=== PATIENT | female | born 1960 | race African-American/Black ===

== ENCOUNTER → 2017-09-25 | Outpatient (CLI) | payer BC ==
[2015-09-27 13:14] VITALS: BP 136/72
--- NOTE | 2017-09-26 10:09 | MG ---
Examination: Bilateral screening mammogram. Clinical history: Routine screening. Technique: Digital CC and MLO views of both breasts were obtained. Computer aided detection analysis was performed and used during the interpretation. Comparison: 09/24/2016. Findings: The breasts are composed of scattered fibroglandular densities. Benign-appearing calcifications and v ascular calcifications are noted in the breasts bilaterally. Stable small intramammary lymph nodes ar e present in the upper outer aspect of the left breast. A skin mole is present overlying the left elsa ast. No suspicious mass, area of architectural distortion or suspicious cluster of microcalcifications is noted. Impression: 1. No mammographic evidence of malignancy. BI-RADS category 2-benign findings. Recommend routine annual screening mammogram. Diagnostic CAD was utilized and reviewed. * 0 (ZERO) - ASSESSMENT INCOMPLETE; ADDITIONAL IMAGING IS NEEDED. * 0C - ASSESSMENT INCOMPLETE, NEEDS ADDITIONAL IMAGING EVALUATION AND/OR PRIOR MAMMOGRAMS FOR COMPARI SON. * 1/1 (ONE) - NEGATIVE. * 2/II (TWO) - BENIGN FINDINGS. * 3/III (THREE) - PROBABLY BENIGN FINDING; SHORT INTERVAL FOLLOW-UP SUGGESTED. * 4/IV (FOUR) - SUSPICIOUS ABNORMALITY; BIOPSY SHOULD BE CONSIDERED. * 5/V - HIGHLY SUSPICIOUS OF MALIGNANCY; BIOPSY SHOULD BE PERFORMED. * 6/IV - KNOWN BIOPSY PROVEN MALIGNANCY-APPROPRIATE ACTION SHOULD BE TAKEN. A NEGATIVE X-RAY REPORT SHOULD NOT DELAY BIOPSY IF A DOMINANT OR CLINICALLY SUSPICIOUS MASS IS PRESENT; 4 TO 8 PERCENT OF CANCERS ARE NOT IDENTIFIED BY X-RAY. A NEGATIVE REPORT MAY REINFORCE THE CLINICAL IMPRESSION. ADENOSIS AND DENSE BREASTS MAY OBSCURE AN UNDERLYING NEOPLASM. Reported By:
== END ==
LOC: RAD 14:15
PROVIDERS: ATTEND Specialist
DX: Z12.31 Encounter for screening mammogram for malignant neoplasm of breast (principal)
CPT/HCPCS: 77067

== ENCOUNTER 2017-12-10 05:32 | Emergency (ER) | payer BC ==
--- NOTE | 2017-12-10 06:10 | DR.GENAD ---
HPI - PCP Primary Care Physician: PERI - HPI Comment HPI Comment: HISTORY BOWEL RESECTION DUE TO CANCER. SYMTOMS GETTING WORSE. - Complaint/Symptoms Chief Complaint Doctors Comments: NAUSEA, VOMITNG AND ABDOMINAL PAIN.HAPPEN ALL NIGHT. ABDOMEN IS DISTENDED. Chief Complaint:: PT STATES" I HAVE BEEN THROWING UP ALL NIGHT AND I'M CONSTIPATED MY STOMACH IS HARD" - Nurses notes reviewed Nurses Notes Review: Yes - Source History Provided: Patient - Mode of Arrival Mode of Arrival: Ambulatory - Timing Onset of Chief Complaint: 12/09/17 Came on: Suddenly - Duration Duration: Constant Duration: Days - Severity Severity: Moderate PMH - PMH Past Medical History: Yes Past Medical History: Dyslipidemia, GERD, Hypertension Past Surgical History: Yes Surgical History: Bowel Resection, Cholecystectomy, Hysterectomy Past Surgical History Comment: PART OF STOMACH REMOVED DUE TO CANCER - Family History History of Family Medical Conditions: Yes Family Medical History: Cancer - Social History Does any household member use tobacco: No Alcohol Use: None Do you use any recreational Drugs:: No Lives With: Family Lives Where: Home - infectious screening In the last 2 months have you had wt loss of >10#?: NO Have you had fever, night sweats or hemotysis?: No Have you traveled outside the country in the last 6 months?: No Isolation: Standard ROS - Review of Systems Constitutional: Weakness, Fatigue. negative: Chills, Fever Eyes: No Symptoms Reported, Photophobia ENTM: negative: Ear Pain, Nose Discharge, Nose Congestion, Throat Pain Respiratoy: Short of Breath. negative: Wheezing, Hemoptysis Cardiovascular: negative: Edema Gastrointestinal/Abdominal: Abdominal Pain, Constipation, Nausea, Vomiting Genitourinary: negative: Dysuria, Frequency, Hematuria Neurological: Headache Musculoskeletal: Muscle Pain Integumentary: Dryness Hematologic/Lymphatic: Anemia Endocrine: No Symptoms Reported All Other Systems: Reviewed and Negative PE - Vital Signs Vitals: Temperature 97.7 F Pulse Rate 76 Respiratory Rate 16 Blood Pressure [Right Arm] 135/86 Blood Pressure [Left Arm] 145/76 Blood Pressure [Left Radial 126/65 Artery] Blood Pressure 121/77 O2 Sat by Pulse Oximetry 99 - General Limitations: No Limitations General Appearance: Alert - Head Head Exam: Normal Inspection - Eyes Eye exam: Normal Appearance - ENT ENT Exam: Normal External Ear Exam External Ear Exam: Normal External Inspection TM/Canal Exam: Bilateral Normal Nose Exam: Normal Nose Exam Mouth Exam: Normal Inspection Throat Exam: Normal Inspection - Neck Neck Exam: Trachea Midline - Chest Chest Inspection: Symmetric Chest Wall Rise - Respiratory Respiratory Exam: Normal Lung Sounds Bilat Respiratory Exam: Bilateral Clear to Auscultation - Cardiovascular Cardiovascular Exam: Regular Rate, Normal Rhythm, Normal Heart Sounds - Abdominal Exam Abdominal Exam: Normal Bowel Sounds, Soft, Tenderness Abdominal Tenderness: Diffuse, Moderate - Extremities Extremities Exam: Normal Inspection - Back Back Exam: Normal Inspection - Neurologic Neurological Exam: Alert, Oriented X3 - Psychiatric Psychiatric Exam: Normal Affect, Normal Mood - Skin Skin Exam: Normal Color MDM - Additional Information Additional Information Obtained From: Family - Differential Diagnosis Differential Diagnosis: ABDOMINAL PAIN, BOWEL OBSTRUCTION, Course - Treatment Treatment: SEE ORDERS. - Education/Counseling Education/Counseling: Patient, Family, Education Educated On: Diagnosis ROR - Labs Reviewed Laboratory Results Reviewed?: Yes Result Diagrams: 12/11/17 06:31 12/11/17 06:31 Laboratory: WBC 7.0 X10^3/uL (3.6-10.0) 12/10/17 06:24 RBC 4.62 X10^6/uL (3.5-5.4) 12/10/17 06:24 Hgb 12.5 g/dL (12.0-16.0) 12/10/17 06:24 Hct 37.3 % (36.0-47.0) 12/10/17 06:24 MCV 80.9 fL (80.0-100.0) 12/10/17 06:24 MCH 27.1 pg (27.0-34.0) 12/10/17 06:24 MCHC 33.5 g/dL (33.0-35.0) 12/10/17 06:24 RDW 18.0 % (11.6-16.5) H 12/10/17 06:24 Plt Count 174 X10^3/uL (150.0-450.0) 12/10/17 06:24 Plt Count Comment Adequate (ADEQUATE) 12/10/17 06:24 MPV 8.1 fL (7.4-11.0) 12/10/17 06:24 Neut % (Auto) 83.6 % (42.0-75.0) H 12/10/17 06:24 Lymph % (Auto) 11.0 % (21.0-51.0) L 12/10/17 06:24 [place] % (Auto) 3.9 % (0.0-13.0) 12/10/17 06:24 Eos % (Auto) 0.6 % (0.9-2.9) L 12/10/17 06:24 Baso % (Auto) 0.9 % (0.2-1.0) 12/10/17 06:24 Neut # (Auto) 5.9 x10^3/uL (2.2-4.8) H 12/10/17 06:24 Lymph # (Auto) 0.8 X10^3/uL (1.3-2.9) L 12/10/17 06:24 [place] # (Auto) 0.3 x10^3/uL (0.3-0.8) 12/10/17 06:24 Eos # (Auto) 0.0 x10^3/uL (0.0-0.2) 12/10/17 06:24 Baso # (Auto) 0.1 X10^3/uL (0.0-0.1) 12/10/17 06:24 Absolute Nucleated RBC 0.1 /100WBC 12/10/17 06:24 Plt Morphology Comment Normal (NORMAL) 12/10/17 06:24 RBC Morphology Normal (NORMAL) 12/10/17 06:24 Sodium 139 mmol/L (136-145) 12/10/17 06:24 Corrected Sodium 140 mmol/L (136-145) 12/10/17 06:24 Potassium 3.7 mmol/L (3.5-5.1) 12/10/17 06:24 Chloride 100 mmol/L (98-107) 12/10/17 06:24 Carbon Dioxide 28.8 mmol/L (21-32) 12/10/17 06:24 BUN 12 mg/dL (7-18) 12/10/17 06:24 Creatinine 0.92 mg/dL (0.55-1.02) 12/10/17 06:24 Est GFR (MDRD) Af Amer > 60 (>60) 12/10/17 06:24 Est GFR (MDRD) Non-Af > 60 (>60) 12/10/17 06:24 Glucose 153 mg/dL (65-99) H 12/10/17 06:24 Calcium 8.6 mg/dL (8.5-10.1) 12/10/17 06:24 Corrected Calcium TNP 12/10/17 06:24 Total Bilirubin 0.30 mg/dL (0.2-1.0) 12/10/17 06:24 AST 16 Units/L (15-37) 12/10/17 06:24 ALT 28 Units/L (12-78) 12/10/17 06:24 Alkaline Phosphatase 136 Units/L (46-116) H 12/10/17 06:24 Total Protein 7.4 g/dL (6.4-8.2) 12/10/17 06:24 Albumin 3.5 g/dL (3.4-5.0) 12/10/17 06:24 Globulin 3.9 g/dL (2.5-4.5) 12/10/17 06:24 Albumin/Globulin Ratio 0.9 Ratio (1.1-2.1) L 12/10/17 06:24 Amylase 53 Units/L (25-115) 12/10/17 06:24 Lipase 72 Units/L (73-393) L 12/10/17 06:24 Specimen Type Clean catch urine 12/10/17 06:08 Urine Color Yellow (YELLOW) 12/10/17 06:08 Urine Appearance Slightly hazy (CLEAR) 12/10/17 06:08 Urine pH 6.5 (5.0 - 8.0) 12/10/17 06:08 Ur Specific [place] 1.015 (1.000-1.030) 12/10/17 06:08 Urine Protein 2+ (NEGATIVE) 12/10/17 06:08 Urine Glucose (UA) 1+ (NEGATIVE) 12/10/17 06:08 Urine Ketones Negative (NEGATIVE) 12/10/17 06:08 Urine Occult Blood 2+ (NEGATIVE) 12/10/17 06:08 Urine Nitrite Negative (NEGATIVE) 12/10/17 06:08 Urine Bilirubin Negative (NEGATIVE) 12/10/17 06:08 Urine Urobilinogen Normal (NORMAL) 12/10/17 06:08 Ur Leukocyte Esterase 2+ (NEGATIVE) 12/10/17 06:08 Urine RBC 3-5 /HPF (NONE SEEN) 12/10/17 06:08 Urine WBC 5-10 /HPF (NONE SEEN) 12/10/17 06:08 Ur Squamous Epith Cells Few /HPF (NEGATIVE) 12/10/17 06:08 Urine Bacteria 1+ /HPF (NEGATIVE) 12/10/17 06:08 Urine Mucus Few /HPF (NEGATIVE) 12/10/17 06:08 Ur Culture Indicated? Yes/culture set up 12/10/17 06:08 - XRAY XRAY Interpreted by: Radiologist - Diagnosis Discharge Problem: Disease ruled out after examination Abdominal pain Qualifiers: Abdominal location: generalized Qualified Code(s): R10.84 - Generalized abdominal pain UTI (urinary tract infection) Qualifiers: Urinary tract infection type: site unspecified Hematuria presence: without hematuria Qualified Code(s): N39.0 - Urinary tract infection, site not specified - Discharge Plan Disposition: ADMITTED INPATIENT Condition: Stable - Follow ups/Referrals - Instructions
[2017-12-10 06:23] LABS: BILIRUBIN,URINE NEGATIVE (NEGATIVE); BLOOD/HEMOGLOBIN,URINE 2+ (NEGATIVE); GLUCOSE, URINE 1+ (NEGATIVE); KETONES,URINE NEGATIVE (NEGATIVE); LEUKOCYTE ESTERASE ,URINE 2+ (NEGATIVE); NITRITES,URINE NEGATIVE (NEGATIVE); PH,URINE 6.5 (5.0 - 8.0); PROTEIN,URINE 2+ (NEGATIVE); UROBILINOGEN,URINE NORMAL (NORMAL)
[2017-12-10 06:29] LABS: APPEARANCE,URINE SLIGHTLY HAZY (CLEAR); BACTERIA,URINE 1+ /HPF (NEGATIVE); COLOR,URINE YELLOW (YELLOW); MUCUS,URINE FEW /HPF (NEGATIVE); SQUAMOUS EPITHELIAL CELL,UR FEW /HPF (NEGATIVE)
[2017-12-10 06:38] LABS: BASOPHILS # (AUTO) 0.1 X10^3/uL (0.0-0.1); BASOPHILS % (AUTO) 0.9 % (0.2-1.0); EOSINOPHILS % (AUTO) 0.6 % (0.9-2.9); HEMATOCRIT 37.3 % (36.0-47.0); HEMOGLOBIN 12.5 g/dL (12.0-16.0); LYMPHOCYTES # (AUTO) 0.8 X10^3/uL (1.3-2.9); MEAN CORPUSCULAR HEMOGLOBIN 27.1 pg (27.0-34.0); MEAN CORPUSCULAR HGB CONC 33.5 g/dL (33.0-35.0); MEAN CORPUSCULAR VOLUME 80.9 fL (80.0-100.0); MEAN PLATELET VOLUME 8.1 fL (7.4-11.0); MONOCYTES # (AUTO) 0.3 x10^3/uL (0.3-0.8); MONOCYTES % (AUTO) 3.9 % (0.0-13.0); NEUTROPHILS # (AUTO) 5.9 x10^3/uL (2.2-4.8); NEUTROPHILS % (AUTO) 83.6 % (42.0-75.0); PLATELET COUNT 174 X10^3/uL (150.0-450.0); RED BLOOD COUNT 4.62 X10^6/uL (3.5-5.4)
[2017-12-10 06:50] LABS: ALANINE AMINOTRANSFERASE 28 Units/L (12-78); ALBUMIN 3.5 g/dL (3.4-5.0); ALKALINE PHOSPHATASE 136 Units/L (46-116); AMYLASE 53 Units/L (25-115); ASPARTATE AMINO TRANSFERASE 16 Units/L (15-37); BLOOD UREA NITROGEN 12 mg/dL (7-18); CALCIUM 8.6 mg/dL (8.5-10.1); CARBON DIOXIDE 28.8 mmol/L (21-32); CHLORIDE 100 mmol/L (98-107); COR NA(FOR HYPERGLY) 140 mmol/L (136-145); CREATININE 0.92 mg/dL (0.55-1.02); LIPASE 72 Units/L (73-393); SODIUM 139 mmol/L (136-145); TOTAL PROTEIN 7.4 g/dL (6.4-8.2); eGFR BLACK RACES > 60 (>60); eGFR NON BLACK RACES > 60 (>60)
[2017-12-10 07:03] LABS: PLATELET MORPHOLOGY COMMENT NORMAL (NORMAL)
--- NOTE | 2017-12-10 07:34 | CT ---
HISTORY: Abdominal pain, vomiting, constipation. Prior surgical history of bowel surgery, gallbladde r, hysterectomy and stomach surgery. Study: CT abdomen and pelvis done without IV or oral contrast Comparison: 05/02/2015. Technique: Non contrasted CT images of the abdomen and pelvis are reviewed in axial, coronal and sagi ttal planes. Dose reduction techniques utilized automatic exposure control. Findings: Lung bases are clear. The liver, spleen, pancreas, adrenal glands and kidneys are normal. There are s urgical changes present involving the upper abdomen with evidence of removal of the transverse colon. Surgical clips are present involving the gastric body as well. No evidence of residual or recurrent mass is seen. There is no evidence of bowel wall thickening. Mild fluid distention of the small bowel is appreciated with a nonspecific pattern. No focal point of obstruction is seen. There is some stoo l present within the remaining colon. Mild atherosclerotic changes are present involving the bateman of the abdominal aorta. No evidence of mesenteric adenopathy, free intraperitoneal air or fluid is seen . Uterus and ovaries are surgically absent. Urinary bladder is small. No acute osseous abnormality is seen. IMPRESSION: Interval surgical changes present involving the transverse colon and stomach. Mild fluid distention of small bowel loops in the mid epigastric region. This is without a focal poin t of obstruction. No evidence of adenopathy, fluid or free air. Surgically absent gallbladder, uterus and ovaries. Reported By:
[2017-12-10] MEDS ORDERED: PEPCID 20 MG IV PREMIX* 20 MG/50 ML BAG IV PRN (08:04)
[2017-12-10] MEDS ORDERED: PHENERGAN INJ 25 MG IVP PRN (08:04)
[2017-12-10] MEDS ORDERED: ZOFRAN INJ 4 MG VIAL IVP PRN (08:04)
[2017-12-10] MEDS: NS 1000 ML 1,000 ML IV SCH ×3 (08:35→21:24)
[2017-12-10] MEDS: MORPHINE SULFATE INJ 2 MG INJ IVP PRN ×3 (08:35→20:15)
[2017-12-10 10:25] VITALS: BMI 35.3
[2017-12-10] MEDS ORDERED: GLUCOPHAGE ONE (21:16)
[2017-12-10] MEDS ORDERED: NORVASC TAB 2.5 MG ONE (21:17)
[2017-12-10] MEDS: COLACE CAP 100 MG PO SCH (21:20)
[2017-12-10] MEDS: GLUCOPHAGE PO SCH (21:20)
[2017-12-10] MEDS: MILK OF MAGNESIA PO SCH (21:20)
[2017-12-10] MEDS: MIRALAX POWDER (1 DOSE 17GM) PO SCH (21:21)
[2017-12-10] MEDS: NORVASC TAB 2.5 MG PO SCH (21:21)
[2017-12-11] MEDS: MORPHINE SULFATE INJ 2 MG INJ IVP PRN ×2 (02:22→21:04)
[2017-12-11 07:07] LABS: BASOPHILS # (AUTO) 0.2 X10^3/uL (0.0-0.1); BASOPHILS % (AUTO) 3.6 % (0.2-1.0); EOSINOPHILS # (AUTO) 0.1 x10^3/uL (0.0-0.2); HEMATOCRIT 34.1 % (36.0-47.0); HEMOGLOBIN 11.4 g/dL (12.0-16.0); LYMPHOCYTES # (AUTO) 1.4 X10^3/uL (1.3-2.9); LYMPHOCYTES % (AUTO) 32.1 % (21.0-51.0); MEAN CORPUSCULAR HEMOGLOBIN 27.2 pg (27.0-34.0); MEAN CORPUSCULAR HGB CONC 33.5 g/dL (33.0-35.0); MEAN CORPUSCULAR VOLUME 81.2 fL (80.0-100.0); MEAN PLATELET VOLUME 8.2 fL (7.4-11.0); MONOCYTES # (AUTO) 0.4 x10^3/uL (0.3-0.8); MONOCYTES % (AUTO) 8.1 % (0.0-13.0); NEUTROPHILS # (AUTO) 2.3 x10^3/uL (2.2-4.8); NEUTROPHILS % (AUTO) 54.2 % (42.0-75.0); PLATELET COUNT 144 X10^3/uL (150.0-450.0); RED CELL DISTRIBUTION WIDTH 17.6 % (11.6-16.5); WHITE BLOOD COUNT 4.3 X10^3/uL (3.6-10.0)
[2017-12-11 07:08] LABS: ALANINE AMINOTRANSFERASE 27 Units/L (12-78); ALKALINE PHOSPHATASE 112 Units/L (46-116); AMYLASE 41 Units/L (25-115); ASPARTATE AMINO TRANSFERASE 15 Units/L (15-37); BLOOD UREA NITROGEN 9 mg/dL (7-18); CALCIUM 8.2 mg/dL (8.5-10.1); CHLORIDE 105 mmol/L (98-107); CREATININE 1.02 mg/dL (0.55-1.02); LIPASE 52 Units/L (73-393); SODIUM 141 mmol/L (136-145); TOTAL PROTEIN 6.4 g/dL (6.4-8.2); eGFR BLACK RACES > 60 (>60); eGFR NON BLACK RACES 59 (>60)
[2017-12-11 08:01] LABS: PLATELET MORPHOLOGY COMMENT NORMAL (NORMAL)
--- NOTE | 2017-12-11 08:32 | RAD ---
HISTORY: Abdominal pain. Vomiting. Constipation. Study: KUB Comparison: CT scan of the abdomen pelvis 12/10/2017 Findings: Scattered large and small bowel gas present. I see no evidence of bowel obstruction or pneumoperiton eum. Numerous surgical clips are present in the upper abdomen. Numerous calcifications are present in the anatomic pelvis, most likely phleboliths. Mild degenerative changes present in the lumbar spi ne, sacroiliac joints and hips. IMPRESSION: 1. No evidence of bowel obstruction or pneumoperitoneum. Reported By:
[2017-12-11] MEDS: GLUCOPHAGE ONE ×2 (08:34→08:36)
[2017-12-11] MEDS: FOLIC ACID TAB 1 MG PO SCH (08:34)
[2017-12-11] MEDS: GLUCOPHAGE PO SCH ×2 (08:34→21:01)
[2017-12-11] MEDS: MICRO K EXTEN CAP 10 MEQ PO SCH (08:37)
[2017-12-11] MEDS: LIPITOR TAB 40 MG PO SCH (08:37)
[2017-12-11] MEDS: HYZAAR 50/12.5 MG PO SCH (08:37)
[2017-12-11] MEDS: MILK OF MAGNESIA PO SCH ×4 (08:38→21:02)
[2017-12-11] MEDS: VITAMIN D3 PO SCH (08:38)
[2017-12-11] MEDS: SYNTHROID 25 mcg TAB PO SCH (08:39)
[2017-12-11] MEDS ORDERED: CHOLECALCIFEROL PO SCH (09:00)
[2017-12-11] MEDS ORDERED: PATIENT'S HOME MEDICATION (Potassium Chloride [K-Tab Er] 10 MEQ) PO SCH (09:00)
[2017-12-11] MEDS: SNACK - Diabetic Appropriate PO SCH ×2 (10:58→21:02)
[2017-12-11] MEDS: ROCEPHIN VIAL 1 GM 1 GM in NS 100 ML IV + SPIKE MINIBAG* 100 ML IV SCH (11:00)
--- NOTE | 2017-12-11 15:49 | DR.H&P ---
H&P - History & Physical for Day of: H&P Date: 12/10/17 - Chief Complaint Chief Complaint: abdominal pain, nausea, vomiting - Allergies Allergies/Adverse Reactions: Allergies Allergy/AdvReac Type Severity Reaction Status Date / Time No Known Drug Allergies Allergy Verified 12/10/17 05:34 - History of Present Illness History of Present Illness: is a 57 year old patient of ours who presented to the emergency room with reports of abdominal pain with associated nausea and vomiting. Patient reports she is has been constipated. She reports that her last bowel movement was four days ago. Patient reports a history of stomach and colon cancer with surgical removal of half of stomach with bowel resection. On palpation of abdominal patient is noted with moderate, diffuse tenderness. On arrival, vitals were 97.7, 76, 16, 99% RA, 121/77. Labs were obtained. Abnormal lab values include the following: Abnormal Labs reveals: RDW 18.0, Glucose 153, Alk Phos 136, A/G Ratio 0.9, Lipase 72. Urinalysis reveals: Slightly Hazy, Protein 2+, Glucose 1+, Occult Blood 2+, Leuk Est 2+, RBC 3-5, WBC 5-10, Bacteria 1+, Mucus Few, Culture Pending. Abdomen/Pelvis CT obtained and revealed: Interval surgical changes present involving the transverse colon and stomach. Mild fluid distention of small bowel loops in the mid epigastric region. This is without a focal point of obstruction. No evidence of adenopathy, fluid or free air. Surgically absent gallbladder, uterus and ovaries. Patient was admitted to the hospital as observation for further evaluation and treatment. She was started on Normal Saline at 80ml/hr, Pepcid 20mg iv bid, Rocephin 1gm iv daily, and a bowel regimen. We will follow up with labs and a KUB in the morning. - Past Medical History Past Medical History: Dyslipidemia, GERD, Hypertension Additional Medical History: Petit Syndrome, Colon Cancer - Past Surgical History Surgical History: Bowel Resection, Cholecystectomy, Hysterectomy Additional Surgical History: Partial Bowel Resection, Right Eye Surgery - Family History Family Medical History: Cancer - Social History Does patient currently use any type of tobacco product: No Have you used tobacco products in the last 12 months: No Type of Tobacco Use: None Does any household member use tobacco: No Alcohol Use: None Drug Use: None - Medications Home Medications: Cholecalciferol (Vitamin D3) [Vitamin D3] 2 tabs PO DAILY 12/10/17 [History Confirmed 12/10/17] Levothyroxine Sodium 1 tab PO DAILY 12/10/17 [History Confirmed 12/10/17] Metformin HCl [GLUCOPHAGE 500 MG *] 1 tab PO BID 12/10/17 [History Confirmed ] - Physical Exam Vital Signs: Temperature 97.2 F Pulse Rate [Left Brachial] 88 Pulse Rate 76 Respiratory Rate 24 Blood Pressure [Right Arm] 118/55 Blood Pressure [Left Arm] 115/65 Blood Pressure [Left Radial 126/65 Artery] Blood Pressure 121/77 O2 Sat by Pulse Oximetry 98
[2017-12-11] MEDS ORDERED: GLUCOPHAGE ONE (19:44)
[2017-12-11] MEDS ORDERED: NORVASC TAB 2.5 MG ONE (19:44)
[2017-12-11] MEDS: MIRALAX POWDER (1 DOSE 17GM) PO SCH (21:02)
[2017-12-11] MEDS: COLACE CAP 100 MG PO SCH (21:02)
[2017-12-11] MEDS: NORVASC TAB 2.5 MG PO SCH (21:03)
[2017-12-11] MEDS: NS 1000 ML 1,000 ML IV SCH (21:04)
[2017-12-12] MEDS: NS 1000 ML 1,000 ML IV SCH (02:14)
[2017-12-12] MEDS: MORPHINE SULFATE INJ 2 MG INJ IVP PRN ×2 (02:18→07:07)
[2017-12-12 06:35] LABS: BASOPHILS % (AUTO) 0.8 % (0.2-1.0); EOSINOPHILS # (AUTO) 0.1 x10^3/uL (0.0-0.2); EOSINOPHILS % (AUTO) 2.1 % (0.9-2.9); HEMATOCRIT 33.4 % (36.0-47.0); HEMOGLOBIN 11.3 g/dL (12.0-16.0); LYMPHOCYTES # (AUTO) 1.4 X10^3/uL (1.3-2.9); LYMPHOCYTES % (AUTO) 32.4 % (21.0-51.0); MEAN CORPUSCULAR HEMOGLOBIN 27.5 pg (27.0-34.0); MEAN CORPUSCULAR HGB CONC 33.7 g/dL (33.0-35.0); MEAN CORPUSCULAR VOLUME 81.6 fL (80.0-100.0); MEAN PLATELET VOLUME 8.4 fL (7.4-11.0); MONOCYTES # (AUTO) 0.3 x10^3/uL (0.3-0.8); MONOCYTES % (AUTO) 7.8 % (0.0-13.0); NEUTROPHILS # (AUTO) 2.5 x10^3/uL (2.2-4.8); NEUTROPHILS % (AUTO) 56.9 % (42.0-75.0); PLATELET COUNT 146 X10^3/uL (150.0-450.0); RED CELL DISTRIBUTION WIDTH 17.6 % (11.6-16.5); WHITE BLOOD COUNT 4.3 X10^3/uL (3.6-10.0)
[2017-12-12 06:47] LABS: ALANINE AMINOTRANSFERASE 26 Units/L (12-78); ALKALINE PHOSPHATASE 115 Units/L (46-116); ASPARTATE AMINO TRANSFERASE 14 Units/L (15-37); BLOOD UREA NITROGEN 5 mg/dL (7-18); CALCIUM 8.3 mg/dL (8.5-10.1); CARBON DIOXIDE 25.1 mmol/L (21-32); CHLORIDE 104 mmol/L (98-107); COR CA(FOR HYPOALB) 9.1 mg/dL (8.5-10.1); CREATININE 0.91 mg/dL (0.55-1.02); SODIUM 140 mmol/L (136-145); TOTAL PROTEIN 6.3 g/dL (6.4-8.2); eGFR BLACK RACES > 60 (>60); eGFR NON BLACK RACES > 60 (>60)
[2017-12-12 06:55] LABS: PLATELET MORPHOLOGY COMMENT NORMAL (NORMAL)
--- NOTE | 2017-12-12 07:07 | RAD ---
Examination: KUB History: Abdominal pain and vomiting Comparison reference 12/11/2017 Findings: Intestinal gas pattern remains nonobstructive. There is no evidence for developing mass, fr ee fluid, or pathologic calcification. Surgical clips are present as before. Multiple vascular calcif ications are noted in the pelvis. Impression: No acute process identified. Reported By:
[2017-12-12] MEDS ORDERED: GLUCOPHAGE ONE (08:32)
[2017-12-12 09:31] VITALS: BP 119/64
[2017-12-12] MEDS: GLUCOPHAGE PO SCH (09:32)
[2017-12-12] MEDS: VITAMIN D3 PO SCH (09:32)
[2017-12-12] MEDS: SYNTHROID 25 mcg TAB PO SCH (09:32)
[2017-12-12] MEDS: MICRO K EXTEN CAP 10 MEQ PO SCH (09:33)
[2017-12-12] MEDS: LIPITOR TAB 40 MG PO SCH (09:33)
[2017-12-12] MEDS: ROCEPHIN VIAL 1 GM 1 GM in NS 100 ML IV + SPIKE MINIBAG* 100 ML IV SCH (09:33)
[2017-12-12] MEDS: HYZAAR 50/12.5 MG PO SCH (09:33)
[2017-12-12] MEDS: MILK OF MAGNESIA PO SCH (09:33)
[2017-12-12] MEDS: FOLIC ACID TAB 1 MG PO SCH (09:34)
== END 2017-12-12 11:27 | disposition home or self-care (01) ==
LOC: ER 05:32 → OBS 08:23
PROVIDERS: ADMIT Internal Medicine; ATTEND Internal Medicine
DX: R10.84 Generalized abdominal pain (principal); N39.0 Urinary tract infection, site not specified; R11.2 Nausea with vomiting, unspecified; Z85.038 Personal history of other malignant neoplasm of large intestine; Z90.49 Acquired absence of other specified parts of digestive tract
CPT/HCPCS: 36415; 74018; 74176; 80053; 81001; 82150; 83690; 85025; 87086; 96365; 96374; 96375; 99284; A4222; S0028; G0378; J0696; J2270; J2550

== ENCOUNTER 2018-01-15 11:38 | Inpatient (IN) | payer BC ==
--- NOTE | 2018-01-15 13:39 | ED.ABDFE ---
HPI - Time seen Time seen: 13:35 - PCP Primary Care Physician: PERI - HPI Comment HPI Comment: PATIENT HAVE HISTORY OF COLON CA AND MULTIPLE SURGERY. HAVE HAD SEVERAL BOWEL OBSTRUCTIONS IN THE PAST. NO FEVER. CONSTIPATED. - Complaint Chief Complaint Doctors Comments: ABDOMINAL PAIN WITH NAUSEA AND VOMITING TIMES ONE DAY. Chief Complaint:: PT THINKS HER STOMACH HAS BECOME BLOCKED UP AGAIN. PT HAS A HX OF BLOCKAGES IN THE ABD. PT STATED SHE STARTED THROWING UP LAST NIGHT AND NOT HAVING ANY BMS. LAST BM WAS YESTERDAY MORNING. - Nurses notes reviewed Nurses Notes Review: Yes - Source History Provided: Patient - Mode of arrival Mode of Arrival: Ambulatory - Timing Onset of Chief Complaint: 01/14/18 Came on: Suddenly - Duration Duration: Constant Duration: Days - Location Location: Diffuse - Severity Severity: Moderate - Quality Quality: Cramping, Sharp - Context Onset: Suddenly History of: Abdominal surgery, Similar pain (dx) - Modifying Worsening Factors: Nothing Improving Factors: Nothing - Associated signs and symptoms Associated Signs and Symptoms: Nausea, Vomiting PMH - PMH Past Medical History: Yes Past Medical History: Dyslipidemia, GERD, Hypertension Past Surgical History: Yes Surgical History: Bowel Resection, Cholecystectomy, Hysterectomy - Family History History of Family Medical Conditions: Yes Family Medical History: Cancer - Social History Does patient currently use any type of tobacco product: No Have you used tobacco products in the last 12 months: No Type of Tobacco Use: None Does any household member use tobacco: No Alcohol Use: None Do you use any recreational Drugs:: No Lives With: Family Lives Where: Home - infectious screening In the last 2 months have you had wt loss of >10#?: NO Have you had fever, night sweats or hemotysis?: No Have you traveled outside the country in the last 6 months?: No Isolation: Standard ROS - Review of Systems Constitutional: Weakness, Fatigue, Loss of Appetite. negative: Chills, Fever Eyes: No Symptoms Reported. negative: Eye Pain, Discharge ENTM: No Symptoms Reported. negative: See HPI, Nose Discharge, Nose Congestion , Throat Pain Respiratoy: No Symptoms Reported. negative: Productive Cough, Short of Breath, Wheezing, Hemoptysis Cardiovascular: No Symptoms Reported Gastrointestinal/Abdominal: Abdominal Pain, Constipation, Nausea, Vomiting Genitourinary: No Symptoms Reported. negative: Dysuria, Frequency, Hematuria Neurological: Weakness Musculoskeletal: Muscle Pain Integumentary: No Symptoms Reported Hematologic/Lymphatic: No Symptoms Reported Endocrine: No Symptoms Reported All Other Systems: Reviewed and Negative PE - Vital Signs Vitals: Temperature 97.6 F Pulse Rate 96 Respiratory Rate 20 Blood Pressure [Right Arm] 119/64 Blood Pressure [Left Arm] 115/65 Blood Pressure [Left Radial 126/65 Artery] Blood Pressure 125/74 O2 Sat by Pulse Oximetry 98 - General Limitations: No Limitations General Appearance: Alert - Head Head Exam: Normal Inspection - Eyes Eye exam: Normal Appearance - ENT ENT Exam: Normal External Ear Exam - Neck Neck Exam: Trachea Midline - Chest Chest Inspection: Symmetric Chest Wall Rise - Respiratory Respiratory Exam: Normal Lung Sounds Bilat Respiratory Exam: Bilateral Clear to Auscultation - Cardiovascular Cardiovascular Exam: Regular Rate, Normal Rhythm, Normal Heart Sounds - Abdominal Exam Abdominal Exam: Normal Bowel Sounds, Distention, Tenderness Abdominal Tenderness: Diffuse, Moderate - Rectal Rectal Exam: Deferred - Back Back Exam: Paraspinal Tenderness - Extremeties Extremities Exam: Normal Inspection - : Speculum Exam (Female): Deferred : Bimanual Exam (female): Deferred - Neurologic Neurological Exam: Alert, Oriented X3 - Psychiatric Psychiatric Exam: Normal Affect, Normal Mood - Skin Skin Exam: Normal Color MDM - Additional Information Obtained From Additional information provided by: Family - Differential Diagnosis Differential Diagnosis- Considerations may include:: Bowel Obstruction, Diverticular disease, Esophagitis, Gastritus/PUD, Ischemic Bowel, Pancreatitis, Urinary tract infection, Urolithiasis Course - Treatment Treatment: SEE ORDERS. - Consultation Consultation Comments: DISCUSS PATIENT WITH DR GILLETTE, SURGEON. HE IS IN ED SEING PATIENT. WILL ADMIT PATIENT AND CONSULT SURGERY. - Education/Counseling Education/Counseling: Patient, Family, Education Educated On: Diagnosis, Needs for Follow Up ROR - Labs Reviewed Laboratory Results Reviewed?: Yes Result Diagrams: 01/16/18 05:53 01/16/18 05:53 Laboratory: WBC 5.3 X10^3/uL (3.6-10.0) 01/16/18 05:53 RBC 4.13 X10^6/uL (3.5-5.4) 01/16/18 05:53 Hgb 11.4 g/dL (12.0-16.0) L 01/16/18 05:53 Hct 33.9 % (36.0-47.0) L 01/16/18 05:53 MCV 82.0 fL (80.0-100.0) 01/16/18 05:53 MCH 27.6 pg (27.0-34.0) 01/16/18 05:53 MCHC 33.6 g/dL (33.0-35.0) 01/16/18 05:53 RDW 14.9 % (11.6-16.5) 01/16/18 05:53 Plt Count 162 X10^3/uL (150.0-450.0) 01/16/18 05:53 MPV 8.3 fL (7.4-11.0) 01/16/18 05:53 Neut % (Auto) 67.3 % (42.0-75.0) 01/16/18 05:53 Lymph % (Auto) 22.2 % (21.0-51.0) 01/16/18 05:53 [place] % (Auto) 9.4 % (0.0-13.0) 01/16/18 05:53 Eos % (Auto) 0.6 % (0.9-2.9) L 01/16/18 05:53 Baso % (Auto) 0.5 % (0.2-1.0) 01/16/18 05:53 Neut # (Auto) 3.6 x10^3/uL (2.2-4.8) 01/16/18 05:53 Lymph # (Auto) 1.2 X10^3/uL (1.3-2.9) L 01/16/18 05:53 [place] # (Auto) 0.5 x10^3/uL (0.3-0.8) 01/16/18 05:53 Eos # (Auto) 0.0 x10^3/uL (0.0-0.2) 01/16/18 05:53 Baso # (Auto) 0.0 X10^3/uL (0.0-0.1) 01/16/18 05:53 Absolute Nucleated RBC 0.0 /100WBC 01/16/18 05:53 Sodium 140 mmol/L (136-145) 01/15/18 13:54 Corrected Sodium 140 mmol/L (136-145) 01/15/18 13:54 Potassium 3.9 mmol/L (3.5-5.1) 01/15/18 13:54 Chloride 102 mmol/L (98-107) 01/15/18 13:54 Carbon Dioxide 30.5 mmol/L (21-32) 01/15/18 13:54 BUN 8 mg/dL (7-18) 01/15/18 13:54 Creatinine 0.87 mg/dL (0.55-1.02) 01/15/18 13:54 Est GFR (MDRD) Af Amer > 60 (>60) 01/15/18 13:54 Est GFR (MDRD) Non-Af > 60 (>60) 01/15/18 13:54 Glucose 120 mg/dL (65-99) H 01/15/18 13:54 Calcium 9.1 mg/dL (8.5-10.1) 01/15/18 13:54 Corrected Calcium TNP 01/15/18 13:54 Total Bilirubin 0.50 mg/dL (0.2-1.0) 01/15/18 13:54 AST 13 Units/L (15-37) L 01/15/18 13:54 ALT 27 Units/L (12-78) 01/15/18 13:54 Alkaline Phosphatase 132 Units/L (46-116) H 01/15/18 13:54 Total Protein 7.9 g/dL (6.4-8.2) 01/15/18 13:54 Albumin 3.8 g/dL (3.4-5.0) 01/15/18 13:54 Globulin 4.1 g/dL (2.5-4.5) 01/15/18 13:54 Albumin/Globulin Ratio 0.9 Ratio (1.1-2.1) L 01/15/18 13:54 Amylase 37 Units/L (25-115) 01/16/18 01:19 Lipase 47 Units/L (73-393) L 01/16/18 01:19 Specimen Type Clean catch urine 01/15/18 15:49 Urine Color Yellow (YELLOW) 01/15/18 15:49 Urine Appearance Clear (CLEAR) 01/15/18 15:49 Urine pH 7.0 (5.0 - 8.0) 01/15/18 15:49 Ur Specific [place] 1.010 (1.000-1.030) 01/15/18 15:49 Urine Protein Negative (NEGATIVE) 01/15/18 15:49 Urine Glucose (UA) Negative (NEGATIVE) 01/15/18 15:49 Urine Ketones Negative (NEGATIVE) 01/15/18 15:49 Urine Occult Blood Negative (NEGATIVE) 01/15/18 15:49 Urine Nitrite Negative (NEGATIVE) 01/15/18 15:49 Urine Bilirubin Negative (NEGATIVE) 01/15/18 15:49 Urine Urobilinogen Normal (NORMAL) 01/15/18 15:49 Ur Leukocyte Esterase 1+ (NEGATIVE) 01/15/18 15:49 Urine RBC None seen /HPF (NONE SEEN) 01/15/18 15:49 Urine WBC 3-5 /HPF (NONE SEEN) 01/15/18 15:49 Ur Squamous Epith Cells Few /HPF (NEGATIVE) 01/15/18 15:49 Urine Bacteria Trace /HPF (NEGATIVE) 01/15/18 15:49 Urine Mucus Moderate /HPF (NEGATIVE) 01/15/18 15:49 Ur Culture Indicated? No/not indicated 01/15/18 15:49 - XRAY XRAY Interpreted by: Radiologist XRAY Findings: REPORT DISCUSS WITH PATIENT. - Diagnosis Discharge Problem: Partial bowel obstruction Qualifiers: Intestinal obstruction type: unspecified Qualified Code(s): K56.600 - Partial intestinal obstruction, unspecified as to cause Abdominal pain Qualifiers: Abdominal location: generalized Qualified Code(s): R10.84 - Generalized abdominal pain - Discharge Plan Disposition: ADMITTED INPATIENT Condition: Stable - Follow ups/Referrals - Instructions
[2018-01-15 14:10] LABS: BASOPHILS % (AUTO) 0.5 % (0.2-1.0); EOSINOPHILS % (AUTO) 0.1 % (0.9-2.9); HEMOGLOBIN 12.7 g/dL (12.0-16.0); LYMPHOCYTES # (AUTO) 1.2 X10^3/uL (1.3-2.9); LYMPHOCYTES % (AUTO) 13.6 % (21.0-51.0); MEAN CORPUSCULAR HEMOGLOBIN 27.4 pg (27.0-34.0); MEAN CORPUSCULAR HGB CONC 33.4 g/dL (33.0-35.0); MEAN PLATELET VOLUME 8.2 fL (7.4-11.0); MONOCYTES # (AUTO) 0.4 x10^3/uL (0.3-0.8); NEUTROPHILS # (AUTO) 7.2 x10^3/uL (2.2-4.8); NEUTROPHILS % (AUTO) 80.8 % (42.0-75.0); PLATELET COUNT 200 X10^3/uL (150.0-450.0); RED BLOOD COUNT 4.64 X10^6/uL (3.5-5.4); RED CELL DISTRIBUTION WIDTH 14.4 % (11.6-16.5); WHITE BLOOD COUNT 8.9 X10^3/uL (3.6-10.0)
[2018-01-15 14:18] LABS: ALANINE AMINOTRANSFERASE 27 Units/L (12-78); ALBUMIN 3.8 g/dL (3.4-5.0); ALKALINE PHOSPHATASE 132 Units/L (46-116); AMYLASE 43 Units/L (25-115); ASPARTATE AMINO TRANSFERASE 13 Units/L (15-37); BLOOD UREA NITROGEN 8 mg/dL (7-18); CALCIUM 9.1 mg/dL (8.5-10.1); CARBON DIOXIDE 30.5 mmol/L (21-32); CHLORIDE 102 mmol/L (98-107); COR NA(FOR HYPERGLY) 140 mmol/L (136-145); CREATININE 0.87 mg/dL (0.55-1.02); LIPASE 57 Units/L (73-393); SODIUM 140 mmol/L (136-145); TOTAL PROTEIN 7.9 g/dL (6.4-8.2); eGFR BLACK RACES > 60 (>60); eGFR NON BLACK RACES > 60 (>60)
--- NOTE | 2018-01-15 15:42 | CT ---
HISTORY: Abdominal pain, history of obstruction Study: CT abdomen and pelvis without contrast Comparison: 12/10/2017 Technique: Multiple CT images of the abdomen and pelvis were obtained from the lung bases to the iliac crests wi thout the administration of IV contrast. Reformatted coronal and sagittal planes were produced as wel l. Findings: The lung bases are clear. Evaluation of the abdomen and pelvis demonstrates extensive postsurgical ch anges of the stomach and bowel. There are multiple dilated loops of small bowel present within the ce ntral and right abdomen. There appears to be a possible transition point to decompressed small bowel just left of midline, best demonstrated on series 3 images 46 through 49. These findings are concerni ng for an at least partial small bowel obstruction. There is mild inflammatory stranding along the di lated loops of small bowel. No free fluid or extraluminal free air is identified within the abdomen o r pelvis. Diverticulosis is noted involving the sigmoid colon without evidence of acute diverticuliti s. The patient is status post cholecystectomy. The liver, pancreas, spleen, and bilateral adrenal gla nds are unremarkable. The kidneys are grossly unremarkable as well. No pathologic lymphadenopathy is identified. The urinary bladder is incompletely distended but grossly unremarkable. The uterus is sukumar gically absent. IMPRESSION: 1. Findings concerning for at least partial small bowel obstruction as described above. Reported By:
[2018-01-15 16:03] LABS: BILIRUBIN,URINE NEGATIVE (NEGATIVE); BLOOD/HEMOGLOBIN,URINE NEGATIVE (NEGATIVE); GLUCOSE, URINE NEGATIVE (NEGATIVE); KETONES,URINE NEGATIVE (NEGATIVE); LEUKOCYTE ESTERASE ,URINE 1+ (NEGATIVE); NITRITES,URINE NEGATIVE (NEGATIVE); PROTEIN,URINE NEGATIVE (NEGATIVE); UROBILINOGEN,URINE NORMAL (NORMAL)
[2018-01-15 16:29] LABS: APPEARANCE,URINE CLEAR (CLEAR); BACTERIA,URINE TRACE /HPF (NEGATIVE); COLOR,URINE YELLOW (YELLOW); MUCUS,URINE MODERATE /HPF (NEGATIVE); RBC,URINE NONE SEEN /HPF (NONE SEEN); SQUAMOUS EPITHELIAL CELL,UR FEW /HPF (NEGATIVE)
[2018-01-15 17:26] VITALS: BMI 47.9
[2018-01-15] MEDS: MORPHINE SULFATE INJ 2 MG INJ IVP PRN ×2 (19:23→23:22)
[2018-01-15] MEDS: ZOFRAN INJ 4 MG VIAL IVP PRN (19:25)
[2018-01-15] MEDS: MYLICON TAB 80 MG CHEW PO PRN (19:25)
[2018-01-16] MEDS ORDERED: TYLENOL 325 MG TAB PO PRN (00:31)
[2018-01-16] MEDS ORDERED: NS 1000 ML 1,000 ML IV SCH (01:00)
[2018-01-16 01:44] LABS: AMYLASE 37 Units/L (25-115); LIPASE 47 Units/L (73-393)
[2018-01-16] MEDS: ZOFRAN INJ 4 MG VIAL IVP PRN ×3 (02:57→23:26)
[2018-01-16] MEDS: MORPHINE SULFATE INJ 2 MG INJ IVP PRN ×5 (05:25→23:25)
[2018-01-16] MEDS: PHENERGAN INJ 25 MG IVP PRN ×3 (05:25→19:32)
[2018-01-16] MEDS: MYLICON TAB 80 MG CHEW PO PRN ×2 (05:49→10:02)
--- NOTE | 2018-01-16 05:59 | RAD ---
HISTORY: Small bowel obstruction Study: Flat upright abdomen, PA chest Comparison: CT abdomen pelvis 01/15/2018 Findings: Multiple dilated loops of small bowel are identified in the mid abdomen. Air-fluid levels are present on the upright film. Little gas is present distally. These findings are consistent with small bowel obstruction. No pneumoperitoneum is identified. No abnormal masses or abnormal calcifications are chantell ntified. The lungs are clear. IMPRESSION: Findings consistent with small-bowel obstruction Reported By:
[2018-01-16 06:31] LABS: BASOPHILS % (AUTO) 0.5 % (0.2-1.0); EOSINOPHILS % (AUTO) 0.6 % (0.9-2.9); HEMATOCRIT 33.9 % (36.0-47.0); HEMOGLOBIN 11.4 g/dL (12.0-16.0); LYMPHOCYTES # (AUTO) 1.2 X10^3/uL (1.3-2.9); LYMPHOCYTES % (AUTO) 22.2 % (21.0-51.0); MEAN CORPUSCULAR HEMOGLOBIN 27.6 pg (27.0-34.0); MEAN CORPUSCULAR HGB CONC 33.6 g/dL (33.0-35.0); MEAN PLATELET VOLUME 8.3 fL (7.4-11.0); MONOCYTES # (AUTO) 0.5 x10^3/uL (0.3-0.8); MONOCYTES % (AUTO) 9.4 % (0.0-13.0); NEUTROPHILS # (AUTO) 3.6 x10^3/uL (2.2-4.8); NEUTROPHILS % (AUTO) 67.3 % (42.0-75.0); PLATELET COUNT 162 X10^3/uL (150.0-450.0); RED BLOOD COUNT 4.13 X10^6/uL (3.5-5.4); RED CELL DISTRIBUTION WIDTH 14.9 % (11.6-16.5); WHITE BLOOD COUNT 5.3 X10^3/uL (3.6-10.0)
[2018-01-16 07:10] LABS: ALANINE AMINOTRANSFERASE 25 Units/L (12-78); ALBUMIN 3.3 g/dL (3.4-5.0); ALKALINE PHOSPHATASE 118 Units/L (46-116); ASPARTATE AMINO TRANSFERASE 17 Units/L (15-37); BLOOD UREA NITROGEN 10 mg/dL (7-18); CALCIUM 8.4 mg/dL (8.5-10.1); CARBON DIOXIDE 27.6 mmol/L (21-32); CHLORIDE 103 mmol/L (98-107); COR NA(FOR HYPERGLY) 140 mmol/L (136-145); CREATININE 0.97 mg/dL (0.55-1.02); SODIUM 140 mmol/L (136-145); TOTAL PROTEIN 6.9 g/dL (6.4-8.2); eGFR BLACK RACES > 60 (>60); eGFR NON BLACK RACES > 60 (>60)
[2018-01-16] MEDS: PROTONIX INJ 40 MG VIAL IVP SCH (09:04)
[2018-01-16] MEDS: D5 1/2 NS 1000 ML 1,000 ML IV SCH ×4 (10:00→23:26)
--- NOTE | 2018-01-16 11:16 | DR.PROGNOT ---
Hospital Progress Notes - Progress Note for Day of: Progress Note Date: 01/16/18 - Chief Complaint Chief Complaint: still having crampy abdominal pain all over . no nausea or vomiting today . no BM . repeated Xray still showing Prtial SBO. CBC and CMP are normal . - Past Medical Family Social History Past Med/Fam/Surg Hx: No changes since H&P Allergies: Allergies No Known Drug Allergies Allergy (Verified 12/10/17 05:34) - Vital Signs Vital Signs: Temperature 98.5 F Pulse Rate [Apical] 63 Pulse Rate 96 Respiratory Rate 19 Blood Pressure [Right Arm] 117/64 Blood Pressure [Left Arm] 115/65 Blood Pressure [Left Radial 126/65 Artery] Blood Pressure 125/74 O2 Sat by Pulse Oximetry 99 - Physical Exam Oriented: Normal Eyes: Normal Ear: Normal Nose: Normal Throat: Normal Respiratory: Normal Cardiovascular: Normal GI:Palpation: Normal GI: Tenderness: Diffuse, Periumbilical (generalized tendrness, no rebound or rigidity ,BS +) Speech Pattern: Clear, Appropriate - Laboratory and Diagnostics Result Diagrams: 01/16/18 05:53 01/16/18 05:53 Labs: Laboratory WBC 5.3 X10^3/uL (3.6-10.0) 01/16/18 05:53 RBC 4.13 X10^6/uL (3.5-5.4) 01/16/18 05:53 Hgb 11.4 g/dL (12.0-16.0) L 01/16/18 05:53 Hct 33.9 % (36.0-47.0) L 01/16/18 05:53 MCV 82.0 fL (80.0-100.0) 01/16/18 05:53 MCH 27.6 pg (27.0-34.0) 01/16/18 05:53 MCHC 33.6 g/dL (33.0-35.0) 01/16/18 05:53 RDW 14.9 % (11.6-16.5) 01/16/18 05:53 Plt Count 162 X10^3/uL (150.0-450.0) 01/16/18 05:53 MPV 8.3 fL (7.4-11.0) 01/16/18 05:53 Neut % (Auto) 67.3 % (42.0-75.0) 01/16/18 05:53 Lymph % (Auto) 22.2 % (21.0-51.0) 01/16/18 05:53 [place] % (Auto) 9.4 % (0.0-13.0) 01/16/18 05:53 Eos % (Auto) 0.6 % (0.9-2.9) L 01/16/18 05:53 Baso % (Auto) 0.5 % (0.2-1.0) 01/16/18 05:53 Neut # (Auto) 3.6 x10^3/uL (2.2-4.8) 01/16/18 05:53 Lymph # (Auto) 1.2 X10^3/uL (1.3-2.9) L 01/16/18 05:53 [place] # (Auto) 0.5 x10^3/uL (0.3-0.8) 01/16/18 05:53 Eos # (Auto) 0.0 x10^3/uL (0.0-0.2) 01/16/18 05:53 Baso # (Auto) 0.0 X10^3/uL (0.0-0.1) 01/16/18 05:53 Absolute Nucleated RBC 0.0 /100WBC 01/16/18 05:53 Sodium 140 mmol/L (136-145) 01/16/18 05:53 Corrected Sodium 140 mmol/L (136-145) 01/16/18 05:53 Potassium 3.5 mmol/L (3.5-5.1) 01/16/18 05:53 Chloride 103 mmol/L (98-107) 01/16/18 05:53 Carbon Dioxide 27.6 mmol/L (21-32) 01/16/18 05:53 BUN 10 mg/dL (7-18) 01/16/18 05:53 Creatinine 0.97 mg/dL (0.55-1.02) 01/16/18 05:53 Est GFR (MDRD) Af Amer > 60 (>60) 01/16/18 05:53 Est GFR (MDRD) Non-Af > 60 (>60) 01/16/18 05:53 Glucose 115 mg/dL (65-99) H 01/16/18 05:53 Calcium 8.4 mg/dL (8.5-10.1) L 01/16/18 05:53 Corrected Calcium 9.0 mg/dL (8.5-10.1) 01/16/18 05:53 Total Bilirubin 0.80 mg/dL (0.2-1.0) 01/16/18 05:53 AST 17 Units/L (15-37) 01/16/18 05:53 ALT 25 Units/L (12-78) 01/16/18 05:53 Alkaline Phosphatase 118 Units/L (46-116) H 01/16/18 05:53 Total Protein 6.9 g/dL (6.4-8.2) 01/16/18 05:53 Albumin 3.3 g/dL (3.4-5.0) L 01/16/18 05:53 Globulin 3.6 g/dL (2.5-4.5) 01/16/18 05:53 Albumin/Globulin Ratio 0.9 Ratio (1.1-2.1) L 01/16/18 05:53 Amylase 37 Units/L (25-115) 01/16/18 01:19 Lipase 47 Units/L (73-393) L 01/16/18 01:19 Specimen Type Clean catch urine 01/15/18 15:49 Urine Color Yellow (YELLOW) 01/15/18 15:49 Urine Appearance Clear (CLEAR) 01/15/18 15:49 Urine pH 7.0 (5.0 - 8.0) 01/15/18 15:49 Ur Specific [place] 1.010 (1.000-1.030) 01/15/18 15:49 Urine Protein Negative (NEGATIVE) 01/15/18 15:49 Urine Glucose (UA) Negative (NEGATIVE) 01/15/18 15:49 Urine Ketones Negative (NEGATIVE) 01/15/18 15:49 Urine Occult Blood Negative (NEGATIVE) 01/15/18 15:49 Urine Nitrite Negative (NEGATIVE) 01/15/18 15:49 Urine Bilirubin Negative (NEGATIVE) 01/15/18 15:49 Urine Urobilinogen Normal (NORMAL) 01/15/18 15:49 Ur Leukocyte Esterase 1+ (NEGATIVE) 01/15/18 15:49 Urine RBC None seen /HPF (NONE SEEN) 01/15/18 15:49 Urine WBC 3-5 /HPF (NONE SEEN) 01/15/18 15:49 Ur Squamous Epith Cells Few /HPF (NEGATIVE) 01/15/18 15:49 Urine Bacteria Trace /HPF (NEGATIVE) 01/15/18 15:49 Urine Mucus Moderate /HPF (NEGATIVE) 01/15/18 15:49 Ur Culture Indicated? No/not indicated 01/15/18 15:49 - Assessment and Plan 1: Partial SBO. abdominal adhesions. colon and gastric Ca required resection in the past . positive peritoneal mets found in 2014 . will keep NPO for now . repeat abdominal xray in am. DVT prophylaxis . - Problem Patient Problems: Patient Problems Abdominal pain (Acute) R10.9 Partial bowel obstruction (Acute) K56.600
--- NOTE | 2018-01-16 11:26 | DR.H&P ---
H&P - History & Physical for Day of: H&P Date: 01/15/18 - Chief Complaint Chief Complaint: abdominal pain - Allergies Allergies/Adverse Reactions: Allergies Allergy/AdvReac Type Severity Reaction Status Date / Time No Known Drug Allergies Allergy Verified 12/10/17 05:34 - History of Present Illness History of Present Illness: IS A 57 YEAR OLD PATIENT OF OURS WHO PRESENTED TO THE EMERGENCY ROOM WITH COMPLAINTS OF ABDOMINAL PAIN, NAUSEA, VOMITING. PATIENT REPORTS THAT SHE HAS A HISTORY OF BLOCKAGES. SHE REPORTS THAT HER LAST BOWEL MOVEMENT WAS YESTERDAY. PAST MEDICAL HISTORY IS SIGNIFICANT FOR COLON CANCER AND MULTIPLE RELATED SURGERIES. SHE DENIES FEVER OR CONSTIPATION. ON ARRIVAL, VITALS WERE 97.6, 96, 20, 98% RA, 125/74. Abnormal Labs: Glucose 120 , AST 13, Alk Phos 132, A/G Ratio 0.9, Lipase 57. Urinalysis: Leuk Est 1+, WBC 3 -5, Bacteria Trace, Mucus Moderate. Abdomen/Pelvis CT reported: Findings concerning for at least partial small bowel obstruction. PATIENT WAS ADMITTED FOR FURTHER EVALUATION AND TREATMENT. SHE WAS STARTED ON ZOFRAN 4MG IV Q6H PRN, MORPHINE 2MG IV Q4H PRN, AND MYLICON 80MG PO TID PRN. WE PLAN TO FOLLOW UP WITH AM LABS AND KUB AND CONTINUE TO MONITOR PATIENT. WE WILL CONSULT . - Past Medical History Past Medical History: Dyslipidemia, GERD, Hypertension Additional Medical History: Petit Syndrome, Colon Cancer - Past Surgical History Surgical History: Bowel Resection, Cholecystectomy, Hysterectomy Additional Surgical History: Partial Bowel Resection, Right Eye Surgery - Family History Family Medical History: Cancer - Social History Does patient currently use any type of tobacco product: No Have you used tobacco products in the last 12 months: No Type of Tobacco Use: None Does any household member use tobacco: No Alcohol Use: None Drug Use: None - Medications Home Medications: Potassium Chloride [Klor-Con M20] 1 tab PO BID 01/15/18 [History Confirmed 01/15] - Physical Exam Vital Signs: Temperature 98.5 F Pulse Rate [Apical] 63 Pulse Rate 96 Respiratory Rate 19 Blood Pressure [Right Arm] 117/64 Blood Pressure [Left Arm] 115/65 Blood Pressure [Left Radial 126/65 Artery] Blood Pressure 125/74 O2 Sat by Pulse Oximetry 99 Oriented: Normal
[2018-01-17] MEDS: D5 1/2 NS 1000 ML 1,000 ML IV SCH ×4 (02:09→15:25)
[2018-01-17] MEDS: ULTRAM PO PRN ×3 (03:20→19:14)
--- NOTE | 2018-01-17 05:55 | RAD ---
Examination: KUB History: Abdominal pain Comparison reference 01/16/2018 Findings: Persistent selective small-bowel distention in the central abdomen. There is a paucity of c olon gas. Surgical clips in the abdomen. No developing mass or free fluid collection identified. Deta il is limited by patient habitus. Impression: Selective small-bowel distention consistent with at least partial SBO. Reported By:
[2018-01-17 06:15] LABS: BASOPHILS % (AUTO) 0.3 % (0.2-1.0); EOSINOPHILS % (AUTO) 1.1 % (0.9-2.9); HEMATOCRIT 30.3 % (36.0-47.0); HEMOGLOBIN 10.3 g/dL (12.0-16.0); LYMPHOCYTES # (AUTO) 1.1 X10^3/uL (1.3-2.9); LYMPHOCYTES % (AUTO) 27.3 % (21.0-51.0); MEAN CORPUSCULAR HEMOGLOBIN 27.7 pg (27.0-34.0); MEAN CORPUSCULAR HGB CONC 33.9 g/dL (33.0-35.0); MEAN CORPUSCULAR VOLUME 81.5 fL (80.0-100.0); MEAN PLATELET VOLUME 8.2 fL (7.4-11.0); MONOCYTES # (AUTO) 0.4 x10^3/uL (0.3-0.8); MONOCYTES % (AUTO) 8.9 % (0.0-13.0); NEUTROPHILS # (AUTO) 2.5 x10^3/uL (2.2-4.8); NEUTROPHILS % (AUTO) 62.4 % (42.0-75.0); PLATELET COUNT 154 X10^3/uL (150.0-450.0); RED BLOOD COUNT 3.72 X10^6/uL (3.5-5.4); RED CELL DISTRIBUTION WIDTH 14.7 % (11.6-16.5)
[2018-01-17 06:34] LABS: ALANINE AMINOTRANSFERASE 24 Units/L (12-78); ALBUMIN 2.9 g/dL (3.4-5.0); ALKALINE PHOSPHATASE 103 Units/L (46-116); ASPARTATE AMINO TRANSFERASE 14 Units/L (15-37); BLOOD UREA NITROGEN 8 mg/dL (7-18); CALCIUM 8.1 mg/dL (8.5-10.1); CARBON DIOXIDE 29.9 mmol/L (21-32); CHLORIDE 106 mmol/L (98-107); COR NA(FOR HYPERGLY) 142 mmol/L (136-145); CREATININE 1.09 mg/dL (0.55-1.02); SODIUM 141 mmol/L (136-145); TOTAL PROTEIN 6.2 g/dL (6.4-8.2); eGFR BLACK RACES > 60 (>60); eGFR NON BLACK RACES 55 (>60)
[2018-01-17] MEDS: LOVENOX INJ 40 MG SYR SC SCH (08:20)
[2018-01-17] MEDS: PROTONIX INJ 40 MG VIAL IVP SCH (08:22)
--- NOTE | 2018-01-17 10:09 | DR.PROGNOT ---
Hospital Progress Notes - Progress Note for Day of: Progress Note Date: 01/17/18 - Chief Complaint Chief Complaint: mild crampy abdominal pain all over , more in the lower and mid abdomen. no nausea or vomiting today . no BM . repeated Xray still showing Prtial SBO. CBC and CMP are normal . - Past Medical Family Social History Past Med/Fam/Surg Hx: No changes since H&P Allergies: Allergies No Known Drug Allergies Allergy (Verified 12/10/17 05:34) - Vital Signs Vital Signs: Temperature 97.6 F Pulse Rate [Apical] 65 Pulse Rate 96 Respiratory Rate 19 Blood Pressure [Right Arm] 100/59 Blood Pressure [Left Arm] 115/65 Blood Pressure [Left Radial 126/65 Artery] Blood Pressure 125/74 O2 Sat by Pulse Oximetry 94 - Physical Exam Oriented: Normal Eyes: Normal Ear: Normal Nose: Normal Throat: Normal Respiratory: Normal Cardiovascular: Normal : Normal GI:Auscultation: Normal GI:Palpation: Normal GI: Tenderness: Diffuse, Periumbilical (generalized lower and mid abdominal tendrness, no rebound or rigidity ,BS +) Speech Pattern: Clear, Appropriate - Laboratory and Diagnostics Result Diagrams: 01/17/18 05:23 01/17/18 05:23 Labs: Laboratory WBC 4.0 X10^3/uL (3.6-10.0) 01/17/18 05:23 RBC 3.72 X10^6/uL (3.5-5.4) 01/17/18 05:23 Hgb 10.3 g/dL (12.0-16.0) L 01/17/18 05:23 Hct 30.3 % (36.0-47.0) L 01/17/18 05:23 MCV 81.5 fL (80.0-100.0) 01/17/18 05:23 MCH 27.7 pg (27.0-34.0) 01/17/18 05:23 MCHC 33.9 g/dL (33.0-35.0) 01/17/18 05:23 RDW 14.7 % (11.6-16.5) 01/17/18 05:23 Plt Count 154 X10^3/uL (150.0-450.0) 01/17/18 05:23 MPV 8.2 fL (7.4-11.0) 01/17/18 05:23 Neut % (Auto) 62.4 % (42.0-75.0) 01/17/18 05:23 Lymph % (Auto) 27.3 % (21.0-51.0) 01/17/18 05:23 [place] % (Auto) 8.9 % (0.0-13.0) 01/17/18 05:23 Eos % (Auto) 1.1 % (0.9-2.9) 01/17/18 05:23 Baso % (Auto) 0.3 % (0.2-1.0) 01/17/18 05:23 Neut # (Auto) 2.5 x10^3/uL (2.2-4.8) 01/17/18 05:23 Lymph # (Auto) 1.1 X10^3/uL (1.3-2.9) L 01/17/18 05:23 [place] # (Auto) 0.4 x10^3/uL (0.3-0.8) 01/17/18 05:23 Eos # (Auto) 0.0 x10^3/uL (0.0-0.2) 01/17/18 05:23 Baso # (Auto) 0.0 X10^3/uL (0.0-0.1) 01/17/18 05:23 Absolute Nucleated RBC 0.1 /100WBC 01/17/18 05:23 Sodium 141 mmol/L (136-145) 01/17/18 05:23 Corrected Sodium 142 mmol/L (136-145) 01/17/18 05:23 Potassium 3.6 mmol/L (3.5-5.1) 01/17/18 05:23 Chloride 106 mmol/L (98-107) 01/17/18 05:23 Carbon Dioxide 29.9 mmol/L (21-32) 01/17/18 05:23 BUN 8 mg/dL (7-18) 01/17/18 05:23 Creatinine 1.09 mg/dL (0.55-1.02) H 01/17/18 05:23 Est GFR (MDRD) Af Amer > 60 (>60) 01/17/18 05:23 Est GFR (MDRD) Non-Af 55 (>60) L 01/17/18 05:23 Glucose 141 mg/dL (65-99) H 01/17/18 05:23 Calcium 8.1 mg/dL (8.5-10.1) L 01/17/18 05:23 Corrected Calcium 9.0 mg/dL (8.5-10.1) 01/17/18 05:23 Total Bilirubin 0.80 mg/dL (0.2-1.0) 01/17/18 05:23 AST 14 Units/L (15-37) L 01/17/18 05:23 ALT 24 Units/L (12-78) 01/17/18 05:23 Alkaline Phosphatase 103 Units/L (46-116) 01/17/18 05:23 Total Protein 6.2 g/dL (6.4-8.2) L 01/17/18 05:23 Albumin 2.9 g/dL (3.4-5.0) L 01/17/18 05:23 Globulin 3.3 g/dL (2.5-4.5) 01/17/18 05:23 Albumin/Globulin Ratio 0.9 Ratio (1.1-2.1) L 01/17/18 05:23 Amylase 37 Units/L (25-115) 01/16/18 01:19 Lipase 47 Units/L (73-393) L 01/16/18 01:19 Specimen Type Clean catch urine 01/15/18 15:49 Urine Color Yellow (YELLOW) 01/15/18 15:49 Urine Appearance Clear (CLEAR) 01/15/18 15:49 Urine pH 7.0 (5.0 - 8.0) 01/15/18 15:49 Ur Specific [place] 1.010 (1.000-1.030) 01/15/18 15:49 Urine Protein Negative (NEGATIVE) 01/15/18 15:49 Urine Glucose (UA) Negative (NEGATIVE) 01/15/18 15:49 Urine Ketones Negative (NEGATIVE) 01/15/18 15:49 Urine Occult Blood Negative (NEGATIVE) 01/15/18 15:49 Urine Nitrite Negative (NEGATIVE) 01/15/18 15:49 Urine Bilirubin Negative (NEGATIVE) 01/15/18 15:49 Urine Urobilinogen Normal (NORMAL) 01/15/18 15:49 Ur Leukocyte Esterase 1+ (NEGATIVE) 05/02/18 15:49 Urine RBC None seen /HPF (NONE SEEN) 01/15/18 15:49 Urine WBC 3-5 /HPF (NONE SEEN) 01/15/18 15:49 Ur Squamous Epith Cells Few /HPF (NEGATIVE) 01/15/18 15:49 Urine Bacteria Trace /HPF (NEGATIVE) 01/15/18 15:49 Urine Mucus Moderate /HPF (NEGATIVE) 01/15/18 15:49 Ur Culture Indicated? No/not indicated 01/15/18 15:49 - Assessment and Plan 1: Partial SBO. abdominal adhesions. colon and gastric Ca required resection in the past . positive peritoneal mets found in 2014 . will start full liquid . repeat abdominal xray in am. DVT prophylaxis . - Problem Patient Problems: Patient Problems Abdominal pain (Acute) R10.9 Partial bowel obstruction (Acute) K56.600
[2018-01-17] MEDS: K-DUR TAB 20 MEQ PO SCH ×2 (11:09→21:51)
[2018-01-17] MEDS: FOLIC ACID TAB 1 MG PO SCH (11:09)
[2018-01-17] MEDS: LIPITOR TAB 40 MG PO SCH (11:09)
[2018-01-17] MEDS: HYZAAR 50/12.5 MG PO SCH (11:10)
[2018-01-17] MEDS: CHOLECALCIFEROL PO SCH (11:10)
[2018-01-17] MEDS: MYLICON TAB 80 MG CHEW PO PRN (19:17)
[2018-01-18 06:15] LABS: BASOPHILS % (AUTO) 0.7 % (0.2-1.0); EOSINOPHILS # (AUTO) 0.1 x10^3/uL (0.0-0.2); EOSINOPHILS % (AUTO) 1.8 % (0.9-2.9); HEMATOCRIT 30.5 % (36.0-47.0); HEMOGLOBIN 10.4 g/dL (12.0-16.0); LYMPHOCYTES # (AUTO) 1.4 X10^3/uL (1.3-2.9); LYMPHOCYTES % (AUTO) 35.6 % (21.0-51.0); MEAN CORPUSCULAR HEMOGLOBIN 27.9 pg (27.0-34.0); MEAN CORPUSCULAR HGB CONC 34.2 g/dL (33.0-35.0); MEAN CORPUSCULAR VOLUME 81.5 fL (80.0-100.0); MEAN PLATELET VOLUME 8.2 fL (7.4-11.0); MONOCYTES # (AUTO) 0.4 x10^3/uL (0.3-0.8); MONOCYTES % (AUTO) 9.4 % (0.0-13.0); NEUTROPHILS % (AUTO) 52.5 % (42.0-75.0); PLATELET COUNT 154 X10^3/uL (150.0-450.0); RED BLOOD COUNT 3.74 X10^6/uL (3.5-5.4); RED CELL DISTRIBUTION WIDTH 14.6 % (11.6-16.5); WHITE BLOOD COUNT 3.8 X10^3/uL (3.6-10.0)
[2018-01-18 07:21] LABS: ALANINE AMINOTRANSFERASE 23 Units/L (12-78); ALBUMIN 2.9 g/dL (3.4-5.0); ALKALINE PHOSPHATASE 104 Units/L (46-116); ASPARTATE AMINO TRANSFERASE 12 Units/L (15-37); BLOOD UREA NITROGEN 3 mg/dL (7-18); CALCIUM 8.1 mg/dL (8.5-10.1); CARBON DIOXIDE 27.9 mmol/L (21-32); CHLORIDE 105 mmol/L (98-107); CREATININE 0.94 mg/dL (0.55-1.02); SODIUM 141 mmol/L (136-145); TOTAL PROTEIN 6.1 g/dL (6.4-8.2); eGFR BLACK RACES > 60 (>60); eGFR NON BLACK RACES > 60 (>60)
--- NOTE | 2018-01-18 07:47 | RAD ---
HISTORY: Obstruction Study: Abdomen Comparison: Yesterday Findings: Evaluation of the abdomen demonstrates a stable bowel gas pattern some mild loops small bowel suggest ing partial obstruction. There is colonic gas noted. Surgical clips are again noted overlying the abd omen. No pathological soft tissue mass or calcification can be observed. The bony structures are gr ossly intact. IMPRESSION: 1. Stable exam. Reported By:
[2018-01-18] MEDS ORDERED: SYNTHROID 25 mcg TAB PO SCH (09:00)
[2018-01-18] MEDS: HYZAAR 50/12.5 MG PO SCH (09:56)
[2018-01-18] MEDS: PROTONIX INJ 40 MG VIAL IVP SCH (09:56)
[2018-01-18] MEDS: CHOLECALCIFEROL PO SCH (09:56)
[2018-01-18] MEDS: LOVENOX INJ 40 MG SYR SC SCH (09:57)
[2018-01-18] MEDS: LIPITOR TAB 40 MG PO SCH (09:57)
[2018-01-18] MEDS: K-DUR TAB 20 MEQ PO SCH (09:57)
[2018-01-18] MEDS: FOLIC ACID TAB 1 MG PO SCH (10:06)
[2018-01-18 12:09] VITALS: BP 125/57
== END 2018-01-18 12:50 | disposition home or self-care (01) | DRG 390 ==
LOC: ER 11:54 → ICU 16:40 → MED/SURG 01-17 15:03
PROVIDERS: ADMIT Internal Medicine; ATTEND Internal Medicine
DX: K56.690 Other partial intestinal obstruction (principal); R10.84 Generalized abdominal pain; E78.2 Mixed hyperlipidemia; K21.9 Gastro-esophageal reflux disease without esophagitis; I10 Essential (primary) hypertension; R11.2 Nausea with vomiting, unspecified; Z85.038 Personal history of other malignant neoplasm of large intestine; Z85.028 Personal history of other malignant neoplasm of stomach
CPT/HCPCS: 36415; 74018; 74022; 74176; 80053; 81001; 82150; 82378; 83690; 85025; 96365; 99283; 99284; A4222; C9113; J1650; J2270; J2405; J2550; J7042

== ENCOUNTER 2018-01-20 14:55 | Emergency (ER) | payer BC ==
[2018-01-20 14:58] VITALS: BP 115/72; BMI 47.9
--- NOTE | 2018-01-20 15:19 | ED.ABDFE ---
HPI - Time seen Time seen: 15:15 - PCP Primary Care Physician: PERI - Complaint Chief Complaint Doctors Comments: Patient presents with recurrent chronic abdominal pain since discharged from hospital. At last admitssion she had a small bowel obstruction that resolved with observation. She states that she has not not had any vomiting or diarrhea. Chief Complaint:: PT. C/O ABDOMINAL PAIN, MORE TO THE RIGHT SIDE AND NAUSEA. PT. WAS DISCHARGED HOME SATURDAY FOR SAME C/O. PT. HAD A SMALL BOWEL OBSTRUCTION ON PREVIOUS ADMISSION. - Source History Provided: Patient - Mode of arrival Mode of Arrival: Ambulatory - Timing Onset of Chief Complaint: 01/20/18 PMH - PMH Past Medical History: Yes Past Medical History: Dyslipidemia, GERD, Hypertension Past Surgical History: Yes Surgical History: Bowel Resection, Cholecystectomy, Hysterectomy - Family History History of Family Medical Conditions: Yes Family Medical History: Cancer - Social History Does patient currently use any type of tobacco product: No Have you used tobacco products in the last 12 months: No Type of Tobacco Use: None Does any household member use tobacco: No Alcohol Use: None Do you use any recreational Drugs:: No Lives With: Spouse Lives Where: Home - infectious screening In the last 2 months have you had wt loss of >10#?: NO Have you had fever, night sweats or hemotysis?: No Have you traveled outside the country in the last 6 months?: No Isolation: Standard ROS - Review of Systems Eyes: No Symptoms Reported ENTM: No Symptoms Reported Respiratoy: No Symptoms Reported Cardiovascular: No Symptoms Reported Gastrointestinal/Abdominal: No Symptoms Reported Genitourinary: No Symptoms Reported Neurological: No Symptoms Reported Musculoskeletal: No Symptoms Reported Integumentary: No Symptoms Reported Hematologic/Lymphatic: No Symptoms Reported Endocrine: No Symptoms Reported Psychiatric: No Symptoms Reported All Other Systems: Reviewed and Negative PE - Vital Signs Vitals: Temperature 98.3 F Pulse Rate 87 Respiratory Rate 17 Blood Pressure [Right Arm] 125/57 Blood Pressure [Left Arm] 85/50 Blood Pressure [Left Radial 126/65 Artery] Blood Pressure 115/72 O2 Sat by Pulse Oximetry 98 - General Limitations: No Limitations General Appearance: Alert, In No Apparent Distress - Head Head Exam: Normal Inspection, Atraumatic - Eyes Eye exam: Normal Appearance, PERRL, EOMI - Neck Neck Exam: Normal Inspection, Full ROM - Chest Chest Inspection: Normal Inspection, Symmetric Chest Wall Rise - Respiratory Respiratory Exam: Normal Lung Sounds Bilat Respiratory Exam: Bilateral Clear to Auscultation - Cardiovascular Cardiovascular Exam: Regular Rate, Normal Rhythm - Abdominal Exam Abdominal Exam: Normal Inspection Abdominal Tenderness: Epigastrium - Rectal Rectal Exam: Deferred - Back Back Exam: Normal Inspection - Extremeties Extremities Exam: Normal Inspection, Full ROM - External Exam: Female: Deferred : Speculum Exam (Female): Deferred : Bimanual Exam (female): Deferred - Neurologic Neurological Exam: Alert, Oriented X3, CN II-XII Intact - Psychiatric Psychiatric Exam: Normal Affect, Normal Mood - Skin Skin Exam: Warm, Dry, Intact Course - Treatment Treatment: Bentyl, demerol - Reevaluation 1st: Improved - Diagnosis Discharge Problem: Chronic abdominal pain - Discharge Plan Condition: Stable - Follow ups/Referrals Follow ups/Referrals: Norm Martínez [Primary Care Provider] - 3 days - Instructions
[2018-01-20] MEDS ORDERED: DEMEROL INJ IVP ONE (15:33)
[2018-01-20] MEDS ORDERED: BENTYL I.M. INJ 10 MG IM ONE ×2 (15:33→15:53)
[2018-01-20] MEDS ORDERED: DEMEROL INJ ONE (15:54)
== END 2018-01-20 17:56 | disposition home or self-care (01) ==
LOC: ER 15:00
DX: R10.13 Epigastric pain (principal)
CPT/HCPCS: 96372; 99282; J0500; J2175

== ENCOUNTER → 2018-01-27 | Outpatient (CLI) | payer BC ==
[2018-01-20 14:58] VITALS: BP 115/72
--- NOTE | 2018-01-27 15:09 | RAD ---
History: Follow-up of small bowel obstruction Study: Acute abdominal series Comparison: January 18 Findings: The lungs are clear and the heart and mediastinum are unremarkable. There is no pleural eff usion. There are multiple surgical clips overlying the abdomen diffusely and there are multiple phleboliths in the pelvis. Bowel is relatively gasless. There is no free air. Impression: No evidence for acute disease Reported By:
== END ==
LOC: RAD 13:45
PROVIDERS: ATTEND Surgery
DX: K56.600 Partial intestinal obstruction, unspecified as to cause (principal)
CPT/HCPCS: 74022

== ENCOUNTER 2018-01-28 14:29 | Inpatient (IN) | payer BC ==
--- NOTE | 2018-01-28 15:07 | ED.ABDFE ---
HPI - Time seen Time seen: 14:45 - PCP Primary Care Physician: elizabeth - Complaint Chief Complaint Doctors Comments: Patient presented to the ED with complaint of abdominal pain and vomiting. She was seen by the surgeon on yesterday for abdominal pain she was doing well. She has a history of recurrent metastatic colon cancer with several members of her immediated family (children) who from this cancer; son on last year and a daughter a year or two before him. The entire family tree has been affected by this cancer. Patient is concerned because she started vomiting this AM and was told to come to the ED for evaluation. She was previously hospitalized one to two weeks ago for evaluation of small bowel obstruction. Chief Complaint:: pt stated she has been in and out of the hospital for over a month for abdomail pain and burning. - Source History Provided: Patient - Mode of arrival Mode of Arrival: Ambulatory - Timing Onset of Chief Complaint: 01/27/18 PMH - PMH Past Medical History: Yes Past Medical History: Dyslipidemia, GERD, Hypertension Past Medical History Comment: colon cancer, Past Surgical History: Yes Surgical History: Bowel Resection, Cholecystectomy, Hysterectomy - Family History History of Family Medical Conditions: Yes Family Medical History: Cancer - Social History Do you use any recreational Drugs:: No Lives With: Family Lives Where: Home - infectious screening In the last 2 months have you had wt loss of >10#?: NO Have you had fever, night sweats or hemotysis?: No Have you traveled outside the country in the last 6 months?: No Isolation: Standard ROS - Review of Systems Eyes: No Symptoms Reported ENTM: No Symptoms Reported Respiratoy: No Symptoms Reported Cardiovascular: No Symptoms Reported Gastrointestinal/Abdominal: Abdominal Pain, Vomiting Genitourinary: No Symptoms Reported Neurological: No Symptoms Reported Musculoskeletal: No Symptoms Reported Integumentary: No Symptoms Reported Hematologic/Lymphatic: No Symptoms Reported Endocrine: No Symptoms Reported Psychiatric: No Symptoms Reported All Other Systems: Reviewed and Negative PE - Vital Signs Vitals: Temperature 97.8 F Pulse Rate 101 Respiratory Rate 16 Blood Pressure [Right Arm] 125/57 Blood Pressure [Left Arm] 85/50 Blood Pressure [Left Radial 126/65 Artery] Blood Pressure 120/83 O2 Sat by Pulse Oximetry 98 - General Limitations: No Limitations General Appearance: Anxious - Head Head Exam: Normal Inspection, Atraumatic - Eyes Eye exam: Normal Appearance, PERRL, EOMI - ENT ENT Exam: Normal Exam - Neck Neck Exam: Normal Inspection, Full ROM - Chest Chest Inspection: Normal Inspection - Respiratory Respiratory Exam: Normal Lung Sounds Bilat Respiratory Exam: Bilateral Clear to Auscultation - Cardiovascular Cardiovascular Exam: Regular Rate, Normal Rhythm - Abdominal Exam Abdominal Exam: Normal Inspection, Normal Bowel Sounds Abdominal Tenderness: negative: RUQ, RLQ, LUQ, LLQ, Epigastrium, Suprapubic, Diffuse, Mild, Moderate, Severe, Other - Rectal Rectal Exam: Deferred - Back Back Exam: Normal Inspection, Full ROM - Extremeties Extremities Exam: Normal Inspection, Full ROM - External Exam: Female: Deferred : Speculum Exam (Female): Deferred : Bimanual Exam (female): Deferred - Neurologic Neurological Exam: Alert, Oriented X3, CN II-XII Intact - Psychiatric Psychiatric Exam: Normal Affect, Normal Mood - Skin Skin Exam: Warm, Dry, Intact Course - Reevaluation 1st: Unchanged - Consultation Called: 15:55 (Dr Martínez agreed to admit for further evaluation) ROR - Labs Reviewed Result Diagrams: 01/28/18 16:21 01/28/18 16:21 Laboratory: WBC 5.8 X10^3/uL (3.6-10.0) 01/28/18 16:21 RBC 5.02 X10^6/uL (3.5-5.4) 01/28/18 16:21 Hgb 13.6 g/dL (12.0-16.0) 01/28/18 16:21 Hct 40.7 % (36.0-47.0) 01/28/18 16:21 MCV 81.1 fL (80.0-100.0) 01/28/18 16:21 MCH 27.2 pg (27.0-34.0) 01/28/18 16:21 MCHC 33.5 g/dL (33.0-35.0) 01/28/18 16:21 RDW 14.8 % (11.6-16.5) 01/28/18 16:21 Plt Count 204 X10^3/uL (150.0-450.0) 01/28/18 16:21 MPV 7.8 fL (7.4-11.0) 01/28/18 16:21 Neut % (Auto) 74.2 % (42.0-75.0) 01/28/18 16:21 Lymph % (Auto) 18.6 % (21.0-51.0) L 01/28/18 16:21 [place] % (Auto) 4.9 % (0.0-13.0) 01/28/18 16:21 Eos % (Auto) 0.7 % (0.9-2.9) L 01/28/18 16:21 Baso % (Auto) 1.6 % (0.2-1.0) H 01/28/18 16:21 Neut # (Auto) 4.3 x10^3/uL (2.2-4.8) 01/28/18 16:21 Lymph # (Auto) 1.1 X10^3/uL (1.3-2.9) L 01/28/18 16:21 [place] # (Auto) 0.3 x10^3/uL (0.3-0.8) 01/28/18 16:21 Eos # (Auto) 0.0 x10^3/uL (0.0-0.2) 01/28/18 16:21 Baso # (Auto) 0.1 X10^3/uL (0.0-0.1) 01/28/18 16:21 Absolute Nucleated RBC 0.0 /100WBC 01/28/18 16:21 Sodium 136 mmol/L (136-145) 01/28/18 16:21 Corrected Sodium 137 mmol/L (136-145) 01/28/18 16:21 Potassium 3.3 mmol/L (3.5-5.1) L 01/28/18 16:21 Chloride 98 mmol/L (98-107) 01/28/18 16:21 Carbon Dioxide 29.7 mmol/L (21-32) 01/28/18 16:21 BUN 7 mg/dL (7-18) 01/28/18 16:21 Creatinine 1.09 mg/dL (0.55-1.02) H 01/28/18 16:21 Est GFR (MDRD) Af Amer > 60 (>60) 01/28/18 16:21 Est GFR (MDRD) Non-Af 55 (>60) L 01/28/18 16:21 Glucose 130 mg/dL (65-99) H 01/28/18 16:21 Calcium 8.7 mg/dL (8.5-10.1) 01/28/18 16:21 Corrected Calcium TNP 01/28/18 16:21 Total Bilirubin 0.80 mg/dL (0.2-1.0) 01/28/18 16:21 AST 24 Units/L (15-37) 01/28/18 16:21 ALT 33 Units/L (12-78) 01/28/18 16:21 Alkaline Phosphatase 141 Units/L (46-116) H 01/28/18 16:21 Total Protein 8.2 g/dL (6.4-8.2) 01/28/18 16:21 Albumin 4.3 g/dL (3.4-5.0) 01/28/18 16:21 Globulin 3.9 g/dL (2.5-4.5) 01/28/18 16:21 Albumin/Globulin Ratio 1.1 Ratio (1.1-2.1) 01/28/18 16:21 - XRAY XRAY Interpreted by: Radiologist (Abdomen: The abdomen shows scattered large small bowel gas. k There are a few air fluid levels present. Some of the small bowel is distended measuring up to 6cm in diameter. k This appears to be predominantly in the upper abdomen. I cannot exclude the possibility of a bowel obstruction. Gas is noted in the region of the rectum. There appear to be numerous phleboliths presnt in the pelvis. Degenerative changes present in the lumbar spine and hips. Impression...There are distended loops of small bowel in the upper abdomen. I cannot exclude the possibility of a small bowel obstruction. ) - Diagnosis Discharge Problem: R/O Small Bowel Obstruction - Discharge Plan Condition: Stable - Follow ups/Referrals Follow ups/Referrals: Norm Martínez [Primary Care Provider] - 3 days - Instructions
--- NOTE | 2018-01-28 15:49 | RAD ---
HISTORY: Nausea and vomiting. Prior small bowel obstruction. Study: Upright PA chest with supine and upright abdominal views Comparison: 01/27/2018 Findings: The lungs are clear. The heart size is normal. Mild thoracic spondylosis is noted. The abdomen shows scattered large small bowel gas. There are a few air-fluid levels present. Some o f the small bowel is distended measuring up to 6 cm in diameter. This appears to be predominantly in the upper abdomen. I cannot exclude the possibility of a bowel obstruction. Gas is noted in the re gion of the rectum. There appear to be numerous phleboliths present in the pelvis. Degenerative yariel nges present in the lumbar spine and hips IMPRESSION: 1. No radiographic evidence of acute cardiopulmonary disease. 2. Nonspecific bowel gas pattern. 3. There are distended loops of small bowel in the upper abdomen. I cannot exclude the possibility o f a small bowel obstruction. Follow-up as clinically indicated. Reported By:
[2018-01-28] MEDS ORDERED: MORPHINE SULFATE INJ 2 MG INJ ONE (16:30)
[2018-01-28 16:31] LABS: BASOPHILS # (AUTO) 0.1 X10^3/uL (0.0-0.1); BASOPHILS % (AUTO) 1.6 % (0.2-1.0); EOSINOPHILS % (AUTO) 0.7 % (0.9-2.9); HEMATOCRIT 40.7 % (36.0-47.0); HEMOGLOBIN 13.6 g/dL (12.0-16.0); LYMPHOCYTES # (AUTO) 1.1 X10^3/uL (1.3-2.9); LYMPHOCYTES % (AUTO) 18.6 % (21.0-51.0); MEAN CORPUSCULAR HEMOGLOBIN 27.2 pg (27.0-34.0); MEAN CORPUSCULAR HGB CONC 33.5 g/dL (33.0-35.0); MEAN CORPUSCULAR VOLUME 81.1 fL (80.0-100.0); MEAN PLATELET VOLUME 7.8 fL (7.4-11.0); MONOCYTES # (AUTO) 0.3 x10^3/uL (0.3-0.8); MONOCYTES % (AUTO) 4.9 % (0.0-13.0); NEUTROPHILS # (AUTO) 4.3 x10^3/uL (2.2-4.8); NEUTROPHILS % (AUTO) 74.2 % (42.0-75.0); PLATELET COUNT 204 X10^3/uL (150.0-450.0); RED BLOOD COUNT 5.02 X10^6/uL (3.5-5.4); RED CELL DISTRIBUTION WIDTH 14.8 % (11.6-16.5); WHITE BLOOD COUNT 5.8 X10^3/uL (3.6-10.0)
[2018-01-28 16:44] LABS: ALANINE AMINOTRANSFERASE 33 Units/L (12-78); ALBUMIN 4.3 g/dL (3.4-5.0); ALKALINE PHOSPHATASE 141 Units/L (46-116); ASPARTATE AMINO TRANSFERASE 24 Units/L (15-37); BLOOD UREA NITROGEN 7 mg/dL (7-18); CALCIUM 8.7 mg/dL (8.5-10.1); CARBON DIOXIDE 29.7 mmol/L (21-32); CHLORIDE 98 mmol/L (98-107); COR NA(FOR HYPERGLY) 137 mmol/L (136-145); CREATININE 1.09 mg/dL (0.55-1.02); SODIUM 136 mmol/L (136-145); TOTAL PROTEIN 8.2 g/dL (6.4-8.2); eGFR BLACK RACES > 60 (>60); eGFR NON BLACK RACES 55 (>60)
[2018-01-28] MEDS ORDERED: NS 1000 ML 1,000 ML IV SCH (17:00)
[2018-01-28] MEDS ORDERED: HumuLIN R SUBCUT PRN (17:15)
[2018-01-28] MEDS ORDERED: MAGNESIUM SULFATE 1 GM/100 mL PREMIX 1 GM/100 ML BAG IV PRN (17:23)
[2018-01-28] MEDS ORDERED: POTASSIUM CHL 60 MEQ/NS 0.45% 500 ML IV PRN (17:23)
[2018-01-28] MEDS ORDERED: POTASSIUM CHLORIDE LIQ 20 MEQ UDC PO PRN (17:23)
[2018-01-28] MEDS ORDERED: K-LYTE EFFERVESCENT PO PRN (17:23)
[2018-01-28] MEDS ORDERED: POTASSIUM CHL 40 MEQ/NS 0.45% 500 ML IV PRN (17:23)
[2018-01-28] MEDS: K-RIDER 10 MEQ/NS 100 ML 10 MEQ/100 ML BAG IV PRN ×4 (17:34→21:48)
[2018-01-28] MEDS: D5 1/2 NS 1000 ML 1,000 ML IV SCH (18:59)
[2018-01-28] MEDS: MORPHINE SULFATE INJ 4 MG IVP PRN (19:49)
[2018-01-28] MEDS ORDERED: NORVASC TAB 2.5 MG ONE (20:00)
[2018-01-28] MEDS: NORVASC TAB 2.5 MG PO SCH (20:31)
[2018-01-28] MEDS: ZOFRAN INJ 4 MG VIAL IVP PRN (20:42)
[2018-01-28] MEDS: SNACK - Diabetic Appropriate PO SCH (21:37)
[2018-01-29] MEDS: D5 1/2 NS 1000 ML 1,000 ML IV SCH (03:54)
[2018-01-29] MEDS: MORPHINE SULFATE INJ 4 MG IVP PRN ×3 (04:19→21:51)
[2018-01-29 05:26] LABS: BASOPHILS % (AUTO) 0.5 % (0.2-1.0); EOSINOPHILS # (AUTO) 0.1 x10^3/uL (0.0-0.2); EOSINOPHILS % (AUTO) 1.2 % (0.9-2.9); HEMATOCRIT 37.1 % (36.0-47.0); HEMOGLOBIN 12.3 g/dL (12.0-16.0); LYMPHOCYTES # (AUTO) 1.3 X10^3/uL (1.3-2.9); LYMPHOCYTES % (AUTO) 28.8 % (21.0-51.0); MEAN CORPUSCULAR HEMOGLOBIN 27.3 pg (27.0-34.0); MEAN CORPUSCULAR HGB CONC 33.1 g/dL (33.0-35.0); MEAN CORPUSCULAR VOLUME 82.7 fL (80.0-100.0); MEAN PLATELET VOLUME 8.7 fL (7.4-11.0); MONOCYTES # (AUTO) 0.5 x10^3/uL (0.3-0.8); MONOCYTES % (AUTO) 11.7 % (0.0-13.0); NEUTROPHILS # (AUTO) 2.7 x10^3/uL (2.2-4.8); NEUTROPHILS % (AUTO) 57.8 % (42.0-75.0); PLATELET COUNT 173 X10^3/uL (150.0-450.0); RED BLOOD COUNT 4.49 X10^6/uL (3.5-5.4); RED CELL DISTRIBUTION WIDTH 15.1 % (11.6-16.5); WHITE BLOOD COUNT 4.6 X10^3/uL (3.6-10.0)
[2018-01-29 05:38] LABS: ALANINE AMINOTRANSFERASE 29 Units/L (12-78); ALBUMIN 3.5 g/dL (3.4-5.0); ALKALINE PHOSPHATASE 115 Units/L (46-116); ASPARTATE AMINO TRANSFERASE 18 Units/L (15-37); BLOOD UREA NITROGEN 6 mg/dL (7-18); CALCIUM 7.9 mg/dL (8.5-10.1); CARBON DIOXIDE 26.4 mmol/L (21-32); CHLORIDE 99 mmol/L (98-107); COR NA(FOR HYPERGLY) 136 mmol/L (136-145); CREATININE 0.97 mg/dL (0.55-1.02); SODIUM 135 mmol/L (136-145); TOTAL PROTEIN 6.8 g/dL (6.4-8.2); eGFR BLACK RACES > 60 (>60); eGFR NON BLACK RACES > 60 (>60)
--- NOTE | 2018-01-29 07:41 | RAD ---
HISTORY: Small-bowel obstruction, nausea, vomiting Study: Flat and upright abdomen, PA chest Comparison: 01/28/2018, CT abdomen pelvis 01/15/2018 Findings: The heart is within normal limits in size. The ximena are normal. The lung borjas are clear. There are some dilated loops of small bowel in the mid abdomen demonstrating air-fluid levels on the upright fi lm. There is some gas distally within the colon. Persistent small bowel obstruction is likely present . Multiple surgical clips are scattered throughout the abdomen. Pelvic calcifications likely represen t phleboliths. IMPRESSION: Findings suggestive of persistent small bowel obstruction Reported By:
[2018-01-29] MEDS: PROTONIX INJ 40 MG VIAL IVP SCH (08:29)
[2018-01-29] MEDS: HYZAAR 50/12.5 MG PO SCH (08:30)
[2018-01-29] MEDS: SYNTHROID 25 mcg TAB PO SCH (08:30)
[2018-01-29] MEDS: LIPITOR TAB 40 MG PO SCH (08:30)
[2018-01-29] MEDS: ZOFRAN INJ 4 MG VIAL IVP PRN ×2 (09:59→21:51)
[2018-01-29] MEDS: NS + KCL 20 MEQ/L 1,000 ML IV SCH ×2 (10:21→18:20)
[2018-01-29 10:29] VITALS: BMI 46.0
--- NOTE | 2018-01-29 14:39 | DR.PROGNOT ---
Hospital Progress Notes - Progress Note for Day of: Progress Note Date: 01/29/18 - Chief Complaint Chief Complaint: c/o mid abdominal pain .. no nausea or vomiting today .no BM today. CBC and CMP normal. - Past Medical Family Social History Allergies: Allergies No Known Drug Allergies Allergy (Verified 01/28/18 14:30) - Review Of Systems ROS: No change since H&P (h/o colon ca ,gastric ca and multiple abdominal surgeries ) - Vital Signs Vital Signs: Temperature 98.2 F Pulse Rate [Left Brachial] 81 Pulse Rate 101 Respiratory Rate 20 Blood Pressure [Right Arm] 96/55 Blood Pressure [Left Arm] 120/91 Blood Pressure [Left Radial 126/65 Artery] Blood Pressure 120/83 O2 Sat by Pulse Oximetry 98 - Physical Exam Nose: Normal Throat: Normal Respiratory: Normal Cardiovascular: Normal : Normal GI:Auscultation: Normal GI:Palpation: Normal GI: Tenderness: Diffuse (generalized tenderness , no rebound or rigidity ,BS+), Periumbilical Speech Pattern: Clear, Appropriate - Laboratory and Diagnostics Result Diagrams: 01/29/18 04:40 01/29/18 04:40 Labs: Laboratory WBC 4.6 X10^3/uL (3.6-10.0) 01/29/18 04:40 RBC 4.49 X10^6/uL (3.5-5.4) 01/29/18 04:40 Hgb 12.3 g/dL (12.0-16.0) 01/29/18 04:40 Hct 37.1 % (36.0-47.0) 01/29/18 04:40 MCV 82.7 fL (80.0-100.0) 01/29/18 04:40 MCH 27.3 pg (27.0-34.0) 01/29/18 04:40 MCHC 33.1 g/dL (33.0-35.0) 01/29/18 04:40 RDW 15.1 % (11.6-16.5) 01/29/18 04:40 Plt Count 173 X10^3/uL (150.0-450.0) 01/29/18 04:40 MPV 8.7 fL (7.4-11.0) 01/29/18 04:40 Neut % (Auto) 57.8 % (42.0-75.0) 01/29/18 04:40 Lymph % (Auto) 28.8 % (21.0-51.0) 01/29/18 04:40 [place] % (Auto) 11.7 % (0.0-13.0) 01/29/18 04:40 Eos % (Auto) 1.2 % (0.9-2.9) 01/29/18 04:40 Baso % (Auto) 0.5 % (0.2-1.0) 01/29/18 04:40 Neut # (Auto) 2.7 x10^3/uL (2.2-4.8) 01/29/18 04:40 Lymph # (Auto) 1.3 X10^3/uL (1.3-2.9) 01/29/18 04:40 [place] # (Auto) 0.5 x10^3/uL (0.3-0.8) 01/29/18 04:40 Eos # (Auto) 0.1 x10^3/uL (0.0-0.2) 01/29/18 04:40 Baso # (Auto) 0.0 X10^3/uL (0.0-0.1) 01/29/18 04:40 Absolute Nucleated RBC 0.2 /100WBC 01/29/18 04:40 Sodium 135 mmol/L (136-145) L 01/29/18 04:40 Corrected Sodium 136 mmol/L (136-145) 01/29/18 04:40 Potassium 3.3 mmol/L (3.5-5.1) L 01/29/18 04:40 Chloride 99 mmol/L (98-107) 01/29/18 04:40 Carbon Dioxide 26.4 mmol/L (21-32) 01/29/18 04:40 BUN 6 mg/dL (7-18) L 01/29/18 04:40 Creatinine 0.97 mg/dL (0.55-1.02) 01/29/18 04:40 Est GFR (MDRD) Af Amer > 60 (>60) 01/29/18 04:40 Est GFR (MDRD) Non-Af > 60 (>60) 01/29/18 04:40 Glucose 148 mg/dL (65-99) H 01/29/18 04:40 POC Glucose (mg/dL) 90 mg/dL (65-99) 01/29/18 11:25 Calcium 7.9 mg/dL (8.5-10.1) L 01/29/18 04:40 Corrected Calcium TNP 01/29/18 04:40 Magnesium 1.7 mg/dL (1.7-2.9) 01/28/18 16:21 Total Bilirubin 0.80 mg/dL (0.2-1.0) 01/29/18 04:40 AST 18 Units/L (15-37) 01/29/18 04:40 ALT 29 Units/L (12-78) 01/29/18 04:40 Alkaline Phosphatase 115 Units/L (46-116) 01/29/18 04:40 Total Protein 6.8 g/dL (6.4-8.2) 01/29/18 04:40 Albumin 3.5 g/dL (3.4-5.0) 01/29/18 04:40 Globulin 3.3 g/dL (2.5-4.5) 01/29/18 04:40 Albumin/Globulin Ratio 1.1 Ratio (1.1-2.1) 01/29/18 04:40 - Assessment and Plan 1: recurrent Partial SBO. abdominal adhesions. h/o colon and gastric ca. obesity . keep NPO , SBFT in am
[2018-01-29] MEDS ORDERED: NORVASC TAB 2.5 MG ONE (20:24)
[2018-01-29] MEDS: NORVASC TAB 2.5 MG PO SCH (20:38)
--- NOTE | 2018-01-29 21:13 | DR.H&P ---
H&P - History & Physical for Day of: H&P Date: 01/28/18 - Chief Complaint Chief Complaint: abdominal pain - Allergies Allergies/Adverse Reactions: Allergies Allergy/AdvReac Type Severity Reaction Status Date / Time No Known Drug Allergies Allergy Verified 01/28/18 14:30 - History of Present Illness History of Present Illness: is a 57 year old patient of ours who presented to the emergency room with reports of abdominal pain with associated nausea and vomiting. Patient reports she was seen by Dr. Rahman for a hospital follow up yesterday and was doing well however symptoms started suddenly this morning. Patient states she has previously had colon cancer which required multiple abdominal surgeries as well as history of bowel obstructions. Patient noted with diffuse moderate abdominal tenderness on palpation of all quadrants. Patient describes pain is a sharp cramping pain which she rates as a 10/10. Associated symptoms include weakness, fatigue, loss of appetite, nausea and vomiting. 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 On arrival to the ER , vitals were 97.8, 101, 16, 98% RA, 120/83. Labs were obtained. Abnormal Labs include the following: Lymph% 18.6, Eos% 0.7, Baso% 1.6, Lymph# 1.1, Potassium 3.3, Creatinine 1.09, GFR non 55, Glucose 130, Alk Phos 141. Abdomen X-Ray obtained and revealed: No radiographic evidence of acute cardiopulmonary disease. Nonspecific bowel gas pattern. There are distended loops of small bowel in the upper abdomen. Small bowel obstruction cannot be excluded. Follow up as clinically indicated. Abdomen x-ray revealed nonspecific bowel gas pattern with distended loops of small bowel in the upper abdomen and radiologist reports small bowel obstruction cannot be excluded. Patient admitted to the hospital as observation for further evaluation and treatment. Patient placed NPO, started on IV fluids and will treat with pain and nausea medications as needed. We plan to follow up with am labs and continue to monitor patient. - Past Medical History Past Medical History: Dyslipidemia, GERD, Hypertension Additional Medical History: Petit Syndrome, Colon Cancer - Past Surgical History Surgical History: Bowel Resection, Cholecystectomy, Hysterectomy, Other Additional Surgical History: Partial Bowel Resection, Right Eye Surgery - Family History Family Medical History: Cancer - Social History Does any household member use tobacco: No Alcohol Use: None Drug Use: Prescription Drugs - Review of Systems Constitutional: Weakness, Malaise, Other (loss of appetite. ) Eyes: No Symptoms Reported ENT: No Symptoms Reported Respiratory: No Symptoms Reported Cardiovascular: No Symptoms Reported Gastrointestinal: Nausea, Vomiting, Abdominal Pain. denies: Diarrhea, Constipation, Melena, Hematochezia Genitourinary: No Symptoms Reported Musculoskeletal: No Symptoms Reported Skin: No Symptoms Reported Neurological: Weakness - Physical Exam Vital Signs: Temperature 98.8 F Pulse Rate [Left Brachial] 68 Pulse Rate 101 Respiratory Rate 16 Blood Pressure [Right Arm] 120/60 Blood Pressure [Left Arm] 120/91 Blood Pressure [Left Radial 126/65 Artery] Blood Pressure 120/83 O2 Sat by Pulse Oximetry 98 Oriented: Normal Eyes: Normal Ear: Normal Nose: Normal Throat: Normal Respiratory: Clear Throughout Cardiovascular: Normal : Normal Auscultation: Bowel Sounds: Normal Palpation: Normal Tenderness: Diffuse, Moderate. negative: Rebound, Guarding, Rigidity Skin: Normal Musculoskeletal: Normal Psychiatric: Normal Mood Description: Calm Affect: Normal Speech Pattern: Clear - Assessment/Plan (1) Small bowel obstruction Status: Acute Plan: admit, iv fluids, nausea and pain control, consult general surgery, continue to monitor
[2018-01-29] MEDS: SNACK - Diabetic Appropriate PO SCH (21:24)
[2018-01-30] MEDS: NS + KCL 20 MEQ/L 1,000 ML IV SCH ×3 (04:24→22:22)
[2018-01-30 06:35] LABS: EOSINOPHILS # (AUTO) 0.1 x10^3/uL (0.0-0.2); HEMATOCRIT 30.8 % (36.0-47.0); HEMOGLOBIN 10.4 g/dL (12.0-16.0); LYMPHOCYTES # (AUTO) 1.1 X10^3/uL (1.3-2.9); LYMPHOCYTES % (AUTO) 32.1 % (21.0-51.0); MEAN CORPUSCULAR HEMOGLOBIN 27.6 pg (27.0-34.0); MEAN CORPUSCULAR HGB CONC 33.9 g/dL (33.0-35.0); MEAN CORPUSCULAR VOLUME 81.5 fL (80.0-100.0); MEAN PLATELET VOLUME 8.3 fL (7.4-11.0); MONOCYTES # (AUTO) 0.4 x10^3/uL (0.3-0.8); MONOCYTES % (AUTO) 12.2 % (0.0-13.0); NEUTROPHILS # (AUTO) 1.8 x10^3/uL (2.2-4.8); NEUTROPHILS % (AUTO) 52.7 % (42.0-75.0); PLATELET COUNT 145 X10^3/uL (150.0-450.0); RED BLOOD COUNT 3.78 X10^6/uL (3.5-5.4); RED CELL DISTRIBUTION WIDTH 15.2 % (11.6-16.5); WHITE BLOOD COUNT 3.3 X10^3/uL (3.6-10.0)
[2018-01-30 06:50] LABS: ALANINE AMINOTRANSFERASE 31 Units/L (12-78); ALKALINE PHOSPHATASE 98 Units/L (46-116); ASPARTATE AMINO TRANSFERASE 18 Units/L (15-37); BLOOD UREA NITROGEN 4 mg/dL (7-18); CALCIUM 7.5 mg/dL (8.5-10.1); CHLORIDE 106 mmol/L (98-107); COR CA(FOR HYPOALB) 8.3 mg/dL (8.5-10.1); CREATININE 1.01 mg/dL (0.55-1.02); MAGNESIUM 1.4 mg/dL (1.7-2.9); SODIUM 139 mmol/L (136-145); TOTAL PROTEIN 5.8 g/dL (6.4-8.2); eGFR BLACK RACES > 60 (>60); eGFR NON BLACK RACES 60 (>60)
[2018-01-30] MEDS: SYNTHROID 25 mcg TAB PO SCH (08:03)
[2018-01-30] MEDS: HYZAAR 50/12.5 MG PO SCH (08:03)
[2018-01-30] MEDS: LIPITOR TAB 40 MG PO SCH (08:03)
[2018-01-30] MEDS: MORPHINE SULFATE INJ 4 MG IVP PRN (08:03)
[2018-01-30] MEDS: PROTONIX INJ 40 MG VIAL IVP SCH (08:03)
--- NOTE | 2018-01-30 17:15 | RAD ---
HISTORY: 57-year-old female with multiple abdominal surgeries with abdominal pain, nausea and vomiti ng. Concern for small bowel obstruction. Study: Small-bowel follow-through Comparison: CT abdomen and pelvis 01/15/2018, acute abdominal series 46530. Technique: Multiple radiographs of the abdomen were obtained after the administration of oral barium. Findings: Transit of the barium column is seen throughout the small bowel to the level of the hepatic flexure i n a patient status post right hemicolectomy. No evidence for significant loop separation, angulation , or stricture can be identified. The normal mucosal pattern of the ileum and jejunum is observed. No fluctuation of barium can be observed. IMPRESSION: 1. No evidence of bowel obstruction, significant stricture or fistula. Reported By:
[2018-01-30] MEDS ORDERED: NORVASC TAB 2.5 MG ONE (20:28)
[2018-01-30] MEDS: NORVASC TAB 2.5 MG PO SCH (21:06)
[2018-01-30] MEDS: SNACK - Diabetic Appropriate PO SCH (21:06)
--- NOTE | 2018-01-30 23:46 | DR.H&PGYN ---
H&P Obsterics/Gynecology - Chief Complaint Chief Complaint: feeling better today , although she is still having mid abdominal pain and nausea but no vomiting . SBFT showed no obstruction . - Allergies Allergies/Adverse Reactions: Allergies Allergy/AdvReac Type Severity Reaction Status Date / Time No Known Drug Allergies Allergy Verified 01/28/18 14:30 - Past Medical History Additional Medical History: Petit Syndrome, Colon Cancer - Social History Does any household member use tobacco: No Alcohol Use: None Drug Use: Prescription Drugs - Medications Home Medications: Home Meds Table Medication Instructions Recorded Amlodipine Besylate [Norvasc] 2.5 mg PO HS 04/08/15 Folic Acid [FOLIC ACID TAB 1 MG *] 1 tab PO DAILY 04/08/15 Losartan/Hydrochlorothiazide 1 tab PO DAILY 04/08/15 [Losartan-Hctz 50-12.5 mg Tab] Atorvastatin Calcium [LIPITOR Tab 40 mg PO DAILY 09/02/15 40 mg *] Cholecalciferol (Vitamin D3) 2 tabs PO DAILY 12/10/17 [Vitamin D3] Levothyroxine Sodium 1 tab PO DAILY 12/10/17 Metformin HCl [GLUCOPHAGE 500 MG *] 1 tab PO BID 12/10/17 Potassium Chloride [Klor-Con M20] 1 tab PO BID 01/15/18 Ondansetron [Zofran Odt] 4 mg PO Q8H PRN #12 tab 01/18/18 Pantoprazole Sodium 40 mg 40 mg PO DAILY #30 tab 01/18/18 [Protonix Tab 40 mg] Chlorpromazine HCl [Thorazine Tab 25 - 50 mg PO Q6H #12 tab 01/20/18 25 mg] Dicyclomine HCl [Bentyl Cap 10 mg] 10 mg PO TID #30 cap 01/20/18 - Physical Exam Temperature: 98.5 F Blood Pressure: 120/83 Respiratory Rate: 20 Pulse Rate: 101 O2 Sat by Pulse Oximetry: 95
--- NOTE | 2018-01-30 23:52 | DR.PROGNOT ---
Hospital Progress Notes - Progress Note for Day of: Progress Note Date: 01/30/18 - Chief Complaint Chief Complaint: c/o mid abdominal pain .. mild nausea , no vomiting today .no BM today. CBC and CMP normal. SBFT : no obstruction - Past Medical Family Social History Past Med/Fam/Surg Hx: No changes since H&P Allergies: Allergies No Known Drug Allergies Allergy (Verified 01/28/18 14:30) - Review Of Systems ROS: No change since H&P (h/o colon ca ,gastric ca and multiple abdominal surgeries ) - Vital Signs Vital Signs: Temperature 98.5 F Pulse Rate [Left Brachial] 70 Pulse Rate 101 Respiratory Rate 20 Blood Pressure [Right Arm] 111/57 Blood Pressure [Left Arm] 120/91 Blood Pressure [Left Radial 126/65 Artery] Blood Pressure 120/83 O2 Sat by Pulse Oximetry 95 - Physical Exam Oriented: Normal Eyes: Normal Ear: Normal Nose: Normal Throat: Normal Respiratory: Normal Cardiovascular: Normal : Normal GI:Auscultation: Normal GI:Palpation: Normal GI: Tenderness: Diffuse, Moderate (soft abdomen , no distention .BS +). negative: Rebound, Guarding, Rigidity Skin: Normal Musculoskeletal: Normal Psychiatric: Normal Mood Description: Calm Affect: Normal Speech Pattern: Clear, Appropriate - Laboratory and Diagnostics Result Diagrams: 01/30/18 05:13 01/30/18 05:13 Labs: Laboratory WBC 3.3 X10^3/uL (3.6-10.0) L 01/30/18 05:13 RBC 3.78 X10^6/uL (3.5-5.4) 01/30/18 05:13 Hgb 10.4 g/dL (12.0-16.0) L 01/30/18 05:13 Hct 30.8 % (36.0-47.0) L 01/30/18 05:13 MCV 81.5 fL (80.0-100.0) 01/30/18 05:13 MCH 27.6 pg (27.0-34.0) 01/30/18 05:13 MCHC 33.9 g/dL (33.0-35.0) 01/30/18 05:13 RDW 15.2 % (11.6-16.5) 01/30/18 05:13 Plt Count 145 X10^3/uL (150.0-450.0) L 01/30/18 05:13 MPV 8.3 fL (7.4-11.0) 01/30/18 05:13 Neut % (Auto) 52.7 % (42.0-75.0) 01/30/18 05:13 Lymph % (Auto) 32.1 % (21.0-51.0) 01/30/18 05:13 [place] % (Auto) 12.2 % (0.0-13.0) 01/30/18 05:13 Eos % (Auto) 2.0 % (0.9-2.9) 01/30/18 05:13 Baso % (Auto) 1.0 % (0.2-1.0) 01/30/18 05:13 Neut # (Auto) 1.8 x10^3/uL (2.2-4.8) L 01/30/18 05:13 Lymph # (Auto) 1.1 X10^3/uL (1.3-2.9) L 01/30/18 05:13 [place] # (Auto) 0.4 x10^3/uL (0.3-0.8) 01/30/18 05:13 Eos # (Auto) 0.1 x10^3/uL (0.0-0.2) 01/30/18 05:13 Baso # (Auto) 0.0 X10^3/uL (0.0-0.1) 01/30/18 05:13 Absolute Nucleated RBC 0.0 /100WBC 01/30/18 05:13 Sodium 139 mmol/L (136-145) 01/30/18 05:13 Corrected Sodium TNP 01/30/18 05:13 Potassium 3.8 mmol/L (3.5-5.1) 01/30/18 05:13 Chloride 106 mmol/L (98-107) 01/30/18 05:13 Carbon Dioxide 27.0 mmol/L (21-32) 01/30/18 05:13 BUN 4 mg/dL (7-18) L 01/30/18 05:13 Creatinine 1.01 mg/dL (0.55-1.02) 01/30/18 05:13 Est GFR (MDRD) Af Amer > 60 (>60) 01/30/18 05:13 Est GFR (MDRD) Non-Af 60 (>60) 01/30/18 05:13 Glucose 102 mg/dL (65-99) H 01/30/18 05:13 POC Glucose (mg/dL) 65 mg/dL (65-99) 01/30/18 20:33 Calcium 7.5 mg/dL (8.5-10.1) L 01/30/18 05:13 Corrected Calcium 8.3 mg/dL (8.5-10.1) L 01/30/18 05:13 Magnesium 1.4 mg/dL (1.7-2.9) L 01/30/18 05:13 Total Bilirubin 0.90 mg/dL (0.2-1.0) 01/30/18 05:13 AST 18 Units/L (15-37) 01/30/18 05:13 ALT 31 Units/L (12-78) 01/30/18 05:13 Alkaline Phosphatase 98 Units/L (46-116) 01/30/18 05:13 Total Protein 5.8 g/dL (6.4-8.2) L 01/30/18 05:13 Albumin 3.0 g/dL (3.4-5.0) L 01/30/18 05:13 Globulin 2.8 g/dL (2.5-4.5) 01/30/18 05:13 Albumin/Globulin Ratio 1.1 Ratio (1.1-2.1) 01/30/18 05:13 - Assessment and Plan 1: resolving recurrent Partial SBO. abdominal adhesions. h/o colon and gastric ca. obesity . will advance diet , - Problem Patient Problems: Patient Problems Small bowel obstruction (Acute) K56.575
[2018-01-31] MEDS: NS + KCL 20 MEQ/L 1,000 ML IV SCH (05:41)
[2018-01-31 05:57] LABS: BASOPHILS % (AUTO) 0.6 % (0.2-1.0); EOSINOPHILS # (AUTO) 0.1 x10^3/uL (0.0-0.2); EOSINOPHILS % (AUTO) 1.7 % (0.9-2.9); HEMATOCRIT 31.3 % (36.0-47.0); HEMOGLOBIN 10.6 g/dL (12.0-16.0); LYMPHOCYTES # (AUTO) 0.9 X10^3/uL (1.3-2.9); LYMPHOCYTES % (AUTO) 24.1 % (21.0-51.0); MEAN CORPUSCULAR HEMOGLOBIN 27.4 pg (27.0-34.0); MEAN CORPUSCULAR HGB CONC 33.7 g/dL (33.0-35.0); MEAN CORPUSCULAR VOLUME 81.4 fL (80.0-100.0); MEAN PLATELET VOLUME 8.5 fL (7.4-11.0); MONOCYTES # (AUTO) 0.4 x10^3/uL (0.3-0.8); MONOCYTES % (AUTO) 10.6 % (0.0-13.0); NEUTROPHILS # (AUTO) 2.4 x10^3/uL (2.2-4.8); PLATELET COUNT 149 X10^3/uL (150.0-450.0); RED BLOOD COUNT 3.85 X10^6/uL (3.5-5.4); RED CELL DISTRIBUTION WIDTH 14.7 % (11.6-16.5); WHITE BLOOD COUNT 3.7 X10^3/uL (3.6-10.0)
[2018-01-31 06:00] LABS: ALANINE AMINOTRANSFERASE 25 Units/L (12-78); ALBUMIN 3.2 g/dL (3.4-5.0); ALKALINE PHOSPHATASE 99 Units/L (46-116); ASPARTATE AMINO TRANSFERASE 15 Units/L (15-37); BLOOD UREA NITROGEN 4 mg/dL (7-18); CALCIUM 7.6 mg/dL (8.5-10.1); CARBON DIOXIDE 25.9 mmol/L (21-32); CHLORIDE 102 mmol/L (98-107); COR CA(FOR HYPOALB) 8.2 mg/dL (8.5-10.1); CREATININE 0.92 mg/dL (0.55-1.02); SODIUM 134 mmol/L (136-145); TOTAL PROTEIN 6.1 g/dL (6.4-8.2); eGFR BLACK RACES > 60 (>60); eGFR NON BLACK RACES > 60 (>60)
[2018-01-31] MEDS ORDERED: ROBITUSSIN DM PO PRN (09:08)
[2018-01-31] MEDS: LIPITOR TAB 40 MG PO SCH (09:11)
[2018-01-31] MEDS: SYNTHROID 25 mcg TAB PO SCH (09:11)
[2018-01-31] MEDS: PROTONIX INJ 40 MG VIAL IVP SCH ×2 (09:11→09:16)
[2018-01-31] MEDS: HYZAAR 50/12.5 MG PO SCH (09:11)
[2018-01-31 11:18] VITALS: BP 114/54
--- NOTE | 2018-02-02 21:44 | PCM.PROG ---
Progress Note - Progress Note for Day of Date: 01/29/18 - Subjective Subjective: WAS ADMITTED FOR A POSSIBLE SMALL BOWEL OBSTRUCTION. TODAY, SHE IS ALERT AND ORIENTED, LYING IN BED ON MORNING ROUNDS. SHE CONTINUES WITH DIFFUSE ABDOMINAL PAIN AND NAUSEA. HER VITALS TODAY ARE 97.7-100-18-95%-136 /76. POTASSIUM IS 3.3, OTHERWISE, SHE IS HEMODYNAMICALLY STABLE TODAY. AN ABDOMEN XRAY WAS OBTAINED TODAY AND REVEALED FINDINGS SUGGESTIVE OF PERSISTENT SMALL BOWEL OBSTRUCTION. TODAY, WE WILL CHANGE FLUIDS TO NORMAL SALINE WITH 20MEQ KCL AND CONSULT . OTHERWISE, WE WILL FOLLOW UP WITH AM LABS AND CONTINUE TO MONITOR PATIENT. - Past Medical Family Social History Past Med/Fam/Surg Hx: No changes since H&P Allergies: Allergies No Known Drug Allergies Allergy (Verified 01/28/18 14:30) - Review of Systems ROS: No change since H&P (h/o colon ca ,gastric ca and multiple abdominal surgeries ) - Vital Signs and I&O's Vital Signs: Temperature 99.5 F Pulse Rate [Left Brachial] 87 Pulse Rate 101 Respiratory Rate 18 Blood Pressure [Right Arm] 114/54 Blood Pressure [Left Arm] 120/91 Blood Pressure [Left Radial 126/65 Artery] Blood Pressure 120/83 O2 Sat by Pulse Oximetry 93 Intake and Output: Intake & Output 01/31/18 02/01/18 02/02/18 02/03/18 11:59 11:59 11:59 11:59 Intake Total 1778 Balance 1778 - Physical Exam Oriented: Normal Eyes: Normal Ear: Normal Nose: Normal Throat: Normal Respiratory: Normal Cardiovascular: Normal : Normal Auscultation: Bowel Sounds: Normal Palpation: Normal Tenderness: Diffuse, Moderate (soft abdomen , no distention .BS +). negative: Rebound, Guarding, Rigidity Skin: Normal Musculoskeletal: Normal Psychiatric: Normal Mood Description: Calm Affect: Normal Speech Pattern: Clear, Appropriate - Laboratory and Diagnostics Result Diagrams: 01/31/18 04:07 01/31/18 04:07 Labs: Laboratory WBC 3.7 X10^3/uL (3.6-10.0) 01/31/18 04:07 RBC 3.85 X10^6/uL (3.5-5.4) 01/31/18 04:07 Hgb 10.6 g/dL (12.0-16.0) L 01/31/18 04:07 Hct 31.3 % (36.0-47.0) L 01/31/18 04:07 MCV 81.4 fL (80.0-100.0) 01/31/18 04:07 MCH 27.4 pg (27.0-34.0) 01/31/18 04:07 MCHC 33.7 g/dL (33.0-35.0) 01/31/18 04:07 RDW 14.7 % (11.6-16.5) 01/31/18 04:07 Plt Count 149 X10^3/uL (150.0-450.0) L 01/31/18 04:07 MPV 8.5 fL (7.4-11.0) 01/31/18 04:07 Neut % (Auto) 63.0 % (42.0-75.0) 01/31/18 04:07 Lymph % (Auto) 24.1 % (21.0-51.0) 01/31/18 04:07 [place] % (Auto) 10.6 % (0.0-13.0) 01/31/18 04:07 Eos % (Auto) 1.7 % (0.9-2.9) 01/31/18 04:07 Baso % (Auto) 0.6 % (0.2-1.0) 01/31/18 04:07 Neut # (Auto) 2.4 x10^3/uL (2.2-4.8) 01/31/18 04:07 Lymph # (Auto) 0.9 X10^3/uL (1.3-2.9) L 01/31/18 04:07 [place] # (Auto) 0.4 x10^3/uL (0.3-0.8) 01/31/18 04:07 Eos # (Auto) 0.1 x10^3/uL (0.0-0.2) 01/31/18 04:07 Baso # (Auto) 0.0 X10^3/uL (0.0-0.1) 01/31/18 04:07 Absolute Nucleated RBC 0.2 /100WBC 01/31/18 04:07 Sodium 134 mmol/L (136-145) L 01/31/18 04:07 Corrected Sodium TNP 01/31/18 04:07 Potassium 3.1 mmol/L (3.5-5.1) L 01/31/18 04:07 Chloride 102 mmol/L (98-107) 01/31/18 04:07 Carbon Dioxide 25.9 mmol/L (21-32) 01/31/18 04:07 BUN 4 mg/dL (7-18) L 01/31/18 04:07 Creatinine 0.92 mg/dL (0.55-1.02) 01/31/18 04:07 Est GFR (MDRD) Af Amer > 60 (>60) 01/31/18 04:07 Est GFR (MDRD) Non-Af > 60 (>60) 01/31/18 04:07 Glucose 94 mg/dL (65-99) 01/31/18 04:07 POC Glucose (mg/dL) 96 mg/dL (65-99) 01/31/18 05:24 Calcium 7.6 mg/dL (8.5-10.1) L 01/31/18 04:07 Corrected Calcium 8.2 mg/dL (8.5-10.1) L 01/31/18 04:07 Magnesium 1.4 mg/dL (1.7-2.9) L 01/30/18 05:13 Total Bilirubin 0.70 mg/dL (0.2-1.0) 01/31/18 04:07 AST 15 Units/L (15-37) 01/31/18 04:07 ALT 25 Units/L (12-78) 01/31/18 04:07 Alkaline Phosphatase 99 Units/L (46-116) 01/31/18 04:07 Total Protein 6.1 g/dL (6.4-8.2) L 01/31/18 04:07 Albumin 3.2 g/dL (3.4-5.0) L 01/31/18 04:07 Globulin 2.9 g/dL (2.5-4.5) 01/31/18 04:07 Albumin/Globulin Ratio 1.1 Ratio (1.1-2.1) 01/31/18 04:07 - Plan (1) Small bowel obstruction Status: Acute Plan: admit, iv fluids, nausea and pain control, consult general surgery, continue to monitor
--- NOTE | 2018-02-02 21:45 | PCM.PROG ---
Progress Note - Progress Note for Day of Date: 01/30/18 - Subjective Subjective: WAS ADMITTED FOR A POSSIBLE SMALL BOWEL OBSTRUCTION. TODAY, SHE IS ALERT AND ORIENTED, LYING IN BED ON MORNING ROUNDS. SHE CONTINUES WITH DIFFUSE ABDOMINAL PAIN AND NAUSEA. HER VITALS TODAY ARE 98.6-86-20-98%-105/ 54. SHE IS HEMODYNAMICALLY STABLE TODAY. A SMALL BOWEL XRAY WAS OBTAINED TODAY AND REVEALED NO EVIDENCE OF BOWEL OBSTRUCTION, SIGNIFICANT STRICTURE, OR FISTULA. TODAY, WE WILL CONTINUE WITH NAUSEA AND PAIN MEDICATIONS. OTHERWISE, WE WILL FOLLOW UP WITH AM LABS AND CONTINUE TO MONITOR PATIENT. - Past Medical Family Social History Past Med/Fam/Surg Hx: No changes since H&P Allergies: Allergies No Known Drug Allergies Allergy (Verified 01/28/18 14:30) - Review of Systems ROS: No change since H&P (h/o colon ca ,gastric ca and multiple abdominal surgeries ) - Vital Signs and I&O's Vital Signs: Temperature 99.5 F Pulse Rate [Left Brachial] 87 Pulse Rate 101 Respiratory Rate 18 Blood Pressure [Right Arm] 114/54 Blood Pressure [Left Arm] 120/91 Blood Pressure [Left Radial 126/65 Artery] Blood Pressure 120/83 O2 Sat by Pulse Oximetry 93 Intake and Output: Intake & Output 01/31/18 02/01/18 02/02/18 02/03/18 11:59 11:59 11:59 11:59 Intake Total 1778 Balance 1778 - Physical Exam Oriented: Normal Eyes: Normal Ear: Normal Nose: Normal Throat: Normal Respiratory: Normal Cardiovascular: Normal : Normal Auscultation: Bowel Sounds: Normal Palpation: Normal Tenderness: Diffuse, Moderate (soft abdomen , no distention .BS +). negative: Rebound, Guarding, Rigidity Skin: Normal Musculoskeletal: Normal Psychiatric: Normal Mood Description: Calm Affect: Normal Speech Pattern: Clear, Appropriate - Laboratory and Diagnostics Result Diagrams: 01/31/18 04:07 01/31/18 04:07 Labs: Laboratory WBC 3.7 X10^3/uL (3.6-10.0) 01/31/18 04:07 RBC 3.85 X10^6/uL (3.5-5.4) 01/31/18 04:07 Hgb 10.6 g/dL (12.0-16.0) L 01/31/18 04:07 Hct 31.3 % (36.0-47.0) L 01/31/18 04:07 MCV 81.4 fL (80.0-100.0) 01/31/18 04:07 MCH 27.4 pg (27.0-34.0) 01/31/18 04:07 MCHC 33.7 g/dL (33.0-35.0) 01/31/18 04:07 RDW 14.7 % (11.6-16.5) 01/31/18 04:07 Plt Count 149 X10^3/uL (150.0-450.0) L 01/31/18 04:07 MPV 8.5 fL (7.4-11.0) 01/31/18 04:07 Neut % (Auto) 63.0 % (42.0-75.0) 01/31/18 04:07 Lymph % (Auto) 24.1 % (21.0-51.0) 01/31/18 04:07 [place] % (Auto) 10.6 % (0.0-13.0) 01/31/18 04:07 Eos % (Auto) 1.7 % (0.9-2.9) 01/31/18 04:07 Baso % (Auto) 0.6 % (0.2-1.0) 01/31/18 04:07 Neut # (Auto) 2.4 x10^3/uL (2.2-4.8) 01/31/18 04:07 Lymph # (Auto) 0.9 X10^3/uL (1.3-2.9) L 01/31/18 04:07 [place] # (Auto) 0.4 x10^3/uL (0.3-0.8) 01/31/18 04:07 Eos # (Auto) 0.1 x10^3/uL (0.0-0.2) 01/31/18 04:07 Baso # (Auto) 0.0 X10^3/uL (0.0-0.1) 01/31/18 04:07 Absolute Nucleated RBC 0.2 /100WBC 01/31/18 04:07 Sodium 134 mmol/L (136-145) L 01/31/18 04:07 Corrected Sodium TNP 01/31/18 04:07 Potassium 3.1 mmol/L (3.5-5.1) L 01/31/18 04:07 Chloride 102 mmol/L (98-107) 01/31/18 04:07 Carbon Dioxide 25.9 mmol/L (21-32) 01/31/18 04:07 BUN 4 mg/dL (7-18) L 01/31/18 04:07 Creatinine 0.92 mg/dL (0.55-1.02) 01/31/18 04:07 Est GFR (MDRD) Af Amer > 60 (>60) 01/31/18 04:07 Est GFR (MDRD) Non-Af > 60 (>60) 01/31/18 04:07 Glucose 94 mg/dL (65-99) 01/31/18 04:07 POC Glucose (mg/dL) 96 mg/dL (65-99) 01/31/18 05:24 Calcium 7.6 mg/dL (8.5-10.1) L 01/31/18 04:07 Corrected Calcium 8.2 mg/dL (8.5-10.1) L 01/31/18 04:07 Magnesium 1.4 mg/dL (1.7-2.9) L 01/30/18 05:13 Total Bilirubin 0.70 mg/dL (0.2-1.0) 01/31/18 04:07 AST 15 Units/L (15-37) 01/31/18 04:07 ALT 25 Units/L (12-78) 01/31/18 04:07 Alkaline Phosphatase 99 Units/L (46-116) 01/31/18 04:07 Total Protein 6.1 g/dL (6.4-8.2) L 01/31/18 04:07 Albumin 3.2 g/dL (3.4-5.0) L 01/31/18 04:07 Globulin 2.9 g/dL (2.5-4.5) 01/31/18 04:07 Albumin/Globulin Ratio 1.1 Ratio (1.1-2.1) 01/31/18 04:07 - Plan (1) Small bowel obstruction Status: Acute Plan: iv fluids, nausea and pain control, continue to monitor
== END 2018-01-31 11:20 | disposition home or self-care (01) | DRG 390 ==
LOC: ER 14:37 → MED/SURG 16:53 → OBSVTOIN 01-29 14:00
PROVIDERS: ADMIT Internal Medicine; ATTEND Internal Medicine
DX: K56.699 Other intestinal obstruction unspecified as to partial versus complete obstruction (principal); R10.84 Generalized abdominal pain; R11.2 Nausea with vomiting, unspecified; E78.2 Mixed hyperlipidemia; K21.9 Gastro-esophageal reflux disease without esophagitis; I10 Essential (primary) hypertension; Z85.038 Personal history of other malignant neoplasm of large intestine; Z85.028 Personal history of other malignant neoplasm of stomach
CPT/HCPCS: 36415; 74022; 74250; 80053; 83735; 85025; 94760; 96365; 96374; 99284; A4216; A4222; C9113; G0378; J2270; J2405; J3480; J7042

== ENCOUNTER 2018-02-07 08:24 | Day surgery (SDC) | payer BC ==
[2018-02-07] MEDS ORDERED: D5 LR 1000 ML 1,000 ML IV ONE (08:37)
[2018-02-07] MEDS ORDERED: DIPRIVAN VIAL 20 ML ONE (10:47)
[2018-02-07] MEDS ORDERED: DIPRIVAN VIAL 10 ML ONE (11:09)
[2018-02-07 11:43] VITALS: BP 125/71
== END 2018-02-07 12:02 | disposition home or self-care (01) | DRG 392 ==
LOC: SURG1 08:24
PROVIDERS: ATTEND Surgery
PROC: 0DB68ZX Excision of Stomach, Via Natural or Artificial Opening Endoscopic, Diagnostic (ICD-10-PCS; 2018-02-07)
PROC: 0DJ08ZZ Inspection of Upper Intestinal Tract, Via Natural or Artificial Opening Endoscopic (ICD-10-PCS; principal; 2018-02-07 10:15)
DX: R10.84 Generalized abdominal pain (principal); R11.2 Nausea with vomiting, unspecified; K31.7 Polyp of stomach and duodenum; Z85.038 Personal history of other malignant neoplasm of large intestine; Z85.028 Personal history of other malignant neoplasm of stomach; Z98.890 Other specified postprocedural states
CPT/HCPCS: A4217; J3490; J7120

== ENCOUNTER 2018-02-08 14:37 | Inpatient (IN) ==
--- NOTE | 2018-02-08 15:06 | DR.GENAD ---
HPI - PCP Primary Care Physician: Dr. Martínez - HPI Comment HPI Comment: SYMTOMS GETTING WORSE. HAVE LOW GRADE FEVER AT HOME. PATIENT FEEL WEAK AND DEHYDRATED. - Complaint/Symptoms Chief Complaint Doctors Comments: ABDOMINAL PAIN WITH NAUSEA AND VOMITING FOR FEW WEEKS. HAD EGD DONE YESTERDAY. Chief Complaint:: Pt c/o three week history of nausea and vomiting. Pt states she can't even drink water without throwing up. Pt c/o intermittent epigastric pain described as cramping. Had EGD with Dr. Rahman yesterday. Self Treatment fo Chief Complaint: GI cocktail with no relief - Nurses notes reviewed Nurses Notes Review: Yes - Source History Provided: Patient - Mode of Arrival Mode of Arrival: Ambulatory - Timing Onset of Chief Complaint: 01/18/18 Came on: Suddenly - Duration Duration: Constant Duration: Days - Severity Severity: Moderate PMH - PMH Past Medical History: Yes Past Medical History: Hypertension Past Medical History Comment: stomach cancer, colon cancer Past Surgical History: Yes Surgical History: Cholecystectomy, Hysterectomy Past Surgical History Comment: colon resection, partial gastrectomy - Family History History of Family Medical Conditions: Yes Family Medical History: Cancer - Social History Does patient currently use any type of tobacco product: No Type of Tobacco Use: None Does any household member use tobacco: No Alcohol Use: None Do you use any recreational Drugs:: No Lives With: Spouse Lives Where: Home - infectious screening In the last 2 months have you had wt loss of >10#?: NO Have you had fever, night sweats or hemotysis?: No Have you traveled outside the country in the last 6 months?: No Isolation: Standard ROS - Review of Systems Constitutional: Weakness, Fatigue Eyes: No Symptoms Reported ENTM: No Symptoms Reported Respiratoy: No Symptoms Reported Cardiovascular: No Symptoms Reported Gastrointestinal/Abdominal: Abdominal Pain, Nausea, Vomiting Genitourinary: No Symptoms Reported Neurological: No Symptoms Reported Musculoskeletal: No Symptoms Reported Integumentary: No Symptoms Reported Hematologic/Lymphatic: No Symptoms Reported Endocrine: No Symptoms Reported All Other Systems: Reviewed and Negative PE - Vital Signs Vitals: Temperature 98.2 F Pulse Rate 108 Respiratory Rate 20 Blood Pressure [Right Arm] 114/54 Blood Pressure [Left Arm] 120/91 Blood Pressure [Left Radial 126/65 Artery] Blood Pressure 144/87 O2 Sat by Pulse Oximetry 98 - General Limitations: No Limitations General Appearance: Alert - Head Head Exam: Normal Inspection - Eyes Eye exam: Normal Appearance - ENT ENT Exam: Normal External Ear Exam External Ear Exam: Normal External Inspection TM/Canal Exam: Bilateral Normal Nose Exam: Normal Nose Exam Mouth Exam: Normal Inspection Throat Exam: Normal Inspection - Neck Neck Exam: Trachea Midline - Chest Chest Inspection: Symmetric Chest Wall Rise - Respiratory Respiratory Exam: Normal Lung Sounds Bilat Respiratory Exam: Bilateral Clear to Auscultation - Cardiovascular Cardiovascular Exam: Regular Rate, Normal Rhythm, Normal Heart Sounds - Abdominal Exam Abdominal Exam: Normal Bowel Sounds, Soft - Extremities Extremities Exam: Normal Inspection - Back Back Exam: Normal Inspection - Neurologic Neurological Exam: Alert, Oriented X3 - Psychiatric Psychiatric Exam: Normal Affect, Normal Mood - Skin Skin Exam: Normal Color MDM - Additional Information Additional Information Obtained From: Family - Differential Diagnosis Differential Diagnosis: ABDOMINAL PAIN, BOWEL OBSTRUCTION, DIVERTICULITIS, UTI, PUD. Course - Treatment Treatment: IV FLUIDS AND IV MEDS IN ED. PAIN IMPROVING. - Reevaluation 1st: Improved - Consultation Consultation Comments: DISCUSS PATIENT WITH DR. BASS. HE WILL ADMIT PATIENT. - Education/Counseling Education/Counseling: Patient, Family, Education Educated On: Treatment, Diagnosis, Needs for Follow Up ROR - Labs Reviewed Laboratory Results Reviewed?: Yes Result Diagrams: 02/09/18 04:20 02/09/18 04:20 Laboratory: WBC 7.2 X10^3/uL (3.6-10.0) 02/09/18 04:20 RBC 4.38 X10^6/uL (3.5-5.4) 02/09/18 04:20 Hgb 11.8 g/dL (12.0-16.0) L D 02/09/18 04:20 Hct 35.2 % (36.0-47.0) L 02/09/18 04:20 MCV 80.5 fL (80.0-100.0) 02/09/18 04:20 MCH 27.0 pg (27.0-34.0) 02/09/18 04:20 MCHC 33.6 g/dL (33.0-35.0) 02/09/18 04:20 RDW 15.0 % (11.6-16.5) 02/09/18 04:20 Plt Count 159 X10^3/uL (150.0-450.0) 02/09/18 04:20 MPV 8.4 fL (7.4-11.0) 02/09/18 04:20 Neut % (Auto) 71.3 % (42.0-75.0) 02/09/18 04:20 Lymph % (Auto) 17.8 % (21.0-51.0) L 02/09/18 04:20 [place] % (Auto) 9.7 % (0.0-13.0) 02/09/18 04:20 Eos % (Auto) 0.9 % (0.9-2.9) 02/09/18 04:20 Baso % (Auto) 0.3 % (0.2-1.0) 02/09/18 04:20 Neut # (Auto) 5.1 x10^3/uL (2.2-4.8) H 02/09/18 04:20 Lymph # (Auto) 1.3 X10^3/uL (1.3-2.9) 02/09/18 04:20 [place] # (Auto) 0.7 x10^3/uL (0.3-0.8) 02/09/18 04:20 Eos # (Auto) 0.1 x10^3/uL (0.0-0.2) 02/09/18 04:20 Baso # (Auto) 0.0 X10^3/uL (0.0-0.1) 02/09/18 04:20 Absolute Nucleated RBC 0.0 /100WBC 02/09/18 04:20 Sodium 138 mmol/L (136-145) 02/09/18 04:20 Corrected Sodium TNP 02/09/18 04:20 Potassium 3.2 mmol/L (3.5-5.1) L 02/09/18 04:20 Chloride 101 mmol/L (98-107) 02/09/18 04:20 Carbon Dioxide 28.7 mmol/L (21-32) 02/09/18 04:20 BUN 14 mg/dL (7-18) 02/09/18 04:20 Creatinine 1.04 mg/dL (0.55-1.02) H 02/09/18 04:20 Est GFR (MDRD) Af Amer > 60 (>60) 02/09/18 04:20 Est GFR (MDRD) Non-Af 58 (>60) L 02/09/18 04:20 Glucose 104 mg/dL (65-99) H 02/09/18 04:20 Calcium 7.8 mg/dL (8.5-10.1) L 02/09/18 04:20 Corrected Calcium TNP 02/09/18 04:20 Total Bilirubin 1.40 mg/dL (0.2-1.0) H 02/09/18 04:20 AST 16 Units/L (15-37) 02/09/18 04:20 ALT 21 Units/L (12-78) 02/09/18 04:20 Alkaline Phosphatase 101 Units/L (46-116) 02/09/18 04:20 Total Protein 6.8 g/dL (6.4-8.2) 02/09/18 04:20 Albumin 3.5 g/dL (3.4-5.0) 02/09/18 04:20 Globulin 3.3 g/dL (2.5-4.5) 02/09/18 04:20 Albumin/Globulin Ratio 1.1 Ratio (1.1-2.1) 02/09/18 04:20 Amylase 40 Units/L (25-115) 02/09/18 04:20 Lipase 78 Units/L (73-393) 02/09/18 04:20 Specimen Type Clean catch urine 02/08/18 19:46 Urine Color Yellow (YELLOW) 02/08/18 19:46 Urine Appearance Slightly hazy (CLEAR) 02/08/18 19:46 Urine pH 5.0 (5.0 - 8.0) 02/08/18 19:46 Ur Specific [place] 1.030 (1.000-1.030) 02/08/18 19:46 Urine Protein 2+ (NEGATIVE) 02/08/18 19:46 Urine Glucose (UA) Negative (NEGATIVE) 02/08/18 19:46 Urine Ketones 4+ (NEGATIVE) 02/08/18 19:46 Urine Occult Blood 1+ (NEGATIVE) 02/08/18 19:46 Urine Nitrite Negative (NEGATIVE) 02/08/18 19:46 Urine Bilirubin 2+ (NEGATIVE) 02/08/18 19:46 Urine Urobilinogen 1+ (NORMAL) 02/08/18 19:46 Ur Leukocyte Esterase 1+ (NEGATIVE) 02/08/18 19:46 Urine RBC 0-2 /HPF (NONE SEEN) 02/08/18 19:46 Urine WBC 3-5 /HPF (NONE SEEN) 02/08/18 19:46 Ur Squamous Epith Cells Moderate /HPF (NEGATIVE) 02/08/18 19:46 Amorphous Sediment 2+ /HPF (NEGATIVE) 02/08/18 19:46 Urine Bacteria Trace /HPF (NEGATIVE) 02/08/18 19:46 Hyaline Casts Many /LPF (NEGATIVE) 02/08/18 19:46 Urine Mucus Moderate /HPF (NEGATIVE) 02/08/18 19:46 Ur Culture Indicated? No/not indicated 02/08/18 19:46 - XRAY XRAY Interpreted by: Radiologist XRAY Findings: REPORT DISCUSS WITH PATIENT AND FAMILY. - Diagnosis Discharge Problem: Small bowel obstruction, Dehydration Abdominal pain Qualifiers: Abdominal location: generalized Qualified Code(s): R10.84 - Generalized abdominal pain - Discharge Plan Disposition: ADMITTED INPATIENT Condition: Stable - Follow ups/Referrals - Instructions
[2018-02-08] MEDS ORDERED: NS 1000 ML 1,000 ML IV ONE (15:12)
[2018-02-08] MEDS ORDERED: ZOFRAN INJ 4 MG VIAL IVP ONE (15:12)
[2018-02-08] MEDS ORDERED: PEPCID 20 MG IV PREMIX* 20 MG/50 ML BAG IV ONE ×2 (15:13→15:16)
[2018-02-08] MEDS ORDERED: NS 1000 ML 1,000 ML ONE (15:16)
[2018-02-08] MEDS ORDERED: ZOFRAN INJ 4 MG VIAL ONE (15:17)
[2018-02-08 15:31] LABS: BASOPHILS % (AUTO) 0.5 % (0.2-1.0); EOSINOPHILS # (AUTO) 0.1 x10^3/uL (0.0-0.2); EOSINOPHILS % (AUTO) 0.7 % (0.9-2.9); HEMATOCRIT 42.2 % (36.0-47.0); HEMOGLOBIN 14.3 g/dL (12.0-16.0); LYMPHOCYTES # (AUTO) 1.2 X10^3/uL (1.3-2.9); LYMPHOCYTES % (AUTO) 13.3 % (21.0-51.0); MEAN CORPUSCULAR HEMOGLOBIN 27.3 pg (27.0-34.0); MEAN CORPUSCULAR HGB CONC 33.9 g/dL (33.0-35.0); MEAN CORPUSCULAR VOLUME 80.5 fL (80.0-100.0); MEAN PLATELET VOLUME 8.2 fL (7.4-11.0); MONOCYTES # (AUTO) 0.6 x10^3/uL (0.3-0.8); MONOCYTES % (AUTO) 6.7 % (0.0-13.0); NEUTROPHILS # (AUTO) 7.3 x10^3/uL (2.2-4.8); NEUTROPHILS % (AUTO) 78.8 % (42.0-75.0); PLATELET COUNT 201 X10^3/uL (150.0-450.0); RED BLOOD COUNT 5.24 X10^6/uL (3.5-5.4); RED CELL DISTRIBUTION WIDTH 15.1 % (11.6-16.5); WHITE BLOOD COUNT 9.2 X10^3/uL (3.6-10.0)
[2018-02-08] MEDS ORDERED: COMPAZINE INJ IVP ONE (15:41)
[2018-02-08 15:42] LABS: ALANINE AMINOTRANSFERASE 22 Units/L (12-78); ALBUMIN 4.6 g/dL (3.4-5.0); ALKALINE PHOSPHATASE 130 Units/L (46-116); AMYLASE 58 Units/L (25-115); ASPARTATE AMINO TRANSFERASE 21 Units/L (15-37); BLOOD UREA NITROGEN 16 mg/dL (7-18); CALCIUM 9.1 mg/dL (8.5-10.1); CARBON DIOXIDE 24.3 mmol/L (21-32); CHLORIDE 94 mmol/L (98-107); COR NA(FOR HYPERGLY) 135 mmol/L (136-145); CREATININE 1.19 mg/dL (0.55-1.02); LIPASE 105 Units/L (73-393); SODIUM 135 mmol/L (136-145); TOTAL PROTEIN 8.8 g/dL (6.4-8.2); eGFR NON BLACK RACES 49 (>60)
--- NOTE | 2018-02-08 16:02 | CT ---
HISTORY: Abdominal pain Study: CT abdomen pelvis without contrast Comparison: 12/10/2017 Technique: Axial noncontrast images with coronal and sagittal reformats. Dose reduction procedures we re used with mA/kv adjusted for body size. The examination is limited due to the lack of intravenous and oral contrast. The examination was performed in this matter at the sole discretion of the rowanin g caregiver and without input from Radiology. Findings: The lung bases are clear. The liver, spleen, adrenal glands, and pancreas are within normal limits to the limitations of an unenhanced examination. The patient is status post cholecystectomy. The kidney s are unobstructed and without stones. No ureteral calculi are identified. Postsurgical changes are p resent in the stomach. The patient appears to be status post right hemicolectomy with an ileocolic an astomosis. no intraperitoneal or retroperitoneal lymphadenopathy is identified. There are multiple ma rkedly dilated fluid-filled loops of small bowel in the mid abdomen. There is transition to more norm al size small bowel in the left mid abdomen. A partial small bowel obstruction is suggested. The etio logy is unclear. It could be due to adhesive disease or an internal herniation. Further surgical eval uation is recommended. Examination of the pelvis demonstrated no evidence for pelvic masses, pelvic f luid, or pelvic lymphadenopathy. No bladder abnormality is identified. No lytic or blastic skeletal l esions are identified. IMPRESSION: Findings suggestive of at least a partial proximal and mid small bowel obstruction of uncertain etiol ogy but possibly due to adhesive disease or internal herniation. Further surgical evaluation is recom mended. Reported By:
[2018-02-08] MEDS ORDERED: COMPAZINE INJ ONE (16:07)
[2018-02-08] MEDS ORDERED: TYLENOL 325 MG TAB PO PRN (17:43)
[2018-02-08 19:53] LABS: BILIRUBIN,URINE 2+ (NEGATIVE); BLOOD/HEMOGLOBIN,URINE 1+ (NEGATIVE); GLUCOSE, URINE NEGATIVE (NEGATIVE); KETONES,URINE 4+ (NEGATIVE); LEUKOCYTE ESTERASE ,URINE 1+ (NEGATIVE); NITRITES,URINE NEGATIVE (NEGATIVE); PROTEIN,URINE 2+ (NEGATIVE); UROBILINOGEN,URINE 1+ (NORMAL)
[2018-02-08 20:04] LABS: APPEARANCE,URINE SLIGHTLY HAZY (CLEAR); COLOR,URINE YELLOW (YELLOW)
[2018-02-08 20:12] LABS: RBC,URINE 0-2 /HPF (NONE SEEN); SQUAMOUS EPITHELIAL CELL,UR MODERATE /HPF (NEGATIVE)
[2018-02-08 20:13] LABS: AMORPHOUS SEDIMENT,UR 2+ /HPF (NEGATIVE); BACTERIA,URINE TRACE /HPF (NEGATIVE); HYALINE CASTS, URINE MANY /LPF (NEGATIVE); MUCUS,URINE MODERATE /HPF (NEGATIVE)
[2018-02-08] MEDS: PROTONIX INJ 40 MG VIAL IVP SCH (20:25)
[2018-02-08] MEDS: NS 1000 ML 1,000 ML IV SCH (20:25)
[2018-02-08] MEDS: MORPHINE SULFATE INJ 2 MG INJ IVP PRN (20:26)
[2018-02-08] MEDS: ZOFRAN INJ 4 MG VIAL IVP PRN (20:36)
[2018-02-09] MEDS: ZOFRAN INJ 4 MG VIAL IVP PRN ×3 (05:02→23:05)
[2018-02-09] MEDS: NS 1000 ML 1,000 ML IV SCH ×2 (05:02→17:42)
[2018-02-09 05:18] LABS: BASOPHILS % (AUTO) 0.3 % (0.2-1.0); EOSINOPHILS # (AUTO) 0.1 x10^3/uL (0.0-0.2); EOSINOPHILS % (AUTO) 0.9 % (0.9-2.9); HEMATOCRIT 35.2 % (36.0-47.0); HEMOGLOBIN 11.8 g/dL (12.0-16.0); LYMPHOCYTES # (AUTO) 1.3 X10^3/uL (1.3-2.9); LYMPHOCYTES % (AUTO) 17.8 % (21.0-51.0); MEAN CORPUSCULAR HGB CONC 33.6 g/dL (33.0-35.0); MEAN CORPUSCULAR VOLUME 80.5 fL (80.0-100.0); MEAN PLATELET VOLUME 8.4 fL (7.4-11.0); MONOCYTES # (AUTO) 0.7 x10^3/uL (0.3-0.8); MONOCYTES % (AUTO) 9.7 % (0.0-13.0); NEUTROPHILS # (AUTO) 5.1 x10^3/uL (2.2-4.8); NEUTROPHILS % (AUTO) 71.3 % (42.0-75.0); PLATELET COUNT 159 X10^3/uL (150.0-450.0); RED BLOOD COUNT 4.38 X10^6/uL (3.5-5.4); WHITE BLOOD COUNT 7.2 X10^3/uL (3.6-10.0)
[2018-02-09 05:23] LABS: ALANINE AMINOTRANSFERASE 21 Units/L (12-78); ALBUMIN 3.5 g/dL (3.4-5.0); ALKALINE PHOSPHATASE 101 Units/L (46-116); AMYLASE 40 Units/L (25-115); ASPARTATE AMINO TRANSFERASE 16 Units/L (15-37); BLOOD UREA NITROGEN 14 mg/dL (7-18); CALCIUM 7.8 mg/dL (8.5-10.1); CARBON DIOXIDE 28.7 mmol/L (21-32); CHLORIDE 101 mmol/L (98-107); CREATININE 1.04 mg/dL (0.55-1.02); LIPASE 78 Units/L (73-393); SODIUM 138 mmol/L (136-145); TOTAL PROTEIN 6.8 g/dL (6.4-8.2); eGFR NON BLACK RACES 58 (>60)
[2018-02-09] MEDS: K-RIDER 10 MEQ/NS 100 ML 10 MEQ/100 ML BAG IV PRN ×4 (06:00→10:39)
[2018-02-09] MEDS ORDERED: MAGNESIUM SULFATE 1 GRAM/100 mL PREMIX 1 GM/100 ML BAG IV PRN (06:06)
[2018-02-09] MEDS ORDERED: POTASSIUM CHLORIDE LIQ 20 MEQ UDC PO PRN (06:06)
[2018-02-09] MEDS ORDERED: K-LYTE EFFERVESCENT PO PRN (06:06)
[2018-02-09] MEDS ORDERED: POTASSIUM CHL 60 MEQ/NS 0.45% 500 ML IV PRN (06:06)
[2018-02-09] MEDS: POTASSIUM CHL 40 MEQ/NS 0.45% 500 ML IV PRN (06:42)
[2018-02-09] MEDS: PROTONIX INJ 40 MG VIAL IVP SCH (08:12)
[2018-02-09] MEDS: MORPHINE SULFATE INJ 2 MG INJ IVP PRN ×3 (08:20→22:09)
[2018-02-09 14:21] VITALS: BMI 47.7
[2018-02-10] MEDS: NS 1000 ML 1,000 ML IV SCH ×3 (05:02→20:23)
[2018-02-10 05:23] LABS: BASOPHILS % (AUTO) 0.5 % (0.2-1.0); EOSINOPHILS # (AUTO) 0.1 x10^3/uL (0.0-0.2); EOSINOPHILS % (AUTO) 1.1 % (0.9-2.9); HEMATOCRIT 31.5 % (36.0-47.0); HEMOGLOBIN 10.6 g/dL (12.0-16.0); LYMPHOCYTES # (AUTO) 0.9 X10^3/uL (1.3-2.9); LYMPHOCYTES % (AUTO) 18.8 % (21.0-51.0); MEAN CORPUSCULAR HEMOGLOBIN 27.3 pg (27.0-34.0); MEAN CORPUSCULAR HGB CONC 33.7 g/dL (33.0-35.0); MEAN PLATELET VOLUME 8.7 fL (7.4-11.0); MONOCYTES # (AUTO) 0.4 x10^3/uL (0.3-0.8); MONOCYTES % (AUTO) 9.3 % (0.0-13.0); NEUTROPHILS # (AUTO) 3.2 x10^3/uL (2.2-4.8); NEUTROPHILS % (AUTO) 70.3 % (42.0-75.0); PLATELET COUNT 131 X10^3/uL (150.0-450.0); RED BLOOD COUNT 3.89 X10^6/uL (3.5-5.4); RED CELL DISTRIBUTION WIDTH 14.7 % (11.6-16.5); WHITE BLOOD COUNT 4.5 X10^3/uL (3.6-10.0)
[2018-02-10 05:34] LABS: ALANINE AMINOTRANSFERASE 20 Units/L (12-78); ALKALINE PHOSPHATASE 93 Units/L (46-116); ASPARTATE AMINO TRANSFERASE 16 Units/L (15-37); BLOOD UREA NITROGEN 10 mg/dL (7-18); CALCIUM 7.6 mg/dL (8.5-10.1); CARBON DIOXIDE 23.8 mmol/L (21-32); CHLORIDE 104 mmol/L (98-107); COR CA(FOR HYPOALB) 8.4 mg/dL (8.5-10.1); SODIUM 139 mmol/L (136-145); eGFR NON BLACK RACES > 60 (>60)
[2018-02-10] MEDS: K-RIDER 10 MEQ/NS 100 ML 10 MEQ/100 ML BAG IV PRN ×2 (06:31→08:42)
[2018-02-10] MEDS: ZOFRAN INJ 4 MG VIAL IVP PRN ×3 (06:38→17:46)
[2018-02-10] MEDS: PROTONIX INJ 40 MG VIAL IVP SCH (08:41)
[2018-02-10] MEDS: MORPHINE SULFATE INJ 2 MG INJ IVP PRN ×2 (11:39→19:35)
[2018-02-10] MEDS ORDERED: NORCO 5/325 MG TAB PO PRN (15:05)
[2018-02-10] MEDS ORDERED: K-DUR TAB 20 MEQ PO SCH (16:00)
[2018-02-10] MEDS ORDERED: PROTONIX TAB 40 MG PO SCH (16:00)
[2018-02-10] MEDS ORDERED: NS 100 ML IV 100 ML IV ONE (16:14)
[2018-02-10] MEDS: FLONASE NASAL SPRAY ENOSTRIL SCH (16:45)
[2018-02-10] MEDS: SYNTHROID 25 mcg TAB PO SCH ×2 (16:46)
[2018-02-10] MEDS: LIPITOR TAB 40 MG PO SCH (16:46)
--- NOTE | 2018-02-10 17:42 | CT ---
HISTORY: Abdominal pain, follow-up obstruction Study: CT abdomen and pelvis with contrast Comparison: February 08, 2018 Technique: Multiple axial images of the abdomen and pelvis were obtained from the lung bases to the pubic symphysis after the administration of IV contrast. AEC was utilized. Findings: The visualized portions of the lung bases are unremarkable. The liver, spleen, pancreas, kidneys, an d adrenal glands are unremarkable. The patient is status post cholecystectomy, partial colectomy, and partial gastrectomy. No significant mesenteric or retroperitoneal lymphadenopathy or stranding can be observed. No free fluid or free air is seen within the abdomen. The proximal and mid small bowel loops are again noted to be distended with a lack of oral contrast in the more distal decompressed s mall bowel loops and colon consistent with at least high-grade partial obstruction likely from adhesi ve disease or perhaps an internal hernia. Transition point may be in the right upper quadrant. There is no significance for a Ling of the mesenteric to support a closed-loop internal hernia. However, cadena rgical consultation remains recommended. The degree of small bowel distention has slightly progressed as compared to the prior. There is sigmoid diverticulosis. The urinary bladder is grossly unremarkab le. The bony structures are grossly intact. IMPRESSION: Persistent slightly progressive findings of at least high-grade partial obstruction. Reported By:
[2018-02-10] MEDS: PHENERGAN INJ 25 MG IV PRN (19:57)
[2018-02-10] MEDS: BENTYL CAP 10 MG PO SCH (21:03)
[2018-02-11] MEDS: ZOFRAN INJ 4 MG VIAL IVP PRN ×2 (00:23→20:35)
[2018-02-11] MEDS: NS 1000 ML 1,000 ML IV SCH ×5 (00:23→20:43)
--- NOTE | 2018-02-11 00:36 | RAD ---
Abdominal radiographic series-single view Indication: NG tube placement Findings: NGT tip and side port projected over the stomach. Numerous surgical clips project over the abdomen. There is no gross free air. Impression: NG tube projects as expected. Reported By:
[2018-02-11] MEDS: MORPHINE SULFATE INJ 2 MG INJ IVP PRN ×2 (04:00→16:00)
[2018-02-11 05:29] LABS: BASOPHILS % (AUTO) 0.3 % (0.2-1.0); EOSINOPHILS % (AUTO) 0.6 % (0.9-2.9); HEMATOCRIT 33.1 % (36.0-47.0); LYMPHOCYTES # (AUTO) 0.6 X10^3/uL (1.3-2.9); LYMPHOCYTES % (AUTO) 8.6 % (21.0-51.0); MEAN CORPUSCULAR HGB CONC 33.4 g/dL (33.0-35.0); MEAN CORPUSCULAR VOLUME 80.9 fL (80.0-100.0); MEAN PLATELET VOLUME 8.7 fL (7.4-11.0); MONOCYTES # (AUTO) 0.5 x10^3/uL (0.3-0.8); MONOCYTES % (AUTO) 7.2 % (0.0-13.0); NEUTROPHILS # (AUTO) 5.4 x10^3/uL (2.2-4.8); NEUTROPHILS % (AUTO) 83.3 % (42.0-75.0); PLATELET COUNT 132 X10^3/uL (150.0-450.0); RED BLOOD COUNT 4.08 X10^6/uL (3.5-5.4); RED CELL DISTRIBUTION WIDTH 14.9 % (11.6-16.5); WHITE BLOOD COUNT 6.5 X10^3/uL (3.6-10.0)
[2018-02-11 05:45] LABS: ALANINE AMINOTRANSFERASE 8 Units/L (12-78); ALBUMIN 3.2 g/dL (3.4-5.0); ALKALINE PHOSPHATASE 95 Units/L (46-116); ASPARTATE AMINO TRANSFERASE 13 Units/L (15-37); BLOOD UREA NITROGEN 5 mg/dL (7-18); CALCIUM 7.8 mg/dL (8.5-10.1); CARBON DIOXIDE 23.9 mmol/L (21-32); CHLORIDE 103 mmol/L (98-107); COR CA(FOR HYPOALB) 8.4 mg/dL (8.5-10.1); CREATININE 0.86 mg/dL (0.55-1.02); SODIUM 139 mmol/L (136-145); TOTAL PROTEIN 6.4 g/dL (6.4-8.2); eGFR NON BLACK RACES > 60 (>60)
[2018-02-11] MEDS: BENTYL CAP 10 MG PO SCH ×3 (05:56→21:40)
[2018-02-11] MEDS: PROTONIX INJ 40 MG VIAL IVP SCH (08:15)
[2018-02-11] MEDS: K-DUR TAB 20 MEQ PO SCH (08:15)
[2018-02-11] MEDS: LIPITOR TAB 40 MG PO SCH (08:15)
[2018-02-11] MEDS: FLONASE NASAL SPRAY ENOSTRIL SCH (08:15)
--- NOTE | 2018-02-11 08:17 | DR.UPDATE ---
H&P Update History and Physical Update: History and Physical reviewed and patient examined. Changes noted: Yes with the following: H&P was completed with her previous admission on 01/29/18. She returned to the ER today with complaints of nausea and vomiting for the past 3 weeks that is getting worse. Patient recently underwent EGD which revealed a large amount of retained bile in the stomach as well as friable polypoid are involving the gastrojejunostomy. She has self-treated with GI Cocktail with no improvement. Patient reports low grade temp at home and complains of generalized weakness. On arrival, vitals were 98.2,108, 20, 98 % RA, 144/87. Labs were obtained. Abnormal Labs include the following: Sodium 135, Potassium 3.4, Chloride 94, Creatinine 1.19, GFR Non Af Amer 49, Glucose 120, Total BILI 1.30, Alkaline Phos 130, Total Protein 8.8. Urinalysis reveals: Specimen Type Clean Catch, Appearance Slightly Hazy, PH 5.0, Specific [place] 1.030, Urine Protein 2+,Ketones 4+, Occult Blood 1+, Nitrate Neg, Bili 2+, Urobili 1+, Leukocyte Esterase 1+, RBC 0-2, WBC 3-5, Squamous Epith Cells Moderate, Amorphous Sediment 2+, Urine Bacteria Trace, Hyaline Cast Many, Urine Mucus Moderate. Abdomen/Pelvis CT obtained and revealed: Findings suggestive of at least a partial proximal and mid small obstruction of uncertain etiology but possibly due to adhesive disease or internal hemiation. Futher surgical evaluation is recommended. Patient was given Zofran 4mg IVP X 1 as well as Morphine Sulfate 4 mg IVP for pain rated 8 on scale of 0-10. Patient reports not being able to tolerate liquids. Patient has been give IVF bolus of Normal Saline. Patent admitted for further observation with treatment of intractable pain and nausea. We plan to follow up with am labs and continue to monitor.
--- NOTE | 2018-02-11 11:48 | RAD ---
HISTORY: Preop for small bowel obstruction. Study: KUB Comparison: 02/11/2018 at 12:16 a[address]m., CT of the abdomen and pelvis, 02/10/2018. Findings: Numerous surgical clips are present in the upper abdomen. Scattered large and small bowel gas is pre sent. Gas is noted within the small bowel in the upper abdomen with gas also noted in the descending colon and rectum. There are findings suggesting distended fluid filled loops of small bowel in the mid abdomen. This appearance appears similar to the prior CT scan. Mild degenerative changes present in the lumbar spine and hips. Numerous calcifications are present in the anatomic pelvis, most likely phleboliths. The tip of what is felt to be a nasogastric tube in the side port of the nasogastric tube are present projected over the region of the stomach. IMPRESSION: 1. Findings suggesting probable small bowel obstruction with fluid-filled loops of small bowel. 2. I see no evidence of pneumoperitoneum. 3. What is felt to be a nasogastric tube is present in satisfactory position. Reported By:
[2018-02-11] MEDS: PHENERGAN INJ 25 MG IV PRN (16:00)
[2018-02-11] MEDS: SYNTHROID 25 mcg TAB PO SCH (16:43)
--- NOTE | 2018-02-11 16:45 | DR.PROGNOT ---
Hospital Progress Notes - Progress Note for Day of: Progress Note Date: 02/11/18 - Chief Complaint Chief Complaint: moderate abdominal pain this afternoon , had normal BM last night . NGT is still draining large amount of bile and bowel contents . abdominal Xray is showing partial SBO. - History of Present Illness History of Present Illness: multiple abdominal surgeries for colon ca x2 , Gastrectomy for gstric ca . hysterectomy and lap kaleb . - Past Medical Family Social History Past Med/Fam/Surg Hx: No changes since H&P, Changes noted (describe) Allergies: Allergies No Known Drug Allergies Allergy (Verified 01/28/18 14:30) - Review Of Systems ROS: No change since H&P - Vital Signs Vital Signs: Temperature 98.6 F Pulse Rate [Right Radial] 80 Pulse Rate 108 Respiratory Rate 20 Blood Pressure [Right Arm] 114/63 Blood Pressure [Left Arm] 120/91 Blood Pressure [Left Radial 126/65 Artery] Blood Pressure 144/87 O2 Sat by Pulse Oximetry 99 - Physical Exam Oriented: Normal Eyes: Normal Ear: Normal Nose: Normal Cardiovascular: Normal : Normal GI:Auscultation: Normal GI: Tenderness: Periumbilical (soft abdomen , BS + and localized tenderness around the umbilicus , no rebound or rigidity) Speech Pattern: Clear, Appropriate - Laboratory and Diagnostics Result Diagrams: 02/11/18 04:26 02/11/18 04:26 Labs: Laboratory WBC 6.5 X10^3/uL (3.6-10.0) 02/11/18 04:26 RBC 4.08 X10^6/uL (3.5-5.4) 02/11/18 04:26 Hgb 11.0 g/dL (12.0-16.0) L 02/11/18 04:26 Hct 33.1 % (36.0-47.0) L 02/11/18 04:26 MCV 80.9 fL (80.0-100.0) 02/11/18 04:26 MCH 27.0 pg (27.0-34.0) 02/11/18 04:26 MCHC 33.4 g/dL (33.0-35.0) 02/11/18 04:26 RDW 14.9 % (11.6-16.5) 02/11/18 04:26 Plt Count 132 X10^3/uL (150.0-450.0) L 02/11/18 04:26 MPV 8.7 fL (7.4-11.0) 02/11/18 04:26 Neut % (Auto) 83.3 % (42.0-75.0) H 02/11/18 04:26 Lymph % (Auto) 8.6 % (21.0-51.0) L 02/11/18 04:26 [place] % (Auto) 7.2 % (0.0-13.0) 02/11/18 04:26 Eos % (Auto) 0.6 % (0.9-2.9) L 02/11/18 04:26 Baso % (Auto) 0.3 % (0.2-1.0) 02/11/18 04: Neut # (Auto) 5.4 x10^3/uL (2.2-4.8) H 02/11/18 04:26 Lymph # (Auto) 0.6 X10^3/uL (1.3-2.9) L 02/11/18 04:26 [place] # (Auto) 0.5 x10^3/uL (0.3-0.8) 02/11/18 04:26 Eos # (Auto) 0.0 x10^3/uL (0.0-0.2) 02/11/18 04:26 Baso # (Auto) 0.0 X10^3/uL (0.0-0.1) 02/11/18 04:26 Absolute Nucleated RBC 0.0 /100WBC 02/11/18 04:26 Sodium 139 mmol/L (136-145) 02/11/18 04:26 Corrected Sodium TNP 02/11/18 04:26 Potassium 3.4 mmol/L (3.5-5.1) L 02/11/18 04:26 Chloride 103 mmol/L (98-107) 02/11/18 04:26 Carbon Dioxide 23.9 mmol/L (21-32) 02/11/18 04:26 BUN 5 mg/dL (7-18) L 02/11/18 04:26 Creatinine 0.86 mg/dL (0.55-1.02) 02/11/18 04:26 Est GFR (MDRD) Af Amer > 60 (>60) 02/11/18 04:26 Est GFR (MDRD) Non-Af > 60 (>60) 02/11/18 04:26 Glucose 92 mg/dL (65-99) 02/11/18 04:26 Calcium 7.8 mg/dL (8.5-10.1) L 02/11/18 04:26 Corrected Calcium 8.4 mg/dL (8.5-10.1) L 02/11/18 04:26 Magnesium 1.9 mg/dL (1.7-2.9) 02/09/18 04:50 Total Bilirubin 0.90 mg/dL (0.2-1.0) 02/11/18 04:26 AST 13 Units/L (15-37) L 02/11/18 04:26 ALT 8 Units/L (12-78) L 02/11/18 04:26 Alkaline Phosphatase 95 Units/L (46-116) 02/11/18 04:26 Total Protein 6.4 g/dL (6.4-8.2) 02/11/18 04:26 Albumin 3.2 g/dL (3.4-5.0) L 02/11/18 04:26 Globulin 3.2 g/dL (2.5-4.5) 02/11/18 04:26 Albumin/Globulin Ratio 1.0 Ratio (1.1-2.1) L 02/11/18 04:26 Amylase 40 Units/L (25-115) 02/09/18 04:20 Lipase 78 Units/L (73-393) 02/09/18 04:20 Specimen Type Clean catch urine 02/08/18 19:46 Urine Color Yellow (YELLOW) 02/08/18 19:46 Urine Appearance Slightly hazy (CLEAR) 02/08/18 19:46 Urine pH 5.0 (5.0 - 8.0) 02/08/18 19:46 Ur Specific [place] 1.030 (1.000-1.030) 02/08/18 19:46 Urine Protein 2+ (NEGATIVE) 02/08/18 19:46 Urine Glucose (UA) Negative (NEGATIVE) 02/08/18 19:46 Urine Ketones 4+ (NEGATIVE) 02/08/18 19:46 Urine Occult Blood 1+ (NEGATIVE) 02/08/18 19:46 Urine Nitrite Negative (NEGATIVE) 02/08/18 19:46 Urine Bilirubin 2+ (NEGATIVE) 02/08/18 19:46 Urine Urobilinogen 1+ (NORMAL) 02/08/18 19:46 Ur Leukocyte Esterase 1+ (NEGATIVE) 02/08/18 19:46 Urine RBC 0-2 /HPF (NONE SEEN) 02/08/18 19:46 Urine WBC 3-5 /HPF (NONE SEEN) 02/08/18 19:46 Ur Squamous Epith Cells Moderate /HPF (NEGATIVE) 02/08/18 19:46 Amorphous Sediment 2+ /HPF (NEGATIVE) 02/08/18 19:46 Urine Bacteria Trace /HPF (NEGATIVE) 02/08/18 19:46 Hyaline Casts Many /LPF (NEGATIVE) 02/08/18 19:46 Urine Mucus Moderate /HPF (NEGATIVE) 02/08/18 19:46 Ur Culture Indicated? No/not indicated 02/08/18 19:46 - Assessment and Plan 1: recurrent partial SBO. abdominal adhesions ,. colon ca X2 , s/p resection . Gastric ca , s/p resection . hysterectomy and lap kaleb . to keep NGT, repeat abdominal xray . Pt was hospitalized several time for SBO this month and was to the ER several times as well ..looks like she needs exploration . awaiting pathology report on gastric mass . - Problem Patient Problems: Patient Problems Abdominal pain (Acute) R10.9 Dehydration (Acute) E86.0 Small bowel obstruction (Acute) K56.609
--- NOTE | 2018-02-11 19:13 | PCM.PROG ---
Progress Note - Progress Note for Day of Date: 02/09/18 - Subjective Subjective: IS BEING TREATED FOR A SMALL BOWEL OBSTRUCTION. TODAY, SHE IS ALERT AND ORIENTED, LYING IN BED ON MORNING ROUNDS. SHE CONTINUES WITH DIFFUSE ABDOMINAL PAIN AND NAUSEA. HER VITALS THIS MORNING ARE 97.8-72-18-96%- 103/59. LABS WERE OBTAINED. ABNORMAL LAB VALUES INCLUDE THE FOLLOWING: HGB 11.8 , HCT 35.2, POTASSIUM 3.2, CREATIINE 1.04, GLUCOSE 104, CALCIUM 7.8, TOTAL BILIRUBIN 1.40. SHE IS CURRENTLY RECEIVING NORMAL SALINE, IV PAIN MEDICATION, AND IV NAUSEA MEDICATION. WE WILL START THE POTASSIUM AND MAGNESIUM REPLACEMENT PROTOCOLS TODAY. OTHERWISE, WE WILL CONTINUE WITH CURRENT PLAN OF CARE AND CONSULT , GENERAL SURGEON. WE WILL FOLLOW UP WITH AM LABS AND CONTINUE TO MONITOR PATIENT. - Past Medical Family Social History Past Med/Fam/Surg Hx: No changes since H&P, Changes noted (describe) Allergies: Allergies No Known Drug Allergies Allergy (Verified 01/28/18 14:30) - Review of Systems ROS: No change since H&P - Vital Signs and I&O's Vital Signs: Temperature 98.1 F Pulse Rate [Right Radial] 81 Pulse Rate 108 Respiratory Rate 20 Blood Pressure [Right Arm] 131/65 Blood Pressure [Left Arm] 120/91 Blood Pressure [Left Radial 126/65 Artery] Blood Pressure 144/87 O2 Sat by Pulse Oximetry 99 Intake and Output: Intake & Output 02/09/18 02/10/18 02/11/18 02/12/18 11:59 11:59 11:59 11:59 Intake Total 800 2100 1746 800 Output Total 1420 700 Balance 800 2100 326 100 - Physical Exam Oriented: Normal Eyes: Normal Ear: Normal Nose: Normal Throat: Normal Respiratory: Normal Cardiovascular: Normal : Normal Auscultation: Bowel Sounds: Normal Palpation: Normal Tenderness: Diffuse Skin: Normal Musculoskeletal: Normal Psychiatric: Normal Mood Description: Calm Affect: Normal Speech Pattern: Clear, Appropriate - Laboratory and Diagnostics Result Diagrams: 02/11/18 04:26 02/11/18 04:26 Labs: Laboratory WBC 6.5 X10^3/uL (3.6-10.0) 02/11/18 04:26 RBC 4.08 X10^6/uL (3.5-5.4) 02/11/18 04:26 Hgb 11.0 g/dL (12.0-16.0) L 02/11/18 04:26 Hct 33.1 % (36.0-47.0) L 02/11/18 04:26 MCV 80.9 fL (80.0-100.0) 02/11/18 04:26 MCH 27.0 pg (27.0-34.0) 02/11/18 04:26 MCHC 33.4 g/dL (33.0-35.0) 02/11/18 04:26 RDW 14.9 % (11.6-16.5) 02/11/18 04:26 Plt Count 132 X10^3/uL (150.0-450.0) L 02/11/18 04:26 MPV 8.7 fL (7.4-11.0) 02/11/18 04:26 Neut % (Auto) 83.3 % (42.0-75.0) H 02/11/18 04:26 Lymph % (Auto) 8.6 % (21.0-51.0) L 02/11/18 04:26 [place] % (Auto) 7.2 % (0.0-13.0) 02/11/18 04:26 Eos % (Auto) 0.6 % (0.9-2.9) L 02/11/18 04:26 Baso % (Auto) 0.3 % (0.2-1.0) 02/11/18 04:26 Neut # (Auto) 5.4 x10^3/uL (2.2-4.8) H 02/11/18 04:26 Lymph # (Auto) 0.6 X10^3/uL (1.3-2.9) L 02/11/18 04:26 [place] # (Auto) 0.5 x10^3/uL (0.3-0.8) 02/11/18 04:26 Eos # (Auto) 0.0 x10^3/uL (0.0-0.2) 02/11/18 04:26 Baso # (Auto) 0.0 X10^3/uL (0.0-0.1) 02/11/18 04:26 Absolute Nucleated RBC 0.0 /100WBC 02/11/18 04:26 Sodium 139 mmol/L (136-145) 02/11/18 04:26 Corrected Sodium TNP 02/11/18 04:26 Potassium 3.4 mmol/L (3.5-5.1) L 02/11/18 04:26 Chloride 103 mmol/L (98-107) 02/11/18 04:26 Carbon Dioxide 23.9 mmol/L (21-32) 02/11/18 04:26 BUN 5 mg/dL (7-18) L 02/11/18 04:26 Creatinine 0.86 mg/dL (0.55-1.02) 02/11/18 04:26 Est GFR (MDRD) Af Amer > 60 (>60) 02/11/18 04:26 Est GFR (MDRD) Non-Af > 60 (>60) 02/11/18 04:26 Glucose 92 mg/dL (65-99) 02/11/18 04:26 Calcium 7.8 mg/dL (8.5-10.1) L 02/11/18 04:26 Corrected Calcium 8.4 mg/dL (8.5-10.1) L 02/11/18 04:26 Magnesium 1.9 mg/dL (1.7-2.9) 02/09/18 04:50 Total Bilirubin 0.90 mg/dL (0.2-1.0) 02/11/18 04:26 AST 13 Units/L (15-37) L 02/11/18 04:26 ALT 8 Units/L (12-78) L 02/11/18 04:26 Alkaline Phosphatase 95 Units/L (46-116) 02/11/18 04:26 Total Protein 6.4 g/dL (6.4-8.2) 02/11/18 04:26 Albumin 3.2 g/dL (3.4-5.0) L 02/11/18 04:26 Globulin 3.2 g/dL (2.5-4.5) 02/11/18 04:26 Albumin/Globulin Ratio 1.0 Ratio (1.1-2.1) L 02/11/18 04:26 Amylase 40 Units/L (25-115) 02/09/18 04:20 Lipase 78 Units/L (73-393) 02/09/18 04:20 Specimen Type Clean catch urine 02/08/18 19:46 Urine Color Yellow (YELLOW) 02/08/18 19:46 Urine Appearance Slightly hazy (CLEAR) 02/08/18 19:46 Urine pH 5.0 (5.0 - 8.0) 02/08/18 19:46 Ur Specific [place] 1.030 (1.000-1.030) 02/08/18 19:46 Urine Protein 2+ (NEGATIVE) 02/08/18 19:46 Urine Glucose (UA) Negative (NEGATIVE) 02/08/18 19:46 Urine Ketones 4+ (NEGATIVE) 02/08/18 19:46 Urine Occult Blood 1+ (NEGATIVE) 02/08/18 19:46 Urine Nitrite Negative (NEGATIVE) 02/08/18 19:46 Urine Bilirubin 2+ (NEGATIVE) 02/08/18 19:46 Urine Urobilinogen 1+ (NORMAL) 02/08/18 19:46 Ur Leukocyte Esterase 1+ (NEGATIVE) 02/08/18 19:46 Urine RBC 0-2 /HPF (NONE SEEN) 02/08/18 19:46 Urine WBC 3-5 /HPF (NONE SEEN) 02/08/18 19:46 Ur Squamous Epith Cells Moderate /HPF (NEGATIVE) 02/08/18 19:46 Amorphous Sediment 2+ /HPF (NEGATIVE) 02/08/18 19:46 Urine Bacteria Trace /HPF (NEGATIVE) 02/08/18 19:46 Hyaline Casts Many /LPF (NEGATIVE) 02/08/18 19:46 Urine Mucus Moderate /HPF (NEGATIVE) 02/08/18 19:46 Ur Culture Indicated? No/not indicated 02/08/18 19:46 - Plan (1) Partial bowel obstruction Status: Acute Qualifiers: Intestinal obstruction type: obstruction due to adhesions Qualified Code(s) : K56.51 - Intestinal adhesions [bands], with partial obstruction Plan: CONTINUE IV FLUIDS, PAIN MEDICATIONS, NAUSEA MEDICATIONS, CONSULT GENERAL SURGERY, CONTINUE TO MONITOR
--- NOTE | 2018-02-11 20:06 | PCM.PROG ---
Progress Note - Progress Note for Day of Date: 02/11/18 - Subjective Subjective: IS BEING TREATED FOR A SMALL BOWEL OBSTRUCTION. TODAY, SHE IS ALERT AND ORIENTED, LYING IN BED ON MORNING ROUNDS. SHE CONTINUES WITH DIFFUSE ABDOMINAL PAIN AND NAUSEA. SAW PATIENT YESTERDAY AND ORDERED FOR AN NG TUBE TO INTERMITTENT SUCTION. A LARGE AMOUNT OF BILE IS NOTED IN [place]. HER VITALS THIS MORNING ARE 99.1-78-20-96%-114/58. LABS WERE OBTAINED. ABNORMAL LAB VALUES INCLUDE THE FOLLOWING: HGB 11.0, HCT 33.1, PLT COUNT 132, POTASSIUM 3.4, BUN 5, CALCIUM 7.8, AST 13, ALT 8, ALBUMIN 3.2. A KUB WAS OBTAINED TODAY AND REVEALED FINDINGS SUGGESTING PROBABLE SMALL BOWEL OBSTRUCTION WITH FLUID FILLED LOOPS OF SMALL BOWEL. NO EVIDENCE OF PNEUMOPERITONEUM. NASOGASTRIC TUBE IN SATISFACTORY POSITION. SHE IS CURRENTLY RECEIVING NORMAL SALINE, IV PAIN MEDICATION, AND IV NAUSEA MEDICATION. WE WILL CONTINUE WITH CURRENT PLAN OF CARE TODAY. OTHERWISE, WE WILL FOLLOW UP WITH AM LABS AND CONTINUE TO MONITOR PATIENT. - Past Medical Family Social History Past Med/Fam/Surg Hx: No changes since H&P, Changes noted (describe) Allergies: Allergies No Known Drug Allergies Allergy (Verified 01/28/18 14:30) - Review of Systems ROS: No change since H&P - Vital Signs and I&O's Vital Signs: Temperature 98.1 F Pulse Rate [Right Radial] 81 Pulse Rate 108 Respiratory Rate 20 Blood Pressure [Right Arm] 131/65 Blood Pressure [Left Arm] 120/91 Blood Pressure [Left Radial 126/65 Artery] Blood Pressure 144/87 O2 Sat by Pulse Oximetry 99 Intake and Output: Intake & Output 02/09/18 02/10/18 02/11/18 02/12/18 11:59 11:59 11:59 11:59 Intake Total 800 2100 1746 800 Output Total 1420 700 Balance 800 2100 326 100 - Physical Exam Oriented: Normal Eyes: Normal Ear: Normal Nose: Normal Throat: Normal Respiratory: Normal Cardiovascular: Normal : Normal Auscultation: Bowel Sounds: Normal Palpation: Normal Tenderness: Diffuse Skin: Normal Musculoskeletal: Normal Psychiatric: Normal Mood Description: Calm Affect: Normal Speech Pattern: Clear, Appropriate - Laboratory and Diagnostics Result Diagrams: 02/11/18 04:26 02/11/18 04:26 Labs: Laboratory WBC 6.5 X10^3/uL (3.6-10.0) 02/11/18 04:26 RBC 4.08 X10^6/uL (3.5-5.4) 02/11/18 04:26 Hgb 11.0 g/dL (12.0-16.0) L 02/11/18 04:26 Hct 33.1 % (36.0-47.0) L 02/11/18 04:26 MCV 80.9 fL (80.0-100.0) 02/11/18 04:26 MCH 27.0 pg (27.0-34.0) 02/11/18 04: MCHC 33.4 g/dL (33.0-35.0) 02/11/18 04:26 RDW 14.9 % (11.6-16.5) 02/11/18 04:26 Plt Count 132 X10^3/uL (150.0-450.0) L 02/11/18 04:26 MPV 8.7 fL (7.4-11.0) 02/11/18 04:26 Neut % (Auto) 83.3 % (42.0-75.0) H 02/11/18 04:26 Lymph % (Auto) 8.6 % (21.0-51.0) L 02/11/18 04:26 [place] % (Auto) 7.2 % (0.0-13.0) 02/11/18 04:26 Eos % (Auto) 0.6 % (0.9-2.9) L 02/11/18 04:26 Baso % (Auto) 0.3 % (0.2-1.0) 02/11/18 04:26 Neut # (Auto) 5.4 x10^3/uL (2.2-4.8) H 02/11/18 04:26 Lymph # (Auto) 0.6 X10^3/uL (1.3-2.9) L 02/11/18 04:26 [place] # (Auto) 0.5 x10^3/uL (0.3-0.8) 02/11/18 04:26 Eos # (Auto) 0.0 x10^3/uL (0.0-0.2) 02/11/18 04:26 Baso # (Auto) 0.0 X10^3/uL (0.0-0.1) 02/11/18 04:26 Absolute Nucleated RBC 0.0 /100WBC 02/11/18 04:26 Sodium 139 mmol/L (136-145) 02/11/18 04:26 Corrected Sodium TNP 02/11/18 04:26 Potassium 3.4 mmol/L (3.5-5.1) L 02/11/18 04:26 Chloride 103 mmol/L (98-107) 02/11/18 04:26 Carbon Dioxide 23.9 mmol/L (21-32) 02/11/18 04:26 BUN 5 mg/dL (7-18) L 02/11/18 04:26 Creatinine 0.86 mg/dL (0.55-1.02) 02/11/18 04:26 Est GFR (MDRD) Af Amer > 60 (>60) 02/11/18 04:26 Est GFR (MDRD) Non-Af > 60 (>60) 02/11/18 04:26 Glucose 92 mg/dL (65-99) 02/11/18 04:26 Calcium 7.8 mg/dL (8.5-10.1) L 02/11/18 04:26 Corrected Calcium 8.4 mg/dL (8.5-10.1) L 02/11/18 04:26 Magnesium 1.9 mg/dL (1.7-2.9) 02/09/18 04:50 Total Bilirubin 0.90 mg/dL (0.2-1.0) 02/11/18 04:26 AST 13 Units/L (15-37) L 02/11/18 04:26 ALT 8 Units/L (12-78) L 02/11/18 04:26 Alkaline Phosphatase 95 Units/L (46-116) 02/11/18 04:26 Total Protein 6.4 g/dL (6.4-8.2) 02/11/18 04:26 Albumin 3.2 g/dL (3.4-5.0) L 02/11/18 04:26 Globulin 3.2 g/dL (2.5-4.5) 02/11/18 04:26 Albumin/Globulin Ratio 1.0 Ratio (1.1-2.1) L 02/11/18 04:26 Amylase 40 Units/L (25-115) 02/09/18 04:20 Lipase 78 Units/L (73-393) 02/09/18 04:20 Specimen Type Clean catch urine 02/08/18 19:46 Urine Color Yellow (YELLOW) 02/08/18 19:46 Urine Appearance Slightly hazy (CLEAR) 02/08/18 19:46 Urine pH 5.0 (5.0 - 8.0) 02/08/18 19:46 Ur Specific [place] 1.030 (1.000-1.030) 02/08/18 19:46 Urine Protein 2+ (NEGATIVE) 02/08/18 19:46 Urine Glucose (UA) Negative (NEGATIVE) 02/08/18 19:46 Urine Ketones 4+ (NEGATIVE) 02/08/18 19:46 Urine Occult Blood 1+ (NEGATIVE) 02/08/18 19:46 Urine Nitrite Negative (NEGATIVE) 02/08/18 19:46 Urine Bilirubin 2+ (NEGATIVE) 02/08/18 19:46 Urine Urobilinogen 1+ (NORMAL) 02/08/18 19:46 Ur Leukocyte Esterase 1+ (NEGATIVE) 02/08/18 19:46 Urine RBC 0-2 /HPF (NONE SEEN) 02/08/18 19:46 Urine WBC 3-5 /HPF (NONE SEEN) 02/08/18 19:46 Ur Squamous Epith Cells Moderate /HPF (NEGATIVE) 02/08/18 19:46 Amorphous Sediment 2+ /HPF (NEGATIVE) 02/08/18 19:46 Urine Bacteria Trace /HPF (NEGATIVE) 02/08/18 19:46 Hyaline Casts Many /LPF (NEGATIVE) 02/08/18 19:46 Urine Mucus Moderate /HPF (NEGATIVE) 02/08/18 19:46 Ur Culture Indicated? No/not indicated 02/08/18 19:46 - Plan (1) Partial bowel obstruction Status: Acute Qualifiers: Intestinal obstruction type: obstruction due to adhesions Qualified Code(s) : K56.51 - Intestinal adhesions [bands], with partial obstruction Plan: CONTINUE IV FLUIDS, NG TUBE TO INTERMITTENT SUCTION, PAIN MEDICATIONS, NAUSEA MEDICATIONS, CONSULT GENERAL SURGERY, CONTINUE TO MONITOR
[2018-02-12] MEDS: NS 1000 ML 1,000 ML IV SCH ×4 (03:42→16:08)
[2018-02-12 05:21] LABS: BASOPHILS % (AUTO) 0.5 % (0.2-1.0); EOSINOPHILS # (AUTO) 0.1 x10^3/uL (0.0-0.2); HEMATOCRIT 29.4 % (36.0-47.0); HEMOGLOBIN 10.1 g/dL (12.0-16.0); LYMPHOCYTES # (AUTO) 0.8 X10^3/uL (1.3-2.9); LYMPHOCYTES % (AUTO) 22.4 % (21.0-51.0); MEAN CORPUSCULAR HEMOGLOBIN 27.6 pg (27.0-34.0); MEAN CORPUSCULAR HGB CONC 34.3 g/dL (33.0-35.0); MEAN CORPUSCULAR VOLUME 80.5 fL (80.0-100.0); MEAN PLATELET VOLUME 8.9 fL (7.4-11.0); MONOCYTES # (AUTO) 0.3 x10^3/uL (0.3-0.8); MONOCYTES % (AUTO) 8.9 % (0.0-13.0); NEUTROPHILS # (AUTO) 2.5 x10^3/uL (2.2-4.8); NEUTROPHILS % (AUTO) 66.2 % (42.0-75.0); PLATELET COUNT 117 X10^3/uL (150.0-450.0); RED BLOOD COUNT 3.65 X10^6/uL (3.5-5.4); RED CELL DISTRIBUTION WIDTH 14.7 % (11.6-16.5); WHITE BLOOD COUNT 3.7 X10^3/uL (3.6-10.0)
[2018-02-12] MEDS: BENTYL CAP 10 MG PO SCH ×3 (05:24→21:12)
[2018-02-12] MEDS: ZOFRAN INJ 4 MG VIAL IVP PRN ×2 (05:25→21:21)
[2018-02-12] MEDS: MORPHINE SULFATE INJ 2 MG INJ IVP PRN ×3 (05:26→22:02)
[2018-02-12 05:33] LABS: ALANINE AMINOTRANSFERASE 20 Units/L (12-78); ALBUMIN 2.8 g/dL (3.4-5.0); ALKALINE PHOSPHATASE 84 Units/L (46-116); ASPARTATE AMINO TRANSFERASE 18 Units/L (15-37); BLOOD UREA NITROGEN 3 mg/dL (7-18); CALCIUM 7.4 mg/dL (8.5-10.1); CARBON DIOXIDE 21.4 mmol/L (21-32); CHLORIDE 105 mmol/L (98-107); COR CA(FOR HYPOALB) 8.4 mg/dL (8.5-10.1); CREATININE 0.75 mg/dL (0.55-1.02); SODIUM 140 mmol/L (136-145); TOTAL PROTEIN 6.2 g/dL (6.4-8.2); eGFR NON BLACK RACES > 60 (>60)
--- NOTE | 2018-02-12 07:26 | RAD ---
HISTORY: Preop small-bowel obstruction Study: KUB Comparison: 02/11/2018, CT abdomen pelvis 02/10/2018 Findings: There is nasogastric tube with its tip and side hole well within the stomach. Scattered surgical clip s are present throughout the upper abdomen. The abdominal gas pattern is nonspecific. No abnormal mas ses are identified. Multiple calcifications in the pelvis likely represent phleboliths. IMPRESSION: Nonspecific bowel gas pattern Reported By:
[2018-02-12] MEDS: K-DUR TAB 20 MEQ PO SCH (08:02)
[2018-02-12] MEDS: LIPITOR TAB 40 MG PO SCH (08:03)
[2018-02-12] MEDS: FLONASE NASAL SPRAY ENOSTRIL SCH (09:56)
[2018-02-12] MEDS: PROTONIX INJ 40 MG VIAL IVP SCH (09:57)
--- NOTE | 2018-02-12 11:34 | DR.PROGNOT ---
Hospital Progress Notes - Progress Note for Day of: Progress Note Date: 02/12/18 - Chief Complaint Chief Complaint: mild abdominal pain ,. NGT is draining less today . abdominal Xray today showed normal gas pattern . k is 2.9. Bx of gastric plyp is negative for malignancy . - History of Present Illness History of Present Illness: multiple abdominal surgeries for colon ca x2 , Gastrectomy for gstric ca . hysterectomy and lap kaleb . - Past Medical Family Social History Past Med/Fam/Surg Hx: No changes since H&P, Changes noted (describe) Allergies: Allergies No Known Drug Allergies Allergy (Verified 01/28/18 14:30) - Review Of Systems ROS: No change since H&P - Vital Signs Vital Signs: Temperature 98.3 F Pulse Rate [Right Radial] 74 Pulse Rate 108 Respiratory Rate 18 Blood Pressure [Right Arm] 108/51 Blood Pressure [Left Arm] 120/91 Blood Pressure [Left Radial 126/65 Artery] Blood Pressure 144/87 O2 Sat by Pulse Oximetry 98 - Physical Exam Oriented: Normal Eyes: Normal Ear: Normal Nose: Normal Throat: Normal Respiratory: Normal Cardiovascular: Normal : Normal GI:Auscultation: Normal GI:Palpation: Normal GI: Tenderness: Diffuse (soft abdomen , BS + . blanca umbilical tenderness with deep induration ) Skin: Normal Musculoskeletal: Normal Psychiatric: Normal Mood Description: Calm Affect: Normal Speech Pattern: Clear, Appropriate - Laboratory and Diagnostics Result Diagrams: 02/12/18 04:36 02/12/18 04:36 Labs: Laboratory WBC 3.7 X10^3/uL (3.6-10.0) 02/12/18 04:36 RBC 3.65 X10^6/uL (3.5-5.4) 02/12/18 04:36 Hgb 10.1 g/dL (12.0-16.0) L 02/12/18 04:36 Hct 29.4 % (36.0-47.0) L 02/12/18 04:36 MCV 80.5 fL (80.0-100.0) 02/12/18 04:36 MCH 27.6 pg (27.0-34.0) 02/12/18 04:36 MCHC 34.3 g/dL (33.0-35.0) 02/12/18 04:36 RDW 14.7 % (11.6-16.5) 02/12/18 04:36 Plt Count 117 X10^3/uL (150.0-450.0) L 02/12/18 04:36 MPV 8.9 fL (7.4-11.0) 02/12/18 04:36 Neut % (Auto) 66.2 % (42.0-75.0) 02/12/18 04:36 Lymph % (Auto) 22.4 % (21.0-51.0) 02/12/18 04:36 [place] % (Auto) 8.9 % (0.0-13.0) 02/12/18 04:36 Eos % (Auto) 2.0 % (0.9-2.9) 02/12/18 04:36 Baso % (Auto) 0.5 % (0.2-1.0) 02/12/18 04:36 Neut # (Auto) 2.5 x10^3/uL (2.2-4.8) 02/12/18 04:36 Lymph # (Auto) 0.8 X10^3/uL (1.3-2.9) L 02/12/18 04:36 [place] # (Auto) 0.3 x10^3/uL (0.3-0.8) 02/12/18 04:36 Eos # (Auto) 0.1 x10^3/uL (0.0-0.2) 02/12/18 04:36 Baso # (Auto) 0.0 X10^3/uL (0.0-0.1) 02/12/18 04:36 Absolute Nucleated RBC 0.2 /100WBC 02/12/18 04:36 Sodium 140 mmol/L (136-145) 02/12/18 04:36 Corrected Sodium TNP 02/12/18 04:36 Potassium 2.9 mmol/L (3.5-5.1) L* 02/12/18 04:36 Chloride 105 mmol/L (98-107) 02/12/18 04:36 Carbon Dioxide 21.4 mmol/L (21-32) 02/12/18 04:36 BUN 3 mg/dL (7-18) L 02/12/18 04:36 Creatinine 0.75 mg/dL (0.55-1.02) 02/12/18 04:36 Est GFR (MDRD) Af Amer > 60 (>60) 02/12/18 04:36 Est GFR (MDRD) Non-Af > 60 (>60) 02/12/18 04:36 Glucose 77 mg/dL (65-99) 02/12/18 04:36 Calcium 7.4 mg/dL (8.5-10.1) L 02/12/18 04:36 Corrected Calcium 8.4 mg/dL (8.5-10.1) L 02/12/18 04:36 Magnesium 1.9 mg/dL (1.7-2.9) 02/09/18 04:50 Total Bilirubin 0.80 mg/dL (0.2-1.0) 02/12/18 04:36 AST 18 Units/L (15-37) 02/12/18 04:36 ALT 20 Units/L (12-78) 02/12/18 04:36 Alkaline Phosphatase 84 Units/L (46-116) 02/12/18 04:36 Total Protein 6.2 g/dL (6.4-8.2) L 02/12/18 04:36 Albumin 2.8 g/dL (3.4-5.0) L 02/12/18 04:36 Globulin 3.4 g/dL (2.5-4.5) 02/12/18 04:36 Albumin/Globulin Ratio 0.8 Ratio (1.1-2.1) L 02/12/18 04:36 Amylase 40 Units/L (25-115) 02/09/18 04:20 Lipase 78 Units/L (73-393) 02/09/18 04:20 Specimen Type Clean catch urine 02/08/18 19:46 Urine Color Yellow (YELLOW) 02/08/18 19:46 Urine Appearance Slightly hazy (CLEAR) 02/08/18 19:46 Urine pH 5.0 (5.0 - 8.0) 02/08/18 19:46 Ur Specific [place] 1.030 (1.000-1.030) 02/08/18 19:46 Urine Protein 2+ (NEGATIVE) 02/08/18 19:46 Urine Glucose (UA) Negative (NEGATIVE) 02/08/18 19:46 Urine Ketones 4+ (NEGATIVE) 02/08/18 19:46 Urine Occult Blood 1+ (NEGATIVE) 02/08/18 19:46 Urine Nitrite Negative (NEGATIVE) 02/08/18 19:46 Urine Bilirubin 2+ (NEGATIVE) 02/08/18 19:46 Urine Urobilinogen 1+ (NORMAL) 02/08/18 19:46 Ur Leukocyte Esterase 1+ (NEGATIVE) 02/08/18 19:46 Urine RBC 0-2 /HPF (NONE SEEN) 02/08/18 19:46 Urine WBC 3-5 /HPF (NONE SEEN) 02/08/18 19:46 Ur Squamous Epith Cells Moderate /HPF (NEGATIVE) 02/08/18 19:46 Amorphous Sediment 2+ /HPF (NEGATIVE) 02/08/18 19:46 Urine Bacteria Trace /HPF (NEGATIVE) 02/08/18 19:46 Hyaline Casts Many /LPF (NEGATIVE) 02/08/18 19:46 Urine Mucus Moderate /HPF (NEGATIVE) 02/08/18 19:46 Ur Culture Indicated? No/not indicated 02/08/18 19:46 - Assessment and Plan 1: recurrent partial SBO. abdominal adhesions ,. colon ca X2 , s/p resection . Gastric ca , s/p resection . hysterectomy and lap kaleb . to D/C NGT, repeat abdominal xray . start on liquid diet - Problem Patient Problems: Patient Problems Abdominal pain (Acute) R10.9 Dehydration (Acute) E86.0 Small bowel obstruction (Acute) K56.609
--- NOTE | 2018-02-12 14:52 | PCM.PROG ---
Progress Note - Progress Note for Day of Date: 02/12/18 - Subjective Subjective: IS BEING TREATED FOR A SMALL BOWEL OBSTRUCTION. TODAY, SHE IS ALERT AND ORIENTED, LYING IN BED ON MORNING ROUNDS. SHE CONTINUES WITH DIFFUSE, MILD ABDOMINAL PAIN AND NAUSEA. NG TUBE CONTINUES TO LOW INTERMITTENT SUCTION. LESS DRAINAGE IN [facility] TODAY. HER VITALS THIS MORNING ARE 98.8-76-20 -98%-98/57. LABS WERE OBTAINED. ABNORMAL LAB VALUES INCLUDE THE FOLLOWING: HGB 10.1, HCT 29.4, POTASSIUM 2.9, BUN 3, CALCIUM 7.4, TOTAL PROTEIN 6.2, ALBUMIN 2.8. PATHOLOGY FROM GASTRIC POLYP FROM EGD ON 02/07/18 IS NEGATIVE FOR MALIGNANCY. A KUB WAS OBTAINED TODAY AND REVEALED NONSPECIFIC BOWEL GAS PATTERN. SHE IS CURRENTLY RECEIVING NORMAL SALINE, IV PAIN MEDICATION, AND IV NAUSEA MEDICATION. WE WILL CONTINUE WITH CURRENT PLAN OF CARE TODAY. OTHERWISE, WE WILL FOLLOW UP WITH AM LABS AND CONTINUE TO MONITOR PATIENT. WILL ALSO CONTINUE TO FOLLOW UP WITH PATIENT. - Past Medical Family Social History Past Med/Fam/Surg Hx: No changes since H&P, Changes noted (describe) Allergies: Allergies No Known Drug Allergies Allergy (Verified 01/28/18 14:30) - Review of Systems ROS: No change since H&P - Vital Signs and I&O's Vital Signs: Temperature 98.2 F Pulse Rate [Right Radial] 66 Pulse Rate 108 Respiratory Rate 18 Blood Pressure [Right Arm] 131/61 Blood Pressure [Left Arm] 120/91 Blood Pressure [Left Radial 126/65 Artery] Blood Pressure 144/87 O2 Sat by Pulse Oximetry 100 Intake and Output: Intake & Output 02/10/18 02/11/18 02/12/18 02/13/18 11:59 11:59 11:59 11:59 Intake Total 2100 1746 2615 Output Total 1420 800 Balance 2100 326 1815 - Physical Exam Oriented: Normal Eyes: Normal Ear: Normal Nose: Normal Throat: Normal Respiratory: Normal Cardiovascular: Normal : Normal Auscultation: Bowel Sounds: Normal Palpation: Normal Tenderness: Diffuse (soft abdomen , BS + . blanca umbilical tenderness with deep induration ), Mild Skin: Normal Musculoskeletal: Normal Psychiatric: Normal Mood Description: Calm Affect: Normal Speech Pattern: Clear, Appropriate - Laboratory and Diagnostics Result Diagrams: 02/12/18 04:36 02/12/18 04:36 Labs: Laboratory WBC 3.7 X10^3/uL (3.6-10.0) 02/12/18 04:36 RBC 3.65 X10^6/uL (3.5-5.4) 02/12/18 04:36 Hgb 10.1 g/dL (12.0-16.0) L 02/12/18 04:36 Hct 29.4 % (36.0-47.0) L 02/12/18 04:36 MCV 80.5 fL (80.0-100.0) 02/12/18 04:36 MCH 27.6 pg (27.0-34.0) 02/12/18 04:36 MCHC 34.3 g/dL (33.0-35.0) 02/12/18 04:36 RDW 14.7 % (11.6-16.5) 02/12/18 04:36 Plt Count 117 X10^3/uL (150.0-450.0) L 02/12/18 04:36 MPV 8.9 fL (7.4-11.0) 02/12/18 04:36 Neut % (Auto) 66.2 % (42.0-75.0) 02/12/18 04:36 Lymph % (Auto) 22.4 % (21.0-51.0) 02/12/18 04:36 [place] % (Auto) 8.9 % (0.0-13.0) 02/12/18 04:36 Eos % (Auto) 2.0 % (0.9-2.9) 02/12/18 04:36 Baso % (Auto) 0.5 % (0.2-1.0) 02/12/18 04:36 Neut # (Auto) 2.5 x10^3/uL (2.2-4.8) 02/12/18 04:36 Lymph # (Auto) 0.8 X10^3/uL (1.3-2.9) L 02/12/18 04:36 [place] # (Auto) 0.3 x10^3/uL (0.3-0.8) 02/12/18 04:36 Eos # (Auto) 0.1 x10^3/uL (0.0-0.2) 02/12/18 04:36 Baso # (Auto) 0.0 X10^3/uL (0.0-0.1) 02/12/18 04:36 Absolute Nucleated RBC 0.2 /100WBC 02/12/18 04:36 Sodium 140 mmol/L (136-145) 02/12/18 04:36 Corrected Sodium TNP 02/12/18 04:36 Potassium 2.9 mmol/L (3.5-5.1) L* 02/12/18 04:36 Chloride 105 mmol/L (98-107) 02/12/18 04:36 Carbon Dioxide 21.4 mmol/L (21-32) 02/12/18 04:36 BUN 3 mg/dL (7-18) L 02/12/18 04:36 Creatinine 0.75 mg/dL (0.55-1.02) 02/12/18 04:36 Est GFR (MDRD) Af Amer > 60 (>60) 02/12/18 04:36 Est GFR (MDRD) Non-Af > 60 (>60) 02/12/18 04:36 Glucose 77 mg/dL (65-99) 02/12/18 04:36 Calcium 7.4 mg/dL (8.5-10.1) L 02/12/18 04:36 Corrected Calcium 8.4 mg/dL (8.5-10.1) L 02/12/18 04:36 Magnesium 1.9 mg/dL (1.7-2.9) 02/09/18 04:50 Total Bilirubin 0.80 mg/dL (0.2-1.0) 02/12/18 04:36 AST 18 Units/L (15-37) 02/12/18 04:36 ALT 20 Units/L (12-78) 02/12/18 04:36 Alkaline Phosphatase 84 Units/L (46-116) 02/12/18 04:36 Total Protein 6.2 g/dL (6.4-8.2) L 02/12/18 04:36 Albumin 2.8 g/dL (3.4-5.0) L 02/12/18 04:36 Globulin 3.4 g/dL (2.5-4.5) 02/12/18 04:36 Albumin/Globulin Ratio 0.8 Ratio (1.1-2.1) L 02/12/18 04:36 Amylase 40 Units/L (25-115) 02/09/18 04:20 Lipase 78 Units/L (73-393) 02/09/18 04:20 Specimen Type Clean catch urine 02/08/18 19:46 Urine Color Yellow (YELLOW) 02/08/18 19:46 Urine Appearance Slightly hazy (CLEAR) 02/08/18 19:46 Urine pH 5.0 (5.0 - 8.0) 02/08/18 19:46 Ur Specific [place] 1.030 (1.000-1.030) 02/08/18 19:46 Urine Protein 2+ (NEGATIVE) 02/08/18 19:46 Urine Glucose (UA) Negative (NEGATIVE) 02/08/18 19:46 Urine Ketones 4+ (NEGATIVE) 02/08/18 19:46 Urine Occult Blood 1+ (NEGATIVE) 02/08/18 19:46 Urine Nitrite Negative (NEGATIVE) 02/08/18 19:46 Urine Bilirubin 2+ (NEGATIVE) 02/08/18 19:46 Urine Urobilinogen 1+ (NORMAL) 02/08/18 19:46 Ur Leukocyte Esterase 1+ (NEGATIVE) 02/08/18 19:46 Urine RBC 0-2 /HPF (NONE SEEN) 02/08/18 19:46 Urine WBC 3-5 /HPF (NONE SEEN) 02/08/18 19:46 Ur Squamous Epith Cells Moderate /HPF (NEGATIVE) 02/08/18 19:46 Amorphous Sediment 2+ /HPF (NEGATIVE) 02/08/18 19:46 Urine Bacteria Trace /HPF (NEGATIVE) 02/08/18 19:46 Hyaline Casts Many /LPF (NEGATIVE) 02/08/18 19:46 Urine Mucus Moderate /HPF (NEGATIVE) 02/08/18 19:46 Ur Culture Indicated? No/not indicated 02/08/18 19:46 - Plan (1) Partial bowel obstruction Status: Acute Qualifiers: Intestinal obstruction type: obstruction due to adhesions Qualified Code(s) : K56.51 - Intestinal adhesions [bands], with partial obstruction Plan: CONTINUE IV FLUIDS, NG TUBE TO INTERMITTENT SUCTION, PAIN MEDICATIONS, NAUSEA MEDICATIONS, CONSULT GENERAL SURGERY, CONTINUE TO MONITOR (2) Hyperlipidemia Status: Acute Qualifiers: Hyperlipidemia type: mixed hyperlipidemia Qualified Code(s): E78.2 - Mixed hyperlipidemia Plan: CONTINUE LIPITOR (3) Hypokalemia Status: Chronic Plan: POTASSIUM REPLACEMENT WITH PROTOCOL
[2018-02-12] MEDS: SYNTHROID 25 mcg TAB PO SCH (16:27)
[2018-02-13] MEDS: NS 1000 ML 1,000 ML IV SCH ×3 (02:01→11:12)
[2018-02-13 04:24] LABS: BASOPHILS % (AUTO) 0.5 % (0.2-1.0); EOSINOPHILS # (AUTO) 0.1 x10^3/uL (0.0-0.2); EOSINOPHILS % (AUTO) 2.2 % (0.9-2.9); HEMATOCRIT 28.7 % (36.0-47.0); HEMOGLOBIN 9.7 g/dL (12.0-16.0); LYMPHOCYTES % (AUTO) 25.4 % (21.0-51.0); MEAN CORPUSCULAR HEMOGLOBIN 27.5 pg (27.0-34.0); MEAN CORPUSCULAR HGB CONC 33.8 g/dL (33.0-35.0); MEAN CORPUSCULAR VOLUME 81.4 fL (80.0-100.0); MEAN PLATELET VOLUME 8.5 fL (7.4-11.0); MONOCYTES # (AUTO) 0.3 x10^3/uL (0.3-0.8); MONOCYTES % (AUTO) 8.4 % (0.0-13.0); NEUTROPHILS # (AUTO) 2.5 x10^3/uL (2.2-4.8); NEUTROPHILS % (AUTO) 63.5 % (42.0-75.0); PLATELET COUNT 116 X10^3/uL (150.0-450.0); RED BLOOD COUNT 3.53 X10^6/uL (3.5-5.4); RED CELL DISTRIBUTION WIDTH 15.4 % (11.6-16.5); WHITE BLOOD COUNT 3.9 X10^3/uL (3.6-10.0)
[2018-02-13 04:34] LABS: ALANINE AMINOTRANSFERASE 20 Units/L (12-78); ALBUMIN 2.8 g/dL (3.4-5.0); ALKALINE PHOSPHATASE 82 Units/L (46-116); ASPARTATE AMINO TRANSFERASE 13 Units/L (15-37); BLOOD UREA NITROGEN 1 mg/dL (7-18); CALCIUM 7.3 mg/dL (8.5-10.1); CARBON DIOXIDE 23.4 mmol/L (21-32); CHLORIDE 105 mmol/L (98-107); COR CA(FOR HYPOALB) 8.3 mg/dL (8.5-10.1); CREATININE 0.75 mg/dL (0.55-1.02); MAGNESIUM 1.2 mg/dL (1.7-2.9); SODIUM 139 mmol/L (136-145); TOTAL PROTEIN 5.7 g/dL (6.4-8.2); eGFR NON BLACK RACES > 60 (>60)
[2018-02-13] MEDS: ZOFRAN INJ 4 MG VIAL IVP PRN ×2 (06:10→14:42)
[2018-02-13] MEDS: BENTYL CAP 10 MG PO SCH ×3 (06:10→22:28)
--- NOTE | 2018-02-13 08:35 | RAD ---
HISTORY: Preoperative evaluation for small bowel obstruction Study: KUB, single view was obtained Comparison: February 12, 2018 and February 10, 2018 Findings: Evaluation of the abdomen demonstrates a persistent nonspecific versus partial obstructive pattern wi th dilated loops of small bowel in the central upper abdomen which are stable to slightly improved as compared to the most recent prior but likely overall improved as compared to prior CT. Numerous sukumar gical clips project over the upper abdomen. Numerous phleboliths are noted in the pelvis. The bony s tructures are grossly intact. IMPRESSION: Stable to mildly improved somewhat nonspecific bowel gas pattern as above. Reported By:
[2018-02-13] MEDS: LIPITOR TAB 40 MG PO SCH (08:47)
[2018-02-13] MEDS: K-DUR TAB 20 MEQ PO SCH (08:47)
[2018-02-13] MEDS: PROTONIX INJ 40 MG VIAL IVP SCH (08:48)
--- NOTE | 2018-02-13 11:41 | DR.PROGNOT ---
Hospital Progress Notes - Progress Note for Day of: Progress Note Date: 02/13/18 - Chief Complaint Chief Complaint: mild abdominal pain ,. no vomioting today. abdominal Xray today showed only mild dilated small bowel loops. Bx of gastric plyp is negative for malignancy . - History of Present Illness History of Present Illness: multiple abdominal surgeries for colon ca x2 , Gastrectomy for gstric ca . hysterectomy and lap kaleb . - Past Medical Family Social History Past Med/Fam/Surg Hx: No changes since H&P, Changes noted (describe) Allergies: Allergies No Known Drug Allergies Allergy (Verified 01/28/18 14:30) - Review Of Systems ROS: No change since H&P - Vital Signs Vital Signs: Temperature 98.2 F Pulse Rate [Right Radial] 71 Pulse Rate 108 Respiratory Rate 20 Blood Pressure [Right Arm] 133/59 Blood Pressure [Left Arm] 120/91 Blood Pressure [Left Radial 126/65 Artery] Blood Pressure 144/87 O2 Sat by Pulse Oximetry 98 - Physical Exam Oriented: Normal Eyes: Normal Ear: Normal Nose: Normal Throat: Normal Respiratory: Normal Cardiovascular: Normal : Normal GI:Auscultation: Normal GI:Palpation: Normal GI: Tenderness: Diffuse (soft abdomen , BS + . blanca umbilical tenderness with deep induration ), Mild Skin: Normal Musculoskeletal: Normal Psychiatric: Normal Mood Description: Calm Affect: Normal Speech Pattern: Clear, Appropriate - Laboratory and Diagnostics Result Diagrams: 02/13/18 04:01 02/13/18 04:01 Labs: Laboratory WBC 3.9 X10^3/uL (3.6-10.0) 02/13/18 04:01 RBC 3.53 X10^6/uL (3.5-5.4) 02/13/18 04:01 Hgb 9.7 g/dL (12.0-16.0) L 02/13/18 04:01 Hct 28.7 % (36.0-47.0) L 02/13/18 04:01 MCV 81.4 fL (80.0-100.0) 02/13/18 04:01 MCH 27.5 pg (27.0-34.0) 02/13/18 04:01 MCHC 33.8 g/dL (33.0-35.0) 02/13/18 04:01 RDW 15.4 % (11.6-16.5) 02/13/18 04:01 Plt Count 116 X10^3/uL (150.0-450.0) L 02/13/18 04:01 MPV 8.5 fL (7.4-11.0) 02/13/18 04:01 Neut % (Auto) 63.5 % (42.0-75.0) 02/13/18 04:01 Lymph % (Auto) 25.4 % (21.0-51.0) 02/13/18 04:01 [place] % (Auto) 8.4 % (0.0-13.0) 02/13/18 04:01 Eos % (Auto) 2.2 % (0.9-2.9) 02/13/18 04:01 Baso % (Auto) 0.5 % (0.2-1.0) 02/13/18 04:01 Neut # (Auto) 2.5 x10^3/uL (2.2-4.8) 02/13/18 04:01 Lymph # (Auto) 1.0 X10^3/uL (1.3-2.9) L 02/13/18 04:01 [place] # (Auto) 0.3 x10^3/uL (0.3-0.8) 02/13/18 04:01 Eos # (Auto) 0.1 x10^3/uL (0.0-0.2) 02/13/18 04:01 Baso # (Auto) 0.0 X10^3/uL (0.0-0.1) 02/13/18 04:01 Absolute Nucleated RBC 0.1 /100WBC 02/13/18 04:01 Sodium 139 mmol/L (136-145) 02/13/18 04:01 Corrected Sodium TNP 02/13/18 04:01 Potassium 3.3 mmol/L (3.5-5.1) L 02/13/18 04:01 Chloride 105 mmol/L (98-107) 02/13/18 04:01 Carbon Dioxide 23.4 mmol/L (21-32) 02/13/18 04:01 BUN 1 mg/dL (7-18) L 02/13/18 04:01 Creatinine 0.75 mg/dL (0.55-1.02) 02/13/18 04:01 Est GFR (MDRD) Af Amer > 60 (>60) 02/13/18 04:01 Est GFR (MDRD) Non-Af > 60 (>60) 02/13/18 04:01 Glucose 82 mg/dL (65-99) 02/13/18 04:01 Calcium 7.3 mg/dL (8.5-10.1) L 02/13/18 04:01 Corrected Calcium 8.3 mg/dL (8.5-10.1) L 02/13/18 04:01 Magnesium 1.2 mg/dL (1.7-2.9) L 02/13/18 04:01 Total Bilirubin 0.70 mg/dL (0.2-1.0) 02/13/18 04:01 AST 13 Units/L (15-37) L 02/13/18 04:01 ALT 20 Units/L (12-78) 02/13/18 04:01 Alkaline Phosphatase 82 Units/L (46-116) 02/13/18 04:01 Total Protein 5.7 g/dL (6.4-8.2) L 02/13/18 04:01 Albumin 2.8 g/dL (3.4-5.0) L 02/13/18 04:01 Globulin 2.9 g/dL (2.5-4.5) 02/13/18 04:01 Albumin/Globulin Ratio 1.0 Ratio (1.1-2.1) L 02/13/18 04:01 Amylase 40 Units/L (25-115) 02/09/18 04:20 Lipase 78 Units/L (73-393) 02/09/18 04:20 Specimen Type Clean catch urine 02/08/18 19:46 Urine Color Yellow (YELLOW) 02/08/18 19:46 Urine Appearance Slightly hazy (CLEAR) 02/08/18 19:46 Urine pH 5.0 (5.0 - 8.0) 02/08/18 19:46 Ur Specific [place] 1.030 (1.000-1.030) 02/08/18 19:46 Urine Protein 2+ (NEGATIVE) 02/08/18 19:46 Urine Glucose (UA) Negative (NEGATIVE) 02/08/18 19:46 Urine Ketones 4+ (NEGATIVE) 02/08/18 19:46 Urine Occult Blood 1+ (NEGATIVE) 02/08/18 19:46 Urine Nitrite Negative (NEGATIVE) 02/08/18 19:46 Urine Bilirubin 2+ (NEGATIVE) 02/08/18 19:46 Urine Urobilinogen 1+ (NORMAL) 02/08/18 19:46 Ur Leukocyte Esterase 1+ (NEGATIVE) 02/08/18 19:46 Urine RBC 0-2 /HPF (NONE SEEN) 02/08/18 19:46 Urine WBC 3-5 /HPF (NONE SEEN) 02/08/18 19:46 Ur Squamous Epith Cells Moderate /HPF (NEGATIVE) 02/08/18 19:46 Amorphous Sediment 2+ /HPF (NEGATIVE) 02/08/18 19:46 Urine Bacteria Trace /HPF (NEGATIVE) 02/08/18 19:46 Hyaline Casts Many /LPF (NEGATIVE) 02/08/18 19:46 Urine Mucus Moderate /HPF (NEGATIVE) 02/08/18 19:46 Ur Culture Indicated? No/not indicated 02/08/18 19:46 - Assessment and Plan 1: recurrent partial SBO. abdominal adhesions ,. colon ca X2 , s/p resection . Gastric ca , s/p resection . hysterectomy and lap kaleb . will start on full liquid diet today and recheck this PM .If started to have vomiting and obstructive symptoms will explore .. - Problem Patient Problems: Patient Problems Abdominal pain (Acute) R10.9 Dehydration (Acute) E86.0 Hyperlipidemia (Acute) E78.5 Small bowel obstruction (Acute) K56.609
[2018-02-13] MEDS: FLONASE NASAL SPRAY ENOSTRIL SCH (13:11)
[2018-02-13] MEDS: SYNTHROID 25 mcg TAB PO SCH (17:02)
[2018-02-13] MEDS: MORPHINE SULFATE INJ 2 MG INJ IVP PRN (17:08)
--- NOTE | 2018-02-13 20:44 | PCM.PROG ---
Progress Note - Progress Note for Day of Date: 02/13/18 - Subjective Subjective: IS BEING TREATED FOR A SMALL BOWEL OBSTRUCTION. TODAY, SHE IS ALERT AND ORIENTED, LYING IN BED ON MORNING ROUNDS. SHE CONTINUES WITH DIFFUSE, MILD ABDOMINAL PAIN AND NAUSEA, BUT REPORTS SLIGHT IMPROVEMENT SINCE YESTERDAY. NG TUBE WAS REMOVED YESTERAY. HER VITALS THIS MORNING ARE 98.2-71-20- 98%-133/59. LABS WERE OBTAINED. ABNORMAL LAB VALUES INCLUDE THE FOLLOWING: HGB 9.7, HCT 28.7, PLT COUNT 116, POTASSIUM 3.3, BUN 1, CALCIUM 7.3, MAGNESIUM 1.2, AST 13, TOTAL PROTEIN 5.7, ALBUMIN 2.8. KUB OBTAINED TODAY AND REPORTED STABLE TO MILDLY IMROVED SOMEWHAT NONSPECIFIC BOWEL GAS PATTERN ABOVE. SHE IS CURRENTLY RECEIVING NORMAL SALINE, IV PAIN MEDICATION, AND IV NAUSEA MEDICATION. WE WILL CONTINUE WITH CURRENT PLAN OF CARE TODAY. SHE WILL BE ADVANCED TO A FULL LIQUID DIET. IF PATIENT STARTS VOMITING. MAY CONSIDER EXPLORATORY LAPAROTOMY TOMORROW. WE ARE IN AGREEMENT WITH PLAN. OTHERWISE, WE WILL FOLLOW UP WITH AM LABS AND CONTINUE TO MONITOR PATIENT. - Past Medical Family Social History Past Med/Fam/Surg Hx: No changes since H&P, Changes noted (describe) Allergies: Allergies No Known Drug Allergies Allergy (Verified 01/28/18 14:30) - Review of Systems ROS: No change since H&P - Vital Signs and I&O's Vital Signs: Temperature 98.8 F Pulse Rate [Right Radial] 71 Pulse Rate 108 Respiratory Rate 20 Blood Pressure [Right Arm] 133/69 Blood Pressure [Left Arm] 116/57 Blood Pressure [Left Radial 126/65 Artery] Blood Pressure 144/87 O2 Sat by Pulse Oximetry 99 Intake and Output: Intake & Output 02/11/18 02/12/18 02/13/18 02/14/18 11:59 11:59 11:59 11:59 Intake Total 1746 2615 1848 75 Output Total 1420 800 Balance 326 1815 1848 75 - Physical Exam Oriented: Normal Eyes: Normal Ear: Normal Nose: Normal Throat: Normal Respiratory: Normal Cardiovascular: Normal : Normal Auscultation: Bowel Sounds: Normal Palpation: Normal Tenderness: Diffuse (soft abdomen , BS + . blanca umbilical tenderness with deep induration ), Mild Skin: Normal Musculoskeletal: Normal Psychiatric: Normal Mood Description: Calm Affect: Normal Speech Pattern: Clear, Appropriate - Laboratory and Diagnostics Result Diagrams: 02/13/18 04:01 02/13/18 04:01 Labs: Laboratory WBC 3.9 X10^3/uL (3.6-10.0) 02/13/18 04:01 RBC 3.53 X10^6/uL (3.5-5.4) 02/13/18 04:01 Hgb 9.7 g/dL (12.0-16.0) L 02/13/18 04:01 Hct 28.7 % (36.0-47.0) L 02/13/18 04:01 MCV 81.4 fL (80.0-100.0) 02/13/18 04:01 MCH 27.5 pg (27.0-34.0) 02/13/18 04:01 MCHC 33.8 g/dL (33.0-35.0) 02/13/18 04:01 RDW 15.4 % (11.6-16.5) 02/13/18 04:01 Plt Count 116 X10^3/uL (150.0-450.0) L 02/13/18 04:01 MPV 8.5 fL (7.4-11.0) 02/13/18 04:01 Neut % (Auto) 63.5 % (42.0-75.0) 02/13/18 04:01 Lymph % (Auto) 25.4 % (21.0-51.0) 02/13/18 04:01 [place] % (Auto) 8.4 % (0.0-13.0) 02/13/18 04:01 Eos % (Auto) 2.2 % (0.9-2.9) 02/13/18 04:01 Baso % (Auto) 0.5 % (0.2-1.0) 02/13/18 04:01 Neut # (Auto) 2.5 x10^3/uL (2.2-4.8) 02/13/18 04:01 Lymph # (Auto) 1.0 X10^3/uL (1.3-2.9) L 02/13/18 04:01 [place] # (Auto) 0.3 x10^3/uL (0.3-0.8) 02/13/18 04:01 Eos # (Auto) 0.1 x10^3/uL (0.0-0.2) 02/13/18 04:01 Baso # (Auto) 0.0 X10^3/uL (0.0-0.1) 02/13/18 04:01 Absolute Nucleated RBC 0.1 /100WBC 02/13/18 04:01 Sodium 139 mmol/L (136-145) 02/13/18 04:01 Corrected Sodium TNP 02/13/18 04:01 Potassium 3.3 mmol/L (3.5-5.1) L 02/13/18 04:01 Chloride 105 mmol/L (98-107) 02/13/18 04:01 Carbon Dioxide 23.4 mmol/L (21-32) 02/13/18 04:01 BUN 1 mg/dL (7-18) L 02/13/18 04:01 Creatinine 0.75 mg/dL (0.55-1.02) 02/13/18 04:01 Est GFR (MDRD) Af Amer > 60 (>60) 02/13/18 04:01 Est GFR (MDRD) Non-Af > 60 (>60) 02/13/18 04:01 Glucose 82 mg/dL (65-99) 02/13/18 04:01 Calcium 7.3 mg/dL (8.5-10.1) L 02/13/18 04:01 Corrected Calcium 8.3 mg/dL (8.5-10.1) L 02/13/18 04:01 Magnesium 1.2 mg/dL (1.7-2.9) L 02/13/18 04:01 Total Bilirubin 0.70 mg/dL (0.2-1.0) 02/13/18 04:01 AST 13 Units/L (15-37) L 02/13/18 04:01 ALT 20 Units/L (12-78) 02/13/18 04:01 Alkaline Phosphatase 82 Units/L (46-116) 02/13/18 04:01 Total Protein 5.7 g/dL (6.4-8.2) L 02/13/18 04:01 Albumin 2.8 g/dL (3.4-5.0) L 02/13/18 04:01 Globulin 2.9 g/dL (2.5-4.5) 02/13/18 04:01 Albumin/Globulin Ratio 1.0 Ratio (1.1-2.1) L 02/13/18 04:01 Amylase 40 Units/L (25-115) 02/09/18 04:20 Lipase 78 Units/L (73-393) 02/09/18 04:20 Specimen Type Clean catch urine 02/08/18 19:46 Urine Color Yellow (YELLOW) 02/08/18 19:46 Urine Appearance Slightly hazy (CLEAR) 02/08/18 19:46 Urine pH 5.0 (5.0 - 8.0) 02/08/18 19:46 Ur Specific [place] 1.030 (1.000-1.030) 02/08/18 19:46 Urine Protein 2+ (NEGATIVE) 02/08/18 19:46 Urine Glucose (UA) Negative (NEGATIVE) 02/08/18 19:46 Urine Ketones 4+ (NEGATIVE) 02/08/18 19:46 Urine Occult Blood 1+ (NEGATIVE) 02/08/18 19:46 Urine Nitrite Negative (NEGATIVE) 02/08/18 19:46 Urine Bilirubin 2+ (NEGATIVE) 02/08/18 19:46 Urine Urobilinogen 1+ (NORMAL) 02/08/18 19:46 Ur Leukocyte Esterase 1+ (NEGATIVE) 02/08/18 19:46 Urine RBC 0-2 /HPF (NONE SEEN) 02/08/18 19:46 Urine WBC 3-5 /HPF (NONE SEEN) 02/08/18 19:46 Ur Squamous Epith Cells Moderate /HPF (NEGATIVE) 02/08/18 19:46 Amorphous Sediment 2+ /HPF (NEGATIVE) 02/08/18 19:46 Urine Bacteria Trace /HPF (NEGATIVE) 02/08/18 19:46 Hyaline Casts Many /LPF (NEGATIVE) 02/08/18 19:46 Urine Mucus Moderate /HPF (NEGATIVE) 02/08/18 19:46 Ur Culture Indicated? No/not indicated 02/08/18 19:46 - Plan (1) Partial bowel obstruction Status: Acute Qualifiers: Intestinal obstruction type: obstruction due to adhesions Qualified Code(s) : K56.51 - Intestinal adhesions [bands], with partial obstruction Plan: CONTINUE IV FLUIDS, ADVANCE TO FULL LIQUID DIET, PAIN MEDICATIONS, NAUSEA MEDICATIONS, CONTINUE TO MONITOR (2) Hyperlipidemia Status: Acute Qualifiers: Hyperlipidemia type: mixed hyperlipidemia Qualified Code(s): E78.2 - Mixed hyperlipidemia Plan: CONTINUE LIPITOR (3) Hypokalemia Status: Chronic Plan: POTASSIUM REPLACEMENT WITH PROTOCOL
[2018-02-14] MEDS ORDERED: LR 1000 ML IV 1,000 ML IV SCH (09:00)
[2018-02-14] MEDS ORDERED: LEVAQUIN PREMIX IV 500 MG 500 MG/100 ML BAG IV ONE (09:00)
[2018-02-14] MEDS: LEVAQUIN PREMIX IV 500 MG 500 MG/100 ML BAG IV ONE ×2 (09:14→15:05)
[2018-02-14] MEDS: LR 1000 ML IV 1,000 ML IV ONE ×6 (09:25→15:07)
[2018-02-14] MEDS: NS IRRIGATION 1000 ML 1,000 ML with BACITRACIN VIAL 50,000 UNIT IR ONE ×4 (09:25→10:00)
[2018-02-14] MEDS ORDERED: FENTANYL INJ 250 mcg ONE ×2 (09:26→09:29)
[2018-02-14] MEDS ORDERED: DILAUDID INJ ONE (09:27)
[2018-02-14] MEDS: POTASSIUM CHL 40 MEQ/NS 0.45% 500 ML IV PRN ×3 (09:30→11:30)
--- NOTE | 2018-02-14 09:59 | RAD ---
HISTORY: Preop small-bowel obstruction Study: KUB Comparison: 02/13/2018, CT abdomen pelvis 02/10/2018 Findings: The abdominal gas pattern is nonspecific. There is no dilated air-filled small bowel identified. Dila beau fluid filled small bowel loops would not be detectable on KUB. Multiple surgical clips are presen t throughout the abdomen. Benign calcified phleboliths are present within the pelvis. IMPRESSION: Nonspecific bowel gas pattern without definite evidence for dilated filled small bowel. Dilated fluid -filled small bowel as is frequently seen with bowel obstruction would not be detectable on KUB. Reported By:
[2018-02-14] MEDS ORDERED: BACITRACIN VIAL ONE (11:25)
[2018-02-14] MEDS: DILAUDID INJ ONE ×4 (13:26→15:07)
[2018-02-14] MEDS: ZOFRAN INJ 4 MG VIAL ONE ×2 (13:45→15:07)
[2018-02-14 14:09] LABS: ALANINE AMINOTRANSFERASE 21 Units/L (12-78); ALBUMIN 2.9 g/dL (3.4-5.0); ALKALINE PHOSPHATASE 87 Units/L (46-116); ASPARTATE AMINO TRANSFERASE 14 Units/L (15-37); BLOOD UREA NITROGEN 1 mg/dL (7-18); CALCIUM 7.5 mg/dL (8.5-10.1); CARBON DIOXIDE 20.5 mmol/L (21-32); CHLORIDE 104 mmol/L (98-107); COR CA(FOR HYPOALB) 8.4 mg/dL (8.5-10.1); CREATININE 0.76 mg/dL (0.55-1.02); SODIUM 140 mmol/L (136-145); TOTAL PROTEIN 6.1 g/dL (6.4-8.2); eGFR NON BLACK RACES > 60 (>60)
[2018-02-14 14:10] LABS: BASOPHILS % (AUTO) 0.3 % (0.2-1.0); EOSINOPHILS # (AUTO) 0.1 x10^3/uL (0.0-0.2); EOSINOPHILS % (AUTO) 1.5 % (0.9-2.9); HEMATOCRIT 30.7 % (36.0-47.0); HEMOGLOBIN 10.3 g/dL (12.0-16.0); LYMPHOCYTES # (AUTO) 0.9 X10^3/uL (1.3-2.9); LYMPHOCYTES % (AUTO) 18.5 % (21.0-51.0); MEAN CORPUSCULAR HEMOGLOBIN 27.3 pg (27.0-34.0); MEAN CORPUSCULAR HGB CONC 33.6 g/dL (33.0-35.0); MEAN PLATELET VOLUME 9.4 fL (7.4-11.0); MONOCYTES # (AUTO) 0.3 x10^3/uL (0.3-0.8); MONOCYTES % (AUTO) 7.2 % (0.0-13.0); NEUTROPHILS # (AUTO) 3.4 x10^3/uL (2.2-4.8); NEUTROPHILS % (AUTO) 72.5 % (42.0-75.0); PLATELET COUNT 123 X10^3/uL (150.0-450.0); RED BLOOD COUNT 3.78 X10^6/uL (3.5-5.4); WHITE BLOOD COUNT 4.7 X10^3/uL (3.6-10.0)
[2018-02-14] MEDS: PHENERGAN INJ 25 MG ONE ×2 (14:43→15:08)
[2018-02-14] MEDS: NS 1000 ML 1,000 ML IV SCH ×3 (15:03→15:08)
[2018-02-14] MEDS: K-DUR TAB 20 MEQ PO SCH (15:04)
[2018-02-14] MEDS: BENTYL CAP 10 MG PO SCH ×3 (15:04→23:20)
[2018-02-14] MEDS: LIPITOR TAB 40 MG PO SCH (15:04)
[2018-02-14] MEDS ORDERED: ROBINUL ONE (15:05)
[2018-02-14] MEDS ORDERED: DIPRIVAN VIAL ONE (15:05)
[2018-02-14] MEDS ORDERED: NEOSTIGMINE INJ ONE (15:05)
[2018-02-14] MEDS ORDERED: QUELICIN (OR ANECTINE) ONE (15:05)
[2018-02-14] MEDS ORDERED: SUPRANE IN ONE (15:05)
[2018-02-14] MEDS ORDERED: NORMODYNE INJ 100 MG VIAL ONE (15:05)
[2018-02-14] MEDS ORDERED: ZOFRAN INJ 4 MG VIAL ONE (15:05)
[2018-02-14] MEDS ORDERED: NORCURON INJ 10 MG VIAL ONE (15:05)
[2018-02-14] MEDS: PROTONIX INJ 40 MG VIAL IVP SCH (15:05)
[2018-02-14] MEDS ORDERED: VERSED ONE (15:05)
[2018-02-14] MEDS: D5 1/2 NS 1000 ML 1,000 ML with POTASSIUM CHLORIDE INJ 10 MEQ VIAL 10 MEQ IV SCH ×4 (15:07→16:54)
[2018-02-14] MEDS: SYNTHROID 25 mcg TAB PO SCH (15:45)
[2018-02-14] MEDS: FLAGYL IV PREMIX 500 MG BAG 500 MG/100 ML BAG IV SCH ×2 (16:09→22:26)
[2018-02-14] MEDS: MORPHINE SULFATE INJ 2 MG INJ IVP PRN (16:30)
[2018-02-14] MEDS ORDERED: D5 1/2 NS + KCL 20 MEQ/L 1,000 ML IV ONE (16:45)
[2018-02-14] MEDS ORDERED: D5 1/2 NS + KCL 20 MEQ/L 1,000 ML IV SCH (17:00)
[2018-02-14] MEDS ORDERED: NORVASC TAB 5 MG PO SCH (18:00)
--- NOTE | 2018-02-14 18:29 | OR.GENERIC ---
Post-Op Note Generic - Post-Op Note Operative Report: exploratory laparotomy , lysis of adhesions ,entero enterostomy . excision of peritoneal and smll bowel nodules finding : SBO with extensive adhesions and multiple areras of what look like metastatic seeding involving the SB and mesentary . bypass of the obstruction was done . EBL 500 cc will keep NPO for now . prognosis is poor .
[2018-02-14] MEDS: ZOFRAN INJ 4 MG VIAL IVP PRN ×2 (18:38→22:25)
[2018-02-14] MEDS: DILAUDID INJ IVP PRN ×2 (18:44→22:28)
[2018-02-15] MEDS: PHENERGAN INJ 25 MG IV PRN ×3 (01:27→21:46)
[2018-02-15] MEDS: D5 1/2 NS 1000 ML 1,000 ML with POTASSIUM CHLORIDE INJ 10 MEQ VIAL 10 MEQ IV SCH ×4 (01:27→03:02)
[2018-02-15] MEDS: DILAUDID INJ IVP PRN ×4 (03:38→21:47)
[2018-02-15] MEDS ORDERED: TYLENOL 325 MG TAB PO PRN (04:11)
[2018-02-15] MEDS ORDERED: POTASSIUM CHLORIDE LIQ 20 MEQ UDC PO PRN (04:11)
[2018-02-15] MEDS ORDERED: K-LYTE EFFERVESCENT PO PRN (04:11)
[2018-02-15] MEDS ORDERED: POTASSIUM CHL 40 MEQ/NS 0.45% 500 ML IV PRN (04:11)
[2018-02-15] MEDS ORDERED: POTASSIUM CHL 60 MEQ/NS 0.45% 500 ML IV PRN (04:11)
[2018-02-15] MEDS: ZOFRAN INJ 4 MG VIAL IVP PRN ×2 (04:27→08:07)
[2018-02-15] MEDS: BENTYL CAP 10 MG PO SCH ×3 (05:25→21:59)
[2018-02-15] MEDS: FLAGYL IV PREMIX 500 MG BAG 500 MG/100 ML BAG IV SCH ×3 (06:00→22:00)
[2018-02-15 06:51] LABS: ALANINE AMINOTRANSFERASE 19 Units/L (12-78); ALBUMIN 2.8 g/dL (3.4-5.0); ALKALINE PHOSPHATASE 85 Units/L (46-116); ASPARTATE AMINO TRANSFERASE 14 Units/L (15-37); BLOOD UREA NITROGEN 2 mg/dL (7-18); CARBON DIOXIDE 23.4 mmol/L (21-32); CHLORIDE 97 mmol/L (98-107); COR NA(FOR HYPERGLY) 134 mmol/L (136-145); CREATININE 0.82 mg/dL (0.55-1.02); SODIUM 132 mmol/L (136-145); TOTAL PROTEIN 6.1 g/dL (6.4-8.2); eGFR NON BLACK RACES > 60 (>60)
[2018-02-15 07:22] LABS: BASOPHILS # (AUTO) 0.1 X10^3/uL (0.0-0.1); BASOPHILS % (AUTO) 0.6 % (0.2-1.0); HEMATOCRIT 36.1 % (36.0-47.0); LYMPHOCYTES # (AUTO) 1.1 X10^3/uL (1.3-2.9); LYMPHOCYTES % (AUTO) 10.8 % (21.0-51.0); MEAN CORPUSCULAR HEMOGLOBIN 27.1 pg (27.0-34.0); MEAN CORPUSCULAR HGB CONC 33.8 g/dL (33.0-35.0); MEAN CORPUSCULAR VOLUME 80.2 fL (80.0-100.0); MEAN PLATELET VOLUME 8.4 fL (7.4-11.0); MONOCYTES # (AUTO) 0.9 x10^3/uL (0.3-0.8); MONOCYTES % (AUTO) 8.7 % (0.0-13.0); NEUTROPHILS # (AUTO) 7.9 x10^3/uL (2.2-4.8); NEUTROPHILS % (AUTO) 79.9 % (42.0-75.0); PLATELET COUNT 154 X10^3/uL (150.0-450.0); RED BLOOD COUNT 4.51 X10^6/uL (3.5-5.4); RED CELL DISTRIBUTION WIDTH 15.1 % (11.6-16.5); WHITE BLOOD COUNT 9.8 X10^3/uL (3.6-10.0)
[2018-02-15 07:33] LABS: HEMOGLOBIN 12.2 g/dL (12.0-16.0)
[2018-02-15] MEDS: MORPHINE SULFATE INJ 2 MG INJ IVP PRN (07:59)
[2018-02-15] MEDS: K-DUR TAB 20 MEQ PO SCH (08:04)
[2018-02-15] MEDS: LIPITOR TAB 40 MG PO SCH (08:04)
[2018-02-15] MEDS: PROTONIX INJ 40 MG VIAL IVP SCH (08:10)
--- NOTE | 2018-02-15 08:28 | DR.PROGNOT ---
Hospital Progress Notes - Progress Note for Day of: Progress Note Date: 02/15/18 - Chief Complaint Chief Complaint: PO laparotomy , lysis of adhesions . bypass small bowel obstruction for multiple areas of obstructing nodules very suspicious for mets from old gastric or colon ca . doing well , mild drainage in NGT . fair urine OP .afebrile . - History of Present Illness History of Present Illness: multiple abdominal surgeries for colon ca x2 , Gastrectomy for gstric ca . hysterectomy and lap kaleb . - Past Medical Family Social History Past Med/Fam/Surg Hx: No changes since H&P, Changes noted (describe) Allergies: Allergies No Known Drug Allergies Allergy (Verified 01/28/18 14:30) - Review Of Systems ROS: No change since H&P - Vital Signs Vital Signs: Temperature 97.6 F Pulse Rate [Right Radial] 118 Pulse Rate 91 Respiratory Rate 24 Blood Pressure [Right Arm] 133/69 Blood Pressure [Left Arm] 155/77 Blood Pressure [Left Radial 126/65 Artery] Blood Pressure 144/87 O2 Sat by Pulse Oximetry 97 - Physical Exam Oriented: Normal Eyes: Normal Ear: Normal Nose: Normal Throat: Normal Respiratory: Normal Cardiovascular: Normal : Normal GI:Auscultation: Decreased GI:Palpation: Normal GI: Tenderness: Diffuse (incisional tenderness ,no infection), Moderate Skin: Normal Musculoskeletal: Normal Psychiatric: Normal Mood Description: Calm Affect: Normal Speech Pattern: Clear, Appropriate - Laboratory and Diagnostics Result Diagrams: 02/15/18 05:04 02/15/18 05:04 Labs: Laboratory WBC 9.8 X10^3/uL (3.6-10.0) 02/15/18 05:04 RBC 4.51 X10^6/uL (3.5-5.4) 02/15/18 05:04 Hgb 12.2 g/dL (12.0-16.0) 02/15/18 05:04 Hct 36.1 % (36.0-47.0) 02/15/18 05:04 MCV 80.2 fL (80.0-100.0) 02/15/18 05:04 MCH 27.1 pg (27.0-34.0) 02/15/18 05:04 MCHC 33.8 g/dL (33.0-35.0) 02/15/18 05:04 RDW 15.1 % (11.6-16.5) 02/15/18 05:04 Plt Count 154 X10^3/uL (150.0-450.0) 02/15/18 05:04 MPV 8.4 fL (7.4-11.0) 02/15/18 05:04 Neut % (Auto) 79.9 % (42.0-75.0) H 02/15/18 05:04 Lymph % (Auto) 10.8 % (21.0-51.0) L 02/15/18 05:04 [place] % (Auto) 8.7 % (0.0-13.0) 02/15/18 05:04 Eos % (Auto) 0.0 % (0.9-2.9) L 02/15/18 05:04 Baso % (Auto) 0.6 % (0.2-1.0) 02/15/18 05:04 Neut # (Auto) 7.9 x10^3/uL (2.2-4.8) H 02/15/18 05:04 Lymph # (Auto) 1.1 X10^3/uL (1.3-2.9) L 02/15/18 05:04 [place] # (Auto) 0.9 x10^3/uL (0.3-0.8) H 02/15/18 05:04 Eos # (Auto) 0.0 x10^3/uL (0.0-0.2) 02/15/18 05:04 Baso # (Auto) 0.1 X10^3/uL (0.0-0.1) 02/15/18 05:04 Absolute Nucleated RBC 0.0 /100WBC 02/15/18 05:04 Sodium 132 mmol/L (136-145) L 02/15/18 05:04 Corrected Sodium 134 mmol/L (136-145) L 02/15/18 05:04 Potassium 3.5 mmol/L (3.5-5.1) 02/15/18 05:04 Chloride 97 mmol/L (98-107) L 02/15/18 05:04 Carbon Dioxide 23.4 mmol/L (21-32) 02/15/18 05:04 BUN 2 mg/dL (7-18) L 02/15/18 05:04 Creatinine 0.82 mg/dL (0.55-1.02) 02/15/18 05:04 Est GFR (MDRD) Af Amer > 60 (>60) 02/15/18 05:04 Est GFR (MDRD) Non-Af > 60 (>60) 02/15/18 05:04 Glucose 197 mg/dL (65-99) H 02/15/18 05:04 Calcium 7.0 mg/dL (8.5-10.1) L 02/15/18 05:04 Corrected Calcium 8.0 mg/dL (8.5-10.1) L 02/15/18 05:04 Magnesium 0.9 mg/dL (1.7-2.9) L 02/15/18 05:04 Total Bilirubin 0.80 mg/dL (0.2-1.0) 02/15/18 05:04 AST 14 Units/L (15-37) L 02/15/18 05:04 ALT 19 Units/L (12-78) 02/15/18 05:04 Alkaline Phosphatase 85 Units/L (46-116) 02/15/18 05:04 Total Protein 6.1 g/dL (6.4-8.2) L 02/15/18 05:04 Albumin 2.8 g/dL (3.4-5.0) L 02/15/18 05:04 Globulin 3.3 g/dL (2.5-4.5) 02/15/18 05:04 Albumin/Globulin Ratio 0.8 Ratio (1.1-2.1) L 02/15/18 05:04 Amylase 40 Units/L (25-115) 02/09/18 04:20 Lipase 78 Units/L (73-393) 02/09/18 04:20 Specimen Type Clean catch urine 02/08/18 19:46 Urine Color Yellow (YELLOW) 02/08/18 19:46 Urine Appearance Slightly hazy (CLEAR) 02/08/18 19:46 Urine pH 5.0 (5.0 - 8.0) 02/08/18 19:46 Ur Specific [place] 1.030 (1.000-1.030) 02/08/18 19:46 Urine Protein 2+ (NEGATIVE) 02/08/18 19:46 Urine Glucose (UA) Negative (NEGATIVE) 05/26/18 19:46 Urine Ketones 4+ (NEGATIVE) 02/08/18 19:46 Urine Occult Blood 1+ (NEGATIVE) 02/08/18 19:46 Urine Nitrite Negative (NEGATIVE) 02/08/18 19:46 Urine Bilirubin 2+ (NEGATIVE) 02/08/18 19:46 Urine Urobilinogen 1+ (NORMAL) 02/08/18 19:46 Ur Leukocyte Esterase 1+ (NEGATIVE) 02/08/18 19:46 Urine RBC 0-2 /HPF (NONE SEEN) 02/08/18 19:46 Urine WBC 3-5 /HPF (NONE SEEN) 02/08/18 19:46 Ur Squamous Epith Cells Moderate /HPF (NEGATIVE) 02/08/18 19:46 Amorphous Sediment 2+ /HPF (NEGATIVE) 02/08/18 19:46 Urine Bacteria Trace /HPF (NEGATIVE) 02/08/18 19:46 Hyaline Casts Many /LPF (NEGATIVE) 02/08/18 19:46 Urine Mucus Moderate /HPF (NEGATIVE) 02/08/18 19:46 Ur Culture Indicated? No/not indicated 02/08/18 19:46 Tissue Pathology To follow 02/14/18 17:06 - Assessment and Plan 1: recurrent partial SBO. abdominal adhesions. multiple metastatic obstructing nodules involving small bowel. s/p laparotomy. same po care . DVT prophylaxis , OOB with binder, d/c NGT and keep NPO for now. - Problem Patient Problems: Patient Problems Abdominal pain (Acute) R10.9 Small bowel obstruction (Acute) K56.609 Dehydration (Acute) E86.0 Hyperlipidemia (Acute) E78.5
[2018-02-15] MEDS ORDERED: LOVENOX INJ 40 MG SYR SC SCH (09:00)
[2018-02-15] MEDS ORDERED: LEVAQUIN PREMIX IV 500 MG 500 MG/100 ML BAG IV SCH (09:00)
[2018-02-15] MEDS: MAGNESIUM SULFATE 1 GRAM/100 mL PREMIX 1 GM/100 ML BAG IV PRN ×6 (10:51→18:29)
[2018-02-15] MEDS ORDERED: D5 1/2 NS 1000 ML 1,000 ML IV SCH (12:00)
[2018-02-15] MEDS ORDERED: SYNTHROID 25 mcg TAB PO SCH (16:30)
[2018-02-16] MEDS: DILAUDID INJ IVP PRN ×3 (03:22→19:47)
[2018-02-16] MEDS: BENTYL CAP 10 MG PO SCH ×3 (05:59→22:29)
[2018-02-16] MEDS: PHENERGAN INJ 25 MG IV PRN ×3 (06:00→19:48)
[2018-02-16] MEDS: FLAGYL IV PREMIX 500 MG BAG 500 MG/100 ML BAG IV SCH (06:00)
[2018-02-16] MEDS: SYNTHROID 25 mcg TAB PO SCH (06:00)
[2018-02-16] MEDS: D5 1/2 NS 1000 ML 1,000 ML IV SCH ×4 (06:01→15:40)
[2018-02-16 06:14] LABS: BASOPHILS % (AUTO) 0.3 % (0.2-1.0); EOSINOPHILS % (AUTO) 0.2 % (0.9-2.9); HEMOGLOBIN 10.3 g/dL (12.0-16.0); LYMPHOCYTES # (AUTO) 0.5 X10^3/uL (1.3-2.9); LYMPHOCYTES % (AUTO) 6.6 % (21.0-51.0); MEAN CORPUSCULAR HEMOGLOBIN 27.5 pg (27.0-34.0); MEAN CORPUSCULAR HGB CONC 34.3 g/dL (33.0-35.0); MEAN CORPUSCULAR VOLUME 80.4 fL (80.0-100.0); MONOCYTES # (AUTO) 0.7 x10^3/uL (0.3-0.8); MONOCYTES % (AUTO) 8.8 % (0.0-13.0); NEUTROPHILS # (AUTO) 6.8 x10^3/uL (2.2-4.8); NEUTROPHILS % (AUTO) 84.1 % (42.0-75.0); PLATELET COUNT 141 X10^3/uL (150.0-450.0); RED BLOOD COUNT 3.74 X10^6/uL (3.5-5.4); RED CELL DISTRIBUTION WIDTH 15.1 % (11.6-16.5)
[2018-02-16 06:20] LABS: ALBUMIN 2.4 g/dL (3.4-5.0); ASPARTATE AMINO TRANSFERASE 14 Units/L (15-37); CHLORIDE 99 mmol/L (98-107); MAGNESIUM 2.1 mg/dL (1.7-2.9); TOTAL PROTEIN 5.5 g/dL (6.4-8.2); eGFR NON BLACK RACES > 60 (>60)
[2018-02-16 06:43] LABS: ALANINE AMINOTRANSFERASE 14 Units/L (12-78); ALKALINE PHOSPHATASE 91 Units/L (46-116); BLOOD UREA NITROGEN 2 mg/dL (7-18); CARBON DIOXIDE 27.6 mmol/L (21-32); COR CA(FOR HYPOALB) 8.3 mg/dL (8.5-10.1); COR NA(FOR HYPERGLY) 135 mmol/L (136-145); CREATININE 0.77 mg/dL (0.55-1.02); SODIUM 133 mmol/L (136-145)
[2018-02-16] MEDS ORDERED: SYNTHROID 25 mcg TAB PO SCH (07:00)
[2018-02-16] MEDS: K-RIDER 10 MEQ/NS 100 ML 10 MEQ/100 ML BAG IV PRN ×5 (07:15→23:14)
[2018-02-16] MEDS ORDERED: LEVAQUIN PREMIX IV 500 MG 500 MG/100 ML BAG IV SCH (09:00)
[2018-02-16] MEDS: LIPITOR TAB 40 MG PO SCH (09:35)
[2018-02-16] MEDS: K-DUR TAB 20 MEQ PO SCH (09:35)
[2018-02-16] MEDS: LOVENOX INJ 40 MG SYR SC SCH (09:36)
[2018-02-16] MEDS: PROTONIX INJ 40 MG VIAL IVP SCH (09:36)
--- NOTE | 2018-02-16 10:02 | DR.PROGNOT ---
Hospital Progress Notes - Progress Note for Day of: Progress Note Date: 02/16/18 - Chief Complaint Chief Complaint: PO laparotomy , lysis of adhesions . bypass small bowel obstruction for multiple areas of obstructing nodules very suspicious for mets from old gastric or colon ca . doing well ,. no vomiting. fair urine OP .afebrile . K 3.0 - History of Present Illness History of Present Illness: multiple abdominal surgeries for colon ca x2 , Gastrectomy for gstric ca . hysterectomy and lap kaleb . - Past Medical Family Social History Past Med/Fam/Surg Hx: No changes since H&P, Changes noted (describe) Allergies: Allergies No Known Drug Allergies Allergy (Verified 01/28/18 14:30) - Review Of Systems ROS: No change since H&P - Vital Signs Vital Signs: Temperature 99.2 F Pulse Rate [Right Radial] 100 Pulse Rate 89 Respiratory Rate 25 Blood Pressure [Right Arm] 102/67 Blood Pressure [Left Arm] 121/62 Blood Pressure [Left Radial 126/65 Artery] Blood Pressure 144/87 O2 Sat by Pulse Oximetry 97 - Physical Exam Oriented: Normal Eyes: Normal Ear: Normal Nose: Normal Throat: Normal Respiratory: Normal Cardiovascular: Normal : Normal GI:Auscultation: Decreased GI:Palpation: Normal GI: Tenderness: Diffuse (incisional tenderness ,no infection), Moderate Skin: Normal Musculoskeletal: Normal Psychiatric: Normal Mood Description: Calm Affect: Normal Speech Pattern: Clear, Appropriate - Laboratory and Diagnostics Result Diagrams: 02/16/18 04:32 02/16/18 04:32 Labs: Laboratory WBC 8.0 X10^3/uL (3.6-10.0) 02/16/18 04:32 RBC 3.74 X10^6/uL (3.5-5.4) 02/16/18 04:32 Hgb 10.3 g/dL (12.0-16.0) L 02/16/18 04:32 Hct 30.0 % (36.0-47.0) L 02/16/18 04:32 MCV 80.4 fL (80.0-100.0) 02/16/18 04:32 MCH 27.5 pg (27.0-34.0) 02/16/18 04:32 MCHC 34.3 g/dL (33.0-35.0) 02/16/18 04:32 RDW 15.1 % (11.6-16.5) 02/16/18 04:32 Plt Count 141 X10^3/uL (150.0-450.0) L 02/16/18 04:32 MPV 9.0 fL (7.4-11.0) 02/16/18 04:32 Neut % (Auto) 84.1 % (42.0-75.0) H 02/16/18 04:32 Lymph % (Auto) 6.6 % (21.0-51.0) L 02/16/18 04:32 [place] % (Auto) 8.8 % (0.0-13.0) 02/16/18 04:32 Eos % (Auto) 0.2 % (0.9-2.9) L 02/16/18 04:32 Baso % (Auto) 0.3 % (0.2-1.0) 02/16/18 04:32 Neut # (Auto) 6.8 x10^3/uL (2.2-4.8) H 02/16/18 04:32 Lymph # (Auto) 0.5 X10^3/uL (1.3-2.9) L 02/16/18 04:32 [place] # (Auto) 0.7 x10^3/uL (0.3-0.8) 02/16/18 04:32 Eos # (Auto) 0.0 x10^3/uL (0.0-0.2) 02/16/18 04:32 Baso # (Auto) 0.0 X10^3/uL (0.0-0.1) 02/16/18 04:32 Absolute Nucleated RBC 0.1 /100WBC 02/16/18 04:32 Sodium 133 mmol/L (136-145) L 02/16/18 04:32 Corrected Sodium 135 mmol/L (136-145) L 02/16/18 04:32 Potassium 3.0 mmol/L (3.5-5.1) L* 02/16/18 04:32 Chloride 99 mmol/L (98-107) 02/16/18 04:32 Carbon Dioxide 27.6 mmol/L (21-32) 02/16/18 04:32 BUN 2 mg/dL (7-18) L 02/16/18 04:32 Creatinine 0.77 mg/dL (0.55-1.02) 02/16/18 04:32 Est GFR (MDRD) Af Amer > 60 (>60) 02/16/18 04:32 Est GFR (MDRD) Non-Af > 60 (>60) 02/16/18 04:32 Glucose 167 mg/dL (65-99) H 02/16/18 04:32 Calcium 7.0 mg/dL (8.5-10.1) L 02/16/18 04:32 Corrected Calcium 8.3 mg/dL (8.5-10.1) L 02/16/18 04:32 Magnesium 2.1 mg/dL (1.7-2.9) 02/16/18 04:32 Total Bilirubin 0.80 mg/dL (0.2-1.0) 02/16/18 04:32 AST 14 Units/L (15-37) L 02/16/18 04:32 ALT 14 Units/L (12-78) 02/16/18 04:32 Alkaline Phosphatase 91 Units/L (46-116) 02/16/18 04:32 Total Protein 5.5 g/dL (6.4-8.2) L 02/16/18 04:32 Albumin 2.4 g/dL (3.4-5.0) L 02/16/18 04:32 Globulin 3.1 g/dL (2.5-4.5) 02/16/18 04:32 Albumin/Globulin Ratio 0.8 Ratio (1.1-2.1) L 02/16/18 04:32 Amylase 40 Units/L (25-115) 02/09/18 04:20 Lipase 78 Units/L (73-393) 02/09/18 04:20 Specimen Type Clean catch urine 02/08/18 19:46 Urine Color Yellow (YELLOW) 02/08/18 19:46 Urine Appearance Slightly hazy (CLEAR) 02/08/18 19:46 Urine pH 5.0 (5.0 - 8.0) 02/08/18 19:46 Ur Specific [place] 1.030 (1.000-1.030) 02/08/18 19:46 Urine Protein 2+ (NEGATIVE) 02/08/18 19:46 Urine Glucose (UA) Negative (NEGATIVE) 02/08/18 19:46 Urine Ketones 4+ (NEGATIVE) 02/08/18 19:46 Urine Occult Blood 1+ (NEGATIVE) 02/08/18 19:46 Urine Nitrite Negative (NEGATIVE) 02/08/18 19:46 Urine Bilirubin 2+ (NEGATIVE) 02/08/18 19:46 Urine Urobilinogen 1+ (NORMAL) 02/08/18 19:46 Ur Leukocyte Esterase 1+ (NEGATIVE) 02/08/18 19:46 Urine RBC 0-2 /HPF (NONE SEEN) 02/08/18 19:46 Urine WBC 3-5 /HPF (NONE SEEN) 02/08/18 19:46 Ur Squamous Epith Cells Moderate /HPF (NEGATIVE) 02/08/18 19:46 Amorphous Sediment 2+ /HPF (NEGATIVE) 02/08/18 19:46 Urine Bacteria Trace /HPF (NEGATIVE) 02/08/18 19:46 Hyaline Casts Many /LPF (NEGATIVE) 02/08/18 19:46 Urine Mucus Moderate /HPF (NEGATIVE) 02/08/18 19:46 Ur Culture Indicated? No/not indicated 02/08/18 19:46 Tissue Pathology To follow 02/14/18 17:06 - Assessment and Plan 1: recurrent partial SBO. abdominal adhesions. 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 s/p laparotomy and bypass SBO. same po care .add KCL. DVT prophylaxis , OOB with binder,. start on clear liquid - Problem Patient Problems: Patient Problems Abdominal pain (Acute) R10.9 Small bowel obstruction (Acute) K56.609 Dehydration (Acute) E86.0 Hyperlipidemia (Acute) E78.5
[2018-02-16] MEDS ORDERED: DILAUDID INJ ONE (19:38)
--- NOTE | 2018-02-16 20:08 | PCM.PROG ---
Progress Note - Progress Note for Day of Date: 02/14/18 - Subjective Subjective: IS BEING TREATED FOR A SMALL BOWEL OBSTRUCTION. TODAY, SHE IS ALERT AND ORIENTED, LYING IN BED ON MORNING ROUNDS. SHE CONTINUES WITH DIFFUSE ABDOMINAL PAIN. SHE REPORTS THAT PAIN IS WORSE TODAY THAN IT WAS YESTERDAY. SHE ALSO REPORTS VOMITING TODAY. HER VITALS THIS MORNING ARE 98.6-67- 20-95%-103/60. LABS WERE OBTAINED. ABNORMAL LAB VALUES INCLUDE THE FOLLOWING: HGB 10.3, HCT 30.7, PLT COUNT 123, POTASSIUM 3.2, CARBON DIOXIDE 20.5, BUN 1, CALCIUM 7.5, AST 14, TOTAL PROTEIN 6.1, ALBUMIN 2.9. KUB OBTAINED TODAY AND REPORTED NONSPECIFIC BOWEL GAS PATTERN WITHOUT DEFINITE EVIDENCE FOR DILATED FIXED SMALL BOWEL. SHE IS CURRENTLY RECEIVING NORMAL SALINE, IV PAIN MEDICATION , AND IV NAUSEA MEDICATION. SAW PATIENT THIS MORNING AND PLANS TO TAKE HER DOWN FOR AN EXPLORATORY LAPAROTOMY. WE ARE IN AGREEMENT WITH PLAN. OTHERWISE, WE WILL FOLLOW UP WITH AM LABS AND CONTINUE TO MONITOR PATIENT. - Past Medical Family Social History Past Med/Fam/Surg Hx: No changes since H&P, Changes noted (describe) Allergies: Allergies No Known Drug Allergies Allergy (Verified 01/28/18 14:30) - Review of Systems ROS: No change since H&P - Vital Signs and I&O's Vital Signs: Temperature 99.5 F Pulse Rate [Right Radial] 98 Pulse Rate 89 Respiratory Rate 18 Blood Pressure [Right Arm] 138/71 Blood Pressure [Left Arm] 135/71 Blood Pressure [Left Radial 126/65 Artery] Blood Pressure 144/87 O2 Sat by Pulse Oximetry 97 Intake and Output: Intake & Output 02/14/18 02/15/18 02/16/18 02/17/18 11:59 11:59 11:59 11:59 Intake Total 4300 / 4300 2422 / 2422 1262 / 1262 Output Total 4905 / 4905 2910 / 2910 1100 / 1100 Balance -605 / -605 -488 / -488 162 / 162 - Physical Exam Oriented: Normal Eyes: Normal Ear: Normal Nose: Normal Throat: Normal Respiratory: Normal Cardiovascular: Normal : Normal Auscultation: Bowel Sounds: Decreased Palpation: Normal Tenderness: Diffuse (incisional tenderness ,no infection), Moderate Skin: Normal Musculoskeletal: Normal Psychiatric: Normal Mood Description: Calm Affect: Normal Speech Pattern: Clear, Appropriate - Laboratory and Diagnostics Result Diagrams: 02/16/18 04:32 02/16/18 13:20 Labs: Laboratory WBC 8.0 X10^3/uL (3.6-10.0) 02/16/18 04:32 RBC 3.74 X10^6/uL (3.5-5.4) 02/16/18 04:32 Hgb 10.3 g/dL (12.0-16.0) L 02/16/18 04:32 Hct 30.0 % (36.0-47.0) L 02/16/18 04:32 MCV 80.4 fL (80.0-100.0) 02/16/18 04:32 MCH 27.5 pg (27.0-34.0) 02/16/18 04:32 MCHC 34.3 g/dL (33.0-35.0) 02/16/18 04:32 RDW 15.1 % (11.6-16.5) 02/16/18 04:32 Plt Count 141 X10^3/uL (150.0-450.0) L 02/16/18 04:32 MPV 9.0 fL (7.4-11.0) 02/16/18 04:32 Neut % (Auto) 84.1 % (42.0-75.0) H 02/16/18 04:32 Lymph % (Auto) 6.6 % (21.0-51.0) L 02/16/18 04:32 [place] % (Auto) 8.8 % (0.0-13.0) 02/16/18 04:32 Eos % (Auto) 0.2 % (0.9-2.9) L 02/16/18 04:32 Baso % (Auto) 0.3 % (0.2-1.0) 02/16/18 04:32 Neut # (Auto) 6.8 x10^3/uL (2.2-4.8) H 02/16/18 04:32 Lymph # (Auto) 0.5 X10^3/uL (1.3-2.9) L 02/16/18 04:32 [place] # (Auto) 0.7 x10^3/uL (0.3-0.8) 02/16/18 04:32 Eos # (Auto) 0.0 x10^3/uL (0.0-0.2) 02/16/18 04:32 Baso # (Auto) 0.0 X10^3/uL (0.0-0.1) 02/16/18 04:32 Absolute Nucleated RBC 0.1 /100WBC 02/16/18 04:32 Sodium 133 mmol/L (136-145) L 02/16/18 04:32 Corrected Sodium 135 mmol/L (136-145) L 02/16/18 04:32 Potassium 3.1 mmol/L (3.5-5.1) L 02/16/18 13:20 Chloride 99 mmol/L (98-107) 02/16/18 04:32 Carbon Dioxide 27.6 mmol/L (21-32) 02/16/18 04:32 BUN 2 mg/dL (7-18) L 02/16/18 04:32 Creatinine 0.77 mg/dL (0.55-1.02) 02/16/18 04:32 Est GFR (MDRD) Af Amer > 60 (>60) 02/16/18 04:32 Est GFR (MDRD) Non-Af > 60 (>60) 02/16/18 04:32 Glucose 167 mg/dL (65-99) H 02/16/18 04:32 Calcium 7.0 mg/dL (8.5-10.1) L 02/16/18 04:32 Corrected Calcium 8.3 mg/dL (8.5-10.1) L 02/16/18 04:32 Magnesium 2.1 mg/dL (1.7-2.9) 02/16/18 04:32 Total Bilirubin 0.80 mg/dL (0.2-1.0) 02/16/18 04:32 AST 14 Units/L (15-37) L 02/16/18 04:32 ALT 14 Units/L (12-78) 02/16/18 04:32 Alkaline Phosphatase 91 Units/L (46-116) 02/16/18 04:32 Total Protein 5.5 g/dL (6.4-8.2) L 02/16/18 04:32 Albumin 2.4 g/dL (3.4-5.0) L 02/16/18 04:32 Globulin 3.1 g/dL (2.5-4.5) 02/16/18 04:32 Albumin/Globulin Ratio 0.8 Ratio (1.1-2.1) L 02/16/18 04:32 Amylase 40 Units/L (25-115) 02/09/18 04:20 Lipase 78 Units/L (73-393) 02/09/18 04:20 Specimen Type Clean catch urine 02/08/18 19:46 Urine Color Yellow (YELLOW) 02/08/18 19:46 Urine Appearance Slightly hazy (CLEAR) 02/08/18 19:46 Urine pH 5.0 (5.0 - 8.0) 02/08/18 19:46 Ur Specific [place] 1.030 (1.000-1.030) 02/08/18 19:46 Urine Protein 2+ (NEGATIVE) 02/08/18 19:46 Urine Glucose (UA) Negative (NEGATIVE) 02/08/18 19:46 Urine Ketones 4+ (NEGATIVE) 02/08/18 19:46 Urine Occult Blood 1+ (NEGATIVE) 02/08/18 19:46 Urine Nitrite Negative (NEGATIVE) 02/08/18 19:46 Urine Bilirubin 2+ (NEGATIVE) 02/08/18 19:46 Urine Urobilinogen 1+ (NORMAL) 02/08/18 19:46 Ur Leukocyte Esterase 1+ (NEGATIVE) 02/08/18 19:46 Urine RBC 0-2 /HPF (NONE SEEN) 02/08/18 19:46 Urine WBC 3-5 /HPF (NONE SEEN) 02/08/18 19:46 Ur Squamous Epith Cells Moderate /HPF (NEGATIVE) 02/08/18 19:46 Amorphous Sediment 2+ /HPF (NEGATIVE) 02/08/18 19:46 Urine Bacteria Trace /HPF (NEGATIVE) 02/08/18 19:46 Hyaline Casts Many /LPF (NEGATIVE) 02/08/18 19:46 Urine Mucus Moderate /HPF (NEGATIVE) 02/08/18 19:46 Ur Culture Indicated? No/not indicated 02/08/18 19:46 Tissue Pathology To follow 02/14/18 17:06 - Plan (1) Partial bowel obstruction Status: Acute Qualifiers: Intestinal obstruction type: obstruction due to adhesions Qualified Code(s) : K56.51 - Intestinal adhesions [bands], with partial obstruction Plan: EXPLORATORY LAPAROTOMY TODAY, CONTINUE IV FLUIDS, ADVANCE TO FULL LIQUID DIET, PAIN MEDICATIONS, NAUSEA MEDICATIONS, CONTINUE TO MONITOR (2) Hyperlipidemia Status: Acute Qualifiers: Hyperlipidemia type: mixed hyperlipidemia Qualified Code(s): E78.2 - Mixed hyperlipidemia Plan: CONTINUE LIPITOR (3) Hypokalemia Status: Chronic Plan: POTASSIUM REPLACEMENT WITH PROTOCOL
--- NOTE | 2018-02-16 20:09 | PCM.PROG ---
Progress Note - Progress Note for Day of Date: 02/15/18 - Subjective Subjective: IS BEING TREATED FOR A SMALL BOWEL OBSTRUCTION. TOOK PATIENT DOWN FOR AN EXPLORATORY LAPAROTOMY, LYSIS OF ADHESIONS, AND ENTERO ENTEROSTOMY YESTERDAY. FINDINGS INCLUDED SMALL BOWEL OBSTRUCTION WITH EXTENSIVE ADHESIONS AND MULTIPLE AREAS OF WHAT LOOKED LIKE METASTATIC SEEDING INVOLVING THE SMALL BOWEL AND MESENTARY. BYPASS OF THE OBSTRUCTION WAS DONE AND BIPOSIES OF THE NODULES WERE TAKEN. TODAY, SHE IS ALERT AND ORIENTED, LYING IN BED ON MORNING ROUNDS. SHE CONTINUES WITH DIFFUSE ABDOMINAL PAIN AND NAUSEA. HER VITALS THIS MORNING ARE 98.2-110-32-97%-120/76. LABS WERE OBTAINED. ABNORMAL LAB VALUES INCLUDE THE FOLLOWING: SODIUM 132, CHLORIDE 97, BUN 2, GLUCOSE 197, CALCIUM 7.0, AST 14, TOTAL PROTEIN 6.1, ALBUMIN 2.8. WE WILL CONTINUE WITH CURRENT PLAN OF CARE TODAY. OTHERWISE, WE WILL FOLLOW UP WITH AM LABS AND CONTINUE TO MONITOR PATIENT. - Past Medical Family Social History Past Med/Fam/Surg Hx: No changes since H&P, Changes noted (describe) Allergies: Allergies No Known Drug Allergies Allergy (Verified 01/28/18 14:30) - Review of Systems ROS: No change since H&P - Vital Signs and I&O's Vital Signs: Temperature 99.5 F Pulse Rate [Right Radial] 98 Pulse Rate 89 Respiratory Rate 18 Blood Pressure [Right Arm] 138/71 Blood Pressure [Left Arm] 135/71 Blood Pressure [Left Radial 126/65 Artery] Blood Pressure 144/87 O2 Sat by Pulse Oximetry 97 Intake and Output: Intake & Output 02/14/18 02/15/18 02/16/18 02/17/18 11:59 11:59 11:59 11:59 Intake Total 4300 / 4300 2422 / 2422 1262 / 1262 Output Total 4905 / 4905 2910 / 2910 1100 / 1100 Balance / -605 / -605 -488 / -488 162 / 162 - Physical Exam Oriented: Normal Eyes: Normal Ear: Normal Nose: Normal Throat: Normal Respiratory: Normal Cardiovascular: Normal : Normal Auscultation: Bowel Sounds: Decreased Palpation: Normal Tenderness: Diffuse (incisional tenderness ,no infection), Moderate Skin: Normal Musculoskeletal: Normal Psychiatric: Normal Mood Description: Calm Affect: Normal Speech Pattern: Clear, Appropriate - Laboratory and Diagnostics Result Diagrams: 02/16/18 04:32 02/16/18 13:20 Labs: Laboratory WBC 8.0 X10^3/uL (3.6-10.0) 02/16/18 04:32 RBC 3.74 X10^6/uL (3.5-5.4) 02/16/18 04:32 Hgb 10.3 g/dL (12.0-16.0) L 02/16/18 04:32 Hct 30.0 % (36.0-47.0) L 02/16/18 04:32 MCV 80.4 fL (80.0-100.0) 02/16/18 04:32 MCH 27.5 pg (27.0-34.0) 02/16/18 04:32 MCHC 34.3 g/dL (33.0-35.0) 02/16/18 04:32 RDW 15.1 % (11.6-16.5) 02/16/18 04:32 Plt Count 141 X10^3/uL (150.0-450.0) L 02/16/18 04:32 MPV 9.0 fL (7.4-11.0) 02/16/18 04:32 Neut % (Auto) 84.1 % (42.0-75.0) H 02/16/18 04:32 Lymph % (Auto) 6.6 % (21.0-51.0) L 02/16/18 04:32 [place] % (Auto) 8.8 % (0.0-13.0) 02/16/18 04:32 Eos % (Auto) 0.2 % (0.9-2.9) L 02/16/18 04:32 Baso % (Auto) 0.3 % (0.2-1.0) 02/16/18 04:32 Neut # (Auto) 6.8 x10^3/uL (2.2-4.8) H 02/16/18 04:32 Lymph # (Auto) 0.5 X10^3/uL (1.3-2.9) L 02/16/18 04:32 [place] # (Auto) 0.7 x10^3/uL (0.3-0.8) 02/16/18 04:32 Eos # (Auto) 0.0 x10^3/uL (0.0-0.2) 02/16/18 04:32 Baso # (Auto) 0.0 X10^3/uL (0.0-0.1) 02/16/18 04:32 Absolute Nucleated RBC 0.1 /100WBC 02/16/18 04:32 Sodium 133 mmol/L (136-145) L 02/16/18 04:32 Corrected Sodium 135 mmol/L (136-145) L 02/16/18 04:32 Potassium 3.1 mmol/L (3.5-5.1) L 02/16/18 13:20 Chloride 99 mmol/L (98-107) 02/16/18 04:32 Carbon Dioxide 27.6 mmol/L (21-32) 02/16/18 04:32 BUN 2 mg/dL (7-18) L 02/16/18 04:32 Creatinine 0.77 mg/dL (0.55-1.02) 02/16/18 04:32 Est GFR (MDRD) Af Amer > 60 (>60) 02/16/18 04:32 Est GFR (MDRD) Non-Af > 60 (>60) 02/16/18 04:32 Glucose 167 mg/dL (65-99) H 02/16/18 04:32 Calcium 7.0 mg/dL (8.5-10.1) L 02/16/18 04:32 Corrected Calcium 8.3 mg/dL (8.5-10.1) L 02/16/18 04:32 Magnesium 2.1 mg/dL (1.7-2.9) 02/16/18 04:32 Total Bilirubin 0.80 mg/dL (0.2-1.0) 02/16/18 04:32 AST 14 Units/L (15-37) L 02/16/18 04:32 ALT 14 Units/L (12-78) 02/16/18 04:32 Alkaline Phosphatase 91 Units/L (46-116) 02/16/18 04:32 Total Protein 5.5 g/dL (6.4-8.2) L 02/16/18 04:32 Albumin 2.4 g/dL (3.4-5.0) L 02/16/18 04:32 Globulin 3.1 g/dL (2.5-4.5) 02/16/18 04:32 Albumin/Globulin Ratio 0.8 Ratio (1.1-2.1) L 02/16/18 04:32 Amylase 40 Units/L (25-115) 02/09/18 04:20 Lipase 78 Units/L (73-393) 02/09/18 04:20 Specimen Type Clean catch urine 02/08/18 19:46 Urine Color Yellow (YELLOW) 02/08/18 19:46 Urine Appearance Slightly hazy (CLEAR) 02/08/18 19:46 Urine pH 5.0 (5.0 - 8.0) 02/08/18 19:46 Ur Specific [place] 1.030 (1.000-1.030) 02/08/18 19:46 Urine Protein 2+ (NEGATIVE) 02/08/18 19:46 Urine Glucose (UA) Negative (NEGATIVE) 02/08/18 19:46 Urine Ketones 4+ (NEGATIVE) 02/08/18 19:46 Urine Occult Blood 1+ (NEGATIVE) 02/08/18 19:46 Urine Nitrite Negative (NEGATIVE) 02/08/18 19:46 Urine Bilirubin 2+ (NEGATIVE) 02/08/18 19:46 Urine Urobilinogen 1+ (NORMAL) 02/08/18 19:46 Ur Leukocyte Esterase 1+ (NEGATIVE) 02/08/18 19:46 Urine RBC 0-2 /HPF (NONE SEEN) 02/08/18 19:46 Urine WBC 3-5 /HPF (NONE SEEN) 02/08/18 19:46 Ur Squamous Epith Cells Moderate /HPF (NEGATIVE) 02/08/18 19:46 Amorphous Sediment 2+ /HPF (NEGATIVE) 02/08/18 19:46 Urine Bacteria Trace /HPF (NEGATIVE) 02/08/18 19:46 Hyaline Casts Many /LPF (NEGATIVE) 02/08/18 19:46 Urine Mucus Moderate /HPF (NEGATIVE) 02/08/18 19:46 Ur Culture Indicated? No/not indicated 02/08/18 19:46 Tissue Pathology To follow 02/14/18 17:06 - Plan (1) Partial bowel obstruction Status: Acute Qualifiers: Intestinal obstruction type: obstruction due to adhesions Qualified Code(s) : K56.51 - Intestinal adhesions [bands], with partial obstruction Plan: CONTINUE IV FLUIDS, ADVANCE TO FULL LIQUID DIET, PAIN MEDICATIONS, NAUSEA MEDICATIONS, CONTINUE TO MONITOR (2) Hyperlipidemia Status: Acute Qualifiers: Hyperlipidemia type: mixed hyperlipidemia Qualified Code(s): E78.2 - Mixed hyperlipidemia Plan: CONTINUE LIPITOR (3) Hypokalemia Status: Chronic Plan: POTASSIUM REPLACEMENT WITH PROTOCOL
--- NOTE | 2018-02-16 22:56 | PCM.PROG ---
Progress Note - Progress Note for Day of Date: 02/16/18 - Subjective Subjective: IS BEING TREATED FOR A SMALL BOWEL OBSTRUCTION. EXPLORATORY LAPAROTOMY REVEALED FINDINGS OF SMALL BOWEL OBSTRUCTION WITH EXTENSIVE ADHESIONS AND MULTIPLE AREAS OF WHAT LOOKED LIKE METASTATIC SEEDING INVOLVING THE SMALL BOWEL AND MESENTARY. BYPASS OF THE OBSTRUCTION WAS DONE AND BIPOSIES OF THE NODULES WERE TAKEN. LYSIS OF ADHESIONS. TODAY, SHE IS ALERT AND ORIENTED, LYING IN BED ON MORNING ROUNDS. SHE CONTINUES WITH MILD ABDOMINAL PAIN , BUT DENIES NAUSEA OR VOMITING. HER VITALS THIS MORNING ARE 99.2-119-23-95%-144 /84. LABS WERE OBTAINED. ABNORMAL LAB VALUES INCLUDE THE FOLLOWING: HGB 10.3, HCT 30.0, SODIUM 133, POTASSIUM 3.0, BUN 2, GLUCOSE 167, CALCIUM 7.0, AST 14, TOTAL PROTEIN 5.5, ALBUMIN 2.4. WE WILL CONTINUE WITH CURRENT PLAN OF CARE TODAY AND REPLACE POTASSIUM. OTHERWISE, WE WILL FOLLOW UP WITH AM LABS AND CONTINUE TO MONITOR PATIENT. CONTINUES TO FOLLOW PATIENT WELL. - Past Medical Family Social History Past Med/Fam/Surg Hx: No changes since H&P, Changes noted (describe) Allergies: Allergies No Known Drug Allergies Allergy (Verified 01/28/18 14:30) - Review of Systems ROS: No change since H&P - Vital Signs and I&O's Vital Signs: Temperature 98.7 F Pulse Rate [Right Radial] 88 Pulse Rate 89 Respiratory Rate 19 Blood Pressure [Right Arm] 139/71 Blood Pressure [Left Arm] 132/72 Blood Pressure [Left Radial 126/65 Artery] Blood Pressure 144/87 O2 Sat by Pulse Oximetry 100 Intake and Output: Intake & Output 02/14/18 02/15/18 02/16/18 02/17/18 11:59 11:59 11:59 11:59 Intake Total 4300 / 4300 2422 / 2422 1262 / 1262 Output Total 4905 / 4905 2910 / 2910 1100 / 1100 Balance 195 -605 / -605 -488 / -488 162 / 162 - Physical Exam Oriented: Normal Eyes: Normal Ear: Normal Nose: Normal Throat: Normal Respiratory: Normal Cardiovascular: Normal : Normal Auscultation: Bowel Sounds: Normal Palpation: Normal Tenderness: Diffuse (incisional tenderness ,no infection), Mild Skin: Normal Musculoskeletal: Normal Psychiatric: Normal Mood Description: Calm Affect: Normal Speech Pattern: Clear, Appropriate - Laboratory and Diagnostics Result Diagrams: 02/16/18 04:32 02/16/18 13:20 Labs: Laboratory WBC 8.0 X10^3/uL (3.6-10.0) 02/16/18 04:32 RBC 3.74 X10^6/uL (3.5-5.4) 02/16/18 04:32 Hgb 10.3 g/dL (12.0-16.0) L 02/16/18 04:32 Hct 30.0 % (36.0-47.0) L 02/16/18 04:32 MCV 80.4 fL (80.0-100.0) 02/16/18 04:32 MCH 27.5 pg (27.0-34.0) 02/16/18 04:32 MCHC 34.3 g/dL (33.0-35.0) 02/16/18 04:32 RDW 15.1 % (11.6-16.5) 02/16/18 04:32 Plt Count 141 X10^3/uL (150.0-450.0) L 02/16/18 04:32 MPV 9.0 fL (7.4-11.0) 02/16/18 04:32 Neut % (Auto) 84.1 % (42.0-75.0) H 02/16/18 04:32 Lymph % (Auto) 6.6 % (21.0-51.0) L 02/16/18 04:32 [place] % (Auto) 8.8 % (0.0-13.0) 02/16/18 04:32 Eos % (Auto) 0.2 % (0.9-2.9) L 02/16/18 04:32 Baso % (Auto) 0.3 % (0.2-1.0) 02/16/18 04:32 Neut # (Auto) 6.8 x10^3/uL (2.2-4.8) H 02/16/18 04:32 Lymph # (Auto) 0.5 X10^3/uL (1.3-2.9) L 02/16/18 04:32 [place] # (Auto) 0.7 x10^3/uL (0.3-0.8) 02/16/18 04:32 Eos # (Auto) 0.0 x10^3/uL (0.0-0.2) 02/16/18 04:32 Baso # (Auto) 0.0 X10^3/uL (0.0-0.1) 02/16/18 04:32 Absolute Nucleated RBC 0.1 /100WBC 02/16/18 04:32 Sodium 133 mmol/L (136-145) L 02/16/18 04:32 Corrected Sodium 135 mmol/L (136-145) L 02/16/18 04:32 Potassium 3.1 mmol/L (3.5-5.1) L 02/16/18 13:20 Chloride 99 mmol/L (98-107) 02/16/18 04:32 Carbon Dioxide 27.6 mmol/L (21-32) 02/16/18 04:32 BUN 2 mg/dL (7-18) L 02/16/18 04:32 Creatinine 0.77 mg/dL (0.55-1.02) 02/16/18 04:32 Est GFR (MDRD) Af Amer > 60 (>60) 02/16/18 04:32 Est GFR (MDRD) Non-Af > 60 (>60) 02/16/18 04:32 Glucose 167 mg/dL (65-99) H 02/16/18 04:32 Calcium 7.0 mg/dL (8.5-10.1) L 02/16/18 04:32 Corrected Calcium 8.3 mg/dL (8.5-10.1) L 02/16/18 04:32 Magnesium 2.1 mg/dL (1.7-2.9) 02/16/18 04:32 Total Bilirubin 0.80 mg/dL (0.2-1.0) 02/16/18 04:32 AST 14 Units/L (15-37) L 02/16/18 04:32 ALT 14 Units/L (12-78) 02/16/18 04:32 Alkaline Phosphatase 91 Units/L (46-116) 02/16/18 04:32 Total Protein 5.5 g/dL (6.4-8.2) L 02/16/18 04:32 Albumin 2.4 g/dL (3.4-5.0) L 02/16/18 04:32 Globulin 3.1 g/dL (2.5-4.5) 02/16/18 04:32 Albumin/Globulin Ratio 0.8 Ratio (1.1-2.1) L 02/16/18 04:32 Amylase 40 Units/L (25-115) 02/09/18 04:20 Lipase 78 Units/L (73-393) 02/09/18 04:20 Specimen Type Clean catch urine 02/08/18 19:46 Urine Color Yellow (YELLOW) 02/08/18 19:46 Urine Appearance Slightly hazy (CLEAR) 02/08/18 19:46 Urine pH 5.0 (5.0 - 8.0) 02/08/18 19:46 Ur Specific [place] 1.030 (1.000-1.030) 02/08/18 19:46 Urine Protein 2+ (NEGATIVE) 02/08/18 19:46 Urine Glucose (UA) Negative (NEGATIVE) 02/08/18 19:46 Urine Ketones 4+ (NEGATIVE) 02/08/18 19:46 Urine Occult Blood 1+ (NEGATIVE) 02/08/18 19:46 Urine Nitrite Negative (NEGATIVE) 02/08/18 19:46 Urine Bilirubin 2+ (NEGATIVE) 02/08/18 19:46 Urine Urobilinogen 1+ (NORMAL) 02/08/18 19:46 Ur Leukocyte Esterase 1+ (NEGATIVE) 02/08/18 19:46 Urine RBC 0-2 /HPF (NONE SEEN) 02/08/18 19:46 Urine WBC 3-5 /HPF (NONE SEEN) 02/08/18 19:46 Ur Squamous Epith Cells Moderate /HPF (NEGATIVE) 02/08/18 19:46 Amorphous Sediment 2+ /HPF (NEGATIVE) 02/08/18 19:46 Urine Bacteria Trace /HPF (NEGATIVE) 02/08/18 19:46 Hyaline Casts Many /LPF (NEGATIVE) 02/08/18 19:46 Urine Mucus Moderate /HPF (NEGATIVE) 02/08/18 19:46 Ur Culture Indicated? No/not indicated 02/08/18 19:46 Tissue Pathology To follow 02/14/18 17:06 - Plan (1) Partial bowel obstruction Status: Acute Qualifiers: Intestinal obstruction type: obstruction due to adhesions Qualified Code(s) : K56.51 - Intestinal adhesions [bands], with partial obstruction Plan: CONTINUE IV FLUIDS, ADVANCE TO FULL LIQUID DIET, PAIN MEDICATIONS, NAUSEA MEDICATIONS, CONTINUE TO MONITOR (2) Hyperlipidemia Status: Acute Qualifiers: Hyperlipidemia type: mixed hyperlipidemia Qualified Code(s): E78.2 - Mixed hyperlipidemia Plan: CONTINUE LIPITOR (3) Hypokalemia Status: Chronic Plan: POTASSIUM REPLACEMENT WITH PROTOCOL
[2018-02-17] MEDS: K-RIDER 10 MEQ/NS 100 ML 10 MEQ/100 ML BAG IV PRN (00:25)
[2018-02-17] MEDS: D5 1/2 NS 1000 ML 1,000 ML IV SCH ×7 (01:00→21:04)
[2018-02-17] MEDS ORDERED: DILAUDID INJ ONE ×2 (01:19→19:31)
[2018-02-17] MEDS: DILAUDID INJ IVP PRN ×2 (01:30→20:16)
[2018-02-17] MEDS: SYNTHROID 25 mcg TAB PO SCH (06:03)
[2018-02-17] MEDS: BENTYL CAP 10 MG PO SCH ×3 (06:03→21:04)
[2018-02-17 06:12] LABS: BASOPHILS % (AUTO) 0.3 % (0.2-1.0); EOSINOPHILS # (AUTO) 0.1 x10^3/uL (0.0-0.2); EOSINOPHILS % (AUTO) 1.6 % (0.9-2.9); HEMATOCRIT 23.9 % (36.0-47.0); HEMOGLOBIN 8.4 g/dL (12.0-16.0); LYMPHOCYTES # (AUTO) 0.7 X10^3/uL (1.3-2.9); LYMPHOCYTES % (AUTO) 12.5 % (21.0-51.0); MEAN CORPUSCULAR HGB CONC 35.1 g/dL (33.0-35.0); MEAN CORPUSCULAR VOLUME 79.8 fL (80.0-100.0); MEAN PLATELET VOLUME 8.7 fL (7.4-11.0); MONOCYTES # (AUTO) 0.5 x10^3/uL (0.3-0.8); MONOCYTES % (AUTO) 8.8 % (0.0-13.0); NEUTROPHILS # (AUTO) 4.5 x10^3/uL (2.2-4.8); NEUTROPHILS % (AUTO) 76.8 % (42.0-75.0); PLATELET COUNT 125 X10^3/uL (150.0-450.0); RED CELL DISTRIBUTION WIDTH 15.4 % (11.6-16.5); WHITE BLOOD COUNT 5.9 X10^3/uL (3.6-10.0)
[2018-02-17 06:48] LABS: ALANINE AMINOTRANSFERASE 11 Units/L (12-78); ALBUMIN 2.1 g/dL (3.4-5.0); ALKALINE PHOSPHATASE 88 Units/L (46-116); ASPARTATE AMINO TRANSFERASE 15 Units/L (15-37); BLOOD UREA NITROGEN 0 mg/dL (7-18); CALCIUM 7.1 mg/dL (8.5-10.1); CARBON DIOXIDE 27.8 mmol/L (21-32); CHLORIDE 102 mmol/L (98-107); COR CA(FOR HYPOALB) 8.6 mg/dL (8.5-10.1); COR NA(FOR HYPERGLY) 137 mmol/L (136-145); CREATININE 0.73 mg/dL (0.55-1.02); SODIUM 136 mmol/L (136-145); TOTAL PROTEIN 5.1 g/dL (6.4-8.2); eGFR NON BLACK RACES > 60 (>60)
[2018-02-17] MEDS: PROTONIX INJ 40 MG VIAL IVP SCH (08:00)
[2018-02-17] MEDS: K-DUR TAB 20 MEQ PO SCH ×2 (09:46→12:47)
[2018-02-17] MEDS: MORPHINE SULFATE INJ 2 MG INJ IVP PRN ×3 (09:47→17:41)
[2018-02-17] MEDS: NORCO 5/325 MG TAB PO PRN (09:47)
[2018-02-17] MEDS: ZOFRAN INJ 4 MG VIAL IVP PRN ×2 (09:47→17:41)
[2018-02-17] MEDS: LIPITOR TAB 40 MG PO SCH (09:48)
[2018-02-17] MEDS: LOVENOX INJ 40 MG SYR SC SCH (09:48)
--- NOTE | 2018-02-17 10:23 | DR.PROGNOT ---
Hospital Progress Notes - Progress Note for Day of: Progress Note Date: 02/17/18 - Chief Complaint Chief Complaint: PO laparotomy , lysis of adhesions . bypass small bowel obstruction for multiple areas of obstructing nodules very suspicious for mets from old gastric or colon ca . doing well ,. no vomiting.tolerating liquid diet. fair urine OP . temp 99.2. K 3.4 - History of Present Illness History of Present Illness: multiple abdominal surgeries for colon ca x2 , Gastrectomy for gstric ca . hysterectomy and lap kaleb . - Past Medical Family Social History Past Med/Fam/Surg Hx: No changes since H&P, Changes noted (describe) Allergies: Allergies No Known Drug Allergies Allergy (Verified 01/28/18 14:30) - Review Of Systems ROS: No change since H&P - Vital Signs Vital Signs: Temperature 99.6 F Pulse Rate [Right Radial] 88 Pulse Rate 89 Respiratory Rate 21 Blood Pressure [Right Arm] 115/63 Blood Pressure [Left Arm] 121/77 Blood Pressure [Left Radial 126/65 Artery] Blood Pressure 144/87 O2 Sat by Pulse Oximetry 98 - Physical Exam Oriented: Normal Eyes: Normal Ear: Normal Nose: Normal Throat: Normal Respiratory: Normal Cardiovascular: Normal : Normal GI:Auscultation: Decreased GI:Palpation: Normal GI: Tenderness: Diffuse (incisional tenderness , dressing was changed ,no infection or drainage .), Mild Skin: Normal Musculoskeletal: Normal Psychiatric: Normal Mood Description: Calm Affect: Normal Speech Pattern: Clear, Appropriate - Laboratory and Diagnostics Result Diagrams: 02/17/18 04:40 02/17/18 04:40 Labs: Laboratory WBC 5.9 X10^3/uL (3.6-10.0) 02/17/18 04:40 RBC 3.00 X10^6/uL (3.5-5.4) L 02/17/18 04:40 Hgb 8.4 g/dL (12.0-16.0) L 02/17/18 04:40 Hct 23.9 % (36.0-47.0) L 02/17/18 04:40 MCV 79.8 fL (80.0-100.0) L 02/17/18 04:40 MCH 28.0 pg (27.0-34.0) 02/17/18 04:40 MCHC 35.1 g/dL (33.0-35.0) H 02/17/18 04:40 RDW 15.4 % (11.6-16.5) 02/17/18 04:40 Plt Count 125 X10^3/uL (150.0-450.0) L 02/17/18 04:40 MPV 8.7 fL (7.4-11.0) 02/17/18 04:40 Neut % (Auto) 76.8 % (42.0-75.0) H 02/17/18 04:40 Lymph % (Auto) 12.5 % (21.0-51.0) L 02/17/18 04:40 [place] % (Auto) 8.8 % (0.0-13.0) 02/17/18 04:40 Eos % (Auto) 1.6 % (0.9-2.9) 02/17/18 04:40 Baso % (Auto) 0.3 % (0.2-1.0) 02/17/18 04:40 Neut # (Auto) 4.5 x10^3/uL (2.2-4.8) 02/17/18 04:40 Lymph # (Auto) 0.7 X10^3/uL (1.3-2.9) L 02/17/18 04:40 [place] # (Auto) 0.5 x10^3/uL (0.3-0.8) 02/17/18 04:40 Eos # (Auto) 0.1 x10^3/uL (0.0-0.2) 02/17/18 04:40 Baso # (Auto) 0.0 X10^3/uL (0.0-0.1) 02/17/18 04:40 Absolute Nucleated RBC 0.1 /100WBC 02/17/18 04:40 Sodium 136 mmol/L (136-145) 02/17/18 04:40 Corrected Sodium 137 mmol/L (136-145) 02/17/18 04:40 Potassium 3.4 mmol/L (3.5-5.1) L 02/17/18 04:40 Chloride 102 mmol/L (98-107) 02/17/18 04:40 Carbon Dioxide 27.8 mmol/L (21-32) 02/17/18 04:40 BUN 0 mg/dL (7-18) L 02/17/18 04:40 Creatinine 0.73 mg/dL (0.55-1.02) 02/17/18 04:40 Est GFR (MDRD) Af Amer > 60 (>60) 02/17/18 04:40 Est GFR (MDRD) Non-Af > 60 (>60) 02/17/18 04:40 Glucose 133 mg/dL (65-99) H 02/17/18 04:40 Calcium 7.1 mg/dL (8.5-10.1) L 02/17/18 04:40 Corrected Calcium 8.6 mg/dL (8.5-10.1) 02/17/18 04:40 Magnesium 2.1 mg/dL (1.7-2.9) 02/16/18 04:32 Total Bilirubin 0.70 mg/dL (0.2-1.0) 02/17/18 04:40 AST 15 Units/L (15-37) 02/17/18 04:40 ALT 11 Units/L (12-78) L 02/17/18 04:40 Alkaline Phosphatase 88 Units/L (46-116) 02/17/18 04:40 Total Protein 5.1 g/dL (6.4-8.2) L 02/17/18 04:40 Albumin 2.1 g/dL (3.4-5.0) L 02/17/18 04:40 Globulin 3.0 g/dL (2.5-4.5) 02/17/18 04:40 Albumin/Globulin Ratio 0.7 Ratio (1.1-2.1) L 02/17/18 04:40 Amylase 40 Units/L (25-115) 02/09/18 04:20 Lipase 78 Units/L (73-393) 02/09/18 04:20 Specimen Type Clean catch urine 02/08/18 19:46 Urine Color Yellow (YELLOW) 02/08/18 19:46 Urine Appearance Slightly hazy (CLEAR) 02/08/18 19:46 Urine pH 5.0 (5.0 - 8.0) 02/08/18 19:46 Ur Specific [place] 1.030 (1.000-1.030) 02/08/18 19:46 Urine Protein 2+ (NEGATIVE) 02/08/18 19:46 Urine Glucose (UA) Negative (NEGATIVE) 02/08/18 19:46 Urine Ketones 4+ (NEGATIVE) 02/08/18 19:46 Urine Occult Blood 1+ (NEGATIVE) 02/08/18 19:46 Urine Nitrite Negative (NEGATIVE) 02/08/18 19:46 Urine Bilirubin 2+ (NEGATIVE) 02/08/18 19:46 Urine Urobilinogen 1+ (NORMAL) 02/08/18 19:46 Ur Leukocyte Esterase 1+ (NEGATIVE) 02/08/18 19:46 Urine RBC 0-2 /HPF (NONE SEEN) 02/08/18 19:46 Urine WBC 3-5 /HPF (NONE SEEN) 02/08/18 19:46 Ur Squamous Epith Cells Moderate /HPF (NEGATIVE) 02/08/18 19:46 Amorphous Sediment 2+ /HPF (NEGATIVE) 02/08/18 19:46 Urine Bacteria Trace /HPF (NEGATIVE) 02/08/18 19:46 Hyaline Casts Many /LPF (NEGATIVE) 02/08/18 19:46 Urine Mucus Moderate /HPF (NEGATIVE) 02/08/18 19:46 Ur Culture Indicated? No/not indicated 02/08/18 19:46 Tissue Pathology To follow 02/14/18 17:06 - Assessment and Plan 1: recurrent partial SBO. abdominal adhesions. 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 s/p laparotomy and bypass SBO. same po care .add KCL. DVT prophylaxis , OOB with binder,. on full liquid diet today .. - Problem Patient Problems: Patient Problems Abdominal pain (Acute) R10.9 Small bowel obstruction (Acute) K56.609 Dehydration (Acute) E86.0 Hyperlipidemia (Acute) E78.5
--- NOTE | 2018-02-17 14:07 | PCM.PROG ---
Progress Note - Progress Note for Day of Date: 02/17/18 - Subjective Subjective: IS STATUS POST EXPLORATORY LAPAROTOMY, BYPASS OF SMALL BOWEL OBSTRUCTION, AND LYSIS OF ADHESIONS. LAPAROTOMY REVEALED EXTENSIVE ADHESIONS AND MULTIPLE AREAS OF WHAT LOOKED LIKE METASTATIC SEEDING INVOLVING THE SMALL BOWEL AND MESENTARY. TODAY, SHE IS ALERT AND ORIENTED, LYING IN BED ON MORNING ROUNDS. SHE CONTINUES WITH MILD ABDOMINAL PAIN TODAY. HER VITALS THIS MORNING ARE 99.6-85-20-98%-119/54. LABS WERE OBTAINED. ABNORMAL LAB VALUES INCLUDE THE FOLLOWING: RBC 3.00, HGB 8.4, HCT 23.9, PLT COUNT 125, POTASSIUM 3.4, GLUCOSE 133, CALCIUM 7.1, ALT 11, TOTAL PROTEIN 5.1, ALBUMIN 2.1. PATHOLOGY REPORT IS PENDING. SHE CONTINUES ON IV FLUIDS, IV PAIN MEDICATIONS, AND IV NAUSEA MEDICATIONS. WE WILL CONTINUE WITH CURRENT PLAN OF CARE TODAY. OTHERWISE, WE WILL FOLLOW UP WITH AM LABS AND CONTINUE TO MONITOR PATIENT. CONTINUES TO FOLLOW PATIENT WELL. - Past Medical Family Social History Past Med/Fam/Surg Hx: No changes since H&P, Changes noted (describe) Allergies: Allergies No Known Drug Allergies Allergy (Verified 01/28/18 14:30) - Review of Systems ROS: No change since H&P - Vital Signs and I&O's Vital Signs: Temperature 99.6 F Pulse Rate [Right Radial] 86 Pulse Rate 89 Respiratory Rate 18 Blood Pressure [Right Arm] 115/63 Blood Pressure [Left Arm] 102/58 Blood Pressure [Left Radial 126/65 Artery] Blood Pressure 144/87 O2 Sat by Pulse Oximetry 96 Intake and Output: Intake & Output 02/15/18 02/16/18 02/17/18 02/18/18 11:59 11:59 11:59 11:59 Intake Total 4300 / 4300 2422 / 2422 2942 / 2942 950 / 950 Output Total 4905 / 4905 2910 / 2910 2400 / 2400 1200 / 1200 Balance -605 / -605 -488 / -488 542 / 542 -250 / -250 - Physical Exam Oriented: Normal Eyes: Normal Ear: Normal Nose: Normal Throat: Normal Respiratory: Normal Cardiovascular: Normal : Normal Auscultation: Bowel Sounds: Normal Palpation: Normal Tenderness: Diffuse (incisional tenderness ), Mild Skin: Normal Musculoskeletal: Normal Psychiatric: Normal Mood Description: Calm Affect: Normal Speech Pattern: Clear, Appropriate - Laboratory and Diagnostics Result Diagrams: 02/17/18 04:40 02/17/18 04:40 Labs: Laboratory WBC 5.9 X10^3/uL (3.6-10.0) 02/17/18 04:40 RBC 3.00 X10^6/uL (3.5-5.4) L 02/17/18 04:40 Hgb 8.4 g/dL (12.0-16.0) L 02/17/18 04:40 Hct 23.9 % (36.0-47.0) L 02/17/18 04:40 MCV 79.8 fL (80.0-100.0) L 02/17/18 04:40 MCH 28.0 pg (27.0-34.0) 02/17/18 04:40 MCHC 35.1 g/dL (33.0-35.0) H 02/17/18 04:40 RDW 15.4 % (11.6-16.5) 02/17/18 04:40 Plt Count 125 X10^3/uL (150.0-450.0) L 02/17/18 04:40 MPV 8.7 fL (7.4-11.0) 02/17/18 04:40 Neut % (Auto) 76.8 % (42.0-75.0) H 02/17/18 04:40 Lymph % (Auto) 12.5 % (21.0-51.0) L 02/17/18 04:40 [place] % (Auto) 8.8 % (0.0-13.0) 02/17/18 04:40 Eos % (Auto) 1.6 % (0.9-2.9) 02/17/18 04:40 Baso % (Auto) 0.3 % (0.2-1.0) 02/17/18 04:40 Neut # (Auto) 4.5 x10^3/uL (2.2-4.8) 02/17/18 04:40 Lymph # (Auto) 0.7 X10^3/uL (1.3-2.9) L 02/17/18 04:40 [place] # (Auto) 0.5 x10^3/uL (0.3-0.8) 02/17/18 04:40 Eos # (Auto) 0.1 x10^3/uL (0.0-0.2) 02/17/18 04:40 Baso # (Auto) 0.0 X10^3/uL (0.0-0.1) 02/17/18 04:40 Absolute Nucleated RBC 0.1 /100WBC 02/17/18 04:40 Sodium 136 mmol/L (136-145) 02/17/18 04:40 Corrected Sodium 137 mmol/L (136-145) 02/17/18 04:40 Potassium 3.4 mmol/L (3.5-5.1) L 02/17/18 04:40 Chloride 102 mmol/L (98-107) 02/17/18 04:40 Carbon Dioxide 27.8 mmol/L (21-32) 02/17/18 04:40 BUN 0 mg/dL (7-18) L 02/17/18 04:40 Creatinine 0.73 mg/dL (0.55-1.02) 02/17/18 04:40 Est GFR (MDRD) Af Amer > 60 (>60) 02/17/18 04:40 Est GFR (MDRD) Non-Af > 60 (>60) 02/17/18 04:40 Glucose 133 mg/dL (65-99) H 02/17/18 04:40 Calcium 7.1 mg/dL (8.5-10.1) L 02/17/18 04:40 Corrected Calcium 8.6 mg/dL (8.5-10.1) 02/17/18 04:40 Magnesium 2.1 mg/dL (1.7-2.9) 02/16/18 04:32 Total Bilirubin 0.70 mg/dL (0.2-1.0) 02/17/18 04:40 AST 15 Units/L (15-37) 02/17/18 04:40 ALT 11 Units/L (12-78) L 02/17/18 04:40 Alkaline Phosphatase 88 Units/L (46-116) 02/17/18 04:40 Total Protein 5.1 g/dL (6.4-8.2) L 02/17/18 04:40 Albumin 2.1 g/dL (3.4-5.0) L 02/17/18 04:40 Globulin 3.0 g/dL (2.5-4.5) 02/17/18 04:40 Albumin/Globulin Ratio 0.7 Ratio (1.1-2.1) L 02/17/18 04:40 Amylase 40 Units/L (25-115) 02/09/18 04:20 Lipase 78 Units/L (73-393) 02/09/18 04:20 Specimen Type Clean catch urine 02/08/18 19:46 Urine Color Yellow (YELLOW) 02/08/18 19:46 Urine Appearance Slightly hazy (CLEAR) 02/08/18 19:46 Urine pH 5.0 (5.0 - 8.0) 02/08/18 19:46 Ur Specific [place] 1.030 (1.000-1.030) 02/08/18 19:46 Urine Protein 2+ (NEGATIVE) 02/08/18 19:46 Urine Glucose (UA) Negative (NEGATIVE) 02/08/18 19:46 Urine Ketones 4+ (NEGATIVE) 02/08/18 19:46 Urine Occult Blood 1+ (NEGATIVE) 02/08/18 19:46 Urine Nitrite Negative (NEGATIVE) 02/08/18 19:46 Urine Bilirubin 2+ (NEGATIVE) 02/08/18 19:46 Urine Urobilinogen 1+ (NORMAL) 02/08/18 19:46 Ur Leukocyte Esterase 1+ (NEGATIVE) 02/08/18 19:46 Urine RBC 0-2 /HPF (NONE SEEN) 02/08/18 19:46 Urine WBC 3-5 /HPF (NONE SEEN) 02/08/18 19:46 Ur Squamous Epith Cells Moderate /HPF (NEGATIVE) 02/08/18 19:46 Amorphous Sediment 2+ /HPF (NEGATIVE) 02/08/18 19:46 Urine Bacteria Trace /HPF (NEGATIVE) 02/08/18 19:46 Hyaline Casts Many /LPF (NEGATIVE) 02/08/18 19:46 Urine Mucus Moderate /HPF (NEGATIVE) 02/08/18 19:46 Ur Culture Indicated? No/not indicated 02/08/18 19:46 Tissue Pathology To follow 02/14/18 17:06 - Plan (1) Partial bowel obstruction Status: Acute Qualifiers: Intestinal obstruction type: obstruction due to adhesions Qualified Code(s) : K56.51 - Intestinal adhesions [bands], with partial obstruction Plan: CONTINUE IV FLUIDS, ADVANCE TO FULL LIQUID DIET, PAIN MEDICATIONS, NAUSEA MEDICATIONS, CONTINUE TO MONITOR (2) Hyperlipidemia Status: Acute Qualifiers: Hyperlipidemia type: mixed hyperlipidemia Qualified Code(s): E78.2 - Mixed hyperlipidemia Plan: CONTINUE LIPITOR (3) Hypokalemia Status: Chronic Plan: POTASSIUM REPLACEMENT WITH PROTOCOL
[2018-02-17] MEDS: PHENERGAN INJ 25 MG IV PRN (20:16)
[2018-02-18] MEDS: DILAUDID INJ IVP PRN ×4 (01:58→17:35)
[2018-02-18 06:01] LABS: BASOPHILS % (AUTO) 0.7 % (0.2-1.0); EOSINOPHILS # (AUTO) 0.1 x10^3/uL (0.0-0.2); HEMATOCRIT 25.3 % (36.0-47.0); HEMOGLOBIN 8.7 g/dL (12.0-16.0); LYMPHOCYTES # (AUTO) 1.1 X10^3/uL (1.3-2.9); LYMPHOCYTES % (AUTO) 22.6 % (21.0-51.0); MEAN CORPUSCULAR HEMOGLOBIN 27.9 pg (27.0-34.0); MEAN CORPUSCULAR HGB CONC 34.5 g/dL (33.0-35.0); MEAN CORPUSCULAR VOLUME 80.7 fL (80.0-100.0); MONOCYTES # (AUTO) 0.5 x10^3/uL (0.3-0.8); MONOCYTES % (AUTO) 9.4 % (0.0-13.0); NEUTROPHILS # (AUTO) 3.2 x10^3/uL (2.2-4.8); NEUTROPHILS % (AUTO) 65.3 % (42.0-75.0); PLATELET COUNT 177 X10^3/uL (150.0-450.0); RED BLOOD COUNT 3.13 X10^6/uL (3.5-5.4); RED CELL DISTRIBUTION WIDTH 15.3 % (11.6-16.5); WHITE BLOOD COUNT 4.8 X10^3/uL (3.6-10.0)
[2018-02-18 06:10] LABS: ALANINE AMINOTRANSFERASE 12 Units/L (12-78); ALBUMIN 2.4 g/dL (3.4-5.0); ALKALINE PHOSPHATASE 89 Units/L (46-116); ASPARTATE AMINO TRANSFERASE 12 Units/L (15-37); BLOOD UREA NITROGEN 0 mg/dL (7-18); CALCIUM 7.2 mg/dL (8.5-10.1); CARBON DIOXIDE 28.7 mmol/L (21-32); CHLORIDE 103 mmol/L (98-107); COR CA(FOR HYPOALB) 8.5 mg/dL (8.5-10.1); COR NA(FOR HYPERGLY) 137 mmol/L (136-145); CREATININE 0.83 mg/dL (0.55-1.02); SODIUM 137 mmol/L (136-145); TOTAL PROTEIN 5.5 g/dL (6.4-8.2); eGFR NON BLACK RACES > 60 (>60)
[2018-02-18] MEDS: SYNTHROID 25 mcg TAB PO SCH (06:19)
[2018-02-18] MEDS: BENTYL CAP 10 MG PO SCH ×3 (06:19→21:27)
[2018-02-18] MEDS: PHENERGAN INJ 25 MG IV PRN (06:19)
[2018-02-18] MEDS: D5 1/2 NS 1000 ML 1,000 ML IV SCH ×4 (08:04→17:35)
[2018-02-18] MEDS: LOVENOX INJ 40 MG SYR SC SCH (08:16)
[2018-02-18] MEDS: K-DUR TAB 20 MEQ PO SCH (08:16)
[2018-02-18] MEDS: PROTONIX INJ 40 MG VIAL IVP SCH (08:16)
[2018-02-18] MEDS: LIPITOR TAB 40 MG PO SCH (08:16)
--- NOTE | 2018-02-18 13:05 | DR.PROGNOT ---
Hospital Progress Notes - Progress Note for Day of: Progress Note Date: 02/18/18 - Chief Complaint Chief Complaint: PO laparotomy , lysis of adhesions . bypass small bowel obstruction for multiple areas of obstructing nodules very suspicious for mets from old gastric or colon ca . doing well ,. no BM yet but passing flatus. no vomiting.tolerating liquid diet. fair urine OP . temp 98.2 - History of Present Illness History of Present Illness: multiple abdominal surgeries for colon ca x2 , Gastrectomy for gstric ca . hysterectomy and lap kaleb . - Past Medical Family Social History Past Med/Fam/Surg Hx: No changes since H&P, Changes noted (describe) Allergies: Allergies No Known Drug Allergies Allergy (Verified 01/28/18 14:30) - Review Of Systems ROS: No change since H&P - Vital Signs Vital Signs: Temperature 98.5 F Pulse Rate [Right Radial] 86 Pulse Rate 89 Respiratory Rate 16 Blood Pressure [Right Arm] 115/63 Blood Pressure [Left Arm] 113/66 Blood Pressure [Left Radial 126/65 Artery] Blood Pressure 144/87 O2 Sat by Pulse Oximetry 96 - Physical Exam Oriented: Normal Eyes: Normal Ear: Normal Nose: Normal Throat: Normal Respiratory: Normal Cardiovascular: Normal : Normal GI:Auscultation: Normal GI:Palpation: Normal GI: Tenderness: Diffuse (incisional tenderness ), Mild Skin: Normal Musculoskeletal: Normal Psychiatric: Normal Mood Description: Calm Affect: Normal Speech Pattern: Clear, Appropriate - Laboratory and Diagnostics Result Diagrams: 02/18/18 04:40 02/18/18 04:40 Labs: Laboratory WBC 4.8 X10^3/uL (3.6-10.0) 02/18/18 04:40 RBC 3.13 X10^6/uL (3.5-5.4) L 02/18/18 04:40 Hgb 8.7 g/dL (12.0-16.0) L 02/18/18 04:40 Hct 25.3 % (36.0-47.0) L 02/18/18 04:40 MCV 80.7 fL (80.0-100.0) 02/18/18 04:40 MCH 27.9 pg (27.0-34.0) 02/18/18 04:40 MCHC 34.5 g/dL (33.0-35.0) 02/18/18 04:40 RDW 15.3 % (11.6-16.5) 02/18/18 04:40 Plt Count 177 X10^3/uL (150.0-450.0) 02/18/18 04:40 MPV 8.0 fL (7.4-11.0) 02/18/18 04:40 Neut % (Auto) 65.3 % (42.0-75.0) 02/18/18 04:40 Lymph % (Auto) 22.6 % (21.0-51.0) 02/18/18 04:40 [place] % (Auto) 9.4 % (0.0-13.0) 02/18/18 04:40 Eos % (Auto) 2.0 % (0.9-2.9) 02/18/18 04:40 Baso % (Auto) 0.7 % (0.2-1.0) 02/18/18 04:40 Neut # (Auto) 3.2 x10^3/uL (2.2-4.8) 02/18/18 04:40 Lymph # (Auto) 1.1 X10^3/uL (1.3-2.9) L 02/18/18 04:40 [place] # (Auto) 0.5 x10^3/uL (0.3-0.8) 02/18/18 04:40 Eos # (Auto) 0.1 x10^3/uL (0.0-0.2) 02/18/18 04:40 Baso # (Auto) 0.0 X10^3/uL (0.0-0.1) 02/18/18 04:40 Absolute Nucleated RBC 0.3 /100WBC 02/18/18 04:40 Sodium 137 mmol/L (136-145) 02/18/18 04:40 Corrected Sodium 137 mmol/L (136-145) 02/18/18 04:40 Potassium 3.7 mmol/L (3.5-5.1) 02/18/18 04:40 Chloride 103 mmol/L (98-107) 02/18/18 04:40 Carbon Dioxide 28.7 mmol/L (21-32) 02/18/18 04:40 BUN 0 mg/dL (7-18) L 02/18/18 04:40 Creatinine 0.83 mg/dL (0.55-1.02) 02/18/18 04:40 Est GFR (MDRD) Af Amer > 60 (>60) 02/18/18 04:40 Est GFR (MDRD) Non-Af > 60 (>60) 02/18/18 04:40 Glucose 118 mg/dL (65-99) H 02/18/18 04:40 Calcium 7.2 mg/dL (8.5-10.1) L 02/18/18 04:40 Corrected Calcium 8.5 mg/dL (8.5-10.1) 02/18/18 04:40 Magnesium 2.1 mg/dL (1.7-2.9) 02/16/18 04:32 Total Bilirubin 0.60 mg/dL (0.2-1.0) 02/18/18 04:40 AST 12 Units/L (15-37) L 02/18/18 04:40 ALT 12 Units/L (12-78) 02/18/18 04:40 Alkaline Phosphatase 89 Units/L (46-116) 02/18/18 04:40 Total Protein 5.5 g/dL (6.4-8.2) L 02/18/18 04:40 Albumin 2.4 g/dL (3.4-5.0) L 02/18/18 04:40 Globulin 3.1 g/dL (2.5-4.5) 02/18/18 04:40 Albumin/Globulin Ratio 0.8 Ratio (1.1-2.1) L 02/18/18 04:40 Amylase 40 Units/L (25-115) 02/09/18 04:20 Lipase 78 Units/L (73-393) 02/09/18 04:20 Specimen Type Clean catch urine 02/08/18 19:46 Urine Color Yellow (YELLOW) 02/08/18 19:46 Urine Appearance Slightly hazy (CLEAR) 02/08/18 19:46 Urine pH 5.0 (5.0 - 8.0) 02/08/18 19:46 Ur Specific [place] 1.030 (1.000-1.030) 02/08/18 19:46 Urine Protein 2+ (NEGATIVE) 02/08/18 19:46 Urine Glucose (UA) Negative (NEGATIVE) 02/08/18 19:46 Urine Ketones 4+ (NEGATIVE) 02/08/18 19:46 Urine Occult Blood 1+ (NEGATIVE) 02/08/18 19:46 Urine Nitrite Negative (NEGATIVE) 02/08/18 19:46 Urine Bilirubin 2+ (NEGATIVE) 02/08/18 19:46 Urine Urobilinogen 1+ (NORMAL) 02/08/18 19:46 Ur Leukocyte Esterase 1+ (NEGATIVE) 02/08/18 19:46 Urine RBC 0-2 /HPF (NONE SEEN) 02/08/18 19:46 Urine WBC 3-5 /HPF (NONE SEEN) 02/08/18 19:46 Ur Squamous Epith Cells Moderate /HPF (NEGATIVE) 02/08/18 19:46 Amorphous Sediment 2+ /HPF (NEGATIVE) 02/08/18 19:46 Urine Bacteria Trace /HPF (NEGATIVE) 02/08/18 19:46 Hyaline Casts Many /LPF (NEGATIVE) 02/08/18 19:46 Urine Mucus Moderate /HPF (NEGATIVE) 02/08/18 19:46 Ur Culture Indicated? No/not indicated 02/08/18 19:46 Tissue Pathology To follow 02/14/18 17:06 - Assessment and Plan 1: recurrent partial SBO. abdominal adhesions. 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 s/p laparotomy and bypass SBO. same po care . advance diet . DVT prophylaxis , OOB with binder,. on full liquid diet today .. - Problem Patient Problems: Patient Problems Abdominal pain (Acute) R10.9 Small bowel obstruction (Acute) K56.609 Dehydration (Acute) E86.0 Hyperlipidemia (Acute) E78.5
[2018-02-18] MEDS: ZOFRAN INJ 4 MG VIAL IVP PRN (17:35)
--- NOTE | 2018-02-18 18:12 | PCM.PROG ---
Progress Note - Progress Note for Day of Date: 02/18/18 - Subjective Subjective: IS STATUS POST EXPLORATORY LAPAROTOMY, BYPASS OF SMALL BOWEL OBSTRUCTION, AND LYSIS OF ADHESIONS. LAPAROTOMY REVEALED EXTENSIVE ADHESIONS AND MULTIPLE AREAS OF WHAT LOOKED LIKE METASTATIC SEEDING INVOLVING THE SMALL BOWEL AND MESENTARY. TODAY, SHE IS ALERT AND ORIENTED, LYING IN BED ON MORNING ROUNDS. SHE CONTINUES WITH MILD ABDOMINAL PAIN TODAY. HER VITALS THIS MORNING ARE 97.7-89-22-98%-120/60. LABS WERE OBTAINED. ABNORMAL LAB VALUES INCLUDE THE FOLLOWING: RBC 3.13, HGB 8.7, HCT 25.3, BUN 0, GLUCOSE 118, CALCIUM 7.2, AST 12, ALBUMIN 2.4. PATHOLOGY REPORT IS PENDING. SHE CONTINUES ON IV FLUIDS, IV PAIN MEDICATIONS, AND IV NAUSEA MEDICATIONS. SHE IS TOLERATED A LIQUID DIET WELL. WE WILL CONTINUE WITH CURRENT PLAN OF CARE TODAY. OTHERWISE, WE WILL FOLLOW UP WITH AM LABS AND CONTINUE TO MONITOR PATIENT. CONTINUES TO FOLLOW PATIENT WELL. - Past Medical Family Social History Past Med/Fam/Surg Hx: No changes since H&P, Changes noted (describe) Allergies: Allergies No Known Drug Allergies Allergy (Verified 01/28/18 14:30) - Review of Systems ROS: No change since H&P - Vital Signs and I&O's Vital Signs: Temperature 99.3 F Pulse Rate [Right Radial] 91 Pulse Rate 89 Respiratory Rate 20 Blood Pressure [Right Arm] 115/63 Blood Pressure [Left Arm] 119/80 Blood Pressure [Left Radial 126/65 Artery] Blood Pressure 144/87 O2 Sat by Pulse Oximetry 99 Intake and Output: Intake & Output 02/16/18 02/17/18 02/18/18 02/19/18 11:59 11:59 11:59 11:59 Intake Total 2422 / 2422 2942 / 2942 2640 / 2640 2083 / 2083 Output Total 2910 / 2910 2400 / 2400 2550 / 2550 1300 / 1300 Balance -488 / -488 542 / 542 90 / 90 783 / 783 - Physical Exam Oriented: Normal Eyes: Normal Ear: Normal Nose: Normal Throat: Normal Respiratory: Normal Cardiovascular: Normal : Normal Auscultation: Bowel Sounds: Normal Palpation: Normal Tenderness: Diffuse (incisional tenderness ), Mild Skin: Normal Musculoskeletal: Normal Psychiatric: Normal Mood Description: Calm Affect: Normal Speech Pattern: Clear, Appropriate - Laboratory and Diagnostics Result Diagrams: 02/18/18 04:40 02/18/18 04:40 Labs: Laboratory WBC 4.8 X10^3/uL (3.6-10.0) 02/18/18 04:40 RBC 3.13 X10^6/uL (3.5-5.4) L 02/18/18 04:40 Hgb 8.7 g/dL (12.0-16.0) L 02/18/18 04:40 Hct 25.3 % (36.0-47.0) L 02/18/18 04:40 MCV 80.7 fL (80.0-100.0) 02/18/18 04:40 MCH 27.9 pg (27.0-34.0) 02/18/18 04:40 MCHC 34.5 g/dL (33.0-35.0) 02/18/18 04:40 RDW 15.3 % (11.6-16.5) 02/18/18 04:40 Plt Count 177 X10^3/uL (150.0-450.0) 02/18/18 04:40 MPV 8.0 fL (7.4-11.0) 02/18/18 04:40 Neut % (Auto) 65.3 % (42.0-75.0) 02/18/18 04:40 Lymph % (Auto) 22.6 % (21.0-51.0) 02/18/18 04:40 [place] % (Auto) 9.4 % (0.0-13.0) 02/18/18 04:40 Eos % (Auto) 2.0 % (0.9-2.9) 02/18/18 04:40 Baso % (Auto) 0.7 % (0.2-1.0) 02/18/18 04:40 Neut # (Auto) 3.2 x10^3/uL (2.2-4.8) 02/18/18 04:40 Lymph # (Auto) 1.1 X10^3/uL (1.3-2.9) L 02/18/18 04:40 [place] # (Auto) 0.5 x10^3/uL (0.3-0.8) 02/18/18 04:40 Eos # (Auto) 0.1 x10^3/uL (0.0-0.2) 02/18/18 04:40 Baso # (Auto) 0.0 X10^3/uL (0.0-0.1) 02/18/18 04:40 Absolute Nucleated RBC 0.3 /100WBC 02/18/18 04:40 Sodium 137 mmol/L (136-145) 02/18/18 04:40 Corrected Sodium 137 mmol/L (136-145) 02/18/18 04:40 Potassium 3.7 mmol/L (3.5-5.1) 02/18/18 04:40 Chloride 103 mmol/L (98-107) 02/18/18 04:40 Carbon Dioxide 28.7 mmol/L (21-32) 02/18/18 04:40 BUN 0 mg/dL (7-18) L 02/18/18 04:40 Creatinine 0.83 mg/dL (0.55-1.02) 02/18/18 04:40 Est GFR (MDRD) Af Amer > 60 (>60) 02/18/18 04:40 Est GFR (MDRD) Non-Af > 60 (>60) 02/18/18 04:40 Glucose 118 mg/dL (65-99) H 02/18/18 04:40 Calcium 7.2 mg/dL (8.5-10.1) L 02/18/18 04:40 Corrected Calcium 8.5 mg/dL (8.5-10.1) 02/18/18 04:40 Magnesium 2.1 mg/dL (1.7-2.9) 02/16/18 04:32 Total Bilirubin 0.60 mg/dL (0.2-1.0) 02/18/18 04:40 AST 12 Units/L (15-37) L 02/18/18 04:40 ALT 12 Units/L (12-78) 02/18/18 04:40 Alkaline Phosphatase 89 Units/L (46-116) 02/18/18 04:40 Total Protein 5.5 g/dL (6.4-8.2) L 02/18/18 04:40 Albumin 2.4 g/dL (3.4-5.0) L 02/18/18 04:40 Globulin 3.1 g/dL (2.5-4.5) 02/18/18 04:40 Albumin/Globulin Ratio 0.8 Ratio (1.1-2.1) L 02/18/18 04:40 Amylase 40 Units/L (25-115) 02/09/18 04:20 Lipase 78 Units/L (73-393) 02/09/18 04:20 Specimen Type Clean catch urine 02/08/18 19:46 Urine Color Yellow (YELLOW) 02/08/18 19:46 Urine Appearance Slightly hazy (CLEAR) 02/08/18 19:46 Urine pH 5.0 (5.0 - 8.0) 02/08/18 19:46 Ur Specific [place] 1.030 (1.000-1.030) 02/08/18 19:46 Urine Protein 2+ (NEGATIVE) 02/08/18 19:46 Urine Glucose (UA) Negative (NEGATIVE) 02/08/18 19:46 Urine Ketones 4+ (NEGATIVE) 02/08/18 19:46 Urine Occult Blood 1+ (NEGATIVE) 02/08/18 19:46 Urine Nitrite Negative (NEGATIVE) 02/08/18 19:46 Urine Bilirubin 2+ (NEGATIVE) 02/08/18 19:46 Urine Urobilinogen 1+ (NORMAL) 02/08/18 19:46 Ur Leukocyte Esterase 1+ (NEGATIVE) 02/08/18 19:46 Urine RBC 0-2 /HPF (NONE SEEN) 02/08/18 19:46 Urine WBC 3-5 /HPF (NONE SEEN) 02/08/18 19:46 Ur Squamous Epith Cells Moderate /HPF (NEGATIVE) 02/08/18 19:46 Amorphous Sediment 2+ /HPF (NEGATIVE) 02/08/18 19:46 Urine Bacteria Trace /HPF (NEGATIVE) 02/08/18 19:46 Hyaline Casts Many /LPF (NEGATIVE) 02/08/18 19:46 Urine Mucus Moderate /HPF (NEGATIVE) 02/08/18 19:46 Ur Culture Indicated? No/not indicated 02/08/18 19:46 Tissue Pathology To follow 02/14/18 17:06 - Plan (1) Partial bowel obstruction Status: Acute Qualifiers: Intestinal obstruction type: obstruction due to adhesions Qualified Code(s) : K56.51 - Intestinal adhesions [bands], with partial obstruction Plan: CONTINUE IV FLUIDS, ADVANCE TO FULL LIQUID DIET, PAIN MEDICATIONS, NAUSEA MEDICATIONS, CONTINUE TO MONITOR (2) Hyperlipidemia Status: Acute Qualifiers: Hyperlipidemia type: mixed hyperlipidemia Qualified Code(s): E78.2 - Mixed hyperlipidemia Plan: CONTINUE LIPITOR (3) Hypokalemia Status: Chronic Plan: POTASSIUM REPLACEMENT WITH PROTOCOL
[2018-02-19] MEDS: DILAUDID INJ IVP PRN ×3 (01:19→17:20)
[2018-02-19] MEDS: PHENERGAN INJ 25 MG IV PRN (02:33)
[2018-02-19] MEDS ORDERED: PEPCID 20 MG IV PREMIX* 50 ML IV SCH (03:30)
[2018-02-19] MEDS ORDERED: PEPCID 20 MG IV PREMIX* 50 ML IV PRN (03:42)
[2018-02-19] MEDS: BENTYL CAP 10 MG PO SCH ×3 (06:00→21:15)
[2018-02-19] MEDS: SYNTHROID 25 mcg TAB PO SCH (06:00)
[2018-02-19] MEDS: D5 1/2 NS 1000 ML 1,000 ML IV SCH ×4 (06:01→20:20)
[2018-02-19 06:15] LABS: BASOPHILS % (AUTO) 0.7 % (0.2-1.0); EOSINOPHILS # (AUTO) 0.1 x10^3/uL (0.0-0.2); EOSINOPHILS % (AUTO) 2.2 % (0.9-2.9); HEMATOCRIT 23.4 % (36.0-47.0); LYMPHOCYTES # (AUTO) 0.8 X10^3/uL (1.3-2.9); LYMPHOCYTES % (AUTO) 19.6 % (21.0-51.0); MEAN CORPUSCULAR HEMOGLOBIN 27.6 pg (27.0-34.0); MEAN CORPUSCULAR HGB CONC 34.2 g/dL (33.0-35.0); MEAN CORPUSCULAR VOLUME 80.7 fL (80.0-100.0); MEAN PLATELET VOLUME 7.8 fL (7.4-11.0); MONOCYTES # (AUTO) 0.5 x10^3/uL (0.3-0.8); MONOCYTES % (AUTO) 13.2 % (0.0-13.0); NEUTROPHILS # (AUTO) 2.5 x10^3/uL (2.2-4.8); NEUTROPHILS % (AUTO) 64.3 % (42.0-75.0); PLATELET COUNT 165 X10^3/uL (150.0-450.0); RED CELL DISTRIBUTION WIDTH 15.4 % (11.6-16.5)
[2018-02-19 06:27] LABS: ALANINE AMINOTRANSFERASE 10 Units/L (12-78); ALBUMIN 2.3 g/dL (3.4-5.0); ALKALINE PHOSPHATASE 84 Units/L (46-116); ASPARTATE AMINO TRANSFERASE 6 Units/L (15-37); BLOOD UREA NITROGEN 0 mg/dL (7-18); CALCIUM 7.2 mg/dL (8.5-10.1); CARBON DIOXIDE 26.8 mmol/L (21-32); CHLORIDE 103 mmol/L (98-107); COR CA(FOR HYPOALB) 8.6 mg/dL (8.5-10.1); COR NA(FOR HYPERGLY) 136 mmol/L (136-145); CREATININE 0.77 mg/dL (0.55-1.02); SODIUM 136 mmol/L (136-145); TOTAL PROTEIN 5.3 g/dL (6.4-8.2); eGFR NON BLACK RACES > 60 (>60)
[2018-02-19 07:15] LABS: PLATELET MORPHOLOGY COMMENT NORMAL (NORMAL)
[2018-02-19] MEDS: ZOFRAN INJ 4 MG VIAL IVP PRN (09:02)
[2018-02-19] MEDS: PROTONIX INJ 40 MG VIAL IVP SCH (09:02)
[2018-02-19] MEDS: LOVENOX INJ 40 MG SYR SC SCH (09:03)
[2018-02-19] MEDS: K-DUR TAB 20 MEQ PO SCH (09:03)
[2018-02-19] MEDS: LIPITOR TAB 40 MG PO SCH (09:03)
[2018-02-19] MEDS ORDERED: FLEET ENEMA ADULT PR ONE (10:07)
--- NOTE | 2018-02-19 11:44 | DR.PROGNOT ---
Hospital Progress Notes - Progress Note for Day of: Progress Note Date: 02/19/18 - Chief Complaint Chief Complaint: PO laparotomy , lysis of adhesions . bypass small bowel obstruction for multiple areas of obstructing nodules very suspicious for mets from old gastric or colon ca . doing well ,. no BM yet but passing flatus. no vomiting.tolerating soft diet. fair urine OP . temp 98.2 - History of Present Illness History of Present Illness: multiple abdominal surgeries for colon ca x2 , Gastrectomy for gstric ca . hysterectomy and lap kaleb . - Past Medical Family Social History Past Med/Fam/Surg Hx: No changes since H&P, Changes noted (describe) Allergies: Allergies No Known Drug Allergies Allergy (Verified 01/28/18 14:30) - Review Of Systems ROS: No change since H&P - Vital Signs Vital Signs: Temperature 98.3 F Pulse Rate [Right Radial] 83 Pulse Rate 90 Respiratory Rate 20 Blood Pressure [Right Arm] 115/63 Blood Pressure [Left Arm] 144/74 Blood Pressure [Left Radial 126/65 Artery] Blood Pressure 144/87 O2 Sat by Pulse Oximetry 96 - Physical Exam Oriented: Normal Eyes: Normal Ear: Normal Nose: Normal Throat: Normal Respiratory: Normal Cardiovascular: Normal : Normal GI:Auscultation: Normal GI:Palpation: Normal GI: Tenderness: Diffuse (incisional tenderness ), Mild Skin: Normal Musculoskeletal: Normal Psychiatric: Normal Mood Description: Calm Affect: Normal Speech Pattern: Clear, Appropriate - Laboratory and Diagnostics Result Diagrams: 02/19/18 04:56 02/19/18 04:56 Labs: Laboratory WBC 4.0 X10^3/uL (3.6-10.0) 02/19/18 04:56 RBC 2.90 X10^6/uL (3.5-5.4) L 02/19/18 04:56 Hgb 8.0 g/dL (12.0-16.0) L 02/19/18 04:56 Hct 23.4 % (36.0-47.0) L 02/19/18 04:56 MCV 80.7 fL (80.0-100.0) 02/19/18 04:56 MCH 27.6 pg (27.0-34.0) 02/19/18 04:56 MCHC 34.2 g/dL (33.0-35.0) 02/19/18 04:56 RDW 15.4 % (11.6-16.5) 02/19/18 04:56 Plt Count 165 X10^3/uL (150.0-450.0) 02/19/18 04:56 Plt Count Comment Adequate (ADEQUATE) 02/19/18 04:56 MPV 7.8 fL (7.4-11.0) 02/19/18 04:56 Neut % (Auto) 64.3 % (42.0-75.0) 02/19/18 04:56 Lymph % (Auto) 19.6 % (21.0-51.0) L 02/19/18 04:56 [place] % (Auto) 13.2 % (0.0-13.0) H 02/19/18 04:56 Eos % (Auto) 2.2 % (0.9-2.9) 02/19/18 04:56 Baso % (Auto) 0.7 % (0.2-1.0) 02/19/18 04:56 Neut # (Auto) 2.5 x10^3/uL (2.2-4.8) 02/19/18 04:56 Lymph # (Auto) 0.8 X10^3/uL (1.3-2.9) L 02/19/18 04:56 [place] # (Auto) 0.5 x10^3/uL (0.3-0.8) 02/19/18 04:56 Eos # (Auto) 0.1 x10^3/uL (0.0-0.2) 02/19/18 04:56 Baso # (Auto) 0.0 X10^3/uL (0.0-0.1) 02/19/18 04:56 Absolute Nucleated RBC 0.1 /100WBC 02/19/18 04:56 Plt Morphology Comment Normal (NORMAL) 02/19/18 04:56 RBC Morphology Normal (NORMAL) 02/19/18 04:56 Sodium 136 mmol/L (136-145) 02/19/18 04:56 Corrected Sodium 136 mmol/L (136-145) 02/19/18 04:56 Potassium 3.4 mmol/L (3.5-5.1) L 02/19/18 04:56 Chloride 103 mmol/L (98-107) 02/19/18 04:56 Carbon Dioxide 26.8 mmol/L (21-32) 02/19/18 04:56 BUN 0 mg/dL (7-18) L 02/19/18 04:56 Creatinine 0.77 mg/dL (0.55-1.02) 02/19/18 04:56 Est GFR (MDRD) Af Amer > 60 (>60) 02/19/18 04:56 Est GFR (MDRD) Non-Af > 60 (>60) 02/19/18 04:56 Glucose 113 mg/dL (65-99) H 02/19/18 04:56 Calcium 7.2 mg/dL (8.5-10.1) L 02/19/18 04:56 Corrected Calcium 8.6 mg/dL (8.5-10.1) 02/19/18 04:56 Magnesium 2.1 mg/dL (1.7-2.9) 02/16/18 04:32 Total Bilirubin 0.60 mg/dL (0.2-1.0) 02/19/18 04:56 AST 6 Units/L (15-37) L 02/19/18 04:56 ALT 10 Units/L (12-78) L 02/19/18 04:56 Alkaline Phosphatase 84 Units/L (46-116) 02/19/18 04:56 Total Protein 5.3 g/dL (6.4-8.2) L 02/19/18 04:56 Albumin 2.3 g/dL (3.4-5.0) L 02/19/18 04:56 Globulin 3.0 g/dL (2.5-4.5) 02/19/18 04:56 Albumin/Globulin Ratio 0.8 Ratio (1.1-2.1) L 02/19/18 04:56 Amylase 40 Units/L (25-115) 02/09/18 04:20 Lipase 78 Units/L (73-393) 02/09/18 04:20 Specimen Type Clean catch urine 02/08/18 19:46 Urine Color Yellow (YELLOW) 02/08/18 19:46 Urine Appearance Slightly hazy (CLEAR) 02/08/18 19:46 Urine pH 5.0 (5.0 - 8.0) 02/08/18 19:46 Ur Specific [place] 1.030 (1.000-1.030) 02/08/18 19:46 Urine Protein 2+ (NEGATIVE) 02/08/18 19:46 Urine Glucose (UA) Negative (NEGATIVE) 02/08/18 19:46 Urine Ketones 4+ (NEGATIVE) 02/08/18 19:46 Urine Occult Blood 1+ (NEGATIVE) 02/08/18 19:46 Urine Nitrite Negative (NEGATIVE) 02/08/18 19:46 Urine Bilirubin 2+ (NEGATIVE) 02/08/18 19:46 Urine Urobilinogen 1+ (NORMAL) 02/08/18 19:46 Ur Leukocyte Esterase 1+ (NEGATIVE) 02/08/18 19:46 Urine RBC 0-2 /HPF (NONE SEEN) 02/08/18 19:46 Urine WBC 3-5 /HPF (NONE SEEN) 02/08/18 19:46 Ur Squamous Epith Cells Moderate /HPF (NEGATIVE) 02/08/18 19:46 Amorphous Sediment 2+ /HPF (NEGATIVE) 02/08/18 19:46 Urine Bacteria Trace /HPF (NEGATIVE) 02/08/18 19:46 Hyaline Casts Many /LPF (NEGATIVE) 02/08/18 19:46 Urine Mucus Moderate /HPF (NEGATIVE) 02/08/18 19:46 Ur Culture Indicated? No/not indicated 02/08/18 19:46 Tissue Pathology To follow 02/14/18 17:06 - Assessment and Plan 1: recurrent partial SBO. abdominal adhesions. 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 post operative anemia. s/p laparotomy and bypass SBO. same po care . advance diet . DVT prophylaxis , OOB with binder,. on soft diet today .. from surgical point of view pt could be discharged in am and will follow in 10 days . - Problem Patient Problems: Patient Problems Abdominal pain (Acute) R10.9 Small bowel obstruction (Acute) K56.609 Dehydration (Acute) E86.0 Hyperlipidemia (Acute) E78.5
--- NOTE | 2018-02-19 18:09 | PCM.PROG ---
Progress Note - Progress Note for Day of Date: 02/19/18 - Subjective Subjective: IS STATUS POST EXPLORATORY LAPAROTOMY, BYPASS OF SMALL BOWEL OBSTRUCTION, AND LYSIS OF ADHESIONS. LAPAROTOMY REVEALED EXTENSIVE ADHESIONS AND MULTIPLE AREAS OF WHAT LOOKED LIKE METASTATIC SEEDING INVOLVING THE SMALL BOWEL AND MESENTARY. TODAY, SHE IS ALERT AND ORIENTED, LYING IN BED ON MORNING ROUNDS. SHE CONTINUES WITH MILD ABDOMINAL PAIN TODAY, BUT REPORTS SLIGHT IMPROVEMENT. HER VITALS THIS MORNING ARE 98.3-83-21-97%-122/77. LABS WERE OBTAINED. ABNORMAL LAB VALUES INCLUDE THE FOLLOWIN.90, HGB 8.0, HCT 23.4, POTASSIUM 3.4, BUN 0, GLUCOSE 113, CALCIUM 7.2, AST 6, ALT 10, TOTAL PROTEIN 5.3, ALBUMIN 2.3. PATHOLOGY REPORT IS PENDING. IT SHOULD BE BACK TOMORROW. SHE CONTINUES ON IV FLUIDS, IV PAIN MEDICATIONS, AND IV NAUSEA MEDICATIONS. SHE HAS NOT YET HAD A BOWEL MOVEMENT, BUT IS TOLERATING A SOFT DIET WELL. WE WILL CONTINUE WITH CURRENT PLAN OF CARE TODAY. OTHERWISE, WE WILL FOLLOW UP WITH AM LABS AND CONTINUE TO MONITOR PATIENT. CONTINUES TO FOLLOW PATIENT. - Past Medical Family Social History Past Med/Fam/Surg Hx: No changes since H&P, Changes noted (describe) Allergies: Allergies No Known Drug Allergies Allergy (Verified 01/28/18 14:30) - Review of Systems ROS: No change since H&P - Vital Signs and I&O's Vital Signs: Temperature 99.6 F Pulse Rate [Right Radial] 84 Pulse Rate 90 Respiratory Rate 19 Blood Pressure [Right Arm] 115/63 Blood Pressure [Left Arm] 130/62 Blood Pressure [Left Radial 126/65 Artery] Blood Pressure 144/87 O2 Sat by Pulse Oximetry 97 Intake and Output: Intake & Output 02/17/18 02/18/18 02/19/18 02/20/18 11:59 11:59 11:59 11:59 Intake Total 2942 / 2942 2640 / 2640 4173 / 4173 80 / 80 Output Total 2400 / 2400 2550 / 2550 2100 / 2100 Balance 542 / 542 90 / 90 2073 / 2073 80 / 80 - Physical Exam Oriented: Normal Eyes: Normal Ear: Normal Nose: Normal Throat: Normal Respiratory: Normal Cardiovascular: Normal : Normal Auscultation: Bowel Sounds: Normal Palpation: Normal Tenderness: Diffuse (incisional tenderness ), Mild Skin: Normal Musculoskeletal: Normal Psychiatric: Normal Mood Description: Calm Affect: Normal Speech Pattern: Clear, Appropriate - Laboratory and Diagnostics Result Diagrams: 02/19/18 04:56 02/19/18 04:56 Labs: Laboratory WBC 4.0 X10^3/uL (3.6-10.0) 02/19/18 04:56 RBC 2.90 X10^6/uL (3.5-5.4) L 02/19/18 04:56 Hgb 8.0 g/dL (12.0-16.0) L 02/19/18 04:56 Hct 23.4 % (36.0-47.0) L 02/19/18 04:56 MCV 80.7 fL (80.0-100.0) 02/19/18 04:56 MCH 27.6 pg (27.0-34.0) 02/19/18 04:56 MCHC 34.2 g/dL (33.0-35.0) 02/19/18 04:56 RDW 15.4 % (11.6-16.5) 02/19/18 04:56 Plt Count 165 X10^3/uL (150.0-450.0) 02/19/18 04:56 Plt Count Comment Adequate (ADEQUATE) 02/19/18 04:56 MPV 7.8 fL (7.4-11.0) 02/19/18 04:56 Neut % (Auto) 64.3 % (42.0-75.0) 02/19/18 04:56 Lymph % (Auto) 19.6 % (21.0-51.0) L 02/19/18 04:56 [place] % (Auto) 13.2 % (0.0-13.0) H 02/19/18 04:56 Eos % (Auto) 2.2 % (0.9-2.9) 02/19/18 04:56 Baso % (Auto) 0.7 % (0.2-1.0) 02/19/18 04:56 Neut # (Auto) 2.5 x10^3/uL (2.2-4.8) 02/19/18 04:56 Lymph # (Auto) 0.8 X10^3/uL (1.3-2.9) L 02/19/18 04:56 [place] # (Auto) 0.5 x10^3/uL (0.3-0.8) 02/19/18 04:56 Eos # (Auto) 0.1 x10^3/uL (0.0-0.2) 02/19/18 04:56 Baso # (Auto) 0.0 X10^3/uL (0.0-0.1) 02/19/18 04:56 Absolute Nucleated RBC 0.1 /100WBC 02/19/18 04:56 Plt Morphology Comment Normal (NORMAL) 02/19/18 04:56 RBC Morphology Normal (NORMAL) 02/19/18 04:56 Sodium 136 mmol/L (136-145) 02/19/18 04:56 Corrected Sodium 136 mmol/L (136-145) 02/19/18 04:56 Potassium 3.4 mmol/L (3.5-5.1) L 02/19/18 04:56 Chloride 103 mmol/L (98-107) 02/19/18 04:56 Carbon Dioxide 26.8 mmol/L (21-32) 02/19/18 04:56 BUN 0 mg/dL (7-18) L 02/19/18 04:56 Creatinine 0.77 mg/dL (0.55-1.02) 02/19/18 04:56 Est GFR (MDRD) Af Amer > 60 (>60) 02/19/18 04:56 Est GFR (MDRD) Non-Af > 60 (>60) 02/19/18 04:56 Glucose 113 mg/dL (65-99) H 02/19/18 04:56 Calcium 7.2 mg/dL (8.5-10.1) L 02/19/18 04:56 Corrected Calcium 8.6 mg/dL (8.5-10.1) 02/19/18 04:56 Magnesium 2.1 mg/dL (1.7-2.9) 02/16/18 04:32 Total Bilirubin 0.60 mg/dL (0.2-1.0) 02/19/18 04:56 AST 6 Units/L (15-37) L 02/19/18 04:56 ALT 10 Units/L (12-78) L 02/19/18 04:56 Alkaline Phosphatase 84 Units/L (46-116) 02/19/18 04:56 Total Protein 5.3 g/dL (6.4-8.2) L 02/19/18 04:56 Albumin 2.3 g/dL (3.4-5.0) L 02/19/18 04:56 Globulin 3.0 g/dL (2.5-4.5) 02/19/18 04:56 Albumin/Globulin Ratio 0.8 Ratio (1.1-2.1) L 02/19/18 04:56 Amylase 40 Units/L (25-115) 02/09/18 04:20 Lipase 78 Units/L (73-393) 02/09/18 04:20 Specimen Type Clean catch urine 02/08/18 19:46 Urine Color Yellow (YELLOW) 02/08/18 19:46 Urine Appearance Slightly hazy (CLEAR) 02/08/18 19:46 Urine pH 5.0 (5.0 - 8.0) 02/08/18 19:46 Ur Specific [place] 1.030 (1.000-1.030) 02/08/18 19:46 Urine Protein 2+ (NEGATIVE) 02/08/18 19:46 Urine Glucose (UA) Negative (NEGATIVE) 02/08/18 19:46 Urine Ketones 4+ (NEGATIVE) 02/08/18 19:46 Urine Occult Blood 1+ (NEGATIVE) 02/08/18 19:46 Urine Nitrite Negative (NEGATIVE) 02/08/18 19:46 Urine Bilirubin 2+ (NEGATIVE) 02/08/18 19:46 Urine Urobilinogen 1+ (NORMAL) 02/08/18 19:46 Ur Leukocyte Esterase 1+ (NEGATIVE) 02/08/18 19:46 Urine RBC 0-2 /HPF (NONE SEEN) 02/08/18 19:46 Urine WBC 3-5 /HPF (NONE SEEN) 02/08/18 19:46 Ur Squamous Epith Cells Moderate /HPF (NEGATIVE) 02/08/18 19:46 Amorphous Sediment 2+ /HPF (NEGATIVE) 02/08/18 19:46 Urine Bacteria Trace /HPF (NEGATIVE) 02/08/18 19:46 Hyaline Casts Many /LPF (NEGATIVE) 02/08/18 19:46 Urine Mucus Moderate /HPF (NEGATIVE) 05/26/18 19:46 Ur Culture Indicated? No/not indicated 02/08/18 19:46 Tissue Pathology To follow 02/14/18 17:06 - Plan (1) Partial bowel obstruction Status: Acute Qualifiers: Intestinal obstruction type: obstruction due to adhesions Qualified Code(s) : K56.51 - Intestinal adhesions [bands], with partial obstruction Plan: CONTINUE IV FLUIDS, ADVANCE TO SOFT DIET, PAIN MEDICATIONS, NAUSEA MEDICATIONS, CONTINUE TO MONITOR (2) Hyperlipidemia Status: Acute Qualifiers: Hyperlipidemia type: mixed hyperlipidemia Qualified Code(s): E78.2 - Mixed hyperlipidemia Plan: CONTINUE LIPITOR (3) Hypokalemia Status: Chronic Plan: POTASSIUM REPLACEMENT WITH PROTOCOL
[2018-02-19] MEDS: NORCO 5/325 MG TAB PO PRN (22:26)
[2018-02-20] MEDS: DILAUDID INJ IVP PRN ×5 (00:03→23:47)
[2018-02-20] MEDS: BENTYL CAP 10 MG PO SCH ×3 (05:35→21:26)
[2018-02-20] MEDS: D5 1/2 NS 1000 ML 1,000 ML IV SCH ×4 (05:35→22:48)
[2018-02-20 06:12] LABS: BASOPHILS % (AUTO) 0.6 % (0.2-1.0); EOSINOPHILS # (AUTO) 0.1 x10^3/uL (0.0-0.2); EOSINOPHILS % (AUTO) 2.1 % (0.9-2.9); HEMATOCRIT 23.7 % (36.0-47.0); HEMOGLOBIN 8.3 g/dL (12.0-16.0); LYMPHOCYTES # (AUTO) 0.9 X10^3/uL (1.3-2.9); LYMPHOCYTES % (AUTO) 23.2 % (21.0-51.0); MEAN CORPUSCULAR VOLUME 80.2 fL (80.0-100.0); MEAN PLATELET VOLUME 8.3 fL (7.4-11.0); MONOCYTES # (AUTO) 0.5 x10^3/uL (0.3-0.8); NEUTROPHILS # (AUTO) 2.5 x10^3/uL (2.2-4.8); NEUTROPHILS % (AUTO) 62.1 % (42.0-75.0); PLATELET COUNT 182 X10^3/uL (150.0-450.0); RED BLOOD COUNT 2.96 X10^6/uL (3.5-5.4); RED CELL DISTRIBUTION WIDTH 15.1 % (11.6-16.5); WHITE BLOOD COUNT 4.1 X10^3/uL (3.6-10.0)
[2018-02-20 06:17] LABS: ALANINE AMINOTRANSFERASE 11 Units/L (12-78); ALBUMIN 2.4 g/dL (3.4-5.0); ALKALINE PHOSPHATASE 84 Units/L (46-116); ASPARTATE AMINO TRANSFERASE 16 Units/L (15-37); BLOOD UREA NITROGEN 2 mg/dL (7-18); CALCIUM 8.1 mg/dL (8.5-10.1); CARBON DIOXIDE 28.1 mmol/L (21-32); CHLORIDE 102 mmol/L (98-107); COR CA(FOR HYPOALB) 9.4 mg/dL (8.5-10.1); CREATININE 0.77 mg/dL (0.55-1.02); SODIUM 136 mmol/L (136-145); TOTAL PROTEIN 5.4 g/dL (6.4-8.2); eGFR NON BLACK RACES > 60 (>60)
[2018-02-20] MEDS: SYNTHROID 25 mcg TAB PO SCH (06:26)
[2018-02-20] MEDS: ZOFRAN INJ 4 MG VIAL IVP PRN (07:41)
[2018-02-20] MEDS: PHENERGAN INJ 25 MG IV PRN ×3 (08:13→23:48)
[2018-02-20] MEDS: LIPITOR TAB 40 MG PO SCH (08:14)
[2018-02-20] MEDS: PROTONIX INJ 40 MG VIAL IVP SCH (08:14)
[2018-02-20] MEDS: K-DUR TAB 20 MEQ PO SCH (08:14)
[2018-02-20] MEDS: LOVENOX INJ 40 MG SYR SC SCH (08:15)
--- NOTE | 2018-02-20 09:35 | RAD ---
HISTORY: Nausea, vomiting postop Study: Flat and upright abdomen, PA chest Comparison: 02/14/2018 Findings: The heart is within normal limits in size. The ximena are normal. The lung borjas are clear. There has been interval redevelopment since the prior examination of multiple dilated loops of small bowel demo nstrating air-fluid levels on the upright film. Recurrent partial small bowel obstruction is suspecte d. No pneumoperitoneum is identified. The regional skeleton is intact. Surgical clips and surgical st aples are identified throughout the abdomen. IMPRESSION: Redevelopment of multiple dilated loops of small bowel demonstrating air-fluid levels on the upright film and suggestive of recurrent small bowel obstruction Lungs clear Reported By:
--- NOTE | 2018-02-20 10:16 | DR.PROGNOT ---
Hospital Progress Notes - Progress Note for Day of: Progress Note Date: 02/20/18 - Chief Complaint Chief Complaint: vomited this morning ,and was having mid abdominal pain . abdominal xray showed recurrent partial SBO . - History of Present Illness History of Present Illness: multiple abdominal surgeries for colon ca x2 , Gastrectomy for gstric ca . hysterectomy and lap kaleb . - Past Medical Family Social History Past Med/Fam/Surg Hx: No changes since H&P, Changes noted (describe) Allergies: Allergies No Known Drug Allergies Allergy (Verified 01/28/18 14:30) - Review Of Systems ROS: No change since H&P - Vital Signs Vital Signs: Temperature 97.9 F Pulse Rate [Right Radial] 86 Pulse Rate 90 Respiratory Rate 22 Blood Pressure [Right Arm] 115/63 Blood Pressure [Left Arm] 146/79 Blood Pressure [Left Radial 126/65 Artery] Blood Pressure 144/87 O2 Sat by Pulse Oximetry 96 - Physical Exam Oriented: Normal Eyes: Normal Ear: Normal Nose: Normal Throat: Normal Respiratory: Normal Cardiovascular: Normal : Normal GI:Auscultation: Normal GI:Palpation: Normal GI: Tenderness: Diffuse (incisional tenderness ), Mild Skin: Normal Musculoskeletal: Normal Psychiatric: Normal Mood Description: Calm Affect: Normal Speech Pattern: Clear, Appropriate - Laboratory and Diagnostics Result Diagrams: 02/20/18 04:30 02/20/18 04:30 Labs: Laboratory WBC 4.1 X10^3/uL (3.6-10.0) 02/20/18 04:30 RBC 2.96 X10^6/uL (3.5-5.4) L 02/20/18 04:30 Hgb 8.3 g/dL (12.0-16.0) L 02/20/18 04:30 Hct 23.7 % (36.0-47.0) L 02/20/18 04:30 MCV 80.2 fL (80.0-100.0) 02/20/18 04:30 MCH 28.0 pg (27.0-34.0) 02/20/18 04:30 MCHC 35.0 g/dL (33.0-35.0) 02/20/18 04:30 RDW 15.1 % (11.6-16.5) 02/20/18 04:30 Plt Count 182 X10^3/uL (150.0-450.0) 02/20/18 04:30 Plt Count Comment Adequate (ADEQUATE) 02/19/18 04:56 MPV 8.3 fL (7.4-11.0) 02/20/18 04:30 Neut % (Auto) 62.1 % (42.0-75.0) 02/20/18 04:30 Lymph % (Auto) 23.2 % (21.0-51.0) 02/20/18 04:30 [place] % (Auto) 12.0 % (0.0-13.0) 02/20/18 04:30 Eos % (Auto) 2.1 % (0.9-2.9) 02/20/18 04:30 Baso % (Auto) 0.6 % (0.2-1.0) 02/20/18 04:30 Neut # (Auto) 2.5 x10^3/uL (2.2-4.8) 02/20/18 04:30 Lymph # (Auto) 0.9 X10^3/uL (1.3-2.9) L 02/20/18 04:30 [place] # (Auto) 0.5 x10^3/uL (0.3-0.8) 02/20/18 04:30 Eos # (Auto) 0.1 x10^3/uL (0.0-0.2) 02/20/18 04:30 Baso # (Auto) 0.0 X10^3/uL (0.0-0.1) 02/20/18 04:30 Absolute Nucleated RBC 0.2 /100WBC 02/20/18 04:30 Plt Morphology Comment Normal (NORMAL) 02/19/18 04:56 RBC Morphology Normal (NORMAL) 02/19/18 04:56 Sodium 136 mmol/L (136-145) 02/20/18 04:30 Corrected Sodium TNP 02/20/18 04:30 Potassium 3.8 mmol/L (3.5-5.1) 02/20/18 04:30 Chloride 102 mmol/L (98-107) 02/20/18 04:30 Carbon Dioxide 28.1 mmol/L (21-32) 02/20/18 04:30 BUN 2 mg/dL (7-18) L 02/20/18 04:30 Creatinine 0.77 mg/dL (0.55-1.02) 02/20/18 04:30 Est GFR (MDRD) Af Amer > 60 (>60) 02/20/18 04:30 Est GFR (MDRD) Non-Af > 60 (>60) 02/20/18 04:30 Glucose 95 mg/dL (65-99) 02/20/18 04:30 Calcium 8.1 mg/dL (8.5-10.1) L 02/20/18 04:30 Corrected Calcium 9.4 mg/dL (8.5-10.1) 02/20/18 04:30 Magnesium 2.1 mg/dL (1.7-2.9) 02/16/18 04:32 Total Bilirubin 0.60 mg/dL (0.2-1.0) 02/20/18 04:30 AST 16 Units/L (15-37) 02/20/18 04:30 ALT 11 Units/L (12-78) L 02/20/18 04:30 Alkaline Phosphatase 84 Units/L (46-116) 02/20/18 04:30 Total Protein 5.4 g/dL (6.4-8.2) L 02/20/18 04:30 Albumin 2.4 g/dL (3.4-5.0) L 02/20/18 04:30 Globulin 3.0 g/dL (2.5-4.5) 02/20/18 04:30 Albumin/Globulin Ratio 0.8 Ratio (1.1-2.1) L 02/20/18 04:30 Amylase 40 Units/L (25-115) 02/09/18 04:20 Lipase 78 Units/L (73-393) 02/09/18 04:20 Specimen Type Clean catch urine 02/08/18 19:46 Urine Color Yellow (YELLOW) 02/08/18 19:46 Urine Appearance Slightly hazy (CLEAR) 02/08/18 19:46 Urine pH 5.0 (5.0 - 8.0) 02/08/18 19:46 Ur Specific [place] 1.030 (1.000-1.030) 02/08/18 19:46 Urine Protein 2+ (NEGATIVE) 02/08/18 19:46 Urine Glucose (UA) Negative (NEGATIVE) 05/26/18 19:46 Urine Ketones 4+ (NEGATIVE) 02/08/18 19:46 Urine Occult Blood 1+ (NEGATIVE) 02/08/18 19:46 Urine Nitrite Negative (NEGATIVE) 02/08/18 19:46 Urine Bilirubin 2+ (NEGATIVE) 02/08/18 19:46 Urine Urobilinogen 1+ (NORMAL) 02/08/18 19:46 Ur Leukocyte Esterase 1+ (NEGATIVE) 02/08/18 19:46 Urine RBC 0-2 /HPF (NONE SEEN) 02/08/18 19:46 Urine WBC 3-5 /HPF (NONE SEEN) 02/08/18 19:46 Ur Squamous Epith Cells Moderate /HPF (NEGATIVE) 02/08/18 19:46 Amorphous Sediment 2+ /HPF (NEGATIVE) 02/08/18 19:46 Urine Bacteria Trace /HPF (NEGATIVE) 02/08/18 19:46 Hyaline Casts Many /LPF (NEGATIVE) 02/08/18 19:46 Urine Mucus Moderate /HPF (NEGATIVE) 02/08/18 19:46 Ur Culture Indicated? No/not indicated 02/08/18 19:46 Tissue Pathology To follow 02/14/18 17:06 - Assessment and Plan 1: recurrent partial SBO. abdominal adhesions. 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 post operative anemia. s/p laparotomy and bypass SBO. same po care . keep NPO for now . DVT prophylaxis , OOB with binder, - Problem Patient Problems: Patient Problems Abdominal pain (Acute) R10.9 Small bowel obstruction (Acute) K56.609 Dehydration (Acute) E86.0 Hyperlipidemia (Acute) E78.5
[2018-02-21] MEDS: D5 1/2 NS 1000 ML 1,000 ML IV SCH (02:07)
[2018-02-21 05:55] LABS: BASOPHILS % (AUTO) 0.4 % (0.2-1.0); EOSINOPHILS # (AUTO) 0.1 x10^3/uL (0.0-0.2); EOSINOPHILS % (AUTO) 1.4 % (0.9-2.9); HEMOGLOBIN 8.5 g/dL (12.0-16.0); LYMPHOCYTES # (AUTO) 0.7 X10^3/uL (1.3-2.9); LYMPHOCYTES % (AUTO) 15.6 % (21.0-51.0); MEAN CORPUSCULAR HEMOGLOBIN 27.6 pg (27.0-34.0); MEAN CORPUSCULAR HGB CONC 33.9 g/dL (33.0-35.0); MEAN CORPUSCULAR VOLUME 81.3 fL (80.0-100.0); MONOCYTES # (AUTO) 0.5 x10^3/uL (0.3-0.8); MONOCYTES % (AUTO) 11.7 % (0.0-13.0); NEUTROPHILS # (AUTO) 3.1 x10^3/uL (2.2-4.8); NEUTROPHILS % (AUTO) 70.9 % (42.0-75.0); PLATELET COUNT 218 X10^3/uL (150.0-450.0); RED BLOOD COUNT 3.07 X10^6/uL (3.5-5.4); RED CELL DISTRIBUTION WIDTH 15.4 % (11.6-16.5); WHITE BLOOD COUNT 4.3 X10^3/uL (3.6-10.0)
[2018-02-21] MEDS: SYNTHROID 25 mcg TAB PO SCH (06:07)
[2018-02-21] MEDS: BENTYL CAP 10 MG PO SCH (06:07)
[2018-02-21 06:12] LABS: BAND NEUTROPHILS % 2 % (0-10); HYPOCHROMASIA SLIGHT; PLATELET MORPHOLOGY COMMENT NORMAL (NORMAL)
[2018-02-21 06:17] LABS: ALANINE AMINOTRANSFERASE 15 Units/L (12-78); ALBUMIN 2.5 g/dL (3.4-5.0); ALKALINE PHOSPHATASE 86 Units/L (46-116); ASPARTATE AMINO TRANSFERASE 20 Units/L (15-37); BLOOD UREA NITROGEN 3 mg/dL (7-18); CARBON DIOXIDE 29.5 mmol/L (21-32); CHLORIDE 101 mmol/L (98-107); COR CA(FOR HYPOALB) 9.2 mg/dL (8.5-10.1); CREATININE 0.83 mg/dL (0.55-1.02); SODIUM 136 mmol/L (136-145); TOTAL PROTEIN 5.8 g/dL (6.4-8.2); eGFR NON BLACK RACES > 60 (>60)
--- NOTE | 2018-02-21 07:01 | RAD ---
HISTORY: Postop nausea and vomiting Study: Flat and upright abdomen, PA chest Comparison: 02/20/2018 Findings: The heart is within normal limits in size. The ximena are normal. The lung borjas are clear with the ex ception of some perihilar subsegmental atelectasis on the right. There is still some dilated small kathe wel in the right upper abdomen demonstrating air-fluid levels on the upright film. There is somewhat more gas distally within the colon when compared with the prior examination. A partial small bowel ob struction is still possible. No pneumoperitoneum is identified. No abnormal masses or abnormal calcif ications are identified. Michelle are present in the midline. Multiple surgical clips are present IMPRESSION: Persistent dilated small bowel demonstrating air-fluid levels on the upright film but with more gas d istally within the colon. A partial small bowel obstruction is still possible. Lungs clear Reported By:
[2018-02-21] MEDS: K-DUR TAB 20 MEQ PO SCH (09:43)
[2018-02-21] MEDS: LOVENOX INJ 40 MG SYR SC SCH (09:43)
[2018-02-21] MEDS: LIPITOR TAB 40 MG PO SCH (09:43)
[2018-02-21] MEDS: PROTONIX INJ 40 MG VIAL IVP SCH (09:43)
--- NOTE | 2018-02-21 13:48 | PCM.PROG ---
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 LAPAROTOMY REVEALED EXTENSIVE ADHESIONS AND MULTIPLE AREAS OF WHAT LOOKED LIKE METASTATIC SEEDING INVOLVING THE SMALL BOWEL AND MESENTARY. TODAY, SHE IS ALERT AND ORIENTED, LYING IN BED ON MORNING ROUNDS. SHE CONTINUES WITH MILD ABDOMINAL PAIN TODAY, BUT REPORTS SLIGHT IMPROVEMENT. HER VITALS THIS MORNING ARE 98.3-83-21-97%-122/77. LABS WERE OBTAINED. ABNORMAL LAB VALUES INCLUDE THE FOLLOWIN.90, HGB 8.0, HCT 23.4, POTASSIUM 3.4, BUN 0, GLUCOSE 113, CALCIUM 7.2, AST 6, ALT 10, TOTAL PROTEIN 5.3 , ALBUMIN 2.3. PATHOLOGY REPORT IS PENDING. IT SHOULD BE BACK TOMORROW. SHE CONTINUES ON IV FLUIDS, IV PAIN MEDICATIONS, AND IV NAUSEA MEDICATIONS. SHE Had HAD A BOWEL MOVEMENT, A SOFT DIET WELL. WE WILL CONTINUE WITH CURRENT PLAN OF CARE TODAY. OTHERWISE, WE WILL FOLLOW UP WITH AM LABS AND CONTINUE TO MONITOR PATIENT. - Past Medical Family Social History Past Med/Fam/Surg Hx: No changes since H&P, Changes noted (describe) Allergies: Allergies No Known Drug Allergies Allergy (Verified 01/28/18 14:30) - Review of Systems ROS: No change since H&P - Vital Signs and I&O's Vital Signs: Temperature 98.1 F Pulse Rate [Right Radial] 83 Pulse Rate 90 Respiratory Rate 20 Blood Pressure [Right Arm] 115/63 Blood Pressure [Left Arm] 137/70 Blood Pressure [Left Radial 126/65 Artery] Blood Pressure 144/87 O2 Sat by Pulse Oximetry 93 Intake and Output: Intake & Output 02/19/18 02/20/18 02/21/18 02/22/18 11:59 11:59 11:59 11:59 Intake Total 4173 / 4173 1280 / 1280 1767 / 1767 Output Total 2099 / 2099 200 / 200 Balance 2072 / 2072 1080 / 1080 176 / 176 - Physical Exam Oriented: Normal Eyes: Normal Ear: Normal Nose: Normal Throat: Normal Respiratory: Normal Cardiovascular: Normal, Tachycardia : Normal Auscultation: Bowel Sounds: Normal Tenderness: Diffuse (incisional tenderness ), Mild Skin: Normal Musculoskeletal: Normal Psychiatric: Normal Mood Description: Calm Affect: Normal Speech Pattern: Clear, Appropriate - Laboratory and Diagnostics Result Diagrams: 02/21/18 05:25 02/21/18 05:25 Labs: Laboratory WBC 4.3 X10^3/uL (3.6-10.0) 02/21/18 05:25 RBC 3.07 X10^6/uL (3.5-5.4) L 02/21/18 05:25 Hgb 8.5 g/dL (12.0-16.0) L 02/21/18 05:25 Hct 25.0 % (36.0-47.0) L 02/21/18 05:25 MCV 81.3 fL (80.0-100.0) 02/21/18 05:25 MCH 27.6 pg (27.0-34.0) 02/21/18 05:25 MCHC 33.9 g/dL (33.0-35.0) 02/21/18 05:25 RDW 15.4 % (11.6-16.5) 02/21/18 05:25 Plt Count 218 X10^3/uL (150.0-450.0) 02/21/18 05:25 Plt Count Comment Adequate (ADEQUATE) 02/21/18 05:25 MPV 7.0 fL (7.4-11.0) L 02/21/18 05:25 Neut % (Auto) 70.9 % (42.0-75.0) 02/21/18 05:25 Lymph % (Auto) 15.6 % (21.0-51.0) L 02/21/18 05:25 [place] % (Auto) 11.7 % (0.0-13.0) 02/21/18 05:25 Eos % (Auto) 1.4 % (0.9-2.9) 02/21/18 05:25 Baso % (Auto) 0.4 % (0.2-1.0) 02/21/18 05:25 Neut # (Auto) 3.1 x10^3/uL (2.2-4.8) 02/21/18 05:25 Lymph # (Auto) 0.7 X10^3/uL (1.3-2.9) L 02/21/18 05:25 [place] # (Auto) 0.5 x10^3/uL (0.3-0.8) 02/21/18 05:25 Eos # (Auto) 0.1 x10^3/uL (0.0-0.2) 02/21/18 05:25 Baso # (Auto) 0.0 X10^3/uL (0.0-0.1) 02/21/18 05:25 Absolute Nucleated RBC 0.5 /100WBC 02/21/18 05:25 Total Counted 100 02/21/18 05:25 Neutrophils % (Manual) 75 % (39-76) 02/21/18 05:25 Band Neutrophils % 2 % (0-10) 02/21/18 05:25 Lymphocytes % (Manual) 14 % (13-43) 02/21/18 05:25 Monocytes % (Manual) 6 % (4-9) 02/21/18 05:25 Eosinophils % (Manual) 3 % (0-6) 02/21/18 05:25 Plt Morphology Comment Normal (NORMAL) 02/21/18 05:25 RBC Morphology Abnormal (NORMAL) A 02/21/18 05:25 Hypochromasia Slight A 02/21/18 05:25 Sodium 136 mmol/L (136-145) 02/21/18 05:25 Corrected Sodium TNP 02/21/18 05:25 Potassium 3.3 mmol/L (3.5-5.1) L 02/21/18 05:25 Chloride 101 mmol/L (98-107) 02/21/18 05:25 Carbon Dioxide 29.5 mmol/L (21-32) 02/21/18 05:25 BUN 3 mg/dL (7-18) L 02/21/18 05:25 Creatinine 0.83 mg/dL (0.55-1.02) 02/21/18 05:25 Est GFR (MDRD) Af Amer > 60 (>60) 02/21/18 05:25 Est GFR (MDRD) Non-Af > 60 (>60) 02/21/18 05:25 Glucose 99 mg/dL (65-99) 02/21/18 05:25 Calcium 8.0 mg/dL (8.5-10.1) L 02/21/18 05:25 Corrected Calcium 9.2 mg/dL (8.5-10.1) 02/21/18 05:25 Magnesium 1.5 mg/dL (1.7-2.9) L 02/21/18 05:25 Total Bilirubin 0.70 mg/dL (0.2-1.0) 02/21/18 05:25 AST 20 Units/L (15-37) 02/21/18 05:25 ALT 15 Units/L (12-78) 02/21/18 05:25 Alkaline Phosphatase 86 Units/L (46-116) 02/21/18 05:25 Total Protein 5.8 g/dL (6.4-8.2) L 02/21/18 05:25 Albumin 2.5 g/dL (3.4-5.0) L 02/21/18 05:25 Globulin 3.3 g/dL (2.5-4.5) 02/21/18 05:25 Albumin/Globulin Ratio 0.8 Ratio (1.1-2.1) L 02/21/18 05:25 Amylase 40 Units/L (25-115) 02/09/18 04:20 Lipase 78 Units/L (73-393) 02/09/18 04:20 Specimen Type Clean catch urine 02/08/18 19:46 Urine Color Yellow (YELLOW) 02/08/18 19:46 Urine Appearance Slightly hazy (CLEAR) 02/08/18 19:46 Urine pH 5.0 (5.0 - 8.0) 02/08/18 19:46 Ur Specific [place] 1.030 (1.000-1.030) 02/08/18 19:46 Urine Protein 2+ (NEGATIVE) 02/08/18 19:46 Urine Glucose (UA) Negative (NEGATIVE) 02/08/18 19:46 Urine Ketones 4+ (NEGATIVE) 02/08/18 19:46 Urine Occult Blood 1+ (NEGATIVE) 02/08/18 19:46 Urine Nitrite Negative (NEGATIVE) 02/08/18 19:46 Urine Bilirubin 2+ (NEGATIVE) 02/08/18 19:46 Urine Urobilinogen 1+ (NORMAL) 02/08/18 19:46 Ur Leukocyte Esterase 1+ (NEGATIVE) 02/08/18 19:46 Urine RBC 0-2 /HPF (NONE SEEN) 02/08/18 19:46 Urine WBC 3-5 /HPF (NONE SEEN) 02/08/18 19:46 Ur Squamous Epith Cells Moderate /HPF (NEGATIVE) 02/08/18 19:46 Amorphous Sediment 2+ /HPF (NEGATIVE) 02/08/18 19:46 Urine Bacteria Trace /HPF (NEGATIVE) 02/08/18 19:46 Hyaline Casts Many /LPF (NEGATIVE) 02/08/18 19:46 Urine Mucus Moderate /HPF (NEGATIVE) 02/08/18 19:46 Ur Culture Indicated? No/not indicated 02/08/18 19:46 Tissue Pathology To follow 02/14/18 17:06 Radiology Reviewed: Yes EKG Reviewed: Yes Rhythm: NSR, SB, ST, PACs, Afib
--- NOTE | 2018-02-21 14:09 | DR.PROGNOT ---
Hospital Progress Notes - Progress Note for Day of: Progress Note Date: 02/21/18 - Chief Complaint Chief Complaint: vomited this morning ,and was having mid abdominal pain . abdominal xray showed recurrent partial SBO . pathology report revealed metastatic nodules and carcinomatosis . tolerating liquid diet with some nausea . had small BM . - History of Present Illness History of Present Illness: multiple abdominal surgeries for colon ca x2 , Gastrectomy for gstric ca . hysterectomy and lap kaleb . - Past Medical Family Social History Past Med/Fam/Surg Hx: No changes since H&P, Changes noted (describe) Allergies: Allergies No Known Drug Allergies Allergy (Verified 01/28/18 14:30) - Review Of Systems ROS: No change since H&P - Vital Signs Vital Signs: Temperature 98.1 F Pulse Rate [Right Radial] 83 Pulse Rate 90 Respiratory Rate 20 Blood Pressure [Right Arm] 115/63 Blood Pressure [Left Arm] 137/70 Blood Pressure [Left Radial 126/65 Artery] Blood Pressure 144/87 O2 Sat by Pulse Oximetry 93 - Physical Exam Oriented: Normal Eyes: Normal Ear: Normal Nose: Normal Throat: Normal Respiratory: Normal Cardiovascular: Normal, Tachycardia : Normal GI:Auscultation: Normal GI:Palpation: Normal GI: Tenderness: Diffuse (incisional tenderness ), Mild Skin: Normal Musculoskeletal: Normal Psychiatric: Normal Mood Description: Calm Affect: Normal Speech Pattern: Clear, Appropriate - Laboratory and Diagnostics Result Diagrams: 02/21/18 05:25 02/21/18 05:25 Labs: Laboratory WBC 4.3 X10^3/uL (3.6-10.0) 02/21/18 05:25 RBC 3.07 X10^6/uL (3.5-5.4) L 02/21/18 05:25 Hgb 8.5 g/dL (12.0-16.0) L 02/21/18 05:25 Hct 25.0 % (36.0-47.0) L 02/21/18 05:25 MCV 81.3 fL (80.0-100.0) 02/21/18 05:25 MCH 27.6 pg (27.0-34.0) 02/21/18 05:25 MCHC 33.9 g/dL (33.0-35.0) 02/21/18 05:25 RDW 15.4 % (11.6-16.5) 02/21/18 05:25 Plt Count 218 X10^3/uL (150.0-450.0) 02/21/18 05:25 Plt Count Comment Adequate (ADEQUATE) 02/21/18 05:25 MPV 7.0 fL (7.4-11.0) L 02/21/18 05:25 Neut % (Auto) 70.9 % (42.0-75.0) 02/21/18 05:25 Lymph % (Auto) 15.6 % (21.0-51.0) L 02/21/18 05:25 [place] % (Auto) 11.7 % (0.0-13.0) 02/21/18 05:25 Eos % (Auto) 1.4 % (0.9-2.9) 02/21/18 05:25 Baso % (Auto) 0.4 % (0.2-1.0) 02/21/18 05:25 Neut # (Auto) 3.1 x10^3/uL (2.2-4.8) 02/21/18 05:25 Lymph # (Auto) 0.7 X10^3/uL (1.3-2.9) L 02/21/18 05:25 [place] # (Auto) 0.5 x10^3/uL (0.3-0.8) 02/21/18 05:25 Eos # (Auto) 0.1 x10^3/uL (0.0-0.2) 02/21/18 05:25 Baso # (Auto) 0.0 X10^3/uL (0.0-0.1) 02/21/18 05:25 Absolute Nucleated RBC 0.5 /100WBC 02/21/18 05:25 Total Counted 100 02/21/18 05:25 Neutrophils % (Manual) 75 % (39-76) 02/21/18 05:25 Band Neutrophils % 2 % (0-10) 02/21/18 05:25 Lymphocytes % (Manual) 14 % (13-43) 02/21/18 05:25 Monocytes % (Manual) 6 % (4-9) 02/21/18 05:25 Eosinophils % (Manual) 3 % (0-6) 02/21/18 05:25 Plt Morphology Comment Normal (NORMAL) 02/21/18 05:25 RBC Morphology Abnormal (NORMAL) A 02/21/18 05:25 Hypochromasia Slight A 02/21/18 05:25 Sodium 136 mmol/L (136-145) 02/21/18 05:25 Corrected Sodium TNP 02/21/18 05:25 Potassium 3.3 mmol/L (3.5-5.1) L 02/21/18 05:25 Chloride 101 mmol/L (98-107) 02/21/18 05:25 Carbon Dioxide 29.5 mmol/L (21-32) 02/21/18 05:25 BUN 3 mg/dL (7-18) L 02/21/18 05:25 Creatinine 0.83 mg/dL (0.55-1.02) 02/21/18 05:25 Est GFR (MDRD) Af Amer > 60 (>60) 02/21/18 05:25 Est GFR (MDRD) Non-Af > 60 (>60) 02/21/18 05:25 Glucose 99 mg/dL (65-99) 02/21/18 05:25 Calcium 8.0 mg/dL (8.5-10.1) L 02/21/18 05:25 Corrected Calcium 9.2 mg/dL (8.5-10.1) 02/21/18 05:25 Magnesium 1.5 mg/dL (1.7-2.9) L 02/21/18 05:25 Total Bilirubin 0.70 mg/dL (0.2-1.0) 02/21/18 05:25 AST 20 Units/L (15-37) 02/21/18 05:25 ALT 15 Units/L (12-78) 02/21/18 05:25 Alkaline Phosphatase 86 Units/L (46-116) 02/21/18 05:25 Total Protein 5.8 g/dL (6.4-8.2) L 02/21/18 05:25 Albumin 2.5 g/dL (3.4-5.0) L 02/21/18 05:25 Globulin 3.3 g/dL (2.5-4.5) 02/21/18 05:25 Albumin/Globulin Ratio 0.8 Ratio (1.1-2.1) L 02/21/18 05:25 Amylase 40 Units/L (25-115) 05/27/18 04:20 Lipase 78 Units/L (73-393) 02/09/18 04:20 Specimen Type Clean catch urine 02/08/18 19:46 Urine Color Yellow (YELLOW) 02/08/18 19:46 Urine Appearance Slightly hazy (CLEAR) 02/08/18 19:46 Urine pH 5.0 (5.0 - 8.0) 02/08/18 19:46 Ur Specific [place] 1.030 (1.000-1.030) 02/08/18 19:46 Urine Protein 2+ (NEGATIVE) 02/08/18 19:46 Urine Glucose (UA) Negative (NEGATIVE) 02/08/18 19:46 Urine Ketones 4+ (NEGATIVE) 02/08/18 19:46 Urine Occult Blood 1+ (NEGATIVE) 02/08/18 19:46 Urine Nitrite Negative (NEGATIVE) 02/08/18 19:46 Urine Bilirubin 2+ (NEGATIVE) 02/08/18 19:46 Urine Urobilinogen 1+ (NORMAL) 02/08/18 19:46 Ur Leukocyte Esterase 1+ (NEGATIVE) 02/08/18 19:46 Urine RBC 0-2 /HPF (NONE SEEN) 02/08/18 19:46 Urine WBC 3-5 /HPF (NONE SEEN) 02/08/18 19:46 Ur Squamous Epith Cells Moderate /HPF (NEGATIVE) 02/08/18 19:46 Amorphous Sediment 2+ /HPF (NEGATIVE) 02/08/18 19:46 Urine Bacteria Trace /HPF (NEGATIVE) 02/08/18 19:46 Hyaline Casts Many /LPF (NEGATIVE) 02/08/18 19:46 Urine Mucus Moderate /HPF (NEGATIVE) 02/08/18 19:46 Ur Culture Indicated? No/not indicated 02/08/18 19:46 Tissue Pathology To follow 02/14/18 17:06 - Assessment and Plan 1: recurrent partial SBO. abdominal adhesions. carcinomatosis mainly involving the small bowel. post operative anemia. s/p laparotomy and bypass SBO. same po care . full liquid . DVT prophylaxis , OOB with binder, - Problem Patient Problems: Patient Problems Abdominal pain (Acute) R10.9 Small bowel obstruction (Acute) K56.609 Dehydration (Acute) E86.0 Hyperlipidemia (Acute) E78.5
[2018-02-21 15:14] VITALS: BP 143/79
--- NOTE | 2018-02-21 22:30 | PCM.PROG ---
Progress Note - Progress Note for Day of Date: 02/20/18 - Subjective Subjective: IS STATUS POST EXPLORATORY LAPAROTOMY, BYPASS OF SMALL BOWEL OBSTRUCTION, AND LYSIS OF ADHESIONS. LAPAROTOMY REVEALED EXTENSIVE ADHESIONS AND MULTIPLE AREAS OF WHAT LOOKED LIKE METASTATIC SEEDING INVOLVING THE SMALL BOWEL AND MESENTARY. TODAY, SHE IS ALERT AND ORIENTED, LYING IN BED ON MORNING ROUNDS. SHE REPORTS INCREASED NAUSEA, VOMITING, AND ABDOMINAL PAIN THIS MORNING. HER VITALS THIS MORNING ARE 97.9-86-22-96%-147/88. LABS WERE OBTAINED. ABNORMAL LAB VALUES INCLUDE THE FOLLOWING: RBC 2.96, HGB 8.3, HCT 23.7 , BUN 2, CALCIUM 8.1, ALT 11, TOTAL PROTEIN 5.4, ALBUMIN 2.4. PATHOLOGY REPORT IS PENDING. WE OBTAINED AN ABDOMEN XRAY THIS MORNING. IT REVEALED REDEVELOPMENT OF MULTIPLEL LOOPS OF SMALL BOWEL DEMONSTRATING AIR FLUID LEVELS ON THE UPRIGHT FILM AND SUGGESTIVE OR RECURRENT SMALL BOWEL OBSTRUCTION. SHE CONTINUES ON IV FLUIDS, IV PAIN MEDICATIONS, AND IV NAUSEA MEDICATIONS. SHE HAS NOT YET HAD A BOWEL MOVEMENT, BUT IS TOLERATING A SOFT DIET WELL. WE WILL CONTINUE WITH CURRENT PLAN OF CARE TODAY. OTHERWISE, WE WILL FOLLOW UP WITH AM LABS AND CONTINUE TO MONITOR PATIENT. CONTINUES TO FOLLOW PATIENT. - Past Medical Family Social History Past Med/Fam/Surg Hx: No changes since H&P, Changes noted (describe) Allergies: Allergies No Known Drug Allergies Allergy (Verified 01/28/18 14:30) - Review of Systems ROS: No change since H&P - Vital Signs and I&O's Vital Signs: Temperature 98.1 F Pulse Rate [Right Radial] 87 Pulse Rate 90 Respiratory Rate 20 Blood Pressure [Right Arm] 115/63 Blood Pressure [Left Arm] 143/79 Blood Pressure [Left Radial 126/65 Artery] Blood Pressure 144/87 O2 Sat by Pulse Oximetry 98 Intake and Output: Intake & Output 02/19/18 02/20/18 02/21/18 02/22/18 11:59 11:59 11:59 11:59 Intake Total 4173 / 4173 1280 / 1280 1767 / 1767 130 / 130 Output Total 2099 / 2100 200 / 200 Balance 2072 / 2072 1080 / 1080 1767 / 1767 130 / 130 - Physical Exam Oriented: Normal Eyes: Normal Ear: Normal Nose: Normal Throat: Normal Respiratory: Normal Cardiovascular: Normal, Tachycardia : Normal Auscultation: Bowel Sounds: Normal Tenderness: Diffuse (incisional tenderness ), Mild Skin: Normal Musculoskeletal: Normal Psychiatric: Normal Mood Description: Calm Affect: Normal Speech Pattern: Clear, Appropriate - Laboratory and Diagnostics Result Diagrams: 02/21/18 05:25 02/21/18 05:25 Labs: Laboratory WBC 4.3 X10^3/uL (3.6-10.0) 02/21/18 05:25 RBC 3.07 X10^6/uL (3.5-5.4) L 02/21/18 05:25 Hgb 8.5 g/dL (12.0-16.0) L 02/21/18 05:25 Hct 25.0 % (36.0-47.0) L 02/21/18 05:25 MCV 81.3 fL (80.0-100.0) 02/21/18 05:25 MCH 27.6 pg (27.0-34.0) 02/21/18 05:25 MCHC 33.9 g/dL (33.0-35.0) 02/21/18 05:25 RDW 15.4 % (11.6-16.5) 02/21/18 05:25 Plt Count 218 X10^3/uL (150.0-450.0) 02/21/18 05:25 Plt Count Comment Adequate (ADEQUATE) 02/21/18 05:25 MPV 7.0 fL (7.4-11.0) L 02/21/18 05:25 Neut % (Auto) 70.9 % (42.0-75.0) 02/21/18 05:25 Lymph % (Auto) 15.6 % (21.0-51.0) L 02/21/18 05:25 [place] % (Auto) 11.7 % (0.0-13.0) 02/21/18 05:25 Eos % (Auto) 1.4 % (0.9-2.9) 02/21/18 05:25 Baso % (Auto) 0.4 % (0.2-1.0) 02/21/18 05:25 Neut # (Auto) 3.1 x10^3/uL (2.2-4.8) 02/21/18 05:25 Lymph # (Auto) 0.7 X10^3/uL (1.3-2.9) L 02/21/18 05:25 [place] # (Auto) 0.5 x10^3/uL (0.3-0.8) 02/21/18 05:25 Eos # (Auto) 0.1 x10^3/uL (0.0-0.2) 02/21/18 05:25 Baso # (Auto) 0.0 X10^3/uL (0.0-0.1) 02/21/18 05:25 Absolute Nucleated RBC 0.5 /100WBC 02/21/18 05:25 Total Counted 100 02/21/18 05:25 Neutrophils % (Manual) 75 % (39-76) 02/21/18 05:25 Band Neutrophils % 2 % (0-10) 02/21/18 05:25 Lymphocytes % (Manual) 14 % (13-43) 02/21/18 05:25 Monocytes % (Manual) 6 % (4-9) 02/21/18 05:25 Eosinophils % (Manual) 3 % (0-6) 02/21/18 05:25 Plt Morphology Comment Normal (NORMAL) 02/21/18 05:25 RBC Morphology Abnormal (NORMAL) A 02/21/18 05:25 Hypochromasia Slight A 02/21/18 05:25 Sodium 136 mmol/L (136-145) 02/21/18 05:25 Corrected Sodium TNP 02/21/18 05:25 Potassium 3.3 mmol/L (3.5-5.1) L 02/21/18 05:25 Chloride 101 mmol/L (98-107) 02/21/18 05:25 Carbon Dioxide 29.5 mmol/L (21-32) 02/21/18 05:25 BUN 3 mg/dL (7-18) L 02/21/18 05:25 Creatinine 0.83 mg/dL (0.55-1.02) 02/21/18 05:25 Est GFR (MDRD) Af Amer > 60 (>60) 02/21/18 05:25 Est GFR (MDRD) Non-Af > 60 (>60) 02/21/18 05:25 Glucose 99 mg/dL (65-99) 02/21/18 05:25 Calcium 8.0 mg/dL (8.5-10.1) L 02/21/18 05:25 Corrected Calcium 9.2 mg/dL (8.5-10.1) 02/21/18 05:25 Magnesium 1.5 mg/dL (1.7-2.9) L 02/21/18 05:25 Total Bilirubin 0.70 mg/dL (0.2-1.0) 02/21/18 05:25 AST 20 Units/L (15-37) 02/21/18 05:25 ALT 15 Units/L (12-78) 02/21/18 05:25 Alkaline Phosphatase 86 Units/L (46-116) 02/21/18 05:25 Total Protein 5.8 g/dL (6.4-8.2) L 02/21/18 05:25 Albumin 2.5 g/dL (3.4-5.0) L 02/21/18 05:25 Globulin 3.3 g/dL (2.5-4.5) 02/21/18 05:25 Albumin/Globulin Ratio 0.8 Ratio (1.1-2.1) L 02/21/18 05:25 Amylase 40 Units/L (25-115) 02/09/18 04:20 Lipase 78 Units/L (73-393) 02/09/18 04:20 Specimen Type Clean catch urine 02/08/18 19:46 Urine Color Yellow (YELLOW) 02/08/18 19:46 Urine Appearance Slightly hazy (CLEAR) 02/08/18 19:46 Urine pH 5.0 (5.0 - 8.0) 02/08/18 19:46 Ur Specific [place] 1.030 (1.000-1.030) 02/08/18 19:46 Urine Protein 2+ (NEGATIVE) 02/08/18 19:46 Urine Glucose (UA) Negative (NEGATIVE) 02/08/18 19:46 Urine Ketones 4+ (NEGATIVE) 02/08/18 19:46 Urine Occult Blood 1+ (NEGATIVE) 02/08/18 19:46 Urine Nitrite Negative (NEGATIVE) 02/08/18 19:46 Urine Bilirubin 2+ (NEGATIVE) 02/08/18 19:46 Urine Urobilinogen 1+ (NORMAL) 02/08/18 19:46 Ur Leukocyte Esterase 1+ (NEGATIVE) 02/08/18 19:46 Urine RBC 0-2 /HPF (NONE SEEN) 02/08/18 19:46 Urine WBC 3-5 /HPF (NONE SEEN) 02/08/18 19:46 Ur Squamous Epith Cells Moderate /HPF (NEGATIVE) 02/08/18 19:46 Amorphous Sediment 2+ /HPF (NEGATIVE) 02/08/18 19:46 Urine Bacteria Trace /HPF (NEGATIVE) 02/08/18 19:46 Hyaline Casts Many /LPF (NEGATIVE) 02/08/18 19:46 Urine Mucus Moderate /HPF (NEGATIVE) 02/08/18 19:46 Ur Culture Indicated? No/not indicated 02/08/18 19:46 Tissue Pathology To follow 02/14/18 17:06 - Plan (1) Partial bowel obstruction Status: Acute Qualifiers: Intestinal obstruction type: obstruction due to adhesions Qualified Code(s) : K56.51 - Intestinal adhesions [bands], with partial obstruction Plan: CONTINUE IV FLUIDS, ADVANCE TO SOFT DIET, PAIN MEDICATIONS, NAUSEA MEDICATIONS, CONTINUE TO MONITOR (2) Hyperlipidemia Status: Acute Qualifiers: Hyperlipidemia type: mixed hyperlipidemia Qualified Code(s): E78.2 - Mixed hyperlipidemia Plan: CONTINUE LIPITOR (3) Hypokalemia Status: Chronic Plan: POTASSIUM REPLACEMENT WITH PROTOCOL
--- NOTE | 2018-03-10 23:46 | DR.CARTERD ---
- Discharge Summary for: Discharge Summary for Date of:: 02/21/18 - Admission Date Date of Admission: 02/08/18 - Admission Diagnoses Admission Diagnosis: (1) Partial bowel obstruction - Discharge Date Discharge Date: 02/21/18 - Discharge Diagnoses Discharge Diagnosis: (1) Partial bowel obstruction (2) Hyperlipidemia (3) Hypokalemia - Hospital Course Hospital Course: 02/08/18: Day one, Ms. Johnson presented to the ER complaining of nausea and vomiting for the past 3 weeks that worsened. Patient recently underwent EGD and had self-treated with GI Cocktail with no improvement. Patient reported low grade temp at home and complained of generalized weakness. Abdomen and Pelvis obtained revealed partial proximal and mid small obstruction. Patient had received Zofran 4mg IVP X 1 as well as Morphine Sulfate 4 mg IVP for pain rated 8 on scale of 0-10. Patient reported not being able to hold down even water. Labs reveal electrolyte imbalance with sodium of 135, potassium of 3.4. Patient was given IVF bolus of Normal Saline. Patent was admitted for further observation with treatment of intractable pain and nausea. 02/09/18: Day two, Patient continued with abdominal pain. CT report confirmed partial small bowel obstruction due to uncertain etiology but possibly due to adhesive disease or internal herniation. We held patient NPO while gently hydrating patient with IVF Normal Saline @ 100mls/hr as well as continuation of Protonix 40mg IV Daily. Patient described pain as a throbbing, cramping pain and rated a 7 on a scale of 0-10. Patient continued to require Morphine Sulfate 4mg IV Q 4H PRN. Patient had received 3 doses in the prior 24 hours as well as Zofran 4mg IV Q 6H PRN for nausea. Labs collected reveal a low potassium of 3.2 and she received potassium replacement by way of [place] 10meq NS in 100mls X 4. We continued to monitor. 02/10/18: Day three, Patient continued to report abdominal pain and nausea. Patient noted to have received Zofran 4mg IV x4 and Morphine 4mg IV x4 during the prior 24 hours for pain and nausea. On palpation of abdomen patient noted with diffuse abdominal tenderness on palpation. An abdomen and pelvis CT was obtained which revealed persistent slightly progressive findings of at least high-grade partial obstruction. Patient remained NPO. NG tube was inserted and placed to low intermittent suction. We continued with IV fluids, IV pain and nausea control. Abnormal Labs: Hgb 10.6, Hct 31.5, Plt Count 131, Potassium 3.4, Calcium 7.6, Corrected Calcium 8.4, Total Bilirubin 1.10, Total Protein 6.0, Albumin 3.0, A/G Ratio 1.0. We continued to monitor. 02/11/18: Day four, Patient noted with continued diffuse abdominal pain and nausea. NG tube noted was placed the day before and was noted with large amount of drainage in canister. KUB obtained revealed probable small bowel obstruction with fluid-filled loops of small bowel. Patient noted with diffuse tenderness on palpation of abdominal quadrants. Patient noted to have received Zofran 4mg IV x2, Phenergan 12.5mg IV x2 and Morphine 4mg IV x3 in the prior 24 hours with continued reports of pain and nausea. We continued with IV fluids and pain and nausea control. Patient remained NPO. Abnormal Labs: Hgb 11.0, Hct 33.1, Plt Count 132, Potassium 3.4, BUN 5, Calcium 7.8, Corrected Calcium 8.4, AST 13, ALT 8, Albumin 3.2, A/G Ratio 1.0. 02/12/18: Day five, Patient noted with continued diffuse abdominal pain with nausea. Patient noted to have received Morphine 4mg IV x3, Morphine 2mg IV x1, Phenergan 12.5mg IV x1 and Zofran 4mg IV x4 in the prior 24 hours for pain and nausea. On palpation of abdominal quadrants patient noted with continued diffuse abdominal tenderness. Dr. Rahman noted that pathology returned gastric polyp from EGD done on 02/07 and was negative for malignancy. Patient s NG tube was removed and diet advanced to clear liquids. Abnormal Labs: Hgb 10.1, Hct 29.4, Plt Count 117, Potassium 2.9, BUN 3, Calcium 7.4, Corrected Calcium 8.4, Total Protein 6.2, Albumin 2.8, A/G Ratio 0.8. We continued treatment and monitored. 02/13/18: Day six, Patient noted with slight improvement in pain and nausea. Patient noted to have received Zofran 4mg IV x3 during the prior 24 hours for nausea. Diet was advanced the day before to clear liquids and noted to have tolerated diet advance well. Diet advanced to full liquid and monitored tolerance. Abnormal Labs: Hgb 9.7, Hct 28.7, Plt Count 116, Potassium 3.3, BUN 1, Calcium 7.3, Corrected Calcium 8.3, Magnesium 1.2, AST 13, Total Protein 5.7 , Albumin 2.8, A/G Ratio 1.0. We continued to monitor. 02/14/18: Day seven, Patients diet was advanced to full liquids however patient noted with abdominal pain following meal. Dr. Rahman discussed in depth with patient and family recurrent bowel obstructions and together they decided to proceed with surgery. Patient taken to the operating room and underwent an exploratory laparotomy. During surgery, Dr. Rahman noted that immediately underneath the fascia was extensive adhesions with dense attachment of the bowel to the abdominal wall. Several hours were spent releasing the adhesions and exposing the bowel. Immediately underneath close to the umbilicus there was a large mass involving the small intestine with dense attachment of the loops of small intestine to each other and to the mesentery with complete obscured anatomy. Resection was not feasible. Biopsy of a piece of a nodule was performed making sure not to damage the bowel or the mesentery. Dr. Rahman discovered numerous metastatic nodules to the small bowel causing induration and creating a point of obstruction. He identified large distended proximal bowel and completely collapsed the distal bowel. He aligned these two loops together and performed enteroenterostomy to bypass the obstruction. There was another nodule causing almost complete obstruction of the small bowel which was excised. The gastric inlet could not be reached because the extensive adhesions in the upper abdomen and possible local metastasis. There was a small incisional hernia on the lower part of the incision which was repaired during the closure. Postoperative diagnosis noted to be small bowel obstruction with adhesions and multiple nodules involving the small bowel and mesentery, very suspicious for metastatic cancer. These nodules were involving the small bowel mesentery and abdominal wall. NG tube inserted and placed to low intermittent suction. We continued with IV fluids, IV antibiotics. 02/15/18: Day eight, Patient was postoperative day number one from an exploratory laparotomy, lysis of extensive adhesions, excision of multiple nodules of the peritoneum and nodules involving the small intestine, enteroenterostomy and repair of incisional hernia. Patient reported abdominal pain and had received multiple doses of IV pain and nausea medications with continued complaint. NG tube remained in place and patient continued to be NPO. Labs revealed a low magnesium of 0.9 and patient received supplemental magnesium of 6gm IV. Patient remained NPO. We continued with low intermittent suction to NG tube. 02/16/18: Day nine, Patient continued to report abdominal pain but denied nausea and vomiting. Patient noted with diffuse incisional tenderness on palpation of abdomen. Patient noted with decreased bowel sounds throughout. NG tube removed and patients diet advanced to clear liquids. Patient noted to have received Dilaudid 2mg IV x4 in the prior 24 hours. We continued with treatment. 02/17/18: Day ten, Patient was postoperative day number three. Patient noted with continued abdominal pain with moderate tenderness on palpation of all quadrants. Patient noted with decreased bowel sounds throughout. Patients diet advanced to full liquids. We continued with treatment. Abnormal Labs: RBC 3.00, Hgb 8.4, Hct 23.9, MCV 79.8, MCHC 35.1, Plt Count 125, Potassium 3.4, BUN 0, Glucose 133, Calcium 7.1, ALT 11, Total Protein 5.1, Albumin 2.1, A/G Ratio 0.7. We continued to monitor. 02/18/18: Day eleven, Patient postoperative day number five from an exploratory laparotomy. Patient noted with continued abdominal tenderness on palpation of all quadrants. Patient tolerated diet advanced well and diet advanced again to soft diet. Patient continued with no bowel movement since surgery and on auscultation of abdominal quadrants patient noted with continued hypoactive bowel sounds. We continued with treatment. Abnormal Labs: RBC 3.13, Hgb 8.7, Hct 25.3, Lymph# 1.1, BUN 0, Glucose 118, Calcium 7.2, AST 12, Total Protein 5.5 , Albumin 2.4, A/G ratio 0.8. 02/19/18: Day twelve, Patient was postoperative day number six from an exploratory laparotomy. Patient continued to report abdominal tenderness on palpation. Patient noted to have received [place] 5/325mg x1, Zofran 4mg IV x2, Phenergan 12.5mg IV x2 and Dilaudid 2mg IV x4 in the prior 24 hours for pain and nausea. Patient remained on a soft diet and noted to be tolerating well. Patient noted with no bowel movement since surgery and given a fleets enema which produced results with three bowel movements. On auscultation of abdominal quadrants patient noted with continued hypoactive bowel sounds throughout. We continued with treatment and monitored. Abnormal Labs: RBC 2.90 , Hgb 8.0, Hct 23.4, Potassium 3.4, BUN 0, Glucose 113, Calcium 7.2, AST 6, ALT 10, Total Protein 5.3, Albumin 2.3, A/G Ratio 0.8. 02/20/18: Day thirteen, Patient noted with continued pain and nausea. Patient noted to have started vomiting during the night last night. An abdomen x-ray obtained due to vomiting and it revealed redevelopment of multiple dilated loops of small bowel demonstrating air-fluid levels on the upright film and suggestive of recurrent small bowel obstruction. Patient received Dialudid 2mg IV x8, Phenergan 12.5mg IV x3 and Zofran 4mg IV x2 in the prior 24 hours with continued nausea and pain. Patients diet changed back to NPO. Abdomen noted with continued incisional tenderness on palpation. We continued with treatment. Abnormal Labs: RBC 2.96, Hgb 8.3, Hct 23.7, BUN 2, Calcium 8.1, Magnesium 1.5, Total Protein 5.8, Albumin 2.5, A/G Ratio 0.8. Abdomen X-Ray: Redevelopment of multiple dilated loops of small bowel demonstrating air-fluid levels on the upright film and suggestive of recurrent small bowel obstruction. Lungs clear. 02/21/18: Day fourteen, Patient was feeling some better. Patient was tolerating a full liquid diet well with minimal nausea with no vomiting reported. Dr. Rahman released patient for discharge. Vital signs stable. Labs wnl. Incision clean, dry, with no drainage noted. We planned for discharge. Instructions for medications and follow up were discussed with patient and family, both voiced understanding. Patient discharged home in stable condition with family. - Discharge Medications Discharge Medications: Home Medication List Hydrocodone/Acetaminophen [Hydrocodone-Acetamin 5-325 mg] 1 tab PO Q6H PRN 02/08 [History] cefdinir 1 cap PO BID 02/08/18 [History] dicyclomine 1 cap PO TID 02/08/18 [History] pantoprazole 1 tab PO DAILY 02/08/18 [History] dicyclomine 10 mg PO TID PRN #90 cap 02/20/18 [Rx] promethazine 25 mg PO Q6H PRN #30 tab 02/20/18 [Rx] Prescriptions: dicyclomine Norm Martínez promethazine Norm Martínez - Discharge Disposition Discharge Disposition: Patient is to follow up with Dr. Rahman in one week, with Dr. Bradley in one week, and in our office in one week.
--- NOTE | 2018-04-13 17:49 | PCM.PROG ---
Progress Note - Progress Note for Day of Date of Exam: 02/10/18 - Subjective Subjective: IS BEING TREATED FOR A SMALL BOWEL OBSTRUCTION. TODAY, SHE IS ALERT AND ORIENTED, LYING IN BED ON MORNING ROUNDS. SHE CONTINUES WITH DIFFUSE ABDOMINAL PAIN AND NAUSEA. HER VITALS THIS MORNING ARE 98.0-82-20-94%- 111/63. LABS WERE OBTAINED. ABNORMAL LAB VALUES INCLUDE THE FOLLOWING: HGB 10.6 , HCT 31.5, PLT COUNT 131, POTASSIUM 3.4, CALCIUM 7.6, TOTAL BILI 1.10, TOTAL PROTEIN 6.0, ALBUMIN 3.0. SHE IS CURRENTLY RECEIVING NORMAL SALINE, IV PAIN MEDICATION, AND IV NAUSEA MEDICATION. WE WILL CONTINUE THE POTASSIUM AND MAGNESIUM REPLACEMENT PROTOCOLS TODAY. OTHERWISE, WE WILL CONTINUE WITH CURRENT PLAN OF CARE AND CONSULT , GENERAL SURGEON. WE WILL FOLLOW UP WITH AM LABS AND CONTINUE TO MONITOR PATIENT. - Past Medical Family Social History Past Med/Fam/Surg Hx: No changes since H&P, Changes noted (describe) Allergies: Allergies No Known Drug Allergies Allergy (Verified 01/28/18 14:30) - Review of Systems ROS: No change since H&P - Vital Signs and I&O's Vital Signs: Temperature 98.1 F Pulse Rate [Right Radial] 87 Pulse Rate 90 Respiratory Rate 20 Blood Pressure [Right Arm] 115/63 Blood Pressure [Left Arm] 143/79 Blood Pressure [Left Radial 126/65 Artery] Blood Pressure 144/87 O2 Sat by Pulse Oximetry 98 - Physical Exam Oriented: Normal Eyes: Normal Ear: Normal Nose: Normal Throat: Normal Respiratory: Normal Cardiovascular: Normal, Tachycardia : Normal Auscultation: Bowel Sounds: Normal Palpation: Normal Tenderness: Diffuse (incisional tenderness ), Mild Skin: Normal Musculoskeletal: Normal Psychiatric: Normal Mood Description: Calm Affect: Normal Speech Pattern: Clear, Appropriate - Laboratory and Diagnostics Result Diagrams: 02/21/18 05:25 02/21/18 05:25 Labs: Laboratory WBC 4.3 X10^3/uL (3.6-10.0) 02/21/18 05:25 RBC 3.07 X10^6/uL (3.5-5.4) L 02/21/18 05:25 Hgb 8.5 g/dL (12.0-16.0) L 02/21/18 05:25 Hct 25.0 % (36.0-47.0) L 02/21/18 05:25 MCV 81.3 fL (80.0-100.0) 02/21/18 05:25 MCH 27.6 pg (27.0-34.0) 02/21/18 05:25 MCHC 33.9 g/dL (33.0-35.0) 02/21/18 05:25 RDW 15.4 % (11.6-16.5) 02/21/18 05:25 Plt Count 218 X10^3/uL (150.0-450.0) 02/21/18 05:25 Plt Count Comment Adequate (ADEQUATE) 02/21/18 05:25 MPV 7.0 fL (7.4-11.0) L 02/21/18 05:25 Neut % (Auto) 70.9 % (42.0-75.0) 02/21/18 05:25 Lymph % (Auto) 15.6 % (21.0-51.0) L 02/21/18 05:25 [place] % (Auto) 11.7 % (0.0-13.0) 02/21/18 05:25 Eos % (Auto) 1.4 % (0.9-2.9) 02/21/18 05:25 Baso % (Auto) 0.4 % (0.2-1.0) 02/21/18 05:25 Neut # (Auto) 3.1 x10^3/uL (2.2-4.8) 02/21/18 05:25 Lymph # (Auto) 0.7 X10^3/uL (1.3-2.9) L 02/21/18 05:25 [place] # (Auto) 0.5 x10^3/uL (0.3-0.8) 02/21/18 05:25 Eos # (Auto) 0.1 x10^3/uL (0.0-0.2) 02/21/18 05:25 Baso # (Auto) 0.0 X10^3/uL (0.0-0.1) 02/21/18 05:25 Absolute Nucleated RBC 0.5 /100WBC 02/21/18 05:25 Total Counted 100 02/21/18 05:25 Neutrophils % (Manual) 75 % (39-76) 02/21/18 05:25 Band Neutrophils % 2 % (0-10) 02/21/18 05:25 Lymphocytes % (Manual) 14 % (13-43) 02/21/18 05:25 Monocytes % (Manual) 6 % (4-9) 02/21/18 05:25 Eosinophils % (Manual) 3 % (0-6) 02/21/18 05:25 Plt Morphology Comment Normal (NORMAL) 02/21/18 05:25 RBC Morphology Abnormal (NORMAL) A 02/21/18 05:25 Hypochromasia Slight A 02/21/18 05:25 Sodium 136 mmol/L (136-145) 02/21/18 05:25 Corrected Sodium TNP 02/21/18 05:25 Potassium 3.3 mmol/L (3.5-5.1) L 02/21/18 05:25 Chloride 101 mmol/L (98-107) 02/21/18 05:25 Carbon Dioxide 29.5 mmol/L (21-32) 02/21/18 05:25 BUN 3 mg/dL (7-18) L 02/21/18 05:25 Creatinine 0.83 mg/dL (0.55-1.02) 02/21/18 05:25 Est GFR (MDRD) Af Amer > 60 (>60) 02/21/18 05:25 Est GFR (MDRD) Non-Af > 60 (>60) 02/21/18 05:25 Glucose 99 mg/dL (65-99) 02/21/18 05:25 Calcium 8.0 mg/dL (8.5-10.1) L 02/21/18 05:25 Corrected Calcium 9.2 mg/dL (8.5-10.1) 02/21/18 05:25 Magnesium 1.5 mg/dL (1.7-2.9) L 02/21/18 05:25 Total Bilirubin 0.70 mg/dL (0.2-1.0) 02/21/18 05:25 AST 20 Units/L (15-37) 02/21/18 05:25 ALT 15 Units/L (12-78) 02/21/18 05:25 Alkaline Phosphatase 86 Units/L (46-116) 02/21/18 05:25 Total Protein 5.8 g/dL (6.4-8.2) L 02/21/18 05:25 Albumin 2.5 g/dL (3.4-5.0) L 02/21/18 05:25 Globulin 3.3 g/dL (2.5-4.5) 02/21/18 05:25 Albumin/Globulin Ratio 0.8 Ratio (1.1-2.1) L 02/21/18 05:25 Amylase 40 Units/L (25-115) 02/09/18 04:20 Lipase 78 Units/L (73-393) 02/09/18 04:20 Specimen Type Clean catch urine 02/08/18 19:46 Urine Color Yellow (YELLOW) 02/08/18 19:46 Urine Appearance Slightly hazy (CLEAR) 02/08/18 19:46 Urine pH 5.0 (5.0 - 8.0) 02/08/18 19:46 Ur Specific [place] 1.030 (1.000-1.030) 02/08/18 19:46 Urine Protein 2+ (NEGATIVE) 02/08/18 19:46 Urine Glucose (UA) Negative (NEGATIVE) 02/08/18 19:46 Urine Ketones 4+ (NEGATIVE) 02/08/18 19:46 Urine Occult Blood 1+ (NEGATIVE) 02/08/18 19:46 Urine Nitrite Negative (NEGATIVE) 02/08/18 19:46 Urine Bilirubin 2+ (NEGATIVE) 02/08/18 19:46 Urine Urobilinogen 1+ (NORMAL) 02/08/18 19:46 Ur Leukocyte Esterase 1+ (NEGATIVE) 02/08/18 19:46 Urine RBC 0-2 /HPF (NONE SEEN) 02/08/18 19:46 Urine WBC 3-5 /HPF (NONE SEEN) 02/08/18 19:46 Ur Squamous Epith Cells Moderate /HPF (NEGATIVE) 02/08/18 19:46 Amorphous Sediment 2+ /HPF (NEGATIVE) 02/08/18 19:46 Urine Bacteria Trace /HPF (NEGATIVE) 02/08/18 19:46 Hyaline Casts Many /LPF (NEGATIVE) 02/08/18 19:46 Urine Mucus Moderate /HPF (NEGATIVE) 02/08/18 19:46 Ur Culture Indicated? No/not indicated 02/08/18 19:46 Tissue Pathology To follow 02/14/18 17:06 - Plan (1) Partial bowel obstruction Status: Acute Qualifiers: Intestinal obstruction type: obstruction due to adhesions Qualified Code(s) : K56.51 - Intestinal adhesions [bands], with partial obstruction Plan: CONTINUE IV FLUIDS, ADVANCE TO SOFT DIET, PAIN MEDICATIONS, NAUSEA MEDICATIONS, CONTINUE TO MONITOR (2) Hyperlipidemia Status: Acute Qualifiers: Hyperlipidemia type: mixed hyperlipidemia Qualified Code(s): E78.2 - Mixed hyperlipidemia Plan: CONTINUE LIPITOR (3) Hypokalemia Status: Chronic Plan: POTASSIUM REPLACEMENT WITH PROTOCOL
== END 2018-02-21 15:14 | disposition home or self-care (01) | DRG 330 ==
LOC: ER 14:46 → MED/SURG 17:06 → OBSVTOIN 02-09 08:00 → ICU 02-14 15:02
PROVIDERS: ADMIT Internal Medicine; ATTEND Internal Medicine
DX: K56.51 Intestinal adhesions [bands], with partial obstruction; K56.690 Other partial intestinal obstruction; Z85.028 Personal history of other malignant neoplasm of stomach; C78.4 Secondary malignant neoplasm of small intestine; E78.2 Mixed hyperlipidemia; Z85.038 Personal history of other malignant neoplasm of large intestine; R10.84 Generalized abdominal pain; E87.6 Hypokalemia; E86.0 Dehydration; R11.2 Nausea with vomiting, unspecified
CPT/HCPCS: 36415; 74000; 74018; 74022; 74176; 74177; 80053; 81001; 82150; 83690; 83735; 84132; 85025; 93005; 96365; 96367; 96374; 96375; 99282; 99284; A4216; A4222; C9113; S0028; S0030; G0378; J0330; J0780; J1170; J1650; J1956; J2250; J2270; J2405; J2550; J2704; J2710; J3010; J3475; J3480; J3490; J7030; J7050; J7120; J8499; S5010